=== PATIENT | female | born 1940 | race Caucasian/White ===

== ENCOUNTER 2020-01-26 08:44 | Outpatient (REF) | payer MEDICARE, MEDICAID, SELFPAY ==
[2020-01-26 13:00] LABS: INTERNATIONAL NORM RATIO 4.8 (0.9-1.1); Prothrombin Time 57.6 SEC (10.8-13.0)
== END 2020-01-26 08:45 | disposition home or self-care (01) ==
LOC: HO.LHD 08:44
PROVIDERS: Visit Provider Internal Medicine
DX: I48.20 Chronic atrial fibrillation, unspecified (principal); Z79.01 Long term (current) use of anticoagulants
CPT/HCPCS: 36415; 85610

== ENCOUNTER 2020-01-29 02:43 | Outpatient (REF) | payer MEDICARE, MEDICAID, SELFPAY ==
[2020-01-29 11:34] LABS: INTERNATIONAL NORM RATIO 1.3 (0.9-1.1); Prothrombin Time 15.3 SEC (10.8-13.0)
== END 2020-01-29 02:44 | disposition home or self-care (01) ==
LOC: HO.LHD 02:43
PROVIDERS: Visit Provider Internal Medicine
DX: I48.20 Chronic atrial fibrillation, unspecified (principal); Z79.01 Long term (current) use of anticoagulants
CPT/HCPCS: 36415; 85610

== ENCOUNTER 2020-02-01 06:31 | Outpatient (REF) | payer MEDICARE, MEDICAID, SELFPAY ==
[2020-02-01 11:10] LABS: INTERNATIONAL NORM RATIO 3.2 (0.9-1.1)
== END 2020-02-01 06:32 | disposition home or self-care (01) ==
LOC: HO.LHD 06:31
PROVIDERS: Visit Provider Family Medicine
DX: I48.20 Chronic atrial fibrillation, unspecified (principal); Z79.01 Long term (current) use of anticoagulants
CPT/HCPCS: 36415; 85610

== ENCOUNTER 2020-02-05 04:05 | Outpatient (REF) | payer MEDICARE, MEDICAID, SELFPAY ==
[2020-02-05 11:23] LABS: INTERNATIONAL NORM RATIO 2.1 (0.9-1.1); Prothrombin Time 24.8 SEC (10.8-13.0)
== END 2020-02-05 04:06 | disposition home or self-care (01) ==
LOC: HO.LHD 04:05
PROVIDERS: Visit Provider Internal Medicine
DX: I48.20 Chronic atrial fibrillation, unspecified (principal); Z79.01 Long term (current) use of anticoagulants
CPT/HCPCS: 36415; 85610

== ENCOUNTER 2020-02-15 06:52 | Outpatient (REF) | payer MEDICARE, MEDICAID, SELFPAY ==
[2020-02-15 10:51] LABS: INTERNATIONAL NORM RATIO 4.2 (0.9-1.1); Prothrombin Time 50.6 SEC (10.8-13.0)
== END 2020-02-15 06:53 | disposition home or self-care (01) ==
LOC: HO.LHD 06:52
PROVIDERS: Visit Provider Internal Medicine
DX: I48.91 Unspecified atrial fibrillation (principal)
CPT/HCPCS: 36415; 85610

== ENCOUNTER 2020-02-17 07:03 | Outpatient (REF) | payer MEDICARE, MEDICAID, SELFPAY ==
[2020-02-17 11:09] LABS: INTERNATIONAL NORM RATIO 1.1 (0.9-1.1); Prothrombin Time 13.4 SEC (10.8-13.0)
== END 2020-02-17 07:04 | disposition home or self-care (01) ==
LOC: HO.LHD 07:03
PROVIDERS: Visit Provider Internal Medicine
DX: I48.20 Chronic atrial fibrillation, unspecified (principal); Z79.01 Long term (current) use of anticoagulants
CPT/HCPCS: 36415; 85610

== ENCOUNTER 2020-02-22 | Outpatient (REF) | payer MEDICARE, MEDICAID, SELFPAY ==
[2020-02-22 11:01] LABS: INTERNATIONAL NORM RATIO 1.2 (0.9-1.1)
== END 2020-02-22 00:01 | disposition home or self-care (01) ==
LOC: HO.LHD
PROVIDERS: Visit Provider Internal Medicine
DX: I48.20 Chronic atrial fibrillation, unspecified (principal); Z79.01 Long term (current) use of anticoagulants
CPT/HCPCS: 36415; 85610

== ENCOUNTER 2020-02-25 05:16 | Outpatient (REF) | payer MEDICARE, MEDICAID, SELFPAY ==
[2020-02-25 10:17] LABS: INTERNATIONAL NORM RATIO 1.5 (0.9-1.1); Prothrombin Time 17.6 SEC (10.8-13.0)
== END 2020-02-25 05:17 | disposition home or self-care (01) ==
LOC: HO.LHD 05:16
PROVIDERS: Visit Provider Internal Medicine
DX: I48.20 Chronic atrial fibrillation, unspecified (principal); Z79.01 Long term (current) use of anticoagulants
CPT/HCPCS: 36415; 85610

== ENCOUNTER 2020-03-01 06:11 | Outpatient (REF) | payer MEDICARE, MEDICAID, SELFPAY ==
[2020-03-01 10:50] LABS: INTERNATIONAL NORM RATIO 1.4 (0.9-1.1); Prothrombin Time 17.2 SEC (10.8-13.0)
== END 2020-03-01 06:12 | disposition home or self-care (01) ==
LOC: HO.LHD 06:11
PROVIDERS: Visit Provider Internal Medicine
DX: I48.20 Chronic atrial fibrillation, unspecified (principal); Z79.01 Long term (current) use of anticoagulants
CPT/HCPCS: 36415; 85610

== ENCOUNTER 2020-03-04 | Outpatient (REF) | payer MEDICARE, MEDICAID, SELFPAY ==
[2020-03-04 11:15] LABS: INTERNATIONAL NORM RATIO 2.6 (0.9-1.1); Prothrombin Time 30.8 SEC (10.8-13.0)
[2020-03-04 11:44] LABS: Anion Gap 14 (12-20); Blood Urea Nitrogen 18 mg/dL (9-16); Calcium 8.9 mg/dL (8.4-10.2); Carbon Dioxide 29 mmol/L (22-29); Chloride 99 mmol/L (96-108); Estimated Glomerular Filt Rate > 60; Glucose Random 84 mg/dL (60-115); Potassium 4.3 mmol/l (3.3-5.1); Sodium 138 mmol/L (135-145)
== END 2020-03-04 00:01 | disposition home or self-care (01) ==
LOC: HO.LHD
PROVIDERS: Visit Provider Internal Medicine
DX: I48.91 Unspecified atrial fibrillation (principal); Z79.01 Long term (current) use of anticoagulants
CPT/HCPCS: 36415; 80048; 85610

== ENCOUNTER 2020-03-14 | Outpatient (REF) | payer MEDICARE, MEDICAID, SELFPAY ==
[2020-03-14 11:43] LABS: INTERNATIONAL NORM RATIO 2.8 (0.9-1.1); Prothrombin Time 33.9 SEC (10.8-13.0)
== END 2020-03-14 00:01 | disposition home or self-care (01) ==
LOC: HO.LHD
PROVIDERS: Visit Provider Internal Medicine
DX: I48.91 Unspecified atrial fibrillation (principal); Z79.01 Long term (current) use of anticoagulants
CPT/HCPCS: 36415; 85610

== ENCOUNTER 2020-04-04 | Outpatient (REF) | payer MEDICARE, MEDICAID, SELFPAY ==
[2020-04-04 11:18] LABS: INTERNATIONAL NORM RATIO 3.8 (0.9-1.1); Prothrombin Time 45.2 SEC (10.8-13.0)
== END 2020-04-04 00:01 ==
LOC: HO.LHD
PROVIDERS: Visit Provider Internal Medicine
DX: I48.20 Chronic atrial fibrillation, unspecified (principal); Z79.01 Long term (current) use of anticoagulants
CPT/HCPCS: 36415; 85610

== ENCOUNTER 2020-04-07 | Outpatient (REF) | payer MEDICARE, MEDICAID, SELFPAY ==
[2020-04-07 10:28] LABS: INTERNATIONAL NORM RATIO 1.7 (0.9-1.1); Prothrombin Time 19.7 SEC (10.8-13.0)
== END 2020-04-07 00:01 | disposition home or self-care (01) ==
LOC: HO.LHD
PROVIDERS: Visit Provider Internal Medicine
DX: I48.20 Chronic atrial fibrillation, unspecified (principal); Z79.01 Long term (current) use of anticoagulants
CPT/HCPCS: 36415; 85610

== ENCOUNTER 2020-04-12 08:29 | Outpatient (REF) | payer MEDICARE, MEDICAID, SELFPAY ==
[2020-04-12 12:11] LABS: INTERNATIONAL NORM RATIO 1.2 (0.9-1.1); Prothrombin Time 13.7 SEC (10.8-13.0)
== END 2020-04-12 08:30 | disposition home or self-care (01) ==
LOC: HO.LHD 08:29
PROVIDERS: Visit Provider Internal Medicine
DX: I48.20 Chronic atrial fibrillation, unspecified (principal); Z79.01 Long term (current) use of anticoagulants
CPT/HCPCS: 36415; 85610

== ENCOUNTER 2020-04-19 05:31 | Outpatient (REF) | payer MEDICARE, MEDICAID, SELFPAY ==
[2020-04-19 10:27] LABS: INTERNATIONAL NORM RATIO 1.3 (0.9-1.1); Prothrombin Time 15.3 SEC (10.8-13.0)
== END 2020-04-19 05:32 | disposition home or self-care (01) ==
LOC: HO.LHD 05:31
PROVIDERS: Visit Provider Internal Medicine
DX: I48.20 Chronic atrial fibrillation, unspecified (principal); Z79.01 Long term (current) use of anticoagulants
CPT/HCPCS: 36415; 85610

== ENCOUNTER 2020-04-25 | Outpatient (REF) | payer MEDICARE, MEDICAID, SELFPAY ==
[2020-04-25 11:22] LABS: INTERNATIONAL NORM RATIO 2.2 (0.9-1.1); Prothrombin Time 26.4 SEC (10.8-13.0)
== END 2020-04-25 00:01 ==
LOC: HO.LHD
PROVIDERS: Visit Provider Internal Medicine
DX: I48.20 Chronic atrial fibrillation, unspecified (principal); Z79.01 Long term (current) use of anticoagulants
CPT/HCPCS: 36415; 85610

== ENCOUNTER → 2020-04-26 13:13 | Outpatient (BNVA) | payer MEDICARE, MEDICAID, SELFPAY | PROVIDERS: Visit Provider Student in an Organized Health Care Education/Training Program | DX: Z13.89 Encounter for screening for other disorder (principal) | CPT/HCPCS: Q3014 ==

== ENCOUNTER 2020-05-03 06:35 | Outpatient (REF) | payer MEDICARE, MEDICAID, SELFPAY ==
[2020-05-03 10:31] LABS: INTERNATIONAL NORM RATIO 3.5 (0.9-1.1); Prothrombin Time 42.5 SEC (10.8-13.0)
== END 2020-05-03 06:36 | disposition home or self-care (01) ==
LOC: HO.LHD 06:35
PROVIDERS: Visit Provider Internal Medicine
DX: I48.91 Unspecified atrial fibrillation (principal); Z79.01 Long term (current) use of anticoagulants
CPT/HCPCS: 36415; 85610

== ENCOUNTER 2020-05-05 05:17 | Outpatient (REF) | payer MEDICARE, MEDICAID, SELFPAY ==
[2020-05-05 11:18] LABS: MANUAL DIFF FLAG NO
[2020-05-05 11:22] LABS: Basophils Absolute Auto 0.1 X10*3/uL (0.0-0.2); Basophils Percent Auto 0.6 % (0-2); Eosinophils Absolute Auto 0.7 X10*3/uL (0.0-0.4); Eosinophils Percent Auto 6.5 % (0-4); Hematocrit 41.8 % (37-47); Hemoglobin 13.7 g/dl (12.0-16.0); Imm Gran Abs Auto 0.03 X10*3/uL (0.00-0.03); Imm Gran Pct Auto 0.3 % (0.0-0.4); Lymphocytes Absolute Auto 0.9 X10*3/uL (1.2-4.9); Lymphocytes Percent Auto 8.2 % (20-40); Mean Corpuscular HGB Conc 32.8 g/dl (31.0-35.0); Mean Corpuscular Hemoglobin 34.5 pg (27.0-33.0); Mean Corpuscular Volume 105.3 fL (80-98); Mean Platelet Volume 10.7 fL (9.4-12.3); Monocytes Absolute Auto 1.1 X10*3/uL (0.1-1.2); Monocytes Percent Auto 10.2 % (2-11); Neutrophils Percent Auto 74.2 % (45-73); Platelet Count 238 X10*3/uL (160-400); Red Blood Count 3.97 X10*6/uL (4.20-5.50); Red Cell Distribution Width 13.1 % (11.0-16.0); White Blood Count 10.8 X10*3/uL (4.8-10.8)
[2020-05-05 11:27] LABS: INTERNATIONAL NORM RATIO 1.3 (0.9-1.1)
[2020-05-05 11:47] LABS: Alanine Aminotransferase 33 U/L (0-31); Albumin Level 4.6 g/dL (3.5-5.0); Alkaline Phosphatase 95 U/L (39-117); Anion Gap 14 (12-20); Aspartate Amino Transferase 37 U/L (5-31); Bilirubin Total 0.5 mg/dL (0.0-1.0); Blood Urea Nitrogen 17 mg/dL (9-16); C Reactive Protein 0.13 mg/dL (< or = 0.50); Calcium 9.8 mg/dL (8.4-10.2); Carbon Dioxide 31 mmol/L (22-29); Chloride 97 mmol/L (96-108); Estimated Glomerular Filt Rate > 60; Glucose Random 83 mg/dL (60-115); Sodium 138 mmol/L (135-145); Total Protein 7.6 g/dL (6.5-8.0)
[2020-05-05 13:24] LABS: Erythrocyte Sedimentation Rate 56 MM/HR (0-20)
[2020-05-09 17:58] LABS: Vitamin D 25-OH, D2 <4 ng/mL; Vitamin D 25-OH, D3 62 ng/mL; Vitamin D 25-OH, Total 62 ng/mL (30-100)
== END 2020-05-05 05:18 | disposition home or self-care (01) ==
LOC: HO.LHD 05:17
PROVIDERS: Student in an Organized Health Care Education/Training Program; Visit Provider Internal Medicine
DX: M05.9 Rheumatoid arthritis with rheumatoid factor, unspecified (principal); I48.20 Chronic atrial fibrillation, unspecified; Z79.01 Long term (current) use of anticoagulants
CPT/HCPCS: 36415; 80053; 82306; 85025; 85610; 85652; 86140

== ENCOUNTER 2020-05-09 | Outpatient (REF) | payer MEDICARE, MEDICAID, SELFPAY ==
[2020-05-09 11:21] LABS: INTERNATIONAL NORM RATIO 1.2 (0.9-1.1); Prothrombin Time 14.2 SEC (10.8-13.0)
== END 2020-05-09 00:01 | disposition home or self-care (01) ==
LOC: HO.LHD
PROVIDERS: Visit Provider Internal Medicine
DX: I48.20 Chronic atrial fibrillation, unspecified (principal); Z79.01 Long term (current) use of anticoagulants
CPT/HCPCS: 36415; 85610

== ENCOUNTER 2020-05-16 13:25 | Outpatient (REF) | payer MEDICARE, MEDICAID, SELFPAY ==
[2020-05-16 10:52] LABS: MANUAL DIFF FLAG NO
[2020-05-16 10:57] LABS: Basophils Absolute Auto 0.1 X10*3/uL (0.0-0.2); Basophils Percent Auto 0.9 % (0-2); Eosinophils Absolute Auto 0.6 X10*3/uL (0.0-0.4); Hematocrit 39.3 % (37-47); Imm Gran Abs Auto 0.02 X10*3/uL (0.00-0.03); Imm Gran Pct Auto 0.4 % (0.0-0.4); Lymphocytes Absolute Auto 0.9 X10*3/uL (1.2-4.9); Lymphocytes Percent Auto 15.5 % (20-40); Mean Corpuscular HGB Conc 33.1 g/dl (31.0-35.0); Mean Corpuscular Hemoglobin 34.9 pg (27.0-33.0); Mean Corpuscular Volume 105.4 fL (80-98); Mean Platelet Volume 10.5 fL (9.4-12.3); Monocytes Absolute Auto 0.6 X10*3/uL (0.1-1.2); Neutrophils Absolute Auto 3.6 X10*3/uL (2.0-8.3); Neutrophils Percent Auto 63.2 % (45-73); Platelet Count 208 X10*3/uL (160-400); Red Blood Count 3.73 X10*6/uL (4.20-5.50); Red Cell Distribution Width 13.3 % (11.0-16.0); White Blood Count 5.6 X10*3/uL (4.8-10.8)
[2020-05-16 11:02] LABS: INTERNATIONAL NORM RATIO 4.4 (0.9-1.1); Prothrombin Time 53.5 SEC (10.8-13.0)
[2020-05-16 11:24] LABS: Alanine Aminotransferase 46 U/L (0-31); Albumin Level 4.3 g/dL (3.5-5.0); Alkaline Phosphatase 77 U/L (39-117); Anion Gap 12 (12-20); Aspartate Amino Transferase 48 U/L (5-31); Bilirubin Total 0.8 mg/dL (0.0-1.0); Blood Urea Nitrogen 21 mg/dL (9-16); Calcium 9.5 mg/dL (8.4-10.2); Carbon Dioxide 34 mmol/L (22-29); Chloride 98 mmol/L (96-108); Estimated Glomerular Filt Rate 54; Glucose Random 142 mg/dL (60-115); Potassium 4.7 mmol/L (3.3-5.1); Sodium 139 mmol/L (135-145)
== END 2020-05-16 13:26 | disposition home or self-care (01) ==
LOC: HO.LHD 13:25
PROVIDERS: Student in an Organized Health Care Education/Training Program; Visit Provider Internal Medicine
DX: I48.20 Chronic atrial fibrillation, unspecified (principal); Z79.01 Long term (current) use of anticoagulants
CPT/HCPCS: 36415; 80053; 85025; 85610

== ENCOUNTER → 2020-05-17 10:49 | Outpatient (BNVA) | payer MEDICARE, MEDICAID, SELFPAY | PROVIDERS: PCP Internal Medicine; Visit Provider Student in an Organized Health Care Education/Training Program | DX: M05.9 Rheumatoid arthritis with rheumatoid factor, unspecified (principal); M81.8 Other osteoporosis without current pathological fracture | CPT/HCPCS: Q3014 ==

== ENCOUNTER 2020-05-20 13:55 | Outpatient (REF) | payer MEDICARE, MEDICAID, SELFPAY ==
[2020-05-20 10:58] LABS: INTERNATIONAL NORM RATIO 2.4 (0.9-1.1); Prothrombin Time 28.8 SEC (10.8-13.0)
== END 2020-05-20 13:56 | disposition home or self-care (01) ==
LOC: HO.LHD 13:55
PROVIDERS: Visit Provider Internal Medicine
DX: I48.20 Chronic atrial fibrillation, unspecified (principal); Z79.01 Long term (current) use of anticoagulants
CPT/HCPCS: 36415; 85610

== ENCOUNTER 2020-05-30 07:14 | Outpatient (REF) | payer MEDICARE, MEDICAID, SELFPAY ==
[2020-05-30 10:52] LABS: Prothrombin Time 131.3 SEC (10.8-13.0)
[2020-05-30 11:06] LABS: INTERNATIONAL NORM RATIO 10.8 (0.9-1.1)
== END 2020-05-30 07:15 | disposition home or self-care (01) ==
LOC: HO.LHD 07:14
PROVIDERS: Visit Provider Internal Medicine
DX: I48.20 Chronic atrial fibrillation, unspecified (principal); Z79.01 Long term (current) use of anticoagulants
CPT/HCPCS: 36415; 85610

== ENCOUNTER 2020-06-01 05:23 | Outpatient (REF) | payer MEDICARE, MEDICAID, SELFPAY ==
[2020-06-01 11:28] LABS: INTERNATIONAL NORM RATIO 3.5 (0.9-1.1); Prothrombin Time 42.7 SEC (10.8-13.0)
== END 2020-06-01 05:24 | disposition home or self-care (01) ==
LOC: HO.LHD 05:23
PROVIDERS: Visit Provider Internal Medicine
DX: I48.20 Chronic atrial fibrillation, unspecified (principal); Z79.01 Long term (current) use of anticoagulants
CPT/HCPCS: 36415; 85610

== ENCOUNTER 2020-06-07 03:35 | Outpatient (REF) | payer MEDICARE, MEDICAID, SELFPAY ==
[2020-06-07 10:15] LABS: INTERNATIONAL NORM RATIO 2.4 (0.9-1.1); Prothrombin Time 29.3 SEC (10.8-13.0)
== END 2020-06-07 03:36 | disposition home or self-care (01) ==
LOC: HO.LHD 03:35
PROVIDERS: Visit Provider Internal Medicine
DX: I48.20 Chronic atrial fibrillation, unspecified (principal); Z79.01 Long term (current) use of anticoagulants
CPT/HCPCS: 36415; 85610

== ENCOUNTER 2020-06-14 05:47 | Outpatient (REF) | payer MEDICARE, MEDICAID, SELFPAY | END 2020-06-14 05:48 | disposition home or self-care (01) | LOC: HO.LHD 05:47 | PROVIDERS: Visit Provider Internal Medicine | DX: I48.91 Unspecified atrial fibrillation (principal) | CPT/HCPCS: 36415; 85610 ==

== ENCOUNTER 2020-06-20 06:34 | Outpatient (REF) | payer MEDICARE, MEDICAID, SELFPAY ==
[2020-06-20 10:27] LABS: MANUAL DIFF FLAG NO
[2020-06-20 10:30] LABS: Basophils Absolute Auto 0.1 X10*3/uL (0.0-0.2); Basophils Percent Auto 0.9 % (0-2); Eosinophils Absolute Auto 0.6 X10*3/uL (0.0-0.4); Eosinophils Percent Auto 6.4 % (0-4); Hemoglobin 14.7 g/dl (12.0-16.0); Imm Gran Abs Auto 0.04 X10*3/uL (0.00-0.03); Imm Gran Pct Auto 0.4 % (0.0-0.4); Lymphocytes Absolute Auto 1.9 X10*3/uL (1.2-4.9); Lymphocytes Percent Auto 21.1 % (20-40); Mean Corpuscular HGB Conc 32.7 g/dl (31.0-35.0); Mean Corpuscular Hemoglobin 34.9 pg (27.0-33.0); Mean Corpuscular Volume 106.9 fL (80-98); Mean Platelet Volume 10.8 fL (9.4-12.3); Monocytes Absolute Auto 1.2 X10*3/uL (0.1-1.2); Monocytes Percent Auto 13.8 % (2-11); Neutrophils Absolute Auto 5.1 X10*3/uL (2.0-8.3); Neutrophils Percent Auto 57.4 % (45-73); Platelet Count 185 X10*3/uL (160-400); Red Blood Count 4.21 X10*6/uL (4.20-5.50); Red Cell Distribution Width 14.6 % (11.0-16.0); White Blood Count 8.9 X10*3/uL (4.8-10.8)
[2020-06-20 10:40] LABS: INTERNATIONAL NORM RATIO 4.6 (0.9-1.1); Prothrombin Time 55.9 SEC (10.8-13.0)
[2020-06-20 11:17] LABS: Alanine Aminotransferase 45 U/L (0-31); Alkaline Phosphatase 71 U/L (39-117); Anion Gap 20 (12-20); Aspartate Amino Transferase 61 U/L (5-31); Bilirubin Total 0.7 mg/dL (0.0-1.0); Blood Urea Nitrogen 23 mg/dL (9-16); C Reactive Protein 0.02 mg/dL (< or = 0.50); Calcium 9.5 mg/dL (8.4-10.2); Carbon Dioxide 22 mmol/L (22-29); Chloride 99 mmol/L (96-108); Cholesterol 181 mg/dL; Estimated Glomerular Filt Rate 57; Glucose Random 95 mg/dL (60-115); HDL Cholesterol 90 mg/dL; LDL Cholesterol Calculated 69 mg/dl; Sodium 136 mmol/L (135-145); Total Protein 7.9 g/dL (6.5-8.0); Triglycerides 113 mg/dL
[2020-06-20 11:34] LABS: Vitamin D 25-OH Total 53.4 ng/mL (>30)
[2020-06-20 11:58] LABS: Erythrocyte Sedimentation Rate 6 MM/HR (0-20)
[2020-06-20 13:35] LABS: Reflex LDLD? No
== END 2020-06-20 06:35 | disposition home or self-care (01) ==
LOC: HO.LHD 06:34
PROVIDERS: Student in an Organized Health Care Education/Training Program; Visit Provider Internal Medicine
DX: M05.9 Rheumatoid arthritis with rheumatoid factor, unspecified (principal)
CPT/HCPCS: 36415; 80053; 80061; 82306; 85025; 85610; 85652; 86140

== ENCOUNTER 2020-06-23 08:30 | Outpatient (REF) | payer MEDICARE, MEDICAID, SELFPAY ==
[2020-06-23 11:01] LABS: INTERNATIONAL NORM RATIO 1.9 (0.9-1.1); Prothrombin Time 22.8 SEC (10.8-13.0)
== END 2020-06-23 08:31 | disposition home or self-care (01) ==
LOC: HO.LHD 08:30
PROVIDERS: Visit Provider Internal Medicine
DX: I48.19 Other persistent atrial fibrillation (principal); Z79.01 Long term (current) use of anticoagulants
CPT/HCPCS: 36415; 85610

== ENCOUNTER 2020-06-28 06:48 | Outpatient (REF) | payer MEDICARE, MEDICAID, SELFPAY | END 2020-06-28 06:49 | disposition home or self-care (01) | LOC: HO.LHD 06:48 | PROVIDERS: Visit Provider Family Medicine | DX: I48.19 Other persistent atrial fibrillation (principal); Z79.01 Long term (current) use of anticoagulants | CPT/HCPCS: 36415; 85610 ==

== ENCOUNTER 2020-07-06 07:12 | Outpatient (REF) | payer MEDICARE, MEDICAID, SELFPAY ==
[2020-07-06 12:30] LABS: INTERNATIONAL NORM RATIO 3.4 (0.9-1.1); Prothrombin Time 41.4 SEC (10.8-13.0)
== END 2020-07-06 07:13 | disposition home or self-care (01) ==
LOC: HO.LHD 07:12
PROVIDERS: Visit Provider Internal Medicine
DX: I48.19 Other persistent atrial fibrillation (principal); Z79.01 Long term (current) use of anticoagulants
CPT/HCPCS: 36415; 85610

== ENCOUNTER 2020-07-07 08:08 | Outpatient (REF) | payer MEDICARE, MEDICAID, SELFPAY ==
[2020-07-07 11:59] LABS: INTERNATIONAL NORM RATIO 2.4 (0.9-1.1); Prothrombin Time 28.3 SEC (10.8-13.0)
== END 2020-07-07 08:09 | disposition home or self-care (01) ==
LOC: HO.LHD 08:08
PROVIDERS: Visit Provider Internal Medicine
DX: I48.19 Other persistent atrial fibrillation (principal); Z79.01 Long term (current) use of anticoagulants
CPT/HCPCS: 36415; 85610

== ENCOUNTER 2020-07-14 07:09 | Outpatient (REF) | payer MEDICARE, MEDICAID, SELFPAY ==
[2020-07-14 11:44] LABS: INTERNATIONAL NORM RATIO 3.9 (0.9-1.1); Prothrombin Time 47.3 SEC (10.8-13.0)
== END 2020-07-14 07:10 | disposition home or self-care (01) ==
LOC: HO.LHD 07:09
PROVIDERS: Visit Provider Internal Medicine
DX: I48.19 Other persistent atrial fibrillation (principal); Z79.01 Long term (current) use of anticoagulants
CPT/HCPCS: 36415; 85610

== ENCOUNTER 2020-07-19 04:26 | Outpatient (REF) | payer MEDICARE, MEDICAID, SELFPAY ==
[2020-07-19 10:20] LABS: INTERNATIONAL NORM RATIO 1.5 (0.9-1.1); Prothrombin Time 17.8 SEC (10.8-13.0)
== END 2020-07-19 04:27 | disposition home or self-care (01) ==
LOC: HO.LHD 04:26
PROVIDERS: Visit Provider Family Medicine
DX: I48.19 Other persistent atrial fibrillation (principal); Z79.01 Long term (current) use of anticoagulants
CPT/HCPCS: 36415; 85610

== ENCOUNTER 2020-07-25 00:43 | Outpatient (REF) | payer MEDICARE, MEDICAID, SELFPAY ==
[2020-07-25 10:26] LABS: INTERNATIONAL NORM RATIO 2.3 (0.9-1.1); Prothrombin Time 27.3 SEC (10.8-13.0)
== END 2020-07-25 00:44 | disposition home or self-care (01) ==
LOC: HO.LHD 00:43
PROVIDERS: Visit Provider Internal Medicine
DX: I48.19 Other persistent atrial fibrillation (principal); Z79.01 Long term (current) use of anticoagulants
CPT/HCPCS: 36415; 85610

== ENCOUNTER 2020-08-01 08:24 | Outpatient (REF) | payer MEDICARE, MEDICAID, SELFPAY ==
[2020-08-01 11:23] LABS: Prothrombin Time 61.6 SEC (10.8-13.0)
[2020-08-01 11:32] LABS: INTERNATIONAL NORM RATIO 5.1 (0.9-1.1)
== END 2020-08-01 08:25 | disposition home or self-care (01) ==
LOC: HO.LHD 08:24
PROVIDERS: Visit Provider Internal Medicine
DX: I48.19 Other persistent atrial fibrillation (principal); Z79.01 Long term (current) use of anticoagulants
CPT/HCPCS: 36415; 85610

== ENCOUNTER 2020-08-03 01:25 | Outpatient (REF) | payer MEDICARE, MEDICAID, SELFPAY ==
[2020-08-03 10:46] LABS: INTERNATIONAL NORM RATIO 2.5 (0.9-1.1); Prothrombin Time 29.5 SEC (10.8-13.0)
== END 2020-08-03 01:26 | disposition home or self-care (01) ==
LOC: HO.LHD 01:25
PROVIDERS: Visit Provider Internal Medicine
DX: I48.19 Other persistent atrial fibrillation (principal); Z79.01 Long term (current) use of anticoagulants
CPT/HCPCS: 36415; 85610

== ENCOUNTER 2020-08-10 00:19 | Outpatient (REF) | payer MEDICARE, MEDICAID, SELFPAY ==
[2020-08-10 10:59] LABS: INTERNATIONAL NORM RATIO 3.2 (0.9-1.1); Prothrombin Time 38.1 SEC (10.8-13.0)
== END 2020-08-10 00:20 | disposition home or self-care (01) ==
LOC: HO.LHD 00:19
PROVIDERS: Visit Provider Internal Medicine
DX: I48.19 Other persistent atrial fibrillation (principal); Z79.01 Long term (current) use of anticoagulants
CPT/HCPCS: 36415; 85610

== ENCOUNTER 2020-08-18 00:55 | Outpatient (REF) | payer MEDICARE, MEDICAID, SELFPAY ==
[2020-08-18 11:22] LABS: INTERNATIONAL NORM RATIO 2.9 (0.9-1.1); Prothrombin Time 34.6 SEC (10.8-13.0)
== END 2020-08-18 00:56 | disposition home or self-care (01) ==
LOC: HO.LHD 00:55
PROVIDERS: Visit Provider Internal Medicine
DX: I48.19 Other persistent atrial fibrillation (principal); Z79.01 Long term (current) use of anticoagulants
CPT/HCPCS: 36415; 85610

== ENCOUNTER 2020-08-25 00:24 | Outpatient (REF) | payer MEDICARE, MEDICAID, SELFPAY ==
[2020-08-25 11:44] LABS: INTERNATIONAL NORM RATIO 3.1 (0.9-1.1); Prothrombin Time 37.6 SEC (10.8-13.0)
[2020-08-25 12:20] LABS: Free T4 (Free Thyroxine) 1.26 ng/dL (0.71-1.85); Thyroid Stimulating Hormone 1.35 uIU/mL (0.32-4.0)
[2020-08-26 11:32] LABS: Thyroid Peroxidase Antibodies <1 IU/mL (<9)
== END 2020-08-25 00:25 | disposition home or self-care (01) ==
LOC: HO.LHD 00:24
PROVIDERS: Visit Provider Internal Medicine
DX: E03.9 Hypothyroidism, unspecified (principal); I48.19 Other persistent atrial fibrillation; Z79.01 Long term (current) use of anticoagulants
CPT/HCPCS: 36415; 84439; 84443; 85610; 86376

== ENCOUNTER 2020-09-01 00:21 | Outpatient (REF) | payer MEDICARE, MEDICAID, SELFPAY ==
[2020-09-01 12:32] LABS: INTERNATIONAL NORM RATIO 3.7 (0.9-1.1); Prothrombin Time 44.1 SEC (10.8-13.0)
== END 2020-09-01 00:22 | disposition home or self-care (01) ==
LOC: HO.LHD 00:21
PROVIDERS: Visit Provider Internal Medicine
DX: I48.19 Other persistent atrial fibrillation (principal); Z79.01 Long term (current) use of anticoagulants
CPT/HCPCS: 36415; 85610

== ENCOUNTER 2020-09-08 01:20 | Outpatient (REF) | payer MEDICARE, MEDICAID, SELFPAY ==
[2020-09-08 11:36] LABS: INTERNATIONAL NORM RATIO 2.8 (0.9-1.1); Prothrombin Time 34.2 SEC (10.8-13.0)
== END 2020-09-08 01:21 | disposition home or self-care (01) ==
LOC: HO.LHD 01:20
PROVIDERS: Visit Provider Internal Medicine
DX: I48.19 Other persistent atrial fibrillation (principal); Z79.01 Long term (current) use of anticoagulants
CPT/HCPCS: 36415; 85610

== ENCOUNTER 2020-09-21 07:44 | Outpatient (REF) | payer MEDICARE, MEDICAID, SELFPAY ==
[2020-09-21 10:39] LABS: INTERNATIONAL NORM RATIO 2.8 (0.9-1.1); Prothrombin Time 33.6 SEC (10.8-13.0)
== END 2020-09-21 07:45 | disposition home or self-care (01) ==
LOC: HO.LHD 07:44
PROVIDERS: Visit Provider Internal Medicine
DX: I48.19 Other persistent atrial fibrillation (principal); Z79.01 Long term (current) use of anticoagulants
CPT/HCPCS: 36415; 85610

== ENCOUNTER → 2020-10-06 15:14 | Outpatient (BNVA) | payer MEDICARE, MEDICAID, SELFPAY | PROVIDERS: Visit Provider Student in an Organized Health Care Education/Training Program | DX: M05.9 Rheumatoid arthritis with rheumatoid factor, unspecified (principal); M81.0 Age-related osteoporosis without current pathological fracture; I48.19 Other persistent atrial fibrillation; E03.9 Hypothyroidism, unspecified; Z90.722 Acquired absence of ovaries, bilateral; Z88.6 Allergy status to analgesic agent; Z79.52 Long term (current) use of systemic steroids; Z79.01 Long term (current) use of anticoagulants; Z79.899 Other long term (current) drug therapy | CPT/HCPCS: 99212 ==

== ENCOUNTER 2020-10-12 01:10 | Outpatient (REF) | payer MEDICARE, MEDICAID, SELFPAY ==
[2020-10-12 10:42] LABS: INTERNATIONAL NORM RATIO 3.1 (0.9-1.1); Prothrombin Time 37.8 SEC (10.8-13.0)
== END 2020-10-12 01:11 | disposition home or self-care (01) ==
LOC: HO.LHD 01:10
PROVIDERS: Visit Provider Internal Medicine
DX: I48.19 Other persistent atrial fibrillation (principal); Z79.01 Long term (current) use of anticoagulants
CPT/HCPCS: 36415; 85610

== ENCOUNTER 2020-10-21 | Outpatient (REF) | payer MEDICARE, MEDICAID, SELFPAY ==
[2020-10-21 10:28] LABS: MANUAL DIFF FLAG NO
[2020-10-21 10:38] LABS: Basophils Absolute Auto 0.1 X10*3/uL (0.0-0.2); Eosinophils Absolute Auto 0.7 X10*3/uL (0.0-0.4); Eosinophils Percent Auto 11.2 % (0-4); Hematocrit 40.3 % (37-47); Hemoglobin 13.4 g/dl (12.0-16.0); Imm Gran Abs Auto 0.01 X10*3/uL (0.00-0.03); Imm Gran Pct Auto 0.2 % (0.0-0.4); Lymphocytes Absolute Auto 1.5 X10*3/uL (1.2-4.9); Lymphocytes Percent Auto 24.5 % (20-40); Mean Corpuscular HGB Conc 33.3 g/dl (31.0-35.0); Mean Corpuscular Hemoglobin 35.4 pg (27.0-33.0); Mean Corpuscular Volume 106.3 fL (80-98); Mean Platelet Volume 10.8 fL (9.4-12.3); Monocytes Absolute Auto 0.9 X10*3/uL (0.1-1.2); Monocytes Percent Auto 15.9 % (2-11); Neutrophils Absolute Auto 2.8 X10*3/uL (2.0-8.3); Neutrophils Percent Auto 47.2 % (45-73); Platelet Count 177 X10*3/uL (160-400); Red Blood Count 3.79 X10*6/uL (4.20-5.50); Red Cell Distribution Width 13.7 % (11.0-16.0); White Blood Count 5.9 X10*3/uL (4.8-10.8)
[2020-10-21 10:49] LABS: INTERNATIONAL NORM RATIO 2.4 (0.9-1.1)
[2020-10-21 11:21] LABS: Alanine Aminotransferase 26 U/L (0-31); Albumin Level 4.6 g/dL (3.5-5.0); Alkaline Phosphatase 43 U/L (39-117); Anion Gap 16 (12-20); Aspartate Amino Transferase 34 U/L (5-31); Bilirubin Total 0.7 mg/dL (0.0-1.0); Blood Urea Nitrogen 21 mg/dL (9-16); C Reactive Protein 0.02 mg/dL (< or = 0.50); Calcium 9.5 mg/dL (8.4-10.2); Carbon Dioxide 25 mmol/L (22-29); Chloride 101 mmol/L (96-108); Estimated Glomerular Filt Rate 54; Glucose Random 111 mg/dL (60-115); Sodium 138 mmol/L (135-145)
[2020-10-21 11:25] LABS: Cholesterol 146 mg/dL; HDL Cholesterol 71 mg/dL; LDL Cholesterol Calculated 51 mg/dl; Triglycerides 124 mg/dL
[2020-10-21 11:29] LABS: Erythrocyte Sedimentation Rate 5 MM/HR (0-20)
[2020-10-21 11:38] LABS: Vitamin D 25-OH Total 50.4 ng/mL (>30)
== END 2020-10-21 00:01 | disposition home or self-care (01) ==
LOC: HO.10HDLNP
PROVIDERS: Student in an Organized Health Care Education/Training Program; Visit Provider Internal Medicine
DX: M05.9 Rheumatoid arthritis with rheumatoid factor, unspecified (principal); M81.8 Other osteoporosis without current pathological fracture
CPT/HCPCS: 80053; 80061; 82306; 85025; 85610; 85652; 86140

== ENCOUNTER 2020-10-27 | Outpatient (REF) | payer MEDICARE, MEDICAID, SELFPAY ==
[2020-10-27 11:06] LABS: INTERNATIONAL NORM RATIO 3.3 (0.9-1.1); Prothrombin Time 38.9 SEC (9.9-13.0)
== END 2020-10-27 00:01 | disposition home or self-care (01) ==
LOC: HO.LHD
PROVIDERS: Visit Provider Internal Medicine
DX: I48.19 Other persistent atrial fibrillation (principal); Z79.01 Long term (current) use of anticoagulants
CPT/HCPCS: 36415; 85610

== ENCOUNTER 2020-11-01 | Outpatient (REF) | payer MEDICARE, MEDICAID, SELFPAY ==
[2020-11-01 10:24] LABS: INTERNATIONAL NORM RATIO 2.2 (0.9-1.1); Prothrombin Time 25.9 SEC (9.9-13.0)
== END 2020-11-01 00:01 | disposition home or self-care (01) ==
LOC: HO.LHD
PROVIDERS: Visit Provider Internal Medicine
DX: I48.19 Other persistent atrial fibrillation (principal); Z79.01 Long term (current) use of anticoagulants
CPT/HCPCS: 36415; 85610

== ENCOUNTER 2020-11-01 08:19 | Outpatient (REF) | payer MEDICARE, MEDICAID, SELFPAY ==
--- NOTE | ~2020-11-01 | XR_ITS ---
EXAMINATION: XR HIP, RIGHT CLINICAL INFORMATION: Pain COMPARISON: Previous right hip x-ray most recent March 2019 TECHNIQUE: Two views of the right hip and one view of the pelvis. FINDINGS: There is an intramedullary lance and compression/lag screw and single cortical screw in the right proximal femur. There is an old healed right femoral neck fracture that appears unchanged. No acute fracture or dislocation is seen. There is mild arthritis at both hip joints. There are degenerative changes visualized lower lumbar spine and scoliosis. There is evidence of atherosclerotic disease. XR/XR hip RT w PEL1V IMPRESSION: ORIF of right femoral neck fracture similar appearing to previous exams. Mild bilateral arthritis.
== END 2020-11-01 08:20 | disposition home or self-care (01) ==
LOC: HO.HOSX 08:19
PROVIDERS: Visit Provider Orthopaedic Surgery
DX: M25.551 Pain in right hip (principal); M54.16 Radiculopathy, lumbar region; M81.8 Other osteoporosis without current pathological fracture
CPT/HCPCS: 73502; 96372; 99202

== ENCOUNTER 2020-11-09 06:32 | Outpatient (REF) | payer MEDICARE, MEDICAID, SELFPAY ==
[2020-11-09 10:44] LABS: INTERNATIONAL NORM RATIO 2.6 (0.9-1.1); Prothrombin Time 30.7 SEC (9.9-13.0)
== END 2020-11-09 06:33 | disposition home or self-care (01) ==
LOC: HO.LHD 06:32
PROVIDERS: Visit Provider Internal Medicine
DX: I48.19 Other persistent atrial fibrillation (principal); Z79.01 Long term (current) use of anticoagulants
CPT/HCPCS: 36415; 85610

== ENCOUNTER 2020-11-30 07:07 | Outpatient (REF) | payer MEDICARE, MEDICAID, SELFPAY ==
[2020-11-30 11:26] LABS: INTERNATIONAL NORM RATIO 2.4 (0.9-1.1); Prothrombin Time 28.3 SEC (9.9-13.0)
== END 2020-11-30 07:08 | disposition home or self-care (01) ==
LOC: HO.LHD 07:07
PROVIDERS: Visit Provider Internal Medicine
DX: I48.19 Other persistent atrial fibrillation (principal); Z79.01 Long term (current) use of anticoagulants
CPT/HCPCS: 36415; 85610

== ENCOUNTER 2020-12-21 07:01 | Outpatient (REF) | payer MEDICARE, MEDICAID, SELFPAY ==
[2020-12-21 10:40] LABS: INTERNATIONAL NORM RATIO 3.2 (0.9-1.1); Prothrombin Time 37.7 SEC (9.9-13.0)
== END 2020-12-21 07:02 | disposition home or self-care (01) ==
LOC: HO.LHD 07:01
PROVIDERS: Visit Provider Internal Medicine
DX: I48.19 Other persistent atrial fibrillation (principal); Z79.01 Long term (current) use of anticoagulants; M19.90 Unspecified osteoarthritis, unspecified site; M46.1 Sacroiliitis, not elsewhere classified; M81.0 Age-related osteoporosis without current pathological fracture
CPT/HCPCS: 36415; 85610; 99212

== ENCOUNTER 2020-12-28 07:15 | Outpatient (REF) | payer MEDICARE, MEDICAID, SELFPAY ==
[2020-12-28 11:05] LABS: INTERNATIONAL NORM RATIO 1.2 (0.9-1.1); Prothrombin Time 13.9 SEC (9.9-13.0)
== END 2020-12-28 07:16 | disposition home or self-care (01) ==
LOC: HO.LHD 07:15
PROVIDERS: Visit Provider Internal Medicine
DX: I48.19 Other persistent atrial fibrillation (principal); Z79.01 Long term (current) use of anticoagulants
CPT/HCPCS: 36415; 85610

== ENCOUNTER → 2021-01-02 11:05 | Outpatient (BNVA) | payer MEDICARE, MEDICAID, SELFPAY | PROVIDERS: PCP Internal Medicine; Visit Provider Anesthesiology ==

== ENCOUNTER 2021-01-04 14:11 | Outpatient (REF) | payer MEDICARE, MEDICAID, SELFPAY ==
[2021-01-04 11:40] LABS: INTERNATIONAL NORM RATIO 4.2 (0.9-1.1)
== END 2021-01-04 14:12 | disposition home or self-care (01) ==
LOC: HO.LDS 14:11
PROVIDERS: Visit Provider Internal Medicine
DX: I48.19 Other persistent atrial fibrillation (principal); Z79.01 Long term (current) use of anticoagulants
CPT/HCPCS: 36415; 85610

== ENCOUNTER 2021-01-05 07:20 | Outpatient (REF) | payer MEDICARE, MEDICAID, SELFPAY ==
[2021-01-05 10:10] LABS: INTERNATIONAL NORM RATIO 3.1 (0.9-1.1); Prothrombin Time 36.7 SEC (9.9-13.0)
== END 2021-01-05 07:21 | disposition home or self-care (01) ==
LOC: HO.LHD 07:20
PROVIDERS: Visit Provider Internal Medicine
DX: I48.19 Other persistent atrial fibrillation (principal); Z79.01 Long term (current) use of anticoagulants
CPT/HCPCS: 36415; 85610

== ENCOUNTER 2021-01-09 06:51 | Outpatient (REF) | payer MEDICARE, MEDICAID, SELFPAY ==
[2021-01-09 09:30] LABS: INTERNATIONAL NORM RATIO 4.3 (0.9-1.1); Prothrombin Time 49.9 SEC (9.9-13.0)
== END 2021-01-09 06:52 | disposition home or self-care (01) ==
LOC: HO.LHD 06:51
PROVIDERS: Visit Provider Internal Medicine
DX: I48.19 Other persistent atrial fibrillation (principal); Z79.01 Long term (current) use of anticoagulants
CPT/HCPCS: 36415; 85610

== ENCOUNTER 2021-01-12 08:03 | Outpatient (REF) | payer MEDICARE, MEDICAID, SELFPAY ==
[2021-01-12 11:25] LABS: INTERNATIONAL NORM RATIO 2.5 (0.9-1.1); Prothrombin Time 28.6 SEC (9.9-13.0)
== END 2021-01-12 08:04 | disposition home or self-care (01) ==
LOC: HO.LHD 08:03
PROVIDERS: Visit Provider Internal Medicine
DX: M46.1 Sacroiliitis, not elsewhere classified (principal); M81.0 Age-related osteoporosis without current pathological fracture; M19.90 Unspecified osteoarthritis, unspecified site; M25.551 Pain in right hip
CPT/HCPCS: 36415; 85610; 99212

== ENCOUNTER 2021-01-18 13:59 | Outpatient (REF) | payer MEDICARE, MEDICAID, SELFPAY ==
--- NOTE | ~2021-01-18 | MM_ITS ---
EXAMINATION: MM SCREENING DIGITAL BREAST TOMOSYNTHESIS, BILATERAL CLINICAL INFORMATION: Screening. Asymptomatic. The lifetime risk of breast cancer based on the Tyrer-Cuzick Model is 1%. COMPARISON: Mammography: 04/06/2015, 02/05/2014, 10/07/2012 TECHNIQUE: Digital breast tomosynthesis is performed in both the craniocaudal and mediolateral oblique views along with computer-aided detection (CAD). Synthesized 2D images are generated from the tomosynthesis. FINDINGS: There are scattered areas of fibroglandular density (ACR BI-RADS breast composition Category b). There are no significant masses, abnormal calcifications, or other abnormalities. Parenchymal pattern is similar to prior exams. The axilla and skin contours are unremarkable. MM/MM tomosynthesis screening BI IMPRESSION: No mammographic evidence of malignancy. ASSESSMENT: BI-RADS 1: Negative RECOMMENDATION: Routine annual mammography screening. This patient's information was entered into a reminder system with a target due date for their next mammogram.
== END 2021-01-18 14:00 | disposition home or self-care (01) ==
LOC: HO.MAMMO 13:59
PROVIDERS: Visit Provider Internal Medicine
DX: Z12.31 Encounter for screening mammogram for malignant neoplasm of breast (principal)
CPT/HCPCS: 77063; 77067

== ENCOUNTER → 2021-01-19 08:02 | Outpatient (BNVA) | payer MEDICARE, MEDICAID, SELFPAY | PROVIDERS: PCP Internal Medicine; Visit Provider Anesthesiology | DX: Z13.89 Encounter for screening for other disorder (principal) | CPT/HCPCS: 99212 ==

== ENCOUNTER 2021-01-19 13:34 | Outpatient (REF) | payer MEDICARE, MEDICAID, SELFPAY ==
[2021-01-18 10:43] LABS: Prothrombin Time 64.5 SEC (9.9-13.0)
[2021-01-18 10:46] LABS: INTERNATIONAL NORM RATIO 5.5 (0.9-1.1)
== END 2021-01-19 13:35 | disposition home or self-care (01) ==
LOC: HO.LHD 13:34
PROVIDERS: Visit Provider Internal Medicine
DX: I48.19 Other persistent atrial fibrillation (principal); Z79.01 Long term (current) use of anticoagulants
CPT/HCPCS: 36415; 85610; 99212

== ENCOUNTER 2021-01-25 12:35 | Outpatient (REF) | payer MEDICARE, MEDICAID, SELFPAY ==
[2021-01-25 11:19] LABS: INTERNATIONAL NORM RATIO 2.7 (0.9-1.1); Prothrombin Time 31.1 SEC (9.9-13.0)
== END 2021-01-25 12:36 | disposition home or self-care (01) ==
LOC: HO.LHD 12:35
PROVIDERS: Visit Provider Internal Medicine
DX: I48.19 Other persistent atrial fibrillation (principal); Z79.01 Long term (current) use of anticoagulants; Z51.81 Encounter for therapeutic drug level monitoring
CPT/HCPCS: 36415; 85610

== ENCOUNTER 2021-02-02 06:32 | Outpatient (REF) | payer MEDICARE, MEDICAID, SELFPAY ==
[2021-02-02 10:24] LABS: INTERNATIONAL NORM RATIO 3.5 (0.9-1.1)
== END 2021-02-02 06:33 | disposition home or self-care (01) ==
LOC: HO.LHD 06:32
PROVIDERS: Visit Provider Internal Medicine
DX: I48.19 Other persistent atrial fibrillation (principal); Z79.01 Long term (current) use of anticoagulants
CPT/HCPCS: 36415; 85610

== ENCOUNTER → 2021-02-06 09:11 | Outpatient (BNVA) | payer MEDICARE, MEDICAID, SELFPAY | PROVIDERS: PCP Internal Medicine; Visit Provider Anesthesiology | DX: Z13.89 Encounter for screening for other disorder (principal) | CPT/HCPCS: Q3014 ==

== ENCOUNTER 2021-02-08 11:19 | Outpatient (REF) | payer MEDICARE, MEDICAID, SELFPAY ==
[2021-02-08 11:06] LABS: Prothrombin Time 23.5 SEC (9.9-13.0)
== END 2021-02-08 11:20 | disposition home or self-care (01) ==
LOC: HO.LHD 11:19
PROVIDERS: Visit Provider Internal Medicine
DX: I48.19 Other persistent atrial fibrillation (principal); Z79.01 Long term (current) use of anticoagulants
CPT/HCPCS: 36415; 85610

== ENCOUNTER 2021-02-14 05:51 | Outpatient (REF) | payer MEDICARE, MEDICAID, SELFPAY ==
--- NOTE | ~2021-02-14 | FL_ITS ---
EXAMINATION: XR FLUOROSCOPY WITH IMAGES CLINICAL INFORMATION: M46.1 - Sacroiliitis, not elsewhere classified COMPARISON: Radiograph pelvis and right hip 11/01/2020 TECHNIQUE: Fluoroscopy performed by Dr. Darrell Mcdowell. Fluoroscopy time: 0.1 minutes DAP: 0.874 Gycm2 Images: 1 FINDINGS: Spinal needle overlies lower right sacroiliac joint. There is contrast in the periarticular soft tissues and likely early intra-articular contrast. No visible vascular communication. Again, there are degenerative changes lower lumbar spine with disc narrowing and vertebral spurring. FL/FL guidance in treatment room IMPRESSION: Fluoroscopy for pain management procedure.
== END 2021-02-14 05:52 | disposition home or self-care (01) ==
LOC: HO.RADIR 05:51
PROVIDERS: Visit Provider Anesthesiology
DX: M19.90 Unspecified osteoarthritis, unspecified site (principal); M46.1 Sacroiliitis, not elsewhere classified; M81.0 Age-related osteoporosis without current pathological fracture
CPT/HCPCS: 99212; J3300; Q9967

== ENCOUNTER 2021-02-15 13:38 | Outpatient (REF) | payer MEDICARE, MEDICAID, SELFPAY ==
[2021-02-15 11:03] LABS: INTERNATIONAL NORM RATIO 1.3 (0.9-1.1); Prothrombin Time 14.5 SEC (9.9-13.0)
== END 2021-02-15 13:39 | disposition home or self-care (01) ==
LOC: HO.LHD 13:38
PROVIDERS: Visit Provider Internal Medicine
DX: I48.19 Other persistent atrial fibrillation (principal); Z79.01 Long term (current) use of anticoagulants
CPT/HCPCS: 36415; 85610

== ENCOUNTER → 2021-02-17 13:21 | Outpatient (BNVA) | payer MEDICARE, MEDICAID, SELFPAY | PROVIDERS: PCP Internal Medicine; Visit Provider Nurse Practitioner Family | DX: M81.8 Other osteoporosis without current pathological fracture (principal); M05.9 Rheumatoid arthritis with rheumatoid factor, unspecified | CPT/HCPCS: 99212 ==

== ENCOUNTER 2021-02-22 13:14 | Outpatient (REF) | payer MEDICARE, MEDICAID, SELFPAY ==
[2021-02-22 10:58] LABS: MANUAL DIFF FLAG NO
[2021-02-22 11:03] LABS: Basophils Absolute Auto 0.1 X10*3/uL (0.0-0.2); Basophils Percent Auto 1.1 % (0-2); Eosinophils Absolute Auto 0.5 X10*3/uL (0.0-0.4); Eosinophils Percent Auto 7.4 % (0-4); Hematocrit 36.5 % (37.0-47.0); Hemoglobin 11.7 g/dl (12.0-16.0); Imm Gran Abs Auto 0.02 X10*3/uL (0.00-0.03); Imm Gran Pct Auto 0.3 % (0.0-0.4); Lymphocytes Absolute Auto 0.9 X10*3/uL (1.2-4.9); Lymphocytes Percent Auto 14.8 % (20-40); Mean Corpuscular HGB Conc 32.1 g/dl (31.0-35.0); Mean Corpuscular Volume 109.3 fL (80.0-98.0); Mean Platelet Volume 10.5 fL (9.4-12.3); Monocytes Absolute Auto 0.9 X10*3/uL (0.1-1.2); Monocytes Percent Auto 13.9 % (2-11); Neutrophils Percent Auto 62.5 % (45-73); Platelet Count 190 X10*3/uL (160-400); Red Blood Count 3.34 X10*6/uL (4.20-5.50); Red Cell Distribution Width 14.5 % (11.0-16.0); White Blood Count 6.4 X10*3/uL (4.8-10.8)
[2021-02-22 11:11] LABS: INTERNATIONAL NORM RATIO 2.2 (0.9-1.1); Prothrombin Time 25.1 SEC (9.9-13.0)
[2021-02-22 11:35] LABS: Alanine Aminotransferase 33 U/L (0-31); Albumin Level 4.6 g/dL (3.5-5.0); Alkaline Phosphatase 44 U/L (39-117); Anion Gap 15 (12-20); Aspartate Amino Transferase 39 U/L (5-31); Bilirubin Total 0.9 mg/dL (0.0-1.0); Blood Urea Nitrogen 24 mg/dL (9-16); C Reactive Protein 0.03 mg/dL (< or = 0.50); Calcium 9.6 mg/dL (8.4-10.2); Carbon Dioxide 26 mmol/L (22-29); Chloride 101 mmol/L (96-108); Estimated Glomerular Filt Rate 43; Glucose Random 117 mg/dL (60-115); Potassium 4.6 mmol/L (3.3-5.1); Sodium 137 mmol/L (135-145); Total Protein 6.8 g/dL (6.5-8.0)
[2021-02-22 12:25] LABS: Erythrocyte Sedimentation Rate 6 MM/HR (0-20)
== END 2021-02-22 13:15 | disposition home or self-care (01) ==
LOC: HO.LHD 13:14
PROVIDERS: Nurse Practitioner Family; Visit Provider Internal Medicine
DX: I48.19 Other persistent atrial fibrillation (principal); M05.9 Rheumatoid arthritis with rheumatoid factor, unspecified; M81.8 Other osteoporosis without current pathological fracture; M19.90 Unspecified osteoarthritis, unspecified site; M46.1 Sacroiliitis, not elsewhere classified; M81.0 Age-related osteoporosis without current pathological fracture; Z79.01 Long term (current) use of anticoagulants
CPT/HCPCS: 36415; 80053; 85025; 85610; 85652; 86140; 99212

== ENCOUNTER 2021-03-02 13:20 | Outpatient (REF) | payer MEDICARE, MEDICAID, SELFPAY ==
[2021-03-02 10:50] LABS: Basophils Absolute Auto 0.1 X10*3/uL (0.0-0.2); Eosinophils Absolute Auto 0.6 X10*3/uL (0.0-0.4); Eosinophils Percent Auto 9.1 % (0-4); Hematocrit 36.2 % (37.0-47.0); Hemoglobin 11.7 g/dl (12.0-16.0); Imm Gran Abs Auto 0.02 X10*3/uL (0.00-0.03); Imm Gran Pct Auto 0.3 % (0.0-0.4); Lymphocytes Absolute Auto 1.8 X10*3/uL (1.2-4.9); Lymphocytes Percent Auto 27.8 % (20-40); MANUAL DIFF FLAG NO; Mean Corpuscular HGB Conc 32.3 g/dl (31.0-35.0); Mean Corpuscular Hemoglobin 35.5 pg (27.0-33.0); Mean Corpuscular Volume 109.7 fL (80.0-98.0); Mean Platelet Volume 11.1 fL (9.4-12.3); Monocytes Percent Auto 15.9 % (2-11); Neutrophils Absolute Auto 2.9 x10*3/uL (2.0-8.3); Neutrophils Percent Auto 45.9 % (45-73); Platelet Count 175 X10*3/uL (160-400); Red Cell Distribution Width 14.1 % (11.0-16.0); White Blood Count 6.3 X10*3/uL (4.8-10.8)
[2021-03-02 11:04] LABS: Prothrombin Time 35.4 SEC (9.9-13.0)
[2021-03-02 11:47] LABS: Folate > 20.0 ng/mL (> or = 4.0); Vitamin B12 790 pg/mL (200-900)
== END 2021-03-02 13:21 | disposition home or self-care (01) ==
LOC: HO.LHD 13:20
PROVIDERS: Nurse Practitioner Family; Visit Provider Internal Medicine
DX: D53.9 Nutritional anemia, unspecified (principal); I48.19 Other persistent atrial fibrillation; Z79.01 Long term (current) use of anticoagulants
CPT/HCPCS: 36415; 82607; 82746; 85025; 85610

== ENCOUNTER 2021-03-06 06:15 | Outpatient (REF) | payer MEDICARE, MEDICAID, SELFPAY ==
[2021-03-06 11:18] LABS: INTERNATIONAL NORM RATIO 2.6 (0.9-1.1); Prothrombin Time 30.7 SEC (9.9-13.0)
== END 2021-03-06 06:16 | disposition home or self-care (01) ==
LOC: HO.LHD 06:15
PROVIDERS: Visit Provider Internal Medicine
DX: I48.19 Other persistent atrial fibrillation (principal); Z79.01 Long term (current) use of anticoagulants
CPT/HCPCS: 36415; 85610

== ENCOUNTER → 2021-03-16 08:34 | Outpatient (BNVA) | payer MEDICARE, MEDICAID, SELFPAY | PROVIDERS: PCP Internal Medicine; Visit Provider Anesthesiology | DX: Z51.81 Encounter for therapeutic drug level monitoring (principal); F11.20 Opioid dependence, uncomplicated; M19.90 Unspecified osteoarthritis, unspecified site; M46.1 Sacroiliitis, not elsewhere classified; M81.0 Age-related osteoporosis without current pathological fracture | CPT/HCPCS: 99212 ==

== ENCOUNTER 2021-03-21 10:48 | Outpatient (REF) | payer MEDICARE, MEDICAID, SELFPAY ==
[2021-03-21 09:38] LABS: INTERNATIONAL NORM RATIO 3.1 (0.9-1.1); Prothrombin Time 36.1 SEC (9.9-13.0)
== END 2021-03-21 10:49 | disposition home or self-care (01) ==
LOC: HO.LHD 10:48
PROVIDERS: Visit Provider Internal Medicine
DX: I48.19 Other persistent atrial fibrillation (principal); Z79.01 Long term (current) use of anticoagulants
CPT/HCPCS: 36415; 85610

== ENCOUNTER 2021-03-30 07:03 | Outpatient (REF) | payer MEDICARE, MEDICAID, SELFPAY ==
[2021-03-30 11:37] LABS: INTERNATIONAL NORM RATIO 2.2 (0.9-1.1); Prothrombin Time 25.1 SEC (9.9-13.0)
== END 2021-03-30 07:04 | disposition home or self-care (01) ==
LOC: HO.LHD 07:03
PROVIDERS: Visit Provider Internal Medicine
DX: I48.19 Other persistent atrial fibrillation (principal); Z79.01 Long term (current) use of anticoagulants
CPT/HCPCS: 36415; 85610

== ENCOUNTER → 2021-04-12 13:38 | Outpatient (BNVA) | payer MEDICARE, MEDICAID, SELFPAY | PROVIDERS: PCP Internal Medicine; Visit Provider Anesthesiology | DX: Z51.81 Encounter for therapeutic drug level monitoring (principal); F11.20 Opioid dependence, uncomplicated; M19.90 Unspecified osteoarthritis, unspecified site; M46.1 Sacroiliitis, not elsewhere classified; M81.0 Age-related osteoporosis without current pathological fracture | CPT/HCPCS: 99212 ==

== ENCOUNTER 2021-04-19 10:50 | Outpatient (REF) | payer MEDICARE, MEDICAID, SELFPAY ==
[2021-04-19 11:25] LABS: INTERNATIONAL NORM RATIO 3.8 (0.9-1.1); Prothrombin Time 44.7 SEC (9.9-13.0)
== END 2021-04-19 10:51 | disposition home or self-care (01) ==
LOC: HO.LHD 10:50
PROVIDERS: Visit Provider Internal Medicine
DX: I48.19 Other persistent atrial fibrillation (principal); Z79.01 Long term (current) use of anticoagulants
CPT/HCPCS: 36415; 85610

== ENCOUNTER 2021-04-25 14:28 | Outpatient (RCR) | payer MEDICARE, MEDICAID, SELFPAY ==
--- NOTE | ~2021-04-25 | XR_ITS ---
EXAMINATION: XR ANKLE, LEFT CLINICAL INFORMATION: Left foot and ankle wound COMPARISON: Left foot radiographs from today. TECHNIQUE: Two views of the left ankle. FINDINGS: Soft tissue irregularity overlies the lateral aspect of the ankle at the lateral malleolus. No osseous erosion. The ankle mortise is congruent. No fracture or malalignment. XR/XR ankle LT 2V IMPRESSION: Soft tissue irregularity overlies the lateral malleolus. No osseous abnormality.
--- NOTE | ~2021-04-25 | XR_ITS ---
EXAMINATION: XR FOOT, LEFT CLINICAL INFORMATION: Cutaneous abscess COMPARISON: October 12, 2013 TECHNIQUE: AP, lateral, and oblique views of the left foot. FINDINGS: There is diffuse osteopenia visualized bones. There is a similar appearance compared to study of October 12, 2013. Overlying bandage obscures fine bony detail about the first metatarsophalangeal joint. There is again noted to be significant hallux valgus deformity. There appears to be erosion about the lateral aspect of the first metatarsal head. There is narrowing of the joint space. There is a stable erosion involving the head of the fifth metatarsal. There is appearance of a tailor's bunion involving the fifth metatarsophalangeal joint. Vascular calcification is present. XR/XR foot LT min 3V IMPRESSION: No significant change in appearance from study of October 12, 2013. Diffuse osteopenia with erosions heads of the first and fifth metatarsals as well as help health valgus deformity first metatarsophalangeal joint and bunion formation fifth metatarsophalangeal joint.
== END 2021-09-21 16:00 | disposition home or self-care (01) ==
LOC: HO.WCC 14:28
PROVIDERS: PCP Internal Medicine; Visit Provider Physician Assistant
DX: L97.526 Non-pressure chronic ulcer of other part of left foot with bone involvement without evidence of necrosis (principal); S91.002D Unspecified open wound, left ankle, subsequent encounter; S91.001D Unspecified open wound, right ankle, subsequent encounter; I73.9 Peripheral vascular disease, unspecified; I48.91 Unspecified atrial fibrillation; M05.272 Rheumatoid vasculitis with rheumatoid arthritis of left ankle and foot; I25.10 Atherosclerotic heart disease of native coronary artery without angina pectoris; Z79.899 Other long term (current) drug therapy; Z79.01 Long term (current) use of anticoagulants; Z79.2 Long term (current) use of antibiotics; Z79.52 Long term (current) use of systemic steroids; Z87.891 Personal history of nicotine dependence; Z86.711 Personal history of pulmonary embolism; Z79.891 Long term (current) use of opiate analgesic
CPT/HCPCS: 10060; 11042; 11044; 15271; 15275; 73600; 73630; 87071; 87073; 87077; 87186; 87205; 99214; 99215; Q4160

== ENCOUNTER 2021-04-27 11:14 | Outpatient (REF) | payer MEDICARE, MEDICAID, SELFPAY ==
[2021-04-26 11:52] LABS: INTERNATIONAL NORM RATIO 2.7 (0.9-1.1); Prothrombin Time 31.8 SEC (9.9-13.0)
== END 2021-04-27 11:15 | disposition home or self-care (01) ==
LOC: HO.LHD 11:14
PROVIDERS: Visit Provider Internal Medicine
DX: I48.19 Other persistent atrial fibrillation (principal); Z79.01 Long term (current) use of anticoagulants
CPT/HCPCS: 36415; 85610

== ENCOUNTER 2021-05-03 08:00 | Outpatient (REF) | payer MEDICARE, MEDICAID, SELFPAY ==
[2021-05-03 12:40] LABS: INTERNATIONAL NORM RATIO 2.7 (0.9-1.1); Prothrombin Time 31.3 SEC (9.9-13.0)
== END 2021-05-03 08:01 | disposition home or self-care (01) ==
LOC: HO.LHD 08:00
PROVIDERS: Visit Provider Internal Medicine
DX: I48.19 Other persistent atrial fibrillation (principal); Z79.01 Long term (current) use of anticoagulants
CPT/HCPCS: 36415; 85610

== ENCOUNTER → 2021-05-05 12:58 | Outpatient (BNVA) | payer MEDICARE, MEDICAID, SELFPAY | PROVIDERS: PCP Internal Medicine; Visit Provider Nurse Practitioner Family | DX: M81.0 Age-related osteoporosis without current pathological fracture (principal) | CPT/HCPCS: 96372 ==

== ENCOUNTER 2021-05-10 11:56 | Outpatient (REF) | payer MEDICARE, MEDICAID, SELFPAY ==
[2021-05-10 12:28] LABS: MANUAL DIFF FLAG NO
[2021-05-10 12:33] LABS: Basophils Absolute Auto 0.1 X10*3/uL (0.0-0.2); Basophils Percent Auto 0.8 % (0-2); Eosinophils Absolute Auto 0.4 X10*3/uL (0.0-0.4); Eosinophils Percent Auto 5.6 % (0-4); Hematocrit 37.8 % (37.0-47.0); Hemoglobin 12.5 g/dl (12.0-16.0); Imm Gran Abs Auto 0.03 X10*3/uL (0.00-0.03); Imm Gran Pct Auto 0.5 % (0.0-0.4); Mean Corpuscular HGB Conc 33.1 g/dl (31.0-35.0); Mean Corpuscular Hemoglobin 35.1 pg (27.0-33.0); Mean Corpuscular Volume 106.2 fL (80.0-98.0); Mean Platelet Volume 10.9 fL (9.4-12.3); Monocytes Absolute Auto 0.7 X10*3/uL (0.1-1.2); Monocytes Percent Auto 11.3 % (2-11); Neutrophils Absolute Auto 4.3 x10*3/uL (2.0-8.3); Neutrophils Percent Auto 66.8 % (45-73); Platelet Count 155 X10*3/uL (160-400); Red Blood Count 3.56 X10*6/uL (4.20-5.50); Red Cell Distribution Width 13.3 % (11.0-16.0); White Blood Count 6.4 X10*3/uL (4.8-10.8)
[2021-05-10 12:36] LABS: INTERNATIONAL NORM RATIO 2.5 (0.9-1.1); Prothrombin Time 28.5 SEC (9.9-13.0)
[2021-05-10 12:45] LABS: Anion Gap 14 (12-20); Blood Urea Nitrogen 19 mg/dL (9-16); C Reactive Protein 0.02 mg/dL (< or = 0.50); Carbon Dioxide 28 mmol/L (22-29); Chloride 100 mmol/L (96-108); Estimated Glomerular Filt Rate 45; Glucose Random 166 mg/dL (60-115); Potassium 4.1 mmol/L (3.3-5.1); Sodium 138 mmol/L (135-145)
[2021-05-10 12:53] LABS: Estimated Average Glucose 111 mg/dL; Hemoglobin A1c % 5.5 %
[2021-05-10 13:15] LABS: Erythrocyte Sedimentation Rate 2 MM/HR (0-20)
== END 2021-05-10 11:57 | disposition home or self-care (01) ==
LOC: HO.LHD 11:56
PROVIDERS: Absent Provider Physician Assistant; Visit Provider Internal Medicine
DX: S91.302D Unspecified open wound, left foot, subsequent encounter (principal); I48.19 Other persistent atrial fibrillation; Z79.01 Long term (current) use of anticoagulants
CPT/HCPCS: 36415; 80048; 83036; 84134; 85025; 85610; 85652; 86140

== ENCOUNTER → 2021-05-15 13:17 | Outpatient (BNVA) | payer MEDICARE, MEDICAID, SELFPAY | PROVIDERS: PCP Internal Medicine; Visit Provider Anesthesiology | DX: Z51.81 Encounter for therapeutic drug level monitoring (principal); F11.20 Opioid dependence, uncomplicated | CPT/HCPCS: 99211 ==

== ENCOUNTER 2021-05-18 15:53 | Outpatient (REF) | payer MEDICARE, MEDICAID, SELFPAY ==
[2021-05-18 15:58] LABS: Appearance Urine CLEAR; Color Urine YELLOW; Glucose Urine UA NEG (NEG); Leukocyte Esterase Urine 1+ (NEG); Nitrite Urine NEG (NEG); PH 6.5 (5.0-8.0); Urine Blood NEG (NEG); Urine Ketones NEG (NEG); Urine Protein NEG (NEG-TRACE)
[2021-05-18 16:13] LABS: Bacteria Urine 2+ /LPF; RBC Urine 0 /HPF (0); WBC Urine 0-2 /HPF (0-4)
== END 2021-05-18 15:54 | disposition home or self-care (01) ==
LOC: HO.HVNA 15:53
PROVIDERS: Visit Provider Internal Medicine
DX: N39.0 Urinary tract infection, site not specified (principal); R30.9 Painful micturition, unspecified
CPT/HCPCS: 81001; 87086; 87088; 87186

== ENCOUNTER 2021-05-24 06:45 | Outpatient (REF) | payer MEDICARE, MEDICAID, SELFPAY ==
[2021-05-24 13:25] LABS: INTERNATIONAL NORM RATIO 3.4 (0.9-1.1); Prothrombin Time 39.4 SEC (9.9-13.0)
== END 2021-05-24 06:46 | disposition home or self-care (01) ==
LOC: HO.LHD 06:45
PROVIDERS: Visit Provider Internal Medicine
DX: I48.19 Other persistent atrial fibrillation (principal); Z79.01 Long term (current) use of anticoagulants
CPT/HCPCS: 36415; 85610

== ENCOUNTER 2021-05-25 13:17 | Outpatient (REF) | payer MEDICARE, MEDICAID, SELFPAY ==
--- NOTE | ~2021-05-25 | US_ITS ---
EXAMINATION: COLOR-FLOW DUPLEX IMAGING OF THE UNILATERAL LOWER EXTREMITY ARTERIAL SYSTEM. VELOCITY MEASUREMENTS THROUGHOUT THE FEMORAL ARTERIES WITH ANKLE-BRACHIAL PERIPHERAL ARTERIAL TESTING. Interventional Radiologist: Aime Del Cid M.D., F.S.I.R., F.A.C.R. CLINICAL INFORMATION: This is a 81-year-old female with left leg wound. Peripheral arterial disease. Color-flow duplex imaging with spectral waveform analysis was performed. Velocity measurements was obtained. There are likely calcified vessels causing the elevated ankle-brachial indices bilaterally. The right ankle brachial indexes 2.04. LEFT FEMORAL RUNOFF VELOCITIES: The left common femoral artery measures 97 cm/s and monophasic. The left profunda femoral artery is 106 cm/s and is monophasic. Left proximal superficial femoral artery measures 82 cm/s and monophasic. Mid superficial femoral artery is 110 cm/s and monophasic. Distal left superficial femoral artery measures 120 cm/s and is monophasic. Left popliteal velocity measures 43 cm/s and is monophasic. The posterior tibial artery velocity measures 98 cm/s and was monophasic. The ankle-brachial index is 2.03. US/US JAROD complete IMPRESSION: 1. There are elevated ankle brachial indices which are likely secondary to calcified plaque throughout. 2. There is a 2 to 1 shift with decreased velocity in the popliteal artery. Furthermore, the waveforms are monophasic throughout. The waveforms appear flattened at the ankles bilaterally. There may be inflow disease causing monophasic flow throughout. However, the decreased velocity in the popliteal artery suggests hemodynamically significant disease may be present in the left popliteal artery.
--- NOTE | ~2021-05-25 | US_ITS ---
EXAMINATION: COLOR-FLOW DUPLEX IMAGING OF THE UNILATERAL LOWER EXTREMITY ARTERIAL SYSTEM. VELOCITY MEASUREMENTS THROUGHOUT THE FEMORAL ARTERIES WITH ANKLE-BRACHIAL PERIPHERAL ARTERIAL TESTING. Interventional Radiologist: Aime Del Cid M.D., F.S.I.R., F.A.C.R. CLINICAL INFORMATION: This is a 81-year-old female with left leg wound. Peripheral arterial disease. Color-flow duplex imaging with spectral waveform analysis was performed. Velocity measurements was obtained. There are likely calcified vessels causing the elevated ankle-brachial indices bilaterally. The right ankle brachial indexes 2.04. LEFT FEMORAL RUNOFF VELOCITIES: The left common femoral artery measures 97 cm/s and monophasic. The left profunda femoral artery is 106 cm/s and is monophasic. Left proximal superficial femoral artery measures 82 cm/s and monophasic. Mid superficial femoral artery is 110 cm/s and monophasic. Distal left superficial femoral artery measures 120 cm/s and is monophasic. Left popliteal velocity measures 43 cm/s and is monophasic. The posterior tibial artery velocity measures 98 cm/s and was monophasic. The ankle-brachial index is 2.03. US/US arterial duplex LE LT IMPRESSION: 1. There are elevated ankle brachial indices which are likely secondary to calcified plaque throughout. 2. There is a 2 to 1 shift with decreased velocity in the popliteal artery. Furthermore, the waveforms are monophasic throughout. The waveforms appear flattened at the ankles bilaterally. There may be inflow disease causing monophasic flow throughout. However, the decreased velocity in the popliteal artery suggests hemodynamically significant disease may be present in the left popliteal artery.
== END 2021-05-25 13:18 | disposition home or self-care (01) ==
LOC: HO.US 13:17
PROVIDERS: Visit Provider Physician Assistant
DX: I73.9 Peripheral vascular disease, unspecified (principal); L97.522 Non-pressure chronic ulcer of other part of left foot with fat layer exposed
CPT/HCPCS: 93923; 93926

== ENCOUNTER → 2021-05-26 12:51 | Outpatient (BNVA) | payer MEDICARE, MEDICAID, SELFPAY | PROVIDERS: PCP Internal Medicine; Visit Provider Nurse Practitioner Family | DX: M05.9 Rheumatoid arthritis with rheumatoid factor, unspecified (principal); M81.8 Other osteoporosis without current pathological fracture | CPT/HCPCS: 99212 ==

== ENCOUNTER 2021-05-31 12:57 | Outpatient (REF) | payer MEDICARE, MEDICAID, SELFPAY ==
[2021-05-31 11:00] LABS: INTERNATIONAL NORM RATIO 2.4 (0.9-1.1); Prothrombin Time 27.7 SEC (9.9-13.0)
== END 2021-05-31 12:58 | disposition home or self-care (01) ==
LOC: HO.LHD 12:57
PROVIDERS: Visit Provider Internal Medicine
DX: I48.19 Other persistent atrial fibrillation (principal); Z79.01 Long term (current) use of anticoagulants
CPT/HCPCS: 36415; 85610

== ENCOUNTER 2021-06-01 11:27 | Outpatient (REF) | payer MEDICARE, MEDICAID, SELFPAY ==
--- NOTE | ~2021-06-01 | XR_ITS ---
EXAMINATION: XR HIP, RIGHT CLINICAL INFORMATION: Pain COMPARISON: Right hip 11/01/2020 TECHNIQUE: Two views of the right hip. FINDINGS: There is a right hip nail and a solitary screw stabilizing old healed fracture. In the interval there is complete obstruction of superior and lateral femoral and right leg secondary to avascular necrosis. There is loss of right hip joint space. The soft tissues are normal. 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 There is stabilization of old right femoral neck fracture with a hip screw and nail which are unchanged to previous study 11/01/2020
== END 2021-06-01 11:28 | disposition home or self-care (01) ==
LOC: HO.HMGCX 11:27
PROVIDERS: PCP Internal Medicine; Visit Provider Internal Medicine
DX: R10.31 Right lower quadrant pain (principal)
CPT/HCPCS: 73502

== ENCOUNTER 2021-06-02 10:18 | Outpatient (REF) | payer MEDICARE, MEDICAID, SELFPAY ==
--- NOTE | ~2021-06-02 | XR_ITS ---
EXAMINATION: XR CHEST CLINICAL INFORMATION: Cough. COMPARISON: None TECHNIQUE: 2 views of the chest were obtained. FINDINGS: The lungs are hyperinflated with patchy bilateral apical pleural thickening and left apical parenchymal scarring. No acute pneumonic consolidation seen. There is cystic bronchiectasis in both upper lobes and lower lobes. There is no pleural effusion. The heart size is borderline enlarged. Pulmonary vascularity is normal. There is mild levoscoliosis mid dorsal spine. XR/XR chest 2V IMPRESSION: Hyperinflated lungs with bilateral cystic bronchiectasis. Bilateral apical pleural thickening and left apical scarring. There is no acute pneumonic consolidation.
[2021-06-02 11:36] LABS: MANUAL DIFF FLAG NO
[2021-06-02 11:49] LABS: Basophils Absolute Auto 0.1 X10*3/uL (0.0-0.2); Basophils Percent Auto 1.1 % (0-2); Eosinophils Absolute Auto 0.6 X10*3/uL (0.0-0.4); Eosinophils Percent Auto 6.7 % (0-4); Hematocrit 35.6 % (37.0-47.0); Hemoglobin 11.6 g/dl (12.0-16.0); Imm Gran Abs Auto 0.03 X10*3/uL (0.00-0.03); Imm Gran Pct Auto 0.4 % (0.0-0.4); Lymphocytes Absolute Auto 1.2 X10*3/uL (1.2-4.9); Lymphocytes Percent Auto 14.1 % (20-40); Mean Corpuscular HGB Conc 32.6 g/dl (31.0-35.0); Mean Corpuscular Hemoglobin 35.2 pg (27.0-33.0); Mean Corpuscular Volume 107.9 fL (80.0-98.0); Mean Platelet Volume 10.8 fL (9.4-12.3); Monocytes Absolute Auto 1.1 X10*3/uL (0.1-1.2); Monocytes Percent Auto 13.3 % (2-11); Neutrophils Absolute Auto 5.3 x10*3/uL (2.0-8.3); Neutrophils Percent Auto 64.4 % (45-73); Platelet Count 165 X10*3/uL (160-400); Red Cell Distribution Width 14.6 % (11.0-16.0); White Blood Count 8.2 X10*3/uL (4.8-10.8)
== END 2021-06-02 10:19 | disposition home or self-care (01) ==
LOC: HO.HMGCLDS 10:18
PROVIDERS: PCP Internal Medicine; Visit Provider Internal Medicine
DX: R05.8 Other specified cough (principal)
CPT/HCPCS: 36415; 71046; 85025

== ENCOUNTER → 2021-06-12 13:01 | Outpatient (BNVA) | payer MEDICARE, MEDICAID, SELFPAY | PROVIDERS: PCP Internal Medicine; Visit Provider Anesthesiology | DX: M19.90 Unspecified osteoarthritis, unspecified site (principal); M46.1 Sacroiliitis, not elsewhere classified; M81.0 Age-related osteoporosis without current pathological fracture; Z79.891 Long term (current) use of opiate analgesic | CPT/HCPCS: 99212 ==

== ENCOUNTER 2021-06-15 11:21 | Outpatient (REF) | payer MEDICARE, MEDICAID, SELFPAY ==
[2021-06-15 12:02] LABS: INTERNATIONAL NORM RATIO 1.3 (0.9-1.1)
== END 2021-06-15 11:22 | disposition home or self-care (01) ==
LOC: HO.LHD 11:21
PROVIDERS: Visit Provider Internal Medicine
DX: I48.19 Other persistent atrial fibrillation (principal); Z79.01 Long term (current) use of anticoagulants
CPT/HCPCS: 36415; 85610

== ENCOUNTER → 2021-06-19 13:01 | Outpatient (BNVA) | payer BC, MEDICAID, SELFPAY | PROVIDERS: PCP Internal Medicine; Visit Provider Orthopaedic Surgery | DX: M87.051 Idiopathic aseptic necrosis of right femur (principal); M05.9 Rheumatoid arthritis with rheumatoid factor, unspecified; Z79.01 Long term (current) use of anticoagulants | CPT/HCPCS: 99202 ==

== ENCOUNTER → 2021-06-20 11:08 | Outpatient (BNVA) | payer BC, MEDICAID, SELFPAY | PROVIDERS: PCP Internal Medicine; Referring Provider Internal Medicine; Visit Provider Psychiatry & Neurology Neurology | DX: G25.0 Essential tremor (principal); M87.851 Other osteonecrosis, right femur; M46.1 Sacroiliitis, not elsewhere classified; M81.0 Age-related osteoporosis without current pathological fracture; E03.9 Hypothyroidism, unspecified; I48.19 Other persistent atrial fibrillation; Z87.891 Personal history of nicotine dependence; Z88.6 Allergy status to analgesic agent; Z88.1 Allergy status to other antibiotic agents; Z88.8 Allergy status to other drugs, medicaments and biological substances; Z79.52 Long term (current) use of systemic steroids; Z79.01 Long term (current) use of anticoagulants; Z79.891 Long term (current) use of opiate analgesic; Z79.899 Other long term (current) drug therapy | CPT/HCPCS: 99212 ==

== ENCOUNTER 2021-06-22 07:06 | Outpatient (REF) | payer MEDICARE, MEDICAID, SELFPAY ==
[2021-06-22 12:37] LABS: INTERNATIONAL NORM RATIO 2.4 (0.9-1.1); Prothrombin Time 27.7 SEC (9.9-13.0)
== END 2021-06-22 07:07 | disposition home or self-care (01) ==
LOC: HO.LHD 07:06
PROVIDERS: Visit Provider Internal Medicine
DX: I48.19 Other persistent atrial fibrillation (principal); Z79.01 Long term (current) use of anticoagulants
CPT/HCPCS: 36415; 85610

== ENCOUNTER 2021-06-29 11:56 | Outpatient (REF) | payer MEDICARE, MEDICAID, SELFPAY ==
[2021-06-29 11:35] LABS: INTERNATIONAL NORM RATIO 2.3 (0.9-1.1); Prothrombin Time 27.2 SEC (9.9-13.0)
== END 2021-06-29 11:57 | disposition home or self-care (01) ==
LOC: HO.LHD 11:56
PROVIDERS: Visit Provider Internal Medicine
DX: I48.19 Other persistent atrial fibrillation (principal); M81.0 Age-related osteoporosis without current pathological fracture; Z79.01 Long term (current) use of anticoagulants
CPT/HCPCS: 36415; 85610

== ENCOUNTER 2021-06-29 14:14 | Outpatient (REF) | payer MEDICARE, MEDICAID, SELFPAY ==
--- NOTE | ~2021-06-29 | MM_ITS ---
EXAMINATION: BONE DENSITOMETRY CLINICAL INDICATION: Postmenopausal. Encounter for imaging to assess osteoporosis change. COMPARISON: Previous BD dated 06/24/2019 and baseline BD dated 04/14/2009. TECHNIQUE: Using a [employer] DXA System (software version: 13.1) manufactured by [employer], dual-energy x-ray absorptiometry was performed of the lumbar spine and left hip. The images are of good technical quality. Summary results are attached. FINDINGS: AP SPINE L1-L4 (excluding L3): The data of L1-L4 has been changed to exclude the L3 vertebral body, because degenerative changes and dextrocurvature at this level may cause overestimation of lumbar spine density. Current: BMD 0.939 g/cm2, Z-score 0.6, T-score -1.9, osteopenia, 1.4% increase from previous, 9.3% increase from baseline (<5% change is not significant). Prior: BMD 0.926 g/cm2. Baseline: BMD 0.859 g/cm2. LEFT FEMUR, NECK: Current: BMD 0.471 g/cm2, Z-score -1.5, T-score -4.1, osteoporosis. Prior: BMD 0.535 g/cm2. Baseline: BMD 0.646 g/cm2. LEFT FEMUR, TOTAL: Current: BMD 0.445 g/cm2, Z-score -2.0, T-score -4.5, osteoporosis, 17.9% decrease from previous, 24.3% decrease from baseline (<5% change is not significant). Prior: BMD 0.542 g/cm2. Baseline: BMD 0.588 g/cm2. IDENTIFIED RISK FACTORS: History of fracture, (adult). Glucocorticoids, (chronic). Left oophorectomy. Anticonvulsant. Height loss. Low calcium intake. Secondary osteoporosis, (early menopause). Low body weight. Rheumatoid arthritis. HISTORY OF FRACTURE: Femur/hip. Coccyx, Wrist. MEDICATIONS: Prolia. Vitamin D. MM/XR DEXA axial skeleton IMPRESSION: 1. DIAGNOSIS: Osteoporosis based on the lowest T-score value of -4.5 in the total femur applying World Health Organization criteria. 2. 10-YEAR FRACTURE RISK PREDICTION, FRAX: According to the guidelines, FRAX calculation should only be performed on patients in the osteopenia bone density category. Therefore, FRAX was not performed on this patient. 3. Treatment Recommendations: NOF guidelines recommend consideration for treatment in postmenopausal women and men age 50 and older presenting with the following: -A hip or vertebral (clinical or morphometric) fracture. -T-score less than or equal to -2.5 at the femoral neck or spine after appropriate evaluation to exclude secondary causes. -Low bone mass at the hip or spine and a 10-year fracture probability by FRAX of greater than or equal to 3% for hip fracture or greater than or equal to 20% for major osteoporotic fracture based on the [place] adapted WHO algorithm. 4. Other Recommendations: All treatment decisions require clinical judgment and consideration of individual patient factors, including patient preferences, comorbidities, previous drug use, risk factors not captured in the FRAX model (e.g. frailty, falls, vitamin D deficiency, increased bone turnover, interval significant decline in bone density) and possible under or overestimation of fracture risk by FRAX. Additional medical evaluation for secondary cause of low bone mineral density may be appropriate. FUTURE SCAN RECOMMENDATION: People with diagnosed cases of osteoporosis or at high risk for fracture should have regular bone mineral density tests. For patients eligible for Medicare, routine testing is allowed once every 2 years. The testing frequency can be increased to one year for patients who have rapidly progressing disease, those who are receiving or discontinuing medical therapy to restore bone mass, or have additional risk factors.
== END 2021-06-29 14:15 | disposition home or self-care (01) ==
LOC: HO.MAMMO 14:14
PROVIDERS: Visit Provider Nurse Practitioner Family
DX: M81.0 Age-related osteoporosis without current pathological fracture (principal)
CPT/HCPCS: 77080

== ENCOUNTER 2021-07-07 15:13 | Outpatient (RCR) | payer MEDICARE, MEDICAID, SELFPAY ==
[2021-07-07 15:23] VITALS: BP 94/52; PULSE 57; TEMP 36.9; O2SAT 94
--- NOTE | 2021-07-07 15:42 | PM.HEMONCCN ---
Subjective - Subjective Chief complaint: None reported Patient: new to practice Consult date: 07/07/21 Primary Care Provider: Leonor Fitzpatrick MD HPI - Consult Narrative Reason for consult: abnormal CBC Narrative: Corinna Olivas is a 81 year old female referred by Rheumatology because of abnormal CBC. She has a longstanding history of rheumatoid arthritis and is on several immuno modulatory agents including methotrexate. She also has mild eosinophilia. She was seen many years ago by Dr. Diez and hematological workup was negative. Her appetite and weight are stable at this time. She has chronic pains all over her body. This limits her ability to move. She denies any recent changes to her medications. Review of Systems - Constitutional Denies night sweats, Denies poor appetite, Denies weight loss - Cardiovascular Reports no additional cardiovascular complaints - Respiratory Reports no additional respiratory complaints - Gastrointestinal Reports no additional gastrointestinal complaints Oncology Screenings - ECOG Performance Status ECOG Performance Status: 3 [facility] Medical History: Medical History (Last Updated 06/21/21 @ 13:54 by Leonor Fitzpatrick MD) Acquired hypothyroidism Avascular necrosis of right femoral head Bronchiectasis Bunion of great toe of left foot Current use of anticoagulant therapy Essential tremor Osteoarthritis Osteoporosis Osteoporosis Persistent atrial fibrillation Sacroiliitis Seropositive rheumatoid arthritis Family History: Family History (Last Reviewed 06/20/21 @ 11:20 by Rosas Valadez) Father No problems noted. Mother Heart disease Surgical History: Surgical History (Last Reviewed 06/20/21 @ 11:17 by Alanis Caban MD) H/O skin graft History of angioplasty History of appendectomy History of removal of both ovaries Social History: Social History (Last Updated 06/20/21 @ 11:30 by Alanis Caban MD) Living Situation History: Housing: Apartment Are you a primary family member caretaker to a significant other at home: No Tobacco History: Patient Tobacco Use Status: Former Tobacco user Tobacco use type: Cigarette Cigarette Packs Per Day: 3 Years Smoked: 23 e-Cigarette/Vaping Use: Never Used Substance Use History: Use of substances other than those prescribed or required for medical reasons: No Domestic Abuse History: Have you been hit, kicked, punched, or otherwise hurt by someone within the past year? If so, by whom?: No Do you feel safe in your current relationship?: Yes Advance Directives: Advance Directives Date on File: 01/29/20 Nutrition Assessment: Recently lost weight without trying: No Eating poorly because of decreased appetite: No Patient : No : No Poor oral hygiene: No Occupation Assessmet: Current occupational status: retired Home Medications and Allergies Home Medications Medication Instructions Recorded Confirmed Type cholecalciferol (vitamin D3) 50 50 mcg PO DAILY 04/26/20 07/07/21 History mcg (2,000 unit) capsule digoxin 125 mcg (0.125 mg) tablet 125 mcg PO DAILY 04/26/20 07/07/21 History (Digox) furosemide 40 mg tablet 40 mg PO DAILY 04/26/20 07/07/21 History lisinopril 5 mg tablet 5 mg PO DAILY 04/26/20 07/07/21 History ascorbate calcium (vitamin C) 500 500 mg PO DAILY 12/05/20 07/07/21 History mg tablet coenzyme Q10 100 mg capsule (Co 120 mg PO DAILY cap 12/05/20 07/07/21 History Q-10) docosahexaenoic acid 200 mg 200 mg PO DAILY 12/05/20 07/07/21 History capsule (Algal [place]-3 DHA) vitamin B complex 1 tab PO DAILY 12/05/20 07/07/21 History tocilizumab 162 mg/0.9 mL 162 mg SUBCUT Q2W 07/07/21 07/07/21 History subcutaneous syringe (Actemra) Allergies Allergy/AdvReac Type Severity Reaction Status Date / Time ibuprofen Allergy hives Verified 06/21/21 13:30 erythromycin base AdvReac upset Verified 06/21/21 13:30 stomach diarrhea Aspirin Allergy Intermediate Diff Uncoded 06/21/21 13:30 breathing Physical Exam Vital signs: Vital Signs Temp 98.5 F 07/07/21 15:23 Pulse 57 07/07/21 15:23 BP 94/52 L 07/07/21 15:23 Pulse Ox 94 07/07/21 15:23 - Constitutional Present: no acute distress, thin - Routine HEENT Exam Head: Present: normal inspection Eye: Present: EOMI - Routine Neck Exam Present: supple. Absent: lymphadenopathy - Routine Respiratory Exam Present: CTAB. Absent: accessory muscle use - Routine Cardiovascular Exam Cardiovascular: Present: RRR, S1, S2 - Routine Abdominal Exam Present: soft - Routine Extremities Exam Present: pulses intact - Routine Neurological Exam Present: alert, oriented X3 Hem/Onc Consult Result - Labs Labs: Laboratory Tests 10/05/19 11/11/19 08/25/20 09:15 09:26 08:57 WBC RBC Hgb Hct MCV MCH Plt Count Eos # (Auto) Absolute Lymphs (auto) 0.9 L Absolute Eos (auto) 0.7 H BUN Creatinine Vitamin B12 Folate TSH 1.35 TSH 3rd Generation 2.96 03/02/21 05/10/21 06/02/21 09:12 11:08 10:26 WBC 8.2 RBC 3.30 L Hgb 11.6 L Hct 35.6 L MCV 107.9 H MCH 35.2 H Plt Count 165 Eos # (Auto) 0.6 H Absolute Lymphs (auto) Absolute Eos (auto) BUN 19 H Creatinine 1.17 Vitamin B12 790 Folate > 20.0 TSH TSH 3rd Generation Assessment and Plan Patient Active problem list reviewed?: Yes (1) Macrocytosis Status: Chronic Assessment and plan: 1. This is a 81-year-old woman with severe rheumatoid arthritis who is on methotrexate and other immuno modulatory agents referred for evaluation of macrocytosis and mild cytopenias. She is on several medications that can cause leukopenia, thrombocytopenia as well as aplastic anemia. Fortunately she does not have significant cytopenias. She has megaloblastic changes without deficiencies of vitamin B12 or folic acid. 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 She does not consume alcohol and she does not have chronic liver disease. No further hematological workup is necessary at this time. I will be happy to see her in the future if any further hematological issues arise. This was explained to patient and her friend Adelaida. - Time Spent With Patient Time Spent with Patient (in minutes): 20
== END 2022-01-22 | disposition home or self-care (01) ==
LOC: HO.ONC 15:13
PROVIDERS: PCP Internal Medicine; Referring Provider Nurse Practitioner Family; Visit Provider Internal Medicine
DX: D75.89 Other specified diseases of blood and blood-forming organs (principal); M06.9 Rheumatoid arthritis, unspecified; Z79.899 Other long term (current) drug therapy
CPT/HCPCS: 99202

== ENCOUNTER → 2021-07-10 13:07 | Outpatient (BNVA) | payer MEDICARE, MEDICAID, SELFPAY | PROVIDERS: PCP Internal Medicine; Visit Provider Anesthesiology | DX: Z51.81 Encounter for therapeutic drug level monitoring (principal); F11.20 Opioid dependence, uncomplicated | CPT/HCPCS: 99211 ==

== ENCOUNTER 2021-07-13 11:43 | Outpatient (REF) | payer MEDICARE, MEDICAID, SELFPAY ==
[2021-07-13 11:48] LABS: INTERNATIONAL NORM RATIO 2.3 (0.9-1.1); Prothrombin Time 26.1 SEC (9.9-13.0)
== END 2021-07-13 11:44 | disposition home or self-care (01) ==
LOC: HO.LHD 11:43
PROVIDERS: Visit Provider Internal Medicine
DX: I48.91 Unspecified atrial fibrillation (principal); Z79.01 Long term (current) use of anticoagulants
CPT/HCPCS: 36415; 85610

== ENCOUNTER 2021-07-27 07:11 | Outpatient (REF) | payer MEDICARE, MEDICAID, SELFPAY ==
[2021-07-27 10:52] LABS: MANUAL DIFF FLAG NO
[2021-07-27 10:59] LABS: Basophils Absolute Auto 0.1 X10*3/uL (0.0-0.2); Eosinophils Absolute Auto 0.5 X10*3/uL (0.0-0.4); Eosinophils Percent Auto 7.6 % (0-4); Hematocrit 39.3 % (37.0-47.0); Imm Gran Abs Auto 0.03 X10*3/uL (0.00-0.03); Imm Gran Pct Auto 0.4 % (0.0-0.4); Lymphocytes Absolute Auto 1.6 X10*3/uL (1.2-4.9); Lymphocytes Percent Auto 22.5 % (20-40); Mean Corpuscular HGB Conc 33.1 g/dl (31.0-35.0); Mean Corpuscular Hemoglobin 35.9 pg (27.0-33.0); Mean Corpuscular Volume 108.6 fL (80.0-98.0); Mean Platelet Volume 10.9 fL (9.4-12.3); Monocytes Percent Auto 14.9 % (2-11); Neutrophils Absolute Auto 3.7 x10*3/uL (2.0-8.3); Neutrophils Percent Auto 53.6 % (45-73); Platelet Count 151 X10*3/uL (160-400); Red Blood Count 3.62 X10*6/uL (4.20-5.50); Red Cell Distribution Width 13.4 % (11.0-16.0)
[2021-07-27 11:06] LABS: Prothrombin Time 22.6 SEC (9.9-13.0)
[2021-07-27 11:20] LABS: Alanine Aminotransferase 19 U/L (0-31); Albumin Level 4.1 g/dL (3.5-5.0); Alkaline Phosphatase 55 U/L (39-117); Anion Gap 15 (12-20); Aspartate Amino Transferase 32 U/L (5-31); Bilirubin Total 0.8 mg/dL (0.0-1.0); Blood Urea Nitrogen 29 mg/dL (9-16); C Reactive Protein < 0.02 mg/dL (< or = 0.50); Calcium 9.3 mg/dL (8.4-10.2); Carbon Dioxide 28 mmol/L (22-29); Chloride 100 mmol/L (96-108); Estimated Glomerular Filt Rate 49; Glucose Random 80 mg/dL (60-115); Potassium 4.5 mmol/L (3.3-5.1); Sodium 138 mmol/L (135-145); Total Protein 6.4 g/dL (6.5-8.0)
[2021-07-27 11:32] LABS: Vitamin D 25-OH Total 57.7 ng/mL (>30)
[2021-07-27 11:44] LABS: Erythrocyte Sedimentation Rate 3 MM/HR (0-20)
== END 2021-07-27 07:12 | disposition home or self-care (01) ==
LOC: HO.LHD 07:11
PROVIDERS: Nurse Practitioner Family; Visit Provider Internal Medicine
DX: M05.9 Rheumatoid arthritis with rheumatoid factor, unspecified (principal); M81.0 Age-related osteoporosis without current pathological fracture; I48.19 Other persistent atrial fibrillation; Z79.01 Long term (current) use of anticoagulants
CPT/HCPCS: 36415; 80053; 82306; 85025; 85610; 85652; 86140

== ENCOUNTER 2021-08-03 10:35 | Outpatient (REF) | payer MEDICARE, MEDICAID, SELFPAY ==
[2021-08-03 10:24] LABS: INTERNATIONAL NORM RATIO 2.1 (0.9-1.1); Prothrombin Time 24.4 SEC (9.9-13.0)
== END 2021-08-03 10:36 | disposition home or self-care (01) ==
LOC: HO.LHD 10:35
PROVIDERS: Visit Provider Internal Medicine
DX: I48.19 Other persistent atrial fibrillation (principal); Z79.01 Long term (current) use of anticoagulants
CPT/HCPCS: 36415; 85610

== ENCOUNTER → 2021-08-07 13:31 | Outpatient (BNVA) | payer MEDICARE, MEDICAID, SELFPAY | PROVIDERS: PCP Internal Medicine; Visit Provider Anesthesiology | DX: Z51.81 Encounter for therapeutic drug level monitoring (principal); F11.20 Opioid dependence, uncomplicated | CPT/HCPCS: 99211 ==

== ENCOUNTER 2021-08-10 | Outpatient (REF) | payer MEDICARE, MEDICAID, SELFPAY ==
[2021-08-10 10:52] LABS: INTERNATIONAL NORM RATIO 1.7 (0.9-1.1); Prothrombin Time 19.7 SEC (9.9-13.0)
== END 2021-08-10 00:01 | disposition home or self-care (01) ==
LOC: HO.LHD
PROVIDERS: Visit Provider Internal Medicine
DX: I48.19 Other persistent atrial fibrillation (principal); Z79.01 Long term (current) use of anticoagulants
CPT/HCPCS: 36415; 85610

== ENCOUNTER 2021-08-16 08:12 | Outpatient (REF) | payer MEDICARE, MEDICAID, SELFPAY ==
[2021-08-16 10:58] LABS: INTERNATIONAL NORM RATIO 2.5 (0.9-1.1); Prothrombin Time 28.5 SEC (9.9-13.0)
== END 2021-08-16 08:13 | disposition home or self-care (01) ==
LOC: HO.LHD 08:12
PROVIDERS: Visit Provider Internal Medicine
DX: I48.19 Other persistent atrial fibrillation (principal); Z79.01 Long term (current) use of anticoagulants
CPT/HCPCS: 36415; 85610

== ENCOUNTER → 2021-08-22 13:12 | Outpatient (BNVA) | payer MEDICARE, MEDICAID, SELFPAY | PROVIDERS: PCP Internal Medicine; Visit Provider Orthopaedic Surgery | DX: Z13.89 Encounter for screening for other disorder (principal) ==

== ENCOUNTER 2021-08-31 07:10 | Outpatient (REF) | payer MEDICARE, MEDICAID, SELFPAY ==
[2021-08-31 11:28] LABS: MANUAL DIFF FLAG NO
[2021-08-31 11:37] LABS: Basophils Percent Auto 0.8 % (0-2); Eosinophils Absolute Auto 0.3 X10*3/uL (0.0-0.4); Eosinophils Percent Auto 4.8 % (0-4); Hematocrit 39.4 % (37.0-47.0); Hemoglobin 12.9 g/dl (12.0-16.0); Imm Gran Abs Auto 0.02 X10*3/uL (0.00-0.03); Imm Gran Pct Auto 0.4 % (0.0-0.4); Lymphocytes Absolute Auto 1.1 X10*3/uL (1.2-4.9); Mean Corpuscular HGB Conc 32.7 g/dl (31.0-35.0); Mean Corpuscular Hemoglobin 35.1 pg (27.0-33.0); Mean Corpuscular Volume 107.1 fL (80.0-98.0); Mean Platelet Volume 11.7 fL (9.4-12.3); Monocytes Absolute Auto 0.5 X10*3/uL (0.1-1.2); Monocytes Percent Auto 10.2 % (2-11); Neutrophils Absolute Auto 3.2 x10*3/uL (2.0-8.3); Neutrophils Percent Auto 61.8 % (45-73); Platelet Count 127 X10*3/uL (160-400); Red Blood Count 3.68 X10*6/uL (4.20-5.50); Red Cell Distribution Width 13.7 % (11.0-16.0); White Blood Count 5.2 X10*3/uL (4.8-10.8)
[2021-08-31 11:52] LABS: Prothrombin Time 60.5 SEC (9.9-13.0)
[2021-08-31 12:16] LABS: Anion Gap 15 (12-20); Blood Urea Nitrogen 22 mg/dL (9-16); Calcium 10.1 mg/dL (8.4-10.2); Carbon Dioxide 23 mmol/L (22-29); Chloride 108 mmol/L (96-108); Estimated Glomerular Filt Rate 53; Glucose Fasting 152 mg/dL (60-99); Potassium 4.2 mmol/L (3.3-5.1); Sodium 142 mmol/L (135-145)
[2021-08-31 13:18] LABS: INTERNATIONAL NORM RATIO 5.1 (0.9-1.1)
[2021-08-31 15:36] LABS: Estimated Average Glucose 108 mg/dL; Hemoglobin A1c % 5.4 %
== END 2021-08-31 07:11 | disposition home or self-care (01) ==
LOC: HO.LHD 07:10
PROVIDERS: Visit Provider Internal Medicine
DX: Z01.818 Encounter for other preprocedural examination (principal); I48.19 Other persistent atrial fibrillation; I73.9 Peripheral vascular disease, unspecified; M05.9 Rheumatoid arthritis with rheumatoid factor, unspecified; E03.9 Hypothyroidism, unspecified; R73.01 Impaired fasting glucose; Z79.01 Long term (current) use of anticoagulants
CPT/HCPCS: 36415; 80048; 83036; 85025; 85610; 93005; 99212

== ENCOUNTER 2021-09-01 06:08 | Outpatient (REF) | payer MEDICARE, MEDICAID, SELFPAY ==
[2021-09-01 10:30] LABS: INTERNATIONAL NORM RATIO 3.3 (0.9-1.1)
== END 2021-09-01 06:09 | disposition home or self-care (01) ==
LOC: HO.LHD 06:08
PROVIDERS: Visit Provider Internal Medicine
DX: I48.19 Other persistent atrial fibrillation (principal); Z79.01 Long term (current) use of anticoagulants
CPT/HCPCS: 36415; 85610

== ENCOUNTER 2021-09-05 14:09 | Outpatient (REF) | payer MEDICARE, MEDICAID, SELFPAY ==
[2021-09-05 11:57] LABS: INTERNATIONAL NORM RATIO 1.3 (0.9-1.1); Prothrombin Time 14.8 SEC (9.9-13.0)
== END 2021-09-05 14:10 | disposition home or self-care (01) ==
LOC: HO.LHD 14:09
PROVIDERS: Visit Provider Internal Medicine
DX: I48.19 Other persistent atrial fibrillation (principal); Z79.01 Long term (current) use of anticoagulants
CPT/HCPCS: 36415; 85610

== ENCOUNTER → 2021-09-08 10:52 | Outpatient (REF) | payer MEDICARE, MEDICAID, SELFPAY ==
--- NOTE | 2021-09-08 10:58 | CA_ITS ---
Transthoracic Echocardiogram Patient (Last, First, Middle): Corinna Olivas D Gender: Female Date of : 1940 Age: 81 Procedure Date: 09/08/2021 Procedure Type: Transthoracic Echocardiogram Location: OP Height: 165.1 cm Weight: 43.09 kg BSA: 1.44 m2 Heart Rate: bpm BP: 100 / 52 mmHg Supervisor [employer]: JERRY Summers MD: Kenny Martin MD Symptoms: I34.0 - Nonrheumatic mitral (valve) insufficiency Study Quality: Fair Conclusions: - Normal left ventricular cavity size. There is mildly increased left ventricular wall thickness. The left ventricular systolic function is low normal. The visually estimated ejection fraction is between 50-55%. - Elevated filling pressures. - The basal inferior segment is hypokinetic. - Normal right ventricular cavity size and systolic function. - Severe biatrial enlargement. - There is moderate to severe mitral valve regurgitation. Findings Left Ventricle Normal left ventricular cavity size. There is mildly increased left ventricular wall thickness. The left ventricular systolic function is low normal. The visually estimated ejection fraction is between 50-55%. There is evidence of regional wall motion abnormalities. Abnormal diastolic function is noted. Spectral Doppler is indicative of a restrictive filling pattern. Elevated filling pressures. Wall Motion Rest Echo Findings The basal inferior segment is hypokinetic. Right Ventricle Normal right ventricular cavity size and systolic function. Atria Severe biatrial enlargement. Aortic Valve There is a normal trileaflet aortic valve. There is no aortic valve stenosis. There is trace (trivial) aortic valve regurgitation. 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 There is moderate to severe mitral valve regurgitation. The mitral regurgitation jet is directed posteriorly. There is no mitral valve stenosis. Pulmonic Valve The pulmonic valve is likely normal. Tricuspid Valve Normal tricuspid valve structure. There is moderate tricuspid valve regurgitation. Normal right atrial pressure. Mild pulmonary hypertension is present. Great Vessels All visible segments of the aorta are normal in size. The visualized portions of the pulmonary artery and branches are normal. Venous The inferior vena cava is normal in size and collapses greater than 50% with inspiration. Pericardium/Pleural There is no evidence of pericardial effusion. Prior Study Comparison Changes noted compared to prior study dated: 05/16/2015. Severe biatrial enlargement, moderate tricuspid valve regurgitation, mild pulmonary hypertension. Measurements 2D Linear Measurements IVSd: 1.03 0.6-0.9/0.6-1.0 cm LVIDd: 5.22 3.9-5.3/4.2-5.9 cm LVIDd Index: 3.63 2.4-3.2/2.2-3.1 cm/m2 LVIDs: 3.73 2.0-3.6 cm LVPWd: 0.96 0.7-1.1 cm LA Diam: 4.90 2.7-3.8/3.0-4.0 cm LAIDs Index: 3.40 1.5-2.3 cm/m2 LV Mass: 241.87 67-162/88-224 g LV Mass Index: 167.97 43-95/49-115 g/m2 LVOT Diam: 2.00 3.0+(-)1.3 cm 2D Systolic Function EF 4C: 44.40 >55% EF 2C: 46.40 >55% EF BiP: 46.10 >55% Aortic Valve AoV Pk Mark: 0.84 AoV Mn Mark: 0.60 AoV VTI: 0.16 AoV Pk Grad: 3.00 Aov Mn Grad: 2.00 ALYSE Cont.VTI: 2.11 AI Pk Mark: 4.90 AI Wells: 1.74 LVOT LVOT Pk Mark: 0.50 LVOT Mn Mark: 0.29 LVOT VTI: 0.11 LVOT Pk Grad: 1.00 LVOT Mn Grad: 0.00 LVOT Diam: 2.00 LVOT Area: 3.14 Right Ventricle TAPSE (mm): 10.20 Tricuspid Valve TR Pk Mark: 3.11 TR Pk Grad: 39.00 RA Press: 3.00 RVSP: 42.00 Great Vessels Aorta Sinus of Valsalva: 3.26 2.0-3.[address] [place]: 3.08 1.7-3.4 cm Ao Asc: 3.20 2.1-3.4 cm Updated in Other Vendor System with Status of Final Kenny Martin MD electronically signed on 09/11/2021 2:42:20 PM with status of Final
== END ==
LOC: HO.CARD 10:52
PROVIDERS: PCP Internal Medicine; Visit Provider Internal Medicine Cardiovascular Disease
DX: I34.0 Nonrheumatic mitral (valve) insufficiency (principal)
CPT/HCPCS: 93306

== ENCOUNTER 2021-09-12 | Outpatient (REF) | payer MEDICARE, MEDICAID, SELFPAY ==
[2021-09-12 09:36] LABS: INTERNATIONAL NORM RATIO 3.1 (0.9-1.1); Prothrombin Time 35.6 SEC (9.9-13.0)
== END 2021-09-12 00:01 ==
LOC: HO.LAB
PROVIDERS: Visit Provider Internal Medicine
DX: Z01.810 Encounter for preprocedural cardiovascular examination (principal); I48.19 Other persistent atrial fibrillation; Z79.01 Long term (current) use of anticoagulants
CPT/HCPCS: 36415; 85610

== ENCOUNTER → 2021-09-12 09:06 | Outpatient (REF) | payer MEDICARE, MEDICAID, SELFPAY ==
--- NOTE | ~2021-09-12 | NM_ITS ---
Lexiscan Myocardial perfusion study Indication: Preoperative cardiovascular evaluation Technique: The patient was brought in for a Lexiscan perfusion study on 09/12/2021 and was injected 0.4 mg of Lexiscan intravenously. Within a minute of this injection 25 mCi of sestamibi was given intravenously. Images were obtained using the SPECT gamma camera interlaced with the gating device. Images were obtained in supine position. Resting perfusion study was performed on 09/13/2021. Patient was administered 25 mCi of sestamibi intravenously at rest. Images were then obtained in supine position. Total DLP 74mGy-cm. Images were processed with the software and compared side to side in short axis, horizontal long axis and vertical long axis views. Findings: Raw acquisition reviewed. The stress perfusion study showed no significant perfusion abnormality. Both uncorrected as well as CT attenuation corrected images were reviewed. The gated study shows normal LV systolic function with calculated LVEF of 64%. LV cavity is normal in size. The gated study shows normal wall thickening and contraction of segments. Resting study shows no significant perfusion abnormality. Gating at rest reveals normal wall motion with ejection fraction at >70%. The findings are consistent with no definite reversible or fixed perfusion defects. NM/NM leoncio perf SPECT rest & str Impression: 1. Myocardial perfusion imaging study shows likely normal myocardial perfusion. No definitive evidence of any ischemia or infarction. 2. Gated LVEF is 64% during stress; > 70% during rest. 3. Transient ischemic dilatation not present. EKG component of the test reported separately.
--- NOTE | 2021-09-12 09:10 | CA_ITS ---
Acquisition Time: 2021-09-12 09:34:24 Total Exercise Time: 00:02:00 Test Indications: Pre op Medications: see med notes Protocol: LEXISCAN Max HR: 098 BPM 69% of Pred: 141 BPM Max BP: 120/072 mmHG Max Work Load: 1.0 METS Pharmacological stress test with Lexiscan injection, while sitting and slowly kicking her legs, without anginal symptoms, with frequent isolated PVCs and multifocal ventricular cuplets, with normotensive response to injection, with nondiagnostic EKG for ischemia. In recovery she was given Aminophylline 75mg IVP to reverse Lexiscan. Nuclear images pending. Test reviewed with Dr Carrillo. Referred By: Kenny Martin Overread By: JERMAINE GOODE
== END ==
LOC: HO.CARD 09:06
PROVIDERS: PCP Internal Medicine; Visit Provider Internal Medicine Cardiovascular Disease
DX: Z01.810 Encounter for preprocedural cardiovascular examination (principal)
CPT/HCPCS: 78452; 93017; A9500; J0280; J2785

== ENCOUNTER 2021-09-15 14:16 | Outpatient (REF) | payer MEDICARE, MEDICAID, SELFPAY ==
[2021-09-15 10:06] LABS: INTERNATIONAL NORM RATIO 1.9 (0.9-1.1); Prothrombin Time 21.7 SEC (9.9-13.0)
== END 2021-09-15 14:17 | disposition home or self-care (01) ==
LOC: HO.LHD 14:16
PROVIDERS: Visit Provider Internal Medicine
DX: I48.19 Other persistent atrial fibrillation (principal); Z79.01 Long term (current) use of anticoagulants
CPT/HCPCS: 36415; 85610

== ENCOUNTER 2021-09-18 07:25 | Outpatient (REF) | payer MEDICARE, MEDICAID, SELFPAY ==
[2021-09-18 12:09] LABS: INTERNATIONAL NORM RATIO 1.9 (0.9-1.1); Prothrombin Time 21.9 SEC (9.9-13.0)
== END 2021-09-18 07:26 | disposition home or self-care (01) ==
LOC: HO.LHD 07:25
PROVIDERS: Visit Provider Internal Medicine
DX: I48.19 Other persistent atrial fibrillation (principal); Z79.01 Long term (current) use of anticoagulants
CPT/HCPCS: 36415; 85610

== ENCOUNTER 2021-09-21 06:04 | Outpatient (REF) | payer MEDICARE, MEDICAID, SELFPAY ==
[2021-09-21 13:38] LABS: INTERNATIONAL NORM RATIO 3.5 (0.9-1.1); Prothrombin Time 41.4 SEC (9.9-13.0)
== END 2021-09-21 06:05 | disposition home or self-care (01) ==
LOC: HO.LHD 06:04
PROVIDERS: Visit Provider Internal Medicine
DX: I48.91 Unspecified atrial fibrillation (principal); Z79.01 Long term (current) use of anticoagulants
CPT/HCPCS: 36415; 85610

== ENCOUNTER 2021-09-25 07:07 | Outpatient (REF) | payer MEDICARE, MEDICAID, SELFPAY ==
[2021-09-25 11:36] LABS: INTERNATIONAL NORM RATIO 2.2 (0.9-1.1); Prothrombin Time 24.9 SEC (9.9-13.0)
== END 2021-09-25 07:08 | disposition home or self-care (01) ==
LOC: HO.LHD 07:07
PROVIDERS: Visit Provider Internal Medicine
DX: I48.19 Other persistent atrial fibrillation (principal); Z79.01 Long term (current) use of anticoagulants
CPT/HCPCS: 36415; 85610

== ENCOUNTER 2021-10-05 07:21 | Outpatient (REF) | payer MEDICARE, MEDICAID, SELFPAY ==
[2021-10-04 11:05] LABS: INTERNATIONAL NORM RATIO 2.3 (0.9-1.1); Prothrombin Time 26.1 SEC (9.9-13.0)
[2021-10-04 11:26] LABS: Alanine Aminotransferase 29 U/L (0-31); Albumin Level 4.2 g/dL (3.5-5.0); Alkaline Phosphatase 46 U/L (39-117); Anion Gap 11 (12-20); Aspartate Amino Transferase 31 U/L (5-31); Bilirubin Total 0.8 mg/dL (0.0-1.0); Blood Urea Nitrogen 16 mg/dL (9-16); Calcium 9.4 mg/dL (8.4-10.2); Carbon Dioxide 24 mmol/L (22-29); Chloride 109 mmol/L (96-108); Estimated Glomerular Filt Rate > 60; Glucose Random 95 mg/dL (60-115); Potassium 4.3 mmol/L (3.3-5.1); Sodium 140 mmol/L (135-145); Total Protein 6.2 g/dL (6.5-8.0)
[2021-10-04 11:43] LABS: Vitamin D 25-OH Total 51.1 ng/mL (>30)
== END 2021-10-05 07:22 | disposition home or self-care (01) ==
LOC: HO.LHD 07:21
PROVIDERS: Absent Provider Nurse Practitioner Family; Visit Provider Internal Medicine
DX: I48.19 Other persistent atrial fibrillation (principal); Z79.01 Long term (current) use of anticoagulants; M81.8 Other osteoporosis without current pathological fracture
CPT/HCPCS: 36415; 80053; 82306; 85610

== ENCOUNTER 2021-10-11 12:48 | Outpatient (REF) | payer MEDICARE, MEDICAID, SELFPAY ==
[2021-10-11 10:47] LABS: INTERNATIONAL NORM RATIO 3.3 (0.9-1.1)
== END 2021-10-11 12:49 | disposition home or self-care (01) ==
LOC: HO.LHD 12:48
PROVIDERS: Visit Provider Internal Medicine
DX: Z13.89 Encounter for screening for other disorder (principal)
CPT/HCPCS: 36415; 85610

== ENCOUNTER 2021-10-11 14:53 | Inpatient (IN) | payer MEDICARE, MEDICAID, SELFPAY ==
--- NOTE | ~2021-10-11 | IR_ITS ---
PROCEDURE: IR INSERTION OF PICC CLINICAL INFORMATION: Foot infection for long-term IV antibiotics. COMPARISON: None TECHNIQUE: Procedure and risks and benefits including bleeding, infection and blood clot were discussed with the patient and informed consent was obtained. All elements of maximal sterile barrier technique followed including use of cap, mask, sterile gown, sterile gloves, a sterile full body drape and hand hygiene. Also followed skin preparation with 2% chlorhexidine for cutaneous antisepsis, and sterile ultrasound preparation with sterile gel and probe cover when applicable. The right arm was prepped and draped in the usual sterile fashion. The skin and soft tissues were anesthetized with 1% lidocaine plain. Using ultrasound guidance, right brachial vein access was obtained. Over an 0.018 wire and through a peel-away sheath, a 5 [place] PICC line was positioned. Catheter tip is in the SVC. Catheter length is 31 cm. Real-time ultrasound guidance was used to document vein patency and for needle entry. A formal ultrasound picture was recorded. FLUOROSCOPY TIME: 0 minutes. DAP: 0 uGy-cm2 FINDINGS: There is a right upper extremity PICC line with tip projecting over the SVC. IR/IR cvc insert peripheral IMPRESSION: Right upper extremity PICC line placement.
--- NOTE | ~2021-10-11 | CT_ITS ---
EXAMINATION: CT CHEST WITHOUT CONTRAST CLINICAL INFORMATION: Hypoxia and cough COMPARISON: Chest radiograph earlier today and CT chest 12/09/2014 TECHNIQUE: Multidetector volumetric CT imaging of the chest was done. Axial MIP volume rendering provided. Sagittal and coronal reformatted images were obtained. This CT examination was performed using dose optimization techniques as appropriate, variously including the following: *Automated exposure control *Adjustment of mA and/or kV according to patient size (this includes techniques or standardized protocols for targeted exams where dose is matched to indication/reason for exam; i.e. extremities or head) *Use of iterative reconstruction technique DLP: 139 mGy-cm FINDINGS: LUNGS AND PLEURA: Biapical scarring is present along with multiple pulmonary nodular densities (see barraza images), many of which are new. For example, there is an 8 mm nodule seen in the right upper lobe (5:211) which was not present previously. The largest nodule is in the left upper lobe and measures 9 mm that previously measured 15 mm.. This latter nodule was biopsied on 07/21/2014 with results consistent with Aspergillus infection. Barraza images of all the nodules have been saved. Lower lobe peribronchial thickening is noted. No pleural effusion. MEDIASTINUM: The heart is enlarged. Patient status post median sternotomy and probable CABG. Severe coronary disease is present. Biatrial enlargement is seen. No mediastinal or hilar lymphadenopathy. No pericardial effusion. Peribronchial thickening and biapical pleural-parenchymal scarring with multiple lung nodules the largest of which has decreased in size. AXILLA: No lymphadenopathy. UPPER ABDOMEN: Unremarkable. OSSEOUS STRUCTURES: Unremarkable. CT/CT chest wo con IMPRESSION: Peribronchial thickening and biapical pleural-parenchymal scarring with multiple lung nodules the largest of which has decreased in size. The largest lung mass which had measured 1.5 cm has significantly decreased in size. There are new small pulmonary nodules seen, the largest 8 mm. 2017 Fleischner Society Recommendations for Lung Nodule(s): Follow-Up based on size (average of long- and short-axis diameters). Use most suspicious nodule for followup. Multiple Solid lung nodules 6-8 mm: Follow up management based on most suspicious nodule. In a low-risk patient, recommend a non-contrast Chest CT at 3-6 months, then consider another non-contrast Chest CT at 18-24 months. In a high-risk patient, recommend a non-contrast Chest CT at 3-6 months, then another non-contrast Chest CT at 18-24 months. These guidelines do not apply to patients younger than 35 years, immunocompromised patients, and patients with cancer. F/u in patients with significant comorbidities as clinically warranted. For lung cancer screening, adhere to Lung-RADS guidelines. Reference: Radiology. 2017 Oct; 284(1):228-243 . Fleischner guidelines were followed.
--- NOTE | ~2021-10-11 | XR_ITS ---
EXAMINATION: XR CHEST CLINICAL INFORMATION: Cough COMPARISON: Chest x-ray 06/02/2021 TECHNIQUE: Frontal view of the chest was obtained. FINDINGS: Hypoinflated lungs. Mild hazy opacity in the left lower lung likely mild atelectasis. No appreciable airspace consolidation. No pleural effusion or pneumothorax. Cardiomediastinal silhouette is unchanged. No evidence of pulmonary edema. Suspected bilateral perihilar bronchiectasis and bronchial wall thickening as on prior. No acute osseous injury. Small metallic densities project over the right shoulder and supraclavicular region, presumably overlying the patient. XR/XR chest 1V IMPRESSION: 1. Mild hypoinflation with left basilar atelectasis. No appreciable airspace consolidation or pleural effusions. 2. Bronchial wall thickening and suspected bronchiectasis.
--- NOTE | ~2021-10-11 | MR_ITS ---
EXAMINATION: MR ANKLE WITHOUT AND WITH CONTRAST, LEFT CLINICAL INFORMATION: Osteomyelitis COMPARISON: Radiographs 10/11/2021 TECHNIQUE: MRI of the ankle was performed before and after the intravenous administration of 4.5 mL gadolinium on a high-field scanner. FINDINGS: There is a skin ulceration superficial to the lateral malleolus with underlying marrow edema, enhancement, and loss of T1 fatty marrow signal compatible with osteomyelitis. Marrow changes extend from the tip of the distal fibula approximately approximately 5 cm. There is prominent fluid in the peroneal tendon sheath with synovial enhancement which likely represents a septic tenosynovitis. The tendons appear intact. There is also prominent fluid in the posterolateral tibiotalar joint recess along with an effusion of the posterior subtalar facet joint with synovial enhancement, concerning for a septic joint. Mild chronic Achilles tendinopathy. Anterior tibialis tenosynovitis. MR/MR ankle LT wo/w con IMPRESSION: Lateral soft tissue ulceration with underlying osteomyelitis of the distal fibula. Septic peroneal tenosynovitis and a septic posterior subtalar facet joint are also suspected.
--- NOTE | ~2021-10-11 | XR_ITS ---
EXAMINATION: XR FOOT, LEFT CLINICAL INFORMATION: Ulcers, rule out osteomyelitis COMPARISON: Left foot radiographs 05/25/2021 TECHNIQUE: 3 views left foot of the left foot. FINDINGS: Small suspected soft tissue ulcer overlying the median eminence of the first metatarsal head. There is mild subcortical cystic or erosive change at the at the median eminence of the first metatarsal head. No other osseous destructive change or periostitis. No tracking soft tissue gas. Hallux valgus deformity and advanced first MTP joint osteoarthritis noted. Question of an additional soft tissue wound along the dorsal lateral aspect of the forefoot. Correlate with exam. Severe varus angular deformity and medial subluxation of the small toe which crosses over the fourth toe noted. Atherosclerotic vascular calcifications are seen. XR/XR foot LT min 3V IMPRESSION: No acute osseous injury or definite radiographic evidence of advanced osteomyelitis. If there is continued high clinical concern, suggest either radiographic follow-up or alternatively MRI.
[2021-10-11 15:19] VITALS: BP 108/64; BP 111/60; PULSE 80; PULSE 95; RESP 16; TEMP 36.4; O2SAT 90; O2SAT 91; BMI 15.7
--- NOTE | 2021-10-11 15:37 | ECG_ITS ---
Test Reason : DYSPNEA Blood Pressure : / mmHG Vent. Rate : 101 BPM Atrial Rate : 000 BPM P-R Int : 000 ms QRS Dur : 088 ms QT Int : 322 ms P-R-T Axes : 000 054 227 degrees QTc Int : 417 ms Artifact in tracing Possible atrial fibrillation ST & T wave abnormality, consider inferolateral ischemia Abnormal ECG When compared with ECG of 17-MAR-2019 07:17, No significant change was found Referred By: Angle Espinosa Electronically Signed By:BRETT SUMMERS
[2021-10-11 16:00] VITALS: O2SAT 70
--- NOTE | 2021-10-11 16:06 | ED.GENADULT ---
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 Denies known fever, SOB, CP, abdominal pain, nausea/vomiting/diarrhea Onset (ago): day(s) Related Data Home Medications Medication Instructions Recorded Confirmed cholecalciferol (vitamin D3) 50 50 mcg PO DAILY 04/26/20 10/11/21 mcg (2,000 unit) capsule furosemide 40 mg tablet 40 mg PO DAILY 04/26/20 10/11/21 lisinopril 5 mg tablet 5 mg PO DAILY 04/26/20 10/11/21 ascorbate calcium (vitamin C) 500 500 mg PO BID 12/05/20 10/11/21 mg tablet coenzyme Q10 100 mg capsule (Co 100 mg PO DAILY 12/05/20 10/11/21 Q-10) docosahexaenoic acid 200 mg 200 mg PO DAILY 12/05/20 10/11/21 capsule (Algal [place]-3 DHA) vitamin B complex 1 tab PO DAILY 12/05/20 10/11/21 zonisamide 25 mg capsule 25 mg PO TID 08/30/21 10/11/21 digoxin 125 mcg (0.125 mg) tablet 125 mcg PO Q48H 08/31/21 10/11/21 (Digox) pravastatin 20 mg tablet 20 mg PO BEDTIME 10/11/21 10/11/21 warfarin 5 mg tablet 2.5 mg PO DAILY 10/11/21 10/11/21 Previous Rx's Medication Instructions Recorded denosumab 60 mg/mL subcutaneous 60 mg subcut [id number] #1 mL 04/24/21 syringe (Prolia) gabapentin 300 mg capsule 300 mg PO TID 30 days #90 caps 05/17/21 Transport wheelchair #1 ea 06/05/21 metoprolol tartrate 100 mg tablet 100 mg PO BID #180 tabs 06/05/21 nebulizers #1 ea 06/21/21 Synthroid 75 mcg tablet 75 mcg PO QAM #90 tabs 08/04/21 (levothyroxine) leflunomide 20 mg tablet 20 mg PO DAILY #90 tabs 08/07/21 oxycodone 5 mg tablet 5 mg PO Q8H PRN pain 14 days #42 08/08/21 tabs prednisone 1 mg tablet 2 mg PO DAILY #60 tabs 08/10/21 tocilizumab 162 mg/0.9 mL 162 mg (0.9 mL) subcut Q2W #1.8 mL 08/18/21 subcutaneous syringe (Actemra) commode (bedside commode) #1 ea 08/29/21 walker #1 ea 08/29/21 walker (Ultra-Light Rollator) #1 ea 10/02/21 Allergies Allergy/AdvReac Type Severity Reaction Status Date / Time ibuprofen Allergy hives Verified 09/27/21 02:12 [id number] Allergy injection Verified 09/27/21 02:12 [From Evenity] site reaction erythromycin base AdvReac upset Verified 09/27/21 02:12 stomach diarrhea Aspirin Allergy Intermediate Diff Uncoded 09/27/21 02:12 breathing Review of Systems Review of Systems: Constitutional: No Fever, No Chills, No Night Sweats, No Fatigue, No Malaise ENT/Mouth: No Ear Pain, No Nasal Congestion, No sore throat, No Rhinorrhea, No Swallowing Difficulty Eyes: No Eye Pain, No Swelling, No Redness Cardiovascular: No Chest Pain, No SOB, No Edema, No Palpitations Respiratory: + Cough, + Sputum, No Wheezing, No Dyspnea Gastrointestinal: No Nausea, No Vomiting, No Diarrhea, No Constipation, No Abdominal pain Genitourinary: No Dysuria, No Urinary Frequency, No Hematuria, No Urinary Incontinence/retention Musculoskeletal: No joint pain, No Myalgias, No Joint Swelling Skin: + Skin Lesions, No rash Neuro: No Weakness, No Numbness, No Paresthesias, No Loss of Consciousness, No Dizziness, No Headache Yes all other systems are reviewed and are negative [facility] Past Medical History Attestation statement: The following information was validated with the patient. Medical History (Updated 10/11/21 @ 17:41 by RADHA Kearns) Avascular necrosis of right femoral head Bronchiectasis Bunion of great toe of left foot Cellulitis Current use of anticoagulant therapy Essential tremor Osteoarthritis Osteoporosis Persistent atrial fibrillation Sacroiliitis Seropositive rheumatoid arthritis Surgical History H/O skin graft History of angioplasty History of appendectomy History of removal of both ovaries Family History Family History Father No problems noted. Mother Heart disease Social History Social History Housing: Apartment Are you a primary career services director to a significant other at home: No Alcohol intake: former Patient Tobacco Use Status: Former Tobacco user Tobacco use type: Cigarette Cigarette Packs Per Day: 3 Years Smoked: 23 e-Cigarette/Vaping Use: Never Used Advance Directives: Yes Advance Directives on File: Yes Advance Directives Date on File: 12/07/20 Current occupational status: retired Cognitive needs: No Hearing needs: No Vision needs: Yes Physical Exam ED Vital Signs: Vital Signs - 24 hr 10/11/21 15:19 10/11/21 16:28 Temperature 97.6 F Pulse Rate 95 92 Respiratory Rate 16 17 Blood Pressure 111/60 Pulse Oximetry 91 L Oxygen Delivery Method Room Air BMI result Body Mass Index 15.7 Const General: cooperative, healthy appearing, no acute distress and ill appearing chronically Orientation/consciousness: patient oriented x3 Limitations: no limitations HENMT Head: Yes normal to inspection and Yes atraumatic Ears: hearing grossly normal bilaterally General nose exam: Normal external nose present Face and sinus: Yes normal facial exam Eyes General: appearance normal, both eyes and all related structures EOM: EOMs intact bilaterally Neck Neck: Yes normal visual inspection and Yes no meningeal signs Chest Chest palpation & inspection: normal inspection of the chest Resp Other: + coarse lung sounds throughout Effort & Inspection: normal respiratory effort and no respiratory distress Auscultation: wheezes expiratory wheezes Cardio Rate: regular rate Heart sounds: S1 normal heart sound present and S2 normal heart sound present GI Inspection: Yes normal to inspection Palpation (GI): Soft to palpation, nontender, no guarding and not rigid Skin Other: Two superficial pressure wounds to coccyx Please refer to images above of left and right foot. Ulceration noted to left lateral malleolus with surrounding swelling, erythema, and tenderness extending to mid tib/fib. Warm to touch. Active drainage noted. Right foot with appropriately healing ulceration to lateral malleolus (last picture) Rashes: no rashes Neuro General: patient oriented x3, tone normal and no meningeal signs Gait exam (Neuro): Normal gait present Extrem General: Yes normal to inspection Course Course Course Narrative: -1722--leukocytosis of 13.5. BUN acute on chronically elevated to 28 > low suspicion for severe sepsis. Lactic acid 2.0 -BNP chronically elevated XR foot LT min 3V IMPRESSION: No acute osseous injury or definite radiographic evidence of advanced osteomyelitis. If there is continued high clinical concern, suggest either radiographic follow-up or alternatively MRI. XR chest 1V IMPRESSION: 1.? Mild hypoinflation with left basilar atelectasis. No appreciable airspace consolidation or pleural effusions. 2.? Bronchial wall thickening and suspected bronchiectasis. > will obtain CT chest for further evaluation. Plan to admit for further management -1899- ED care transferred to [facility] pending CT chest and admission Medical Decision Making MDM Narrative Medical decision making narrative: 81-year-old female with a past medical history of AFib on digoxin and warfarin, CAD, HLD, hypothyroid, MVP and MR, essential tremor, RA/vasculitis, followed at [facility] for chronic pressure ulcers to bilateral feet and coccyx presenting to the ED via EMS for productive cough x 5 days and left foot ulcer drainage with increased swelling and pain noted today by VNA. On exam hypoxic to 91% on RA, coarse lung sounds throughout with expiratory wheeze. Concern for viral syndrome vs pneumonia. Please refer to images above. LLE ulceration concerning for acute cellulitis vs osteomyelitis, no appreciable abscess. Symptoms atypical for ACS/PE & patient is on AC. Low suspicion for DVT Low concern for severe sepsis at this time Plan: EKG, labs, CXR, x-ray, anticipated admission Medical Records Medical records reviewed: Yes I reviewed the patient's medical records. Lab Data Lab results reviewed: Yes I reviewed the patient's lab results. Result diagrams: 10/11/21 16:15 10/11/21 16:15 Labs: Lab Results 10/11/21 10/11/21 10/11/21 Range/Units 16:15 16:15 16:15 WBC 13.5 H (4.8-10.8) X10*3/uL RBC 4.19 L (4.20-5.50) X10*6/uL Hgb 14.6 (12.0-16.0) g/dl Hct 44.0 (37.0-47.0) % MCV 105.0 H (80.0-98.0) fL MCH 34.8 H (27.0-33.0) pg MCHC 33.2 (31.0-35.0) g/dl RDW 14.4 (11.0-16.0) % Plt Count 131 L (160-400) X10*3/uL MPV 10.8 (9.4-12.3) fL Immature Gran % (Auto) 0.4 (0.0-0.4) % Neut % (Auto) 84.4 H (45-73) % Lymph % (Auto) 4.8 L (20-40) % [place] % (Auto) 9.2 (2-11) % Eos % (Auto) 1.0 (0-4) % Baso % (Auto) 0.2 (0-2) % Lymph # (Auto) 0.7 L (1.2-4.9) X10*3/uL [place] # (Auto) 1.2 (0.1-1.2) X10*3/uL Eos # (Auto) 0.1 (0.0-0.4) X10*3/uL Baso # (Auto) 0.0 (0.0-0.2) X10*3/uL Abs Immat Gran (auto) 0.05 H (0.00-0.03) X10*3/uL Absolute Neuts (auto) 11.4 H (2.0-8.3) x10*3/uL Absolute Nucleated RBC 0.000 (0.0-0.012) X10*3/uL Nucleated RBC % (auto) 0.0 (0.0-0.2) /100WBC PT 36.4 H (10.0-13.1) SEC INR 3.0 H (0.9-1.1) Sodium 141 (135-145) mmol/L Potassium 4.5 (3.3-5.1) mmol/L Chloride 102 (96-108) mmol/L Carbon Dioxide 25 (22-29) mmol/L Anion Gap 19 (12-20) BUN 28 H D (9-16) mg/dL Creatinine 1.02 (0.5-1.4) mg/dL Estim Creat Clear Calc 28.6 Estimated GFR 52 Random Glucose 120 H (60-115) mg/dL Lactic Acid (0.5-2.0) mmol/L Calcium 10.1 D (8.4-10.2) mg/dL Magnesium 2.1 (1.6-2.6) mg/dL Total Bilirubin 1.2 H (0.0-1.0) mg/dL Direct Bilirubin 0.4 (0.0-0.5) mg/dL AST 45 H D (5-31) U/L ALT 29 (0-31) U/L Alkaline Phosphatase 56 D (39-117) U/L B-Natriuretic Peptide (<100) pg/mL Total Protein 7.8 D (6.5-8.0) g/dL Albumin 4.9 (3.5-5.0) g/dL COVID-19 (TRISTIN) (Negative) COVID-19 Clin Com Influenza Type A (MAXIMILIANO) (Negative) Influenza Type B (MAXIMILIANO) (Negative) Influenza A & B Note 10/11/21 10/11/21 10/11/21 Range/Units 16:15 16:15 16:15 WBC (4.8-10.8) X10*3/uL RBC (4.20-5.50) X10*6/uL Hgb (12.0-16.0) g/dl Hct (37.0-47.0) % MCV (80.0-98.0) fL MCH (27.0-33.0) pg MCHC (31.0-35.0) g/dl RDW (11.0-16.0) % Plt Count (160-400) X10*3/uL MPV (9.4-12.3) fL Immature Gran % (Auto) (0.0-0.4) % Neut % (Auto) (45-73) % Lymph % (Auto) (20-40) % [place] % (Auto) (2-11) % Eos % (Auto) (0-4) % Baso % (Auto) (0-2) % Lymph # (Auto) (1.2-4.9) X10*3/uL [place] # (Auto) (0.1-1.2) X10*3/uL Eos # (Auto) (0.0-0.4) X10*3/uL Baso # (Auto) (0.0-0.2) X10*3/uL Abs Immat Gran (auto) (0.00-0.03) X10*3/uL Absolute Neuts (auto) (2.0-8.3) x10*3/uL Absolute Nucleated RBC (0.0-0.012) X10*3/uL Nucleated RBC % (auto) (0.0-0.2) /100WBC PT (10.0-13.1) SEC INR (0.9-1.1) Sodium (135-145) mmol/L Potassium (3.3-5.1) mmol/L Chloride (96-108) mmol/L Carbon Dioxide (22-29) mmol/L Anion Gap (12-20) BUN (9-16) mg/dL Creatinine (0.5-1.4) mg/dL Estim Creat Clear Calc Estimated GFR Random Glucose (60-115) mg/dL Lactic Acid 2.0 (0.5-2.0) mmol/L Calcium (8.4-10.2) mg/dL Magnesium (1.6-2.6) mg/dL Total Bilirubin (0.0-1.0) mg/dL Direct Bilirubin (0.0-0.5) mg/dL AST (5-31) U/L ALT (0-31) U/L Alkaline Phosphatase (39-117) U/L B-Natriuretic Peptide 287 H (<100) pg/mL Total Protein (6.5-8.0) g/dL Albumin (3.5-5.0) g/dL COVID-19 (TRISTIN) (Negative) COVID-19 Clin Com Influenza Type A (MAXIMILIANO) Negative (Negative) Influenza Type B (MAXIMILIANO) Negative (Negative) Influenza A & B Note See Note 10/11/21 Range/Units 16:15 WBC (4.8-10.8) X10*3/uL RBC (4.20-5.50) X10*6/uL Hgb (12.0-16.0) g/dl Hct (37.0-47.0) % MCV (80.0-98.0) fL MCH (27.0-33.0) pg MCHC (31.0-35.0) g/dl RDW (11.0-16.0) % Plt Count (160-400) X10*3/uL MPV (9.4-12.3) fL Immature Gran % (Auto) (0.0-0.4) % Neut % (Auto) (45-73) % Lymph % (Auto) (20-40) % [place] % (Auto) (2-11) % Eos % (Auto) (0-4) % Baso % (Auto) (0-2) % Lymph # (Auto) (1.2-4.9) X10*3/uL [place] # (Auto) (0.1-1.2) X10*3/uL Eos # (Auto) (0.0-0.4) X10*3/uL Baso # (Auto) (0.0-0.2) X10*3/uL Abs Immat Gran (auto) (0.00-0.03) X10*3/uL Absolute Neuts (auto) (2.0-8.3) x10*3/uL Absolute Nucleated RBC (0.0-0.012) X10*3/uL Nucleated RBC % (auto) (0.0-0.2) /100WBC PT (10.0-13.1) SEC INR (0.9-1.1) Sodium (135-145) mmol/L Potassium (3.3-5.1) mmol/L Chloride (96-108) mmol/L Carbon Dioxide (22-29) mmol/L Anion Gap (12-20) BUN (9-16) mg/dL Creatinine (0.5-1.4) mg/dL Estim Creat Clear Calc Estimated GFR Random Glucose (60-115) mg/dL Lactic Acid (0.5-2.0) mmol/L Calcium (8.4-10.2) mg/dL Magnesium (1.6-2.6) mg/dL Total Bilirubin (0.0-1.0) mg/dL Direct Bilirubin (0.0-0.5) mg/dL AST (5-31) U/L ALT (0-31) U/L Alkaline Phosphatase (39-117) U/L B-Natriuretic Peptide (<100) pg/mL Total Protein (6.5-8.0) g/dL Albumin (3.5-5.0) g/dL COVID-19 (TRISTIN) Negative (Negative) COVID-19 Clin Com See Note Influenza Type A (MAXIMILIANO) (Negative) Influenza Type B (MAXIMILIANO) (Negative) Influenza A & B Note Discharge Plan Discharge Clinical Impression: Infected pressure ulcer, Hypoxia Prescriptions: No Action Prolia 60 mg/mL syringe 60 mg subcut [id number] Qty: 1 1RF Rx Instructions: next dose due 11/03/21 gabapentin 300 mg capsule 300 mg PO TID 30 Days Qty: 90 8RF metoprolol tartrate 100 mg tablet 100 mg PO BID Qty: 180 3RF (DME) Transport wheelchair See Rx Instructions .Route .MEDSUPPLY Qty: 1 0RF Rx Instructions: As directed levothyroxine [Synthroid] 75 mcg tablet 75 mcg PO QAM Qty: 90 1RF leflunomide 20 mg tablet 20 mg PO DAILY Qty: 90 0RF oxycodone 5 mg tablet 5 mg PO Q8H PRN (Reason: pain) 14 Days Qty: 42 0RF Rx Instructions: Please use this prescription to taper off medication, two week compassionate prescription. prednisone 1 mg tablet 2 mg PO DAILY Qty: 60 2RF Actemra 162 mg/0.9 mL syringe 162 mg subcut Q2W Qty: 1.8 1RF Rx Instructions: next dose due 10/13/21 (DME) walker [facility] See Rx Instructions .Route Qty: 1 0RF Rx Instructions: As directed [place] bedside commode Kit See Rx Instructions .Route Qty: 1 0RF Rx Instructions: As directed zonisamide 25 mg capsule 25 mg PO TID [place] Ultra-Light Rollator [facility] See Rx Instructions .Route Qty: 1 0RF Rx Instructions: use As directed warfarin 5 mg tablet 2.5 mg PO DAILY Protocol: Dose Management Condition: Saturday Dose/Route: 2.5 mg Instruction: 0.5 x 5 mg tablets Condition: Saturday Dose/Route: 2.5 mg Instruction: 0.5 x 5 mg tablets Condition: Saturday Dose/Route: 2.5 mg Instruction: 0.5 x 5 mg tablets Condition: Saturday Dose/Route: 2.5 mg Instruction: 0.5 x 5 mg tablets Condition: Dose/Route: 2.5 mg Instruction: 0.5 x 5 mg tablets Condition: Saturday Dose/Route: 2.5 mg Instruction: 0.5 x 5 mg tablets Condition: Saturday Dose/Route: 2.5 mg Instruction: 0.5 x 5 mg tablets Protocol Text: Adjustment Start Date: Saturday09/13/20 INR Value: 2.8 INR Date: 09/08/20 Recheck Date: 09/21/20 Additional Instructions: Pt to take 2.5mg daily and have repeat draw in 2 weeks 09/21/20 pravastatin 20 mg tablet 20 mg PO BEDTIME coenzyme Q10 [Co Q-10] 100 mg capsule 100 mg PO DAILY vitamin B complex Tablet 1 tab PO DAILY Algal [place]-3 DHA 200 mg capsule 200 mg PO DAILY ascorbate calcium (vitamin C) 500 mg tablet 500 mg PO BID (DME) nebulizers Misc See Rx Instructions .Route Qty: 1 0RF Rx Instructions: As directed furosemide 40 mg tablet 40 mg PO DAILY cholecalciferol (vitamin D3) 50 mcg (2,000 unit) capsule 50 mcg PO DAILY lisinopril 5 mg tablet 5 mg PO DAILY digoxin [Digox] 125 mcg (0.125 mg) tablet 125 mcg PO Q48H
[2021-10-11 16:22] LABS: MANUAL DIFF FLAG NO
[2021-10-11] MEDS: Albuterol/Iprat 2.5/0.5MG 3 ML AMPUL.NEB INHALE (16:27)
[2021-10-11 16:28] VITALS: PULSE 92; RESP 17
[2021-10-11 16:36] LABS: Prothrombin Time 36.4 SEC (10.0-13.1)
[2021-10-11 16:39] LABS: Influenza A Negative (Negative); Influenza B2 Negative (Negative)
[2021-10-11 16:40] LABS: COVID-19 Test Negative (Negative); IDNOW Serial# 55D5AD1C
[2021-10-11 16:44] LABS: Basophils Percent Auto 0.2 % (0-2); Eosinophils Absolute Auto 0.1 X10*3/uL (0.0-0.4); Hemoglobin 14.6 g/dl (12.0-16.0); Imm Gran Abs Auto 0.05 X10*3/uL (0.00-0.03); Imm Gran Pct Auto 0.4 % (0.0-0.4); Lymphocytes Absolute Auto 0.7 X10*3/uL (1.2-4.9); Lymphocytes Percent Auto 4.8 % (20-40); Mean Corpuscular HGB Conc 33.2 g/dl (31.0-35.0); Mean Corpuscular Hemoglobin 34.8 pg (27.0-33.0); Mean Platelet Volume 10.8 fL (9.4-12.3); Monocytes Absolute Auto 1.2 X10*3/uL (0.1-1.2); Monocytes Percent Auto 9.2 % (2-11); Neutrophils Absolute Auto 11.4 x10*3/uL (2.0-8.3); Neutrophils Percent Auto 84.4 % (45-73); Platelet Count 131 X10*3/uL (160-400); Red Blood Count 4.19 X10*6/uL (4.20-5.50); Red Cell Distribution Width 14.4 % (11.0-16.0); White Blood Count 13.5 X10*3/uL (4.8-10.8)
[2021-10-11 16:51] LABS: Alanine Aminotransferase 29 U/L (0-31); Albumin Level 4.9 g/dL (3.5-5.0); Alkaline Phosphatase 56 U/L (39-117); Anion Gap 19 (12-20); Aspartate Amino Transferase 45 U/L (5-31); B Type Natriuretic Peptide 287 pg/mL (<100); Bilirubin Direct 0.4 mg/dL (0.0-0.5); Bilirubin Total 1.2 mg/dL (0.0-1.0); Blood Urea Nitrogen 28 mg/dL (9-16); Calcium 10.1 mg/dL (8.4-10.2); Carbon Dioxide 25 mmol/L (22-29); Chloride 102 mmol/L (96-108); Creatinine Clr Calc Pharmacy 28.6; Estimated Glomerular Filt Rate 52; Glucose Random 120 mg/dL (60-115); Magnesium 2.1 mg/dL (1.6-2.6); Potassium 4.5 mmol/L (3.3-5.1); Sodium 141 mmol/L (135-145); Total Protein 7.8 g/dL (6.5-8.0)
--- NOTE | 2021-10-11 16:58 | PHA.MEDREC ---
Pharmacy Consult ? Medication Reconciliation Pharmacy has completed the medication reconciliation.
[2021-10-11] MEDS: Piperacillin Sodium/Tazobactam 3.375 GM in 0.9 % Sodium Chloride 50 ML IV (17:13)
[2021-10-11] MEDS: 0.9 % Sodium Chloride 1,000 ML 999 ML IV (17:52)
[2021-10-11 18:00] VITALS: PULSE 97; RESP 18; O2SAT 92
[2021-10-11 20:00] VITALS: PULSE 98; RESP 16; O2SAT 94
--- NOTE | 2021-10-11 22:46 | P.HPHOSP_ITS ---
History of Present Illness Date of Service: 10/11/21 Chief Complaint: painful foot wound, cough 81-year-old female with past medical history of avascular necrosis of right femoral head, PVD, history of bunion of great toe, essential tremor, osteoarthritis, history proces, persistent AFib, rheumatoid arthritis, who presents to the hospital with complaints of severe pain around the ulcer on her right ankle. Patient reports that she has had multiple pressure sources given the history peripheral vascular disease, she reports that she used to follow-up with wound clinic last seen about 3 weeks ago, and did not have any trouble until about 3 days ago where she developed significant 10/10 pain as well as drainage, swelling around the right ankle wound. These wounds have been on her right foot for the past 4-5 years not healed. Patient also complaining of cough, shortness of breath, sputum production, for the past 4-5 days, denies any fever or chills, no abdominal pain nausea or vomiting, no diarrhea constipation, no urinary symptoms and no lower extremity edema except as mentioned. She has no headache or change in vision, no numbness tingling or weakness. On arrival to the ED patient hemodynamically stable but found to have hypoxia satting in the 70% on room air Labs are significant for WBC count of 13.5, hemoglobin of 14.6, PT of 36, INR 3.0, BUN of 28, creatinine of 1.02, BNP of 287, UA positive for nitrites with no evidence of leukocyte Estrace or WBC, COVID-19 infection negative CRP of 1.35, ESR of 6 CT of the chest showed peribronchial thickening and biapical pleural parenchymal scarring multiple lung nodules, the largest of which has decreased in size, she also had a decrease of 1.5 cm mass. She has new small pulmonary nodules the largest being 8 mm. 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 Mother Heart disease Surgical History H/O skin graft History of angioplasty History of appendectomy History of removal of both ovaries Social History Housing: Apartment Are you a primary career agent to a significant other at home: No Alcohol intake: never Patient Tobacco Use Status: Former Tobacco user Tobacco use type: Cigarette Cigarette Packs Per Day: 3 Years Smoked: 23 Smoked in Last 30 Days: No e-Cigarette/Vaping Use: Never Used Use of substances other than those prescribed or required for medical reasons: No Advance Directives: Yes Advance Directives on File: Yes Advance Directives Date on File: 12/07/20 Current occupational status: retired Cognitive needs: No Hearing needs: No Vision needs: Yes Meds Allergies Allergy/AdvReac Type Severity Reaction Status Date / Time ibuprofen Allergy hives Verified 09/27/21 02:12 [id number] Allergy injection Verified 09/27/21 02:12 [From Evenity] site reaction erythromycin base AdvReac upset Verified 09/27/21 02:12 stomach diarrhea Aspirin Allergy Intermediate Diff Uncoded 09/27/21 02:12 breathing Active Medications: Current Medications Acetaminophen (Acetaminophen 325 Mg Tablet) 650 mg PO Q6H PRN PRN Reason: Pain, Mild (Pain Scale 1-3) Docusate Sodium (Docusate Sodium 100 Mg Capsule) 100 mg PO DAILY PRN PRN Reason: Constipation Vancomycin HCl 1,250 mg/ (Sodium Chloride) 250 mls @ 166.667 mls/hr IV Q12H PETR Piperacillin Sod/Tazobactam (Sod 3.375 gm/ Sodium Chloride) 50 mls @ 100 mls/hr IV Q6H PETR Ondansetron HCl (Ondansetron Hcl 4 Mg/2 Ml Vial) 4 mg IVPUSH Q8H PRN PRN Reason: Nausea and Vomiting Pharmacy Consult (Consult Rx Perform Med Rec) 1 each MISCELLANE ONCE PRN PRN Reason: Consult order Pharmacy Consult (Consult Rx Vancomycin Dosing) 1 each MISCELLANE DAILY PRN PRN Reason: Consult order Sodium Chloride (0.9 % Sodium Chloride Flush 3 Ml Syringe) 3 ml IVFLUSH QSHIFT [facility] Home Medications Medication Instructions Recorded Confirmed Last Taken Type cholecalciferol (vitamin D3) 50 50 mcg PO DAILY 04/26/20 10/11/21 10/11/21 History mcg (2,000 unit) capsule furosemide 40 mg tablet 40 mg PO DAILY 04/26/20 10/11/21 10/11/21 History lisinopril 5 mg tablet 5 mg PO DAILY 04/26/20 10/11/21 10/11/21 History ascorbate calcium (vitamin C) 500 500 mg PO BID 12/05/20 10/11/21 10/11/21 History mg tablet coenzyme Q10 100 mg capsule (Co 100 mg PO DAILY 12/05/20 10/11/21 10/11/21 History Q-10) docosahexaenoic acid 200 mg 200 mg PO DAILY 12/05/20 10/11/21 10/11/21 History capsule (Algal [place]-3 DHA) vitamin B complex 1 tab PO DAILY 12/05/20 10/11/21 10/11/21 History zonisamide 25 mg capsule 25 mg PO TID 08/30/21 10/11/21 10/11/21 History digoxin 125 mcg (0.125 mg) tablet 125 mcg PO Q48H 08/31/21 10/11/21 10/10/21 History (Digox) pravastatin 20 mg tablet 20 mg PO BEDTIME 10/11/21 10/11/21 10/10/21 History warfarin 5 mg tablet 2.5 mg PO DAILY 10/11/21 10/11/21 10/10/21 History Physical Exam Vital Signs and Narrative: Vital Signs: Last Vital Signs Temp 97.6 F 10/11/21 15:19 Pulse 97 10/11/21 18:00 Resp 16 10/11/21 20:00 BP 111/60 10/11/21 15:19 Pulse Ox 94 10/11/21 20:00 O2 Del Method 10/11/21 20:00 O2 Flow Rate 4 10/11/21 20:00 BMI result Body Mass Index 15.7 Const: General: cooperative and no acute distress Orientation/consciousness: patient oriented x3 Eyes: General: appearance normal, both eyes and all related structures Pupils: Equal, round and reactive pupils present Resp: Effort & Inspection: normal respiratory effort Cardio: Rate: regular rate Rhythm: regular rhythm GI: Palpation (GI): Soft to palpation Auscultation: normal bowel sounds Skin: Other: has 3 ulcers in left foot There is edema, warmth, slight erythema, left lateral ankle wound shows sirs inguinal assist fluid Neuro: General: patient oriented x3 Cranial nerves: Yes Equal, round and reactive pupils present Cognition (Neuro): normal cognition Extrem: General: Yes normal to inspection and Yes no pedal edema Results Labs CBC and Chem 7: 10/12/21 06:11 10/12/21 06:11 Labs: Laboratory Results - last 24 hr 10/11/21 10/11/21 10/11/21 16:15 16:15 16:15 MCV 105.0 H MCH 34.8 H MCHC 33.2 RDW 14.4 Plt Count 131 L MPV 10.8 Immature Gran % (Auto) 0.4 Neut % (Auto) 84.4 H Lymph % (Auto) 4.8 L [place] % (Auto) 9.2 Eos % (Auto) 1.0 Baso % (Auto) 0.2 Lymph # (Auto) 0.7 L [place] # (Auto) 1.2 Eos # (Auto) 0.1 Baso # (Auto) 0.0 Abs Immat Gran (auto) 0.05 H Absolute Neuts (auto) 11.4 H Absolute Nucleated RBC 0.000 Nucleated RBC % (auto) 0.0 PT 36.4 H INR 3.0 H Anion Gap 19 Estim Creat Clear Calc 28.6 Estimated GFR 52 Random Glucose 120 H Lactic Acid Calcium 10.1 D Magnesium 2.1 Total Bilirubin 1.2 H Direct Bilirubin 0.4 AST 45 H D ALT 29 Alkaline Phosphatase 56 D B-Natriuretic Peptide Total Protein 7.8 D Albumin 4.9 COVID-19 (TRISTIN) COVID-19 Clin Com Influenza Type A (MAXIMILIANO) Influenza Type B (MAXIMILIANO) Influenza A & B Note 10/11/21 10/11/21 10/11/21 16:15 16:15 16:15 MCV MCH MCHC RDW Plt Count MPV Immature Gran % (Auto) Neut % (Auto) Lymph % (Auto) [place] % (Auto) Eos % (Auto) Baso % (Auto) Lymph # (Auto) [place] # (Auto) Eos # (Auto) Baso # (Auto) Abs Immat Gran (auto) Absolute Neuts (auto) Absolute Nucleated RBC Nucleated RBC % (auto) PT INR Anion Gap Estim Creat Clear Calc Estimated GFR Random Glucose Lactic Acid 2.0 Calcium Magnesium Total Bilirubin Direct Bilirubin AST ALT Alkaline Phosphatase B-Natriuretic Peptide 287 H Total Protein Albumin COVID-19 (TRISTIN) COVID-19 Clin Com Influenza Type A (MAXIMILIANO) Negative Influenza Type B (MAXIMILIANO) Negative Influenza A & B Note See Note 10/11/21 16:15 MCV MCH MCHC RDW Plt Count MPV Immature Gran % (Auto) Neut % (Auto) Lymph % (Auto) [place] % (Auto) Eos % (Auto) Baso % (Auto) Lymph # (Auto) [place] # (Auto) Eos # (Auto) Baso # (Auto) Abs Immat Gran (auto) Absolute Neuts (auto) Absolute Nucleated RBC Nucleated RBC % (auto) PT INR Anion Gap Estim Creat Clear Calc Estimated GFR Random Glucose Lactic Acid Calcium Magnesium Total Bilirubin Direct Bilirubin AST ALT Alkaline Phosphatase B-Natriuretic Peptide Total Protein Albumin COVID-19 (TRISTIN) Negative COVID-19 Clin Com See Note Influenza Type A (MAXIMILIANO) Influenza Type B (MAXIMILIANO) Influenza A & B Note Imaging Radiologist's Impressions: Impressions Chest X-Ray 10/11/21 16:57 IMPRESSION: 1. Mild hypoinflation with left basilar atelectasis. No appreciable airspace consolidation or pleural effusions. 2. Bronchial wall thickening and suspected bronchiectasis. Foot X-Ray 10/11/21 16:57 IMPRESSION: No acute osseous injury or definite radiographic evidence of advanced osteomyelitis. If there is continued high clinical concern, suggest either radiographic follow-up or alternatively MRI. Chest CT 10/11/21 18:43 IMPRESSION: Peribronchial thickening and biapical pleural-parenchymal scarring with multiple lung nodules the largest of which has decreased in size. The largest lung mass which had measured 1.5 cm has significantly decreased in size. There are new small pulmonary nodules seen, the largest 8 mm. 2017 Fleischner Society Recommendations for Lung Nodule(s): Follow-Up based on size (average of long- and short-axis diameters). Use most suspicious nodule for followup. Multiple Solid lung nodules 6-8 mm: Follow up management based on most suspicious nodule. In a low-risk patient, recommend a non-contrast Chest CT at 3-6 months, then consider another non-contrast Chest CT at 18-24 months. In a high-risk patient, recommend a non-contrast Chest CT at 3-6 months, then another non-contrast Chest CT at 18-24 months. These guidelines do not apply to patients younger than 35 years, immunocompromised patients, and patients with cancer. F/u in patients with significant comorbidities as clinically warranted. For lung cancer screening, adhere to Lung-RADS guidelines. Reference: Radiology. 2017 Oct; 284(1):228-243 . Fleischner guidelines were followed. Assessment and Plan (1) Infected pressure ulcer: Status: Acute (2) Hypoxia: Status: Acute Plan This is a 81-year-old female with past medical history of peripheral vascular disease, chronic wounds in the left lower extremity, history of AFib on Coumadin, essential tremors, who presents to the hospital with complaints of lower extremity wound, as well as found to be hypoxic. # Infected pressure ulcer - Pt with multiple ulcer, with one on lateral left wound worst - No evidence of osteo, ESR and CRP not elevated - treat with IV antibiotics - follow cultures - infection disease consult # Hypoxic resp failure - Unclear etiology at this time - has double abnormalities on CT chest including nodules - no evidence of fluid overload, no evidence of pneumonia - will consult pulmonology for further evaluation # AFib - continue digoxin, warfarin, metoprolol - therapeutic INR - PT INR daily # hypothyroidism - continue levothyroxine # rheumatoid arthritis - continue home medications DVT prophylaxis: Warfarin Given the significant acute hypoxic respiratory failure as well as IV antibiotics for the infected pressure ulcer will admit patient for further management and patient will require a minimum 2 night hospital stay for further monitoring Quality Stroke Does the patient have a stroke diagnosis?: No VTE Prior VTE?: No VTE Risk Level:: Medical - moderate - high VTE Device Contraindication: Treatment Not Indicated VTE Drug Contraindication: N/A - Med Ordered
--- NOTE | 2021-10-11 22:52 | PHA.PROG ---
Admission Date/Time: Indication: BONE/JOINT Weight in k.506 kg Adjusted body weight in Kg: [place] body weight in Kg: Obesity Dosing Indication % IBW: Serum Creatinine - Last 168 Hours 10/11/21 16:15 Creatinine 1.02 Estimated CrCl and GFR - Last 168 Hours 10/11/21 16:15 Estim Creat Clear Calc 28.6 Estimated GFR 52 Vancomycin Loading Dose: 750MG Current Vancomycin Dosing Regimen: 750MG Q24H Vancomycin Monitoring using AUC goal of 400 - 600 range with trough as surrogate marker: AUC 406 TROUGH 14.1 Date and Time for next Vancomycin Level to be drawn: RANDOM 10/13 @2100 Pharmacist Comments on Vancomycin Plan:PATIENT IS SMALL, DID NOT FEEL COMFORTABLE GIVING 25MG/KG LOAD Vancomycin dosing will take advantage of [employer] as a clinical decision support tool that uses Bayesian modeling to calculate individual patient's pharmacokinetic parameters and forecast the patient's drug concentration time course with the target goal AUC 24 range of 400 - 600 mg/L/hr.
[2021-10-11] MEDS: vancomycin HCL 750 MG in 0.9 % Sodium Chloride 250 ML 265 MG IV (23:00)
[2021-10-11 23:25] LABS: C Reactive Protein 1.35 mg/dL (< or = 0.50)
[2021-10-12] VITALS (10 sets, daily range): BP systolic 95–111; BP diastolic 37–57; PULSE 59–107; RESP 13–23; TEMP 36.4–37.5; O2SAT 92–100; BMI 15.0
[2021-10-12 00:18] LABS: Erythrocyte Sedimentation Rate 6 MM/HR (0-20)
[2021-10-12] MEDS: Piperacillin Sodium/Tazobactam 2.25 GM in 0.9 % Sodium Chloride 50 ML IV ×5 (00:23→23:08)
[2021-10-12] MEDS: oxyCODONE HCl Immed Release 5 MG TABLET PO ×2 (01:09→23:10)
[2021-10-12 02:41] LABS: Appearance Urine CLEAR; Color Urine YELLOW; Glucose Urine UA NEG (NEG); Leukocyte Esterase Urine NEG (NEG); Nitrite Urine POS (NEG); PH 5.5 (5.0-8.0); UACC Culture Trigger YES; Urine Blood NEG (NEG); Urine Ketones NEG (NEG); Urine Protein NEG (NEG-TRACE)
[2021-10-12 02:47] LABS: Bacteria Urine TRACE /LPF; RBC Urine 0-2 /HPF (0); Squamous Epithelial Cell Urine TRACE /LPF
[2021-10-12 06:30] LABS: MANUAL DIFF FLAG NO
[2021-10-12 06:51] LABS: Basophils Percent Auto 0.3 % (0-2); Eosinophils Absolute Auto 0.4 X10*3/uL (0.0-0.4); Eosinophils Percent Auto 2.8 % (0-4); Hematocrit 39.5 % (37.0-47.0); Hemoglobin 13.1 g/dl (12.0-16.0); INTERNATIONAL NORM RATIO 3.4 (0.9-1.1); Imm Gran Abs Auto 0.08 X10*3/uL (0.00-0.03); Imm Gran Pct Auto 0.6 % (0.0-0.4); Lymphocytes Absolute Auto 0.7 X10*3/uL (1.2-4.9); Mean Corpuscular HGB Conc 33.2 g/dl (31.0-35.0); Mean Corpuscular Hemoglobin 35.1 pg (27.0-33.0); Mean Corpuscular Volume 105.9 fL (80.0-98.0); Mean Platelet Volume 11.3 fL (9.4-12.3); Monocytes Absolute Auto 1.2 X10*3/uL (0.1-1.2); Monocytes Percent Auto 8.4 % (2-11); Neutrophils Absolute Auto 11.6 x10*3/uL (2.0-8.3); Neutrophils Percent Auto 82.9 % (45-73); Platelet Count 114 X10*3/uL (160-400); Prothrombin Time 41.3 SEC (10.0-13.1); Red Blood Count 3.73 X10*6/uL (4.20-5.50); Red Cell Distribution Width 14.5 % (11.0-16.0)
[2021-10-12 07:07] LABS: Blood Urea Nitrogen 23 mg/dL (9-16); Creatinine Clr Calc Pharmacy 33.1; Estimated Glomerular Filt Rate > 60; Glucose Random 89 mg/dL (60-115)
[2021-10-12] MEDS: Levothyroxine Sodium 75 MCG TABLET PO (07:17)
[2021-10-12] MEDS: 0.9 % Sodium Chloride Flush 3 ML SYRINGE IVFLUSH ×3 (07:22→23:08)
[2021-10-12 07:35] LABS: Anion Gap 15 (12-20); Calcium 8.9 mg/dL (8.4-10.2); Carbon Dioxide 25 mmol/L (22-29); Chloride 102 mmol/L (96-108); Potassium 3.2 mmol/L (3.3-5.1); Sodium 139 mmol/L (135-145)
--- NOTE | 2021-10-12 08:44 | P.PNIM_ITS ---
Subjective Subjective Date of Service: 10/12/21 Interval History: f/u on acute hypoxia, history of aspergiloma, infected wound inteval history: HR high this in 130s, afib with RVR, hypoxia improved with O2 Review of Systems Gen: no fever Resp: no sob, no cough CV: no chest, no ZAVALETA, no leg edema GI: No n/v, no abd pain Neuro: No confusion Physical Exam Vital Signs: Vital Signs: Last Vital Signs Temp 97.6 F 10/12/21 00:00 Pulse 63 10/12/21 04:03 Resp 20 10/12/21 04:03 BP 105/57 L 10/12/21 04:03 Pulse Ox 99 10/12/21 04:03 O2 Del Method 10/12/21 04:03 O2 Flow Rate 3 10/12/21 00:48 BMI result Body Mass Index 15.7 Const: Other: General: AO X 3, no acute distress Resp: CTA bilateral CVS: S1,S2, iregular GI: +BS, NT, no distention Skin: No rash, see pictures elsewhere Neuro: motor grossly intact Psych: appropriate affect Objective Data Active Medications Acetaminophen (Acetaminophen 325 Mg Tablet) 650 mg PO Q6H PRN PRN Reason: Pain, Mild (Pain Scale 1-3) Ascorbic Acid (Ascorbic Acid 500 Mg Tablet) 500 mg PO BID [facility] Digoxin (Digoxin 0.125 Mg Tablet) 0.125 mg PO Q48H [facility] Docusate Sodium (Docusate Sodium 100 Mg Capsule) 100 mg PO DAILY PRN PRN Reason: Constipation Furosemide (Furosemide 40 Mg Tablet) 40 mg PO DAILY [facility]; Protocol Gabapentin (Gabapentin 300 Mg Capsule) 300 mg PO TID [facility] Piperacillin Sod/Tazobactam (Sod 2.25 gm/ Sodium Chloride) 50 mls @ 100 mls/hr IV Q6H [facility] Last Admin: 10/12/21 07:22 Dose: 100 mls/hr Documented By: SAFIA Levothyroxine Sodium (Levothyroxine Sodium 75 Mcg Tablet) 75 mcg PO DAILY@0600 [facility] Last Admin: 10/12/21 07:17 Dose: 75 mcg Documented By: MANA Lisinopril (Lisinopril 5 Mg Tablet) 5 mg PO DAILY [facility]; Protocol Metoprolol Tartrate (Metoprolol Tartrate 100 Mg Tablet) 100 mg PO BID [facility]; Protocol Multivitamins/Vitamin C (Multivitamin Tablet) 1 tab PO DAILY [facility] Non-Formulary Medication (Leflunomide) 20 mg PO DAILY [facility] Non-Formulary Medication (Zonisamide) 25 mg PO TID [facility] Ondansetron HCl (Ondansetron Hcl 4 Mg/2 Ml Vial) 4 mg IVPUSH Q8H PRN PRN Reason: Nausea and Vomiting Oxycodone HCl (Oxycodone Hcl Immed Release 5 Mg Tablet) 5 mg PO Q8H PRN PRN Reason: Pain, Severe (Pain Scale 7-10) Last Admin: 10/12/21 01:09 Dose: 5 mg Documented By: RISHABH Pharmacy Consult (Consult Rx Perform Med Rec) 1 each MISCELLANE ONCE PRN PRN Reason: Consult order Pharmacy Consult (Consult Rx Vancomycin Dosing) 1 each MISCELLANE DAILY PRN PRN Reason: Consult order Pravastatin Sodium (Pravastatin Sodium 20 Mg Tablet) 20 mg PO BEDTIME [facility] Prednisone (Prednisone 1 Mg Tablet) 2 mg PO DAILY [facility] Sodium Chloride (0.9 % Sodium Chloride Flush 3 Ml Syringe) 3 ml IVFLUSH QSHIFT [facility] Last Admin: 10/12/21 07:22 Dose: 3 ml Documented By: JOSEOPEPierce Vitamin D (Cholecalciferol (Vitamin D3) 25 Mcg Tablet) 50 mcg PO DAILY [facility] Warfarin Sodium (Warfarin Sodium 2.5 Mg Tablet) 2.5 mg PO DAILY@1800 [facility] Labs CBC & Chem 7: 10/12/21 06:11 10/12/21 06:11 Labs: Laboratory Results - last 24 hr 10/11/21 10/11/21 10/11/21 16:15 16:15 16:15 MCV 105.0 H MCH 34.8 H MCHC 33.2 RDW 14.4 Plt Count 131 L MPV 10.8 Immature Gran % (Auto) 0.4 Neut % (Auto) 84.4 H Lymph % (Auto) 4.8 L [place] % (Auto) 9.2 Eos % (Auto) 1.0 Baso % (Auto) 0.2 Lymph # (Auto) 0.7 L [place] # (Auto) 1.2 Eos # (Auto) 0.1 Baso # (Auto) 0.0 Abs Immat Gran (auto) 0.05 H Absolute Neuts (auto) 11.4 H Absolute Nucleated RBC 0.000 Nucleated RBC % (auto) 0.0 ESR PT 36.4 H INR 3.0 H Anion Gap 19 Estim Creat Clear Calc 28.6 Estimated GFR 52 Random Glucose 120 H Lactic Acid Calcium 10.1 D Magnesium 2.1 Total Bilirubin 1.2 H Direct Bilirubin 0.4 AST 45 H D ALT 29 Alkaline Phosphatase 56 D C-Reactive Protein 1.35 H B-Natriuretic Peptide Total Protein 7.8 D Albumin 4.9 Urine Color Urine Appearance Urine pH Ur Specific [place] Urine Protein Urine Glucose (UA) Urine Ketones Urine Blood Urine Nitrite Ur Leukocyte Esterase Urine RBC Urine WBC Ur Squamous Epith Cells Urine Bacteria Respiratory Panel [place] Adenovirus (Rapid PCR) B.pert (TEM-PCR) B.parapertussis DNA PCR C. pneumoniae DNA (PCR) Coronavirus OC43 (PCR) Coronavirus HKU1 (PCR) Coronavirus 229E (PCR) COVID-19 (TRISTIN) COVID-19 Clin Com Coronavirus NL63 (PCR) Human Metapneumovir PCR Influenza Type A (MAXIMILIANO) Influenza A (RT-PCR) Influenza Type B (MAXIMILIANO) Influenza B (RT-PCR) Influenza A & B Note M. pneumoniae (PCR) Parainfluenza 1 (PCR) Parainfluenza 2 (PCR) Parainfluenza 3 (PCR) Parainfluenza 4 (PCR) RSV (PCR) Entero/Rhino (PCR) SARS-CoV-2 RNA (RT-PCR) 10/11/21 10/11/21 10/11/21 16:15 16:15 16:15 MCV MCH MCHC RDW Plt Count MPV Immature Gran % (Auto) Neut % (Auto) Lymph % (Auto) [place] % (Auto) Eos % (Auto) Baso % (Auto) Lymph # (Auto) [place] # (Auto) Eos # (Auto) Baso # (Auto) Abs Immat Gran (auto) Absolute Neuts (auto) Absolute Nucleated RBC Nucleated RBC % (auto) ESR PT INR Anion Gap Estim Creat Clear Calc Estimated GFR Random Glucose Lactic Acid 2.0 Calcium Magnesium Total Bilirubin Direct Bilirubin AST ALT Alkaline Phosphatase C-Reactive Protein B-Natriuretic Peptide 287 H Total Protein Albumin Urine Color Urine Appearance Urine pH Ur Specific [place] Urine Protein Urine Glucose (UA) Urine Ketones Urine Blood Urine Nitrite Ur Leukocyte Esterase Urine RBC Urine WBC Ur Squamous Epith Cells Urine Bacteria Respiratory Panel [place] Adenovirus (Rapid PCR) B.pert (TEM-PCR) B.parapertussis DNA PCR C. pneumoniae DNA (PCR) Coronavirus OC43 (PCR) Coronavirus HKU1 (PCR) Coronavirus 229E (PCR) COVID-19 (TRISTIN) COVID-19 Clin Com Coronavirus NL63 (PCR) Human Metapneumovir PCR Influenza Type A (MAXIMILIANO) Negative Influenza A (RT-PCR) Influenza Type B (MAXIMILIANO) Negative Influenza B (RT-PCR) Influenza A & B Note See Note M. pneumoniae (PCR) Parainfluenza 1 (PCR) Parainfluenza 2 (PCR) Parainfluenza 3 (PCR) Parainfluenza 4 (PCR) RSV (PCR) Entero/Rhino (PCR) SARS-CoV-2 RNA (RT-PCR) 10/11/21 10/11/21 10/12/21 16:15 16:15 02:22 MCV MCH MCHC RDW Plt Count MPV Immature Gran % (Auto) Neut % (Auto) Lymph % (Auto) [place] % (Auto) Eos % (Auto) Baso % (Auto) Lymph # (Auto) [place] # (Auto) Eos # (Auto) Baso # (Auto) Abs Immat Gran (auto) Absolute Neuts (auto) Absolute Nucleated RBC Nucleated RBC % (auto) ESR 6 PT INR Anion Gap Estim Creat Clear Calc Estimated GFR Random Glucose Lactic Acid Calcium Magnesium Total Bilirubin Direct Bilirubin AST ALT Alkaline Phosphatase C-Reactive Protein B-Natriuretic Peptide Total Protein Albumin Urine Color YELLOW Urine Appearance CLEAR Urine pH 5.5 Ur Specific [place] 1.010 Urine Protein NEG Urine Glucose (UA) NEG Urine Ketones NEG Urine Blood NEG Urine Nitrite POS H Ur Leukocyte Esterase NEG Urine RBC 0-2 Urine WBC 1-4 Ur Squamous Epith Cells TRACE Urine Bacteria TRACE Respiratory Panel [place] Adenovirus (Rapid PCR) B.pert (TEM-PCR) B.parapertussis DNA PCR C. pneumoniae DNA (PCR) Coronavirus OC43 (PCR) Coronavirus HKU1 (PCR) Coronavirus 229E (PCR) COVID-19 (TRISTIN) Negative COVID-19 Clin Com See Note Coronavirus NL63 (PCR) Human Metapneumovir PCR Influenza Type A (MAXIMILIANO) Influenza A (RT-PCR) Influenza Type B (MAXIMILIANO) Influenza B (RT-PCR) Influenza A & B Note M. pneumoniae (PCR) Parainfluenza 1 (PCR) Parainfluenza 2 (PCR) Parainfluenza 3 (PCR) Parainfluenza 4 (PCR) RSV (PCR) Entero/Rhino (PCR) SARS-CoV-2 RNA (RT-PCR) 10/12/21 10/12/21 10/12/21 02:27 06:11 06:11 MCV 105.9 H MCH 35.1 H MCHC 33.2 RDW 14.5 Plt Count 114 L MPV 11.3 Immature Gran % (Auto) 0.6 H Neut % (Auto) 82.9 H Lymph % (Auto) 5.0 L [place] % (Auto) 8.4 Eos % (Auto) 2.8 Baso % (Auto) 0.3 Lymph # (Auto) 0.7 L [place] # (Auto) 1.2 Eos # (Auto) 0.4 Baso # (Auto) 0.0 Abs Immat Gran (auto) 0.08 H Absolute Neuts (auto) 11.6 H Absolute Nucleated RBC 0.000 Nucleated RBC % (auto) 0.0 ESR PT INR Anion Gap 15 Estim Creat Clear Calc 33.1 Estimated GFR > 60 Random Glucose 89 Lactic Acid Calcium 8.9 D Magnesium Total Bilirubin Direct Bilirubin AST ALT Alkaline Phosphatase C-Reactive Protein B-Natriuretic Peptide Total Protein Albumin Urine Color Urine Appearance Urine pH Ur Specific [place] Urine Protein Urine Glucose (UA) Urine Ketones Urine Blood Urine Nitrite Ur Leukocyte Esterase Urine RBC Urine WBC Ur Squamous Epith Cells Urine Bacteria Respiratory Panel [place] Cancelled Adenovirus (Rapid PCR) Cancelled B.pert (TEM-PCR) Cancelled B.parapertussis DNA PCR Cancelled C. pneumoniae DNA (PCR) Cancelled Coronavirus OC43 (PCR) Cancelled Coronavirus HKU1 (PCR) Cancelled Coronavirus 229E (PCR) Cancelled COVID-19 (TRISTIN) COVID-19 Clin Com Coronavirus NL63 (PCR) Cancelled Human Metapneumovir PCR Cancelled Influenza Type A (MAXIMILIANO) Influenza A (RT-PCR) Cancelled Influenza Type B (MAXIMILIANO) Influenza B (RT-PCR) Cancelled Influenza A & B Note M. pneumoniae (PCR) Cancelled Parainfluenza 1 (PCR) Cancelled Parainfluenza 2 (PCR) Cancelled Parainfluenza 3 (PCR) Cancelled Parainfluenza 4 (PCR) Cancelled RSV (PCR) Cancelled Entero/Rhino (PCR) Cancelled SARS-CoV-2 RNA (RT-PCR) Cancelled 10/12/21 06:11 MCV MCH MCHC RDW Plt Count MPV Immature Gran % (Auto) Neut % (Auto) Lymph % (Auto) [place] % (Auto) Eos % (Auto) Baso % (Auto) Lymph # (Auto) [place] # (Auto) Eos # (Auto) Baso # (Auto) Abs Immat Gran (auto) Absolute Neuts (auto) Absolute Nucleated RBC Nucleated RBC % (auto) ESR PT 41.3 H INR 3.4 H Anion Gap Estim Creat Clear Calc Estimated GFR Random Glucose Lactic Acid Calcium Magnesium Total Bilirubin Direct Bilirubin AST ALT Alkaline Phosphatase C-Reactive Protein B-Natriuretic Peptide Total Protein Albumin Urine Color Urine Appearance Urine pH Ur Specific [place] Urine Protein Urine Glucose (UA) Urine Ketones Urine Blood Urine Nitrite Ur Leukocyte Esterase Urine RBC Urine WBC Ur Squamous Epith Cells Urine Bacteria Respiratory Panel [place] Adenovirus (Rapid PCR) B.pert (TEM-PCR) B.parapertussis DNA PCR C. pneumoniae DNA (PCR) Coronavirus OC43 (PCR) Coronavirus HKU1 (PCR) Coronavirus 229E (PCR) COVID-19 (TRISTIN) COVID-19 Clin Com Coronavirus NL63 (PCR) Human Metapneumovir PCR Influenza Type A (MAXIMILIANO) Influenza A (RT-PCR) Influenza Type B (MAXIMILIANO) Influenza B (RT-PCR) Influenza A & B Note M. pneumoniae (PCR) Parainfluenza 1 (PCR) Parainfluenza 2 (PCR) Parainfluenza 3 (PCR) Parainfluenza 4 (PCR) RSV (PCR) Entero/Rhino (PCR) SARS-CoV-2 RNA (RT-PCR) Assessment and Plan (1) Infected pressure ulcer: Status: Acute (2) Hypoxia: Status: Acute (3) Leg ulcer, left: Status: Acute Plan 81-year-old female with past medical history of peripheral vascular disease, chronic wounds in the left lower extremity, history of AFib on Coumadin, essential tremors, who presents to the hospital with complaints of lower extremity wound, as well as found to be hypoxic. # Infected pressure ulcer - Pt with multiple ulcer, with one on lateral left wound worst - No evidence of osteo, ESR and CRP not elevated - treat with IV antibiotics - follow cultures - infection disease consult # Hypoxic resp failure - Unclear etiology at this time - has multiple abnormalities on CT chest including nodules - no evidence of fluid overload, no evidence of pneumonia - will consult pulmonology for further evaluation # AFib--RVR this morning, HR in 130s - resume home meds of digoxin, metoprolol - hold warfarin today in light of high INR, monitor levels #Moderate proteint calory malnutrition--supplement # hypothyroidism - continue levothyroxine # rheumatoid arthritis - continue home medications DVT prophylaxis: Warfarin Need for inaptient: Acute hypoxic respiratory failure as well as IV antibiotics for the infected pressure Quality Stroke Does the patient have a stroke diagnosis?: No VTE Prior VTE?: No VTE Risk Level:: Medical - moderate - high VTE Device Contraindication: Treatment Not Indicated VTE Drug Contraindication: N/A - Med Ordered
[2021-10-12] MEDS: Metoprolol Tartrate 100 MG TABLET PO (09:45)
[2021-10-12] MEDS: predniSONE 1 MG TABLET 2 MG PO (09:45)
[2021-10-12] MEDS: lisinopriL 5 MG TABLET PO (09:45)
[2021-10-12] MEDS: Gabapentin 300 MG CAPSULE PO ×3 (09:46→20:53)
[2021-10-12] MEDS: Multivitamin TABLET 1 TAB PO (09:46)
[2021-10-12] MEDS: Cholecalciferol (Vitamin D3) 25 MCG TABLET 50 MCG PO (09:46)
[2021-10-12] MEDS: Ascorbic Acid 500 MG TABLET PO ×2 (09:46→20:53)
[2021-10-12] MEDS: Digoxin 0.125 MG TABLET PO (09:46)
[2021-10-12] MEDS: Furosemide 40 MG TABLET PO (09:46)
--- NOTE | 2021-10-12 10:47 | PC.NURSE ---
Addendum entered by Elizabeth Lang 10/12/21 11:47: spoke with patient friend Indy, she will bring in meds for patient after 4 pm today, pharmacy aware. Original Note: attempted to call patient contact on chart to see if they could bring her meds in that are not carried here in pharmacy, no answer, will attempt to call back again later.
--- NOTE | 2021-10-12 11:19 | PM.CNPUL ---
History of Present Illness History of Present Illness Consult date: 10/12/21 Chief complaint: Wound infection, hypoxic resp failure Narrative: This is an inpatient pulmonary consultation. The patient is a 81-year-old female with past medical history of avascular necrosis of right femoral head, PVD, history of bunion of great toe, essential tremor, osteoarthritis, history proces, persistent AFib, rheumatoid arthritis, who presents to the hospital with complaints of severe pain around the ulcer on her right ankle.? Patient reports that she has had multiple pressure sources given the history peripheral vascular disease, she reports that she used to follow-up with wound clinic last seen about 3 weeks ago, and did not have any trouble until about 3 days ago where she developed significant 10/10 pain as well as drainage, swelling around the right ankle wound.? These wounds have been on her right foot for the past 4-5 years not healed. Patient also complaining of cough, shortness of breath, sputum production, for the past 4-5 days, denies any fever or chills. On arrival to the ED patient hemodynamically stable but found to have hypoxia satting in the 70% on room air Labs are significant for WBC count of 13.5, hemoglobin of 14.6, PT of 36, INR 3.0, BUN of 28, creatinine of 1.02, BNP of 287, UA positive for nitrites with no evidence of leukocyte Estrace or WBC, COVID-19 infection negative. The patient had a CT scan of the chest which was personally by me. CT of the chest showed peribronchial thickening and biapical pleural parenchymal scarring multiple lung nodules, the largest of which has decreased in size.? She has new small pulmonary nodules the largest being 8 mm.? The patient has had a history of Aspergillus infection the lungs. However, looking at her CT scan does not appear to be consistent with chronic aspergilloma or even aspergillosis. The patient did have a bout of hypoxia while in the hospital. She does have significant mucus and likely has some mucus plugging. Review of Systems Review of Systems: Constitutional: No Fever, No Chills, No Night Sweats, No Fatigue, No Malaise ENT/Mouth: No Ear Pain, No Nasal Congestion, No sore throat, No Rhinorrhea, No Swallowing Difficulty Eyes: No Eye Pain, No Swelling, No Redness Cardiovascular: No Chest Pain, No SOB, No Edema, No Palpitations Respiratory: + Cough, + Sputum, No Wheezing, No Dyspnea Gastrointestinal: No Nausea, No Vomiting, No Diarrhea, No Constipation, No Abdominal pain Genitourinary: No Dysuria, No Urinary Frequency, No Hematuria, No Urinary Incontinence/retention Musculoskeletal: No joint pain, No Myalgias, No Joint Swelling Skin: + Skin Lesions, No rash Neuro: No Weakness, No Numbness, No Paresthesias, No Loss of Consciousness, No Dizziness, No Headache Yes all other systems are reviewed and are negative [facility] Past Medical History Medical History Avascular necrosis of right femoral head Bronchiectasis Bunion of great toe of left foot Cellulitis Current use of anticoagulant therapy Essential tremor Osteoarthritis Osteoporosis Persistent atrial fibrillation Sacroiliitis Seropositive rheumatoid arthritis Family History Family History Father No problems noted. Mother Heart disease Surgical History Surgical History H/O skin graft History of angioplasty History of appendectomy History of removal of both ovaries Social History Social History Housing: Apartment Are you a primary patient care technician instructor to a significant other at home: No Alcohol intake: never Patient Tobacco Use Status: Former Tobacco user Tobacco use type: Cigarette Cigarette Packs Per Day: 3 Years Smoked: 23 Smoked in Last 30 Days: No e-Cigarette/Vaping Use: Never Used Use of substances other than those prescribed or required for medical reasons: No Advance Directives: Yes Advance Directives on File: Yes Advance Directives Date on File: 12/07/20 Current occupational status: retired Cognitive needs: No Hearing needs: No Vision needs: Yes Meds Allergies Allergy/AdvReac Type Severity Reaction Status Date / Time ibuprofen Allergy hives Verified 09/27/21 02:12 [id number] Allergy injection Verified 09/27/21 02:12 [From Evenity] site reaction erythromycin base AdvReac upset Verified 09/27/21 02:12 stomach diarrhea Aspirin Allergy Intermediate Diff Uncoded 09/27/21 02:12 breathing Active Medications: Current Medications Acetaminophen (Acetaminophen 325 Mg Tablet) 650 mg PO Q6H PRN PRN Reason: Pain, Mild (Pain Scale 1-3) Ascorbic Acid (Ascorbic Acid 500 Mg Tablet) 500 mg PO BID [facility] Last Admin: 10/12/21 09:46 Dose: 500 mg Digoxin (Digoxin 0.125 Mg Tablet) 0.125 mg PO Q48H [facility] Last Admin: 10/12/21 09:46 Dose: 0.125 mg Docusate Sodium (Docusate Sodium 100 Mg Capsule) 100 mg PO DAILY PRN PRN Reason: Constipation Furosemide (Furosemide 40 Mg Tablet) 40 mg PO DAILY [facility]; Protocol Last Admin: 10/12/21 09:46 Dose: 40 mg Gabapentin (Gabapentin 300 Mg Capsule) 300 mg PO TID [facility] Last Admin: 10/12/21 09:46 Dose: 300 mg Piperacillin Sod/Tazobactam (Sod 2.25 gm/ Sodium Chloride) 50 mls @ 100 mls/hr IV Q6H [facility] Last Infusion: 10/12/21 07:52 Dose: Infused Azithromycin 500 mg/ Sodium (Chloride) 250 mls @ 125 mls/hr IV Q24H [facility] Levothyroxine Sodium (Levothyroxine Sodium 75 Mcg Tablet) 75 mcg PO DAILY@0600 [facility] Last Admin: 10/12/21 07:17 Dose: 75 mcg Lisinopril (Lisinopril 5 Mg Tablet) 5 mg PO DAILY [facility]; Protocol Last Admin: 10/12/21 09:45 Dose: 5 mg Metoprolol Tartrate (Metoprolol Tartrate 100 Mg Tablet) 100 mg PO BID [facility]; Protocol Last Admin: 10/12/21 09:45 Dose: 100 mg Multivitamins/Vitamin C (Multivitamin Tablet) 1 tab PO DAILY [facility] Last Admin: 10/12/21 09:46 Dose: 1 tab Non-Formulary Medication (Leflunomide) 20 mg PO DAILY [facility] Non-Formulary Medication (Zonisamide) 25 mg PO TID [facility] Ondansetron HCl (Ondansetron Hcl 4 Mg/2 Ml Vial) 4 mg IVPUSH Q8H PRN PRN Reason: Nausea and Vomiting Oxycodone HCl (Oxycodone Hcl Immed Release 5 Mg Tablet) 5 mg PO Q8H PRN PRN Reason: Pain, Severe (Pain Scale 7-10) Last Admin: 10/12/21 01:09 Dose: 5 mg Pharmacy Consult (Consult Rx Perform Med Rec) 1 each MISCELLANE ONCE PRN PRN Reason: Consult order Pharmacy Consult (Consult Rx Vancomycin Dosing) 1 each MISCELLANE DAILY PRN PRN Reason: Consult order Pravastatin Sodium (Pravastatin Sodium 20 Mg Tablet) 20 mg PO BEDTIME [facility] Prednisone (Prednisone 1 Mg Tablet) 2 mg PO DAILY [facility] Last Admin: 10/12/21 09:45 Dose: 2 mg Sodium Chloride (0.9 % Sodium Chloride Flush 3 Ml Syringe) 3 ml IVFLUSH QSHIFT [facility] Last Admin: 10/12/21 07:22 Dose: 3 ml Vitamin D (Cholecalciferol (Vitamin D3) 25 Mcg Tablet) 50 mcg PO DAILY [facility] Last Admin: 10/12/21 09:46 Dose: 50 mcg Warfarin Sodium (Warfarin Sodium 2.5 Mg Tablet) 2.5 mg PO DAILY@1800 [facility] Home Medications Medication Instructions Recorded Confirmed Last Taken Type cholecalciferol (vitamin D3) 50 50 mcg PO DAILY 04/26/20 10/11/21 10/11/21 History mcg (2,000 unit) capsule furosemide 40 mg tablet 40 mg PO DAILY 04/26/20 10/11/21 10/11/21 History lisinopril 5 mg tablet 5 mg PO DAILY 04/26/20 10/11/21 10/11/21 History ascorbate calcium (vitamin C) 500 500 mg PO BID 12/05/20 10/11/21 10/11/21 History mg tablet coenzyme Q10 100 mg capsule (Co 100 mg PO DAILY 12/05/20 10/11/21 10/11/21 History Q-10) docosahexaenoic acid 200 mg 200 mg PO DAILY 12/05/20 10/11/21 10/11/21 History capsule (Algal [place]-3 DHA) vitamin B complex 1 tab PO DAILY 12/05/20 10/11/21 10/11/21 History zonisamide 25 mg capsule 25 mg PO TID 08/30/21 10/11/21 10/11/21 History digoxin 125 mcg (0.125 mg) tablet 125 mcg PO Q48H 08/31/21 10/11/21 10/10/21 History (Digox) pravastatin 20 mg tablet 20 mg PO BEDTIME 10/11/21 10/11/21 10/10/21 History warfarin 5 mg tablet 2.5 mg PO DAILY 06/10/11/21 10/10/21 History Physical Exam Vital Signs: Vital Signs: Last Vital Signs Temp 97.6 F 10/12/21 00:00 Pulse 107 H 10/12/21 09:43 Resp 20 10/12/21 04:03 BP 111/44 L 10/12/21 09:43 Pulse Ox 99 10/12/21 04:03 O2 Del Method 10/12/21 04:03 O2 Flow Rate 3 10/12/21 00:48 BMI result Body Mass Index 15.7 Results Laboratory Findings CBC and BMP: 10/12/21 06:11 10/12/21 06:11 ABG, PT/INR, D-dimer: PT/INR, D-dimer PT 41.3 SEC (10.0-13.1) H 10/12/21 06:11 INR 3.4 (0.9-1.1) H 10/12/21 06:11 Abnormal lab findings: Abnormal Labs 10/11/21 10/11/21 10/11/21 16:15 16:15 16:15 WBC 13.5 H RBC 4.19 L MCV 105.0 H MCH 34.8 H Plt Count 131 L Immature Gran % (Auto) Neut % (Auto) 84.4 H Lymph % (Auto) 4.8 L Lymph # (Auto) 0.7 L Abs Immat Gran (auto) 0.05 H Absolute Neuts (auto) 11.4 H PT 36.4 H INR 3.0 H Potassium BUN 28 H D Random Glucose 120 H Total Bilirubin 1.2 H AST 45 H D C-Reactive Protein 1.35 H B-Natriuretic Peptide Urine Nitrite 10/11/21 10/12/21 10/12/21 16:15 02:22 06:11 WBC 14.0 H RBC 3.73 L MCV 105.9 H MCH 35.1 H Plt Count 114 L Immature Gran % (Auto) 0.6 H Neut % (Auto) 82.9 H Lymph % (Auto) 5.0 L Lymph # (Auto) 0.7 L Abs Immat Gran (auto) 0.08 H Absolute Neuts (auto) 11.6 H PT INR Potassium BUN Random Glucose Total Bilirubin AST C-Reactive Protein B-Natriuretic Peptide 287 H Urine Nitrite POS H 10/12/21 10/12/21 06:11 06:11 WBC RBC MCV MCH Plt Count Immature Gran % (Auto) Neut % (Auto) Lymph % (Auto) Lymph # (Auto) Abs Immat Gran (auto) Absolute Neuts (auto) PT 41.3 H INR 3.4 H Potassium 3.2 L D BUN 23 H Random Glucose Total Bilirubin AST C-Reactive Protein B-Natriuretic Peptide Urine Nitrite Assessment and Plan (1) Acute respiratory failure with hypoxia: Status: Acute (2) Bronchiectasis: Qualifiers: Bronchiectasis type: with acute lower respiratory infection Qualified Code(s): J47.0 - Bronchiectasis with acute lower respiratory infection Status: Acute (3) Pulmonary nodules: Status: Acute Plan Continue oxygen supplementation to maintain a pulse ox above 92% Continue Zosyn Add azithromycin for atypical coverage and also because of the bronchiectasis she may benefit from chronic macrolide therapy Start prednisone 40 mg daily Continue with nebulized therapy Please provide her with a Acapella valve were flutter valve for chest physical therapy She will need outpatient follow-up Procedures Date of Service Date of Service: 10/12/21
[2021-10-12] MEDS: predniSONE 20 MG TABLET 40 MG PO (11:47)
--- NOTE | 2021-10-12 11:57 | PC.NURSE ---
Azithromycin started late due to Zosyn running.
--- NOTE | 2021-10-12 12:06 | PC.NURSE ---
Addendum entered by Gilmar Adams 10/12/21 20:39: Dr. Taylor notified about patients low BP and Dr. Vargas instruction to monitor. Dr. Taylor instructed to continue to monitor. Will hold 2100 metoprolol. Addendum entered by Gilmar Adams 10/12/21 14:54: Dr. Hidalgo made aware of patient blood pressure. instructed to monitor. Original Note: made aware of patients low BP.
[2021-10-12] MEDS: Azithromycin 500 MG in 0.9 % Sodium Chloride 250 ML 125 MG IV (12:39)
--- NOTE | 2021-10-12 13:02 | MHC.CM.PN ---
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 SHE REPORTS SHE IS ALSO ACTIVE WITH [facility] AND [facility] PT USES A ROLLATOR AND HAS A TRANSPORT WHEEL CHAIR PT HAS PAGE TWO OF HER HCP ON FILE, HOWEVER IT DOES NOT INCLUDE HER SIGNATURE PAGE A COMPLETE COPY WAS REQUESTED PCP: NITIN AVILA COVID-19 VACCINATION STATUS: J&J X 2 AND MODERNA X 1 IMM DELIVERED, COPY SENT TO MEDICAL RECORDS PT IS AWARE STR HAS BEEN RECOMMENDED HOWEVER SHE REPORTS SHE IS NOT INTERESTED SHE REPORTS SHE WILL GO HOME WITH RESUMPTION OF HER SERVICES
--- NOTE | 2021-10-12 17:37 | PC.NURSE ---
Patient has medications in patient bin in medication room
[2021-10-12] MEDS: Pravastatin Sodium 20 MG TABLET PO (20:52)
[2021-10-12] MEDS: Acetaminophen 325 MG TABLET 650 MG PO (23:10)
[2021-10-13] VITALS (7 sets, daily range): BP systolic 95–125; BP diastolic 48–60; PULSE 52–70; RESP 14–18; TEMP 36.2–37; O2SAT 97–99; BMI 16.6
[2021-10-13] MEDS: Piperacillin Sodium/Tazobactam 2.25 GM in 0.9 % Sodium Chloride 50 ML IV ×3 (05:05→22:12)
[2021-10-13] MEDS: Levothyroxine Sodium 75 MCG TABLET PO (05:08)
[2021-10-13 08:23] LABS: INTERNATIONAL NORM RATIO 2.3 (0.9-1.1); Prothrombin Time 27.2 SEC (10.0-13.1)
[2021-10-13] MEDS: Furosemide 40 MG TABLET PO (09:39)
[2021-10-13] MEDS: Ascorbic Acid 500 MG TABLET PO ×2 (09:39→22:12)
[2021-10-13] MEDS: lisinopriL 5 MG TABLET PO (09:39)
[2021-10-13] MEDS: Gabapentin 300 MG CAPSULE PO ×3 (09:39→22:12)
[2021-10-13] MEDS: Cholecalciferol (Vitamin D3) 25 MCG TABLET 50 MCG PO (09:39)
[2021-10-13] MEDS: Multivitamin TABLET 1 TAB PO (09:39)
[2021-10-13] MEDS: 0.9 % Sodium Chloride Flush 3 ML SYRINGE IVFLUSH ×3 (09:40→22:13)
[2021-10-13] MEDS: Metoprolol Tartrate 100 MG TABLET PO ×2 (09:40→22:12)
[2021-10-13] MEDS: predniSONE 20 MG TABLET 40 MG PO (09:40)
--- NOTE | 2021-10-13 09:49 | P.CDIC_ITS ---
CDI Concurrent Query Documentation Clarification: PHYSICIAN'S DOCUMENTATION REQUEST Date of Query: 10/13/21 0950 Patient Name: Corinna Olivas Admit Date: 10/11/21 Dear Doctor, A review of the medical record indicates additional documentation may be needed. Please review below and update the documentation accordingly. Clinical Indicators: Risk Factors/Clinical Indicators/Treatments Infected pressure ulcers. WBC 13.5 LA 2.0 HR 97/107 RR 23 Please clarify which, if any, of the following is the most likely etiology of the above symptoms and treatment rendered: * Sepsis * Systemic manifestations of infection, with 2 or more SIRS criteria which include: - Fever > 100.4F or hypothermia < 96.8 F - Leukocytosis - WBC > 12,000 or leukopenia, WBC < 4,000 or > 10% bands - Tachycardia > 90 beats/minute - Tachypnea - RR > 20 breaths/minute or PaCO2 < 32mmHg (Source: Merck Manual 2013) * Indicate the known or suspected organism * Indicate the known or suspected underlying infection, such as UTI, pneumonia, or cellulitis * Indicate if a suspected bacterial infection of unknown source * Indicate if associated with an implanted device such as a F/C, PICC line, orthopedic hardware, etc. * Severe Sepsis * Sepsis with associated acute organ dysfunction, such as renal or respiratory failure * Documentation should indicate the association between the sepsis and the organ dysfunction Other - unable to determine Use of terms such as suspected, likely, concern for, or probable (associated with a specific diagnosis that is being evaluated, monitored, or treated as if it exists) are acceptable and can be coded in the inpatient setting, when documented at the time of discharge. Thank you, Shaina Chavez [facility], CDIS Extension: [phone] Please use your independent medical judgment in providing your response. THIS QUERY IS PART OF THE PERMANENT MEDICAL RECORD
--- NOTE | 2021-10-13 10:40 | HO.PM.IMPN ---
Subjective Subjective Date of Service: 10/13/21 Interval History: f/u on acute hypoxia, history of aspergiloma, infected wound inteval history:pain in the foot, HR is better Review of Systems Gen: no fever Resp: no sob, no cough CV: no chest, no ZAVALETA, no leg edema GI: No n/v, no abd pain Neuro: No confusion Physical Exam Vital Signs: Vital Signs: Last Vital Signs Temp 97.5 F 10/13/21 08:00 Pulse 60 10/13/21 08:00 Resp 17 10/13/21 08:00 BP 115/59 L 10/13/21 08:00 Pulse Ox 99 10/13/21 08:00 O2 Del Method 10/13/21 08:00 O2 Flow Rate 3 10/13/21 08:00 BMI result Body Mass Index 16.6 Const: Other: General: AO X 3, no acute distress Resp: CTA bilateral CVS: S1,S2, iregular GI: +BS, NT, no distention Skin: No rash, see pictures elsewhere Neuro: motor grossly intact Psych: appropriate affect Objective Data Active Medications Acetaminophen (Acetaminophen 325 Mg Tablet) 650 mg PO Q6H PRN PRN Reason: Pain, Mild (Pain Scale 1-3) Last Admin: 10/12/21 23:10 Dose: 650 mg Documented By: COREEN Ascorbic Acid (Ascorbic Acid 500 Mg Tablet) 500 mg PO BID [facility] Last Admin: 10/13/21 09:39 Dose: 500 mg Documented By: HOLLY Digoxin (Digoxin 0.125 Mg Tablet) 0.125 mg PO Q48H [facility] Last Admin: 10/12/21 09:46 Dose: 0.125 mg Documented By: JOSEOPEPierce Docusate Sodium (Docusate Sodium 100 Mg Capsule) 100 mg PO DAILY PRN PRN Reason: Constipation Furosemide (Furosemide 40 Mg Tablet) 40 mg PO DAILY [facility]; Protocol Last Admin: 10/13/21 09:39 Dose: 40 mg Documented By: HOLLY Gabapentin (Gabapentin 300 Mg Capsule) 300 mg PO TID [facility] Last Admin: 10/13/21 09:39 Dose: 300 mg Documented By: HOLLY Piperacillin Sod/Tazobactam (Sod 2.25 gm/ Sodium Chloride) 50 mls @ 100 mls/hr IV Q6H [facility] Last Infusion: 10/13/21 05:42 Dose: 0 mls/hr Documented By: COREEN Azithromycin 500 mg/ Sodium (Chloride) 250 mls @ 125 mls/hr IV Q24H [facility] Last Infusion: 10/12/21 19:50 Dose: 0 mls/hr Documented By: TERI Levothyroxine Sodium (Levothyroxine Sodium 75 Mcg Tablet) 75 mcg PO DAILY@0600 [facility] Last Admin: 10/13/21 05:08 Dose: 75 mcg Documented By: COREEN Lisinopril (Lisinopril 5 Mg Tablet) 5 mg PO DAILY [facility]; Protocol Last Admin: 10/13/21 09:39 Dose: 5 mg Documented By: HOLLY Metoprolol Tartrate (Metoprolol Tartrate 100 Mg Tablet) 100 mg PO BID [facility]; Protocol Last Admin: 10/13/21 09:40 Dose: 100 mg Documented By: HOLLY Multivitamins/Vitamin C (Multivitamin Tablet) 1 tab PO DAILY [facility] Last Admin: 10/13/21 09:39 Dose: 1 tab Documented By: HOLLY Patient Own Medication ( Leflunomide 20 Mg Tablet) 20 mg PO DAILY [facility] Last Admin: 10/13/21 09:43 Dose: 20 mg Documented By: HOLLY Patient Own Medication ( Zonisamide 25 Mg Capsule) 25 mg PO TID [facility] Last Admin: 10/13/21 09:43 Dose: 25 mg Documented By: HOLLY Ondansetron HCl (Ondansetron Hcl 4 Mg/2 Ml Vial) 4 mg IVPUSH Q8H PRN PRN Reason: Nausea and Vomiting Oxycodone HCl (Oxycodone Hcl Immed Release 5 Mg Tablet) 5 mg PO Q8H PRN PRN Reason: Pain, Severe (Pain Scale 7-10) Last Admin: 10/12/21 23:10 Dose: 5 mg Documented By: COREEN Pharmacy Consult (Consult Rx Perform Med Rec) 1 each MISCELLANE ONCE PRN PRN Reason: Consult order Pharmacy Consult (Consult Rx Vancomycin Dosing) 1 each MISCELLANE DAILY PRN PRN Reason: Consult order Pravastatin Sodium (Pravastatin Sodium 20 Mg Tablet) 20 mg PO BEDTIME [facility] Last Admin: 10/12/21 20:52 Dose: 20 mg Documented By: URIEL Prednisone (Prednisone 1 Mg Tablet) 2 mg PO DAILY [facility] Last Admin: 10/12/21 09:45 Dose: 2 mg Documented By: SAFIA Prednisone (Prednisone 20 Mg Tablet) 40 mg PO DAILY [facility] Last Admin: 10/13/21 09:40 Dose: 40 mg Documented By: HOLLY Sodium Chloride (0.9 % Sodium Chloride Flush 3 Ml Syringe) 3 ml IVFLUSH QSHIFT [facility] Last Admin: 10/13/21 09:40 Dose: 3 ml Documented By: HOLLY Vitamin D (Cholecalciferol (Vitamin D3) 25 Mcg Tablet) 50 mcg PO DAILY [facility] Last Admin: 10/13/21 09:39 Dose: 50 mcg Documented By: HOLLY Warfarin Sodium (Warfarin Sodium 2.5 Mg Tablet) 2.5 mg PO DAILY@1800 [facility] Labs CBC & Chem 7: 10/12/21 06:11 10/12/21 06:11 Labs: Laboratory Results - last 24 hr 10/13/21 08:01 PT 27.2 H INR 2.3 H Microbiology Microbiology Results: Microbiology 10/12/21 Unknown Urine Culture - Preliminary Urine clean catch - Urine marie top Gram negative lance 10/11/21 16:15 Blood Culture - Preliminary Blood - Venous No growth after 24 hours. 10/11/21 16:15 Blood Culture - Preliminary Blood - Venous No growth after 24 hours. Assessment and Plan (1) Acute respiratory failure with hypoxia: Status: Acute (2) Pulmonary nodules: Status: Acute (3) Infected pressure ulcer: Status: Acute Plan 81-year-old female with past medical history of peripheral vascular disease, chronic wounds in the left lower extremity, history of AFib on Coumadin, essential tremors, who presents to the hospital with complaints of lower extremity wound, as well as found to be hypoxic. # Infected pressure ulcer - Pt with multiple ulcer, with one on lateral left wound worst - No evidence of osteo, ESR and CRP not elevated - treat with IV antibiotics - follow cultures - infection disease to make DC Abx recommendation # Hypoxic resp failure - Unclear etiology at this time - has multiple abnormalities on CT chest including nodules - no evidence of fluid overload, no evidence of pneumonia - pulmonology recommending steroid and Azithro # Chronic AFib--rate controlled opn dig, metoprolol and coumadin for anticoagulation/stroke prevention #Moderate proteint calory malnutrition--supplement # hypothyroidism - continue levothyroxine # rheumatoid arthritis - continue home medications DVT prophylaxis: Warfarin Need for inaptient: Acute hypoxic respiratory failure as well as IV antibiotics for the infected pressure PT consult Quality Stroke Does the patient have a stroke diagnosis?: No VTE Prior VTE?: No VTE Risk Level:: Medical - moderate - high VTE Device Contraindication: Treatment Not Indicated VTE Drug Contraindication: N/A - Med Ordered
[2021-10-13] MEDS: Acetaminophen 325 MG TABLET 650 MG PO (12:34)
[2021-10-13] MEDS: oxyCODONE HCl Immed Release 5 MG TABLET PO (12:34)
[2021-10-13] MEDS: Azithromycin 500 MG in 0.9 % Sodium Chloride 250 ML 125 MG IV (12:35)
--- NOTE | 2021-10-13 13:45 | P.CNID_ITS ---
History of Present Illness Data of Consult Service Date: 10/13/21 Requesting physician: Willie Hidalgo Primary Care Provider: Leonor Fitzpatrick MD HPI Reason for consult: foot infection,left She presents with left foot drainage lateral ankle. She has pain and symptoms for a week. Drainage is yellow She has no fever or chills. She has rheumatoid arthritis. 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 Review of Systems Review of Systems: Yes all other systems are reviewed and are negative [facility] Past Medical History Medical History Avascular necrosis of right femoral head Bronchiectasis Bunion of great toe of left foot Cellulitis Current use of anticoagulant therapy Essential tremor Osteoarthritis Osteoporosis Persistent atrial fibrillation Sacroiliitis Seropositive rheumatoid arthritis Family History Family History Father No problems noted. Mother Heart disease Family history: reviewed and not pertinent Surgical History Surgical History H/O skin graft History of angioplasty History of appendectomy History of removal of both ovaries Social History Social History Household Members: None Housing: Apartment Are you a primary healthcare market consultant to a significant other at home: No Do you presently have visiting nurse or other home services: Yes (NETWORK SUPPORT SPECIALIST 5 days a week) Alcohol intake: never Patient Tobacco Use Status: Former Tobacco user Tobacco use type: Cigarette Cigarette Packs Per Day: 3 Years Smoked: 23 e-Cigarette/Vaping Use: Never Used Substance Use Type: Painkillers Advance Directives Date on File: 12/07/20 service: No Current occupational status: retired Cognitive needs: No Hearing needs: No Vision needs: Yes Meds Allergies Allergy/AdvReac Type Severity Reaction Status Date / Time ibuprofen Allergy hives Verified 09/27/21 02:12 [id number] Allergy injection Verified 09/27/21 02:12 [From Evenity] site reaction erythromycin base AdvReac upset Verified 09/27/21 02:12 stomach diarrhea Aspirin Allergy Intermediate Diff Uncoded 09/27/21 02:12 breathing Active Medications: Current Medications Acetaminophen (Acetaminophen 325 Mg Tablet) 650 mg PO Q6H PRN PRN Reason: Pain, Mild (Pain Scale 1-3) Last Admin: 10/13/21 12:34 Dose: 650 mg Ascorbic Acid (Ascorbic Acid 500 Mg Tablet) 500 mg PO BID [facility] Last Admin: 10/13/21 09:39 Dose: 500 mg Digoxin (Digoxin 0.125 Mg Tablet) 0.125 mg PO Q48H [facility] Last Admin: 10/12/21 09:46 Dose: 0.125 mg Docusate Sodium (Docusate Sodium 100 Mg Capsule) 100 mg PO DAILY PRN PRN Reason: Constipation Furosemide (Furosemide 40 Mg Tablet) 40 mg PO DAILY [facility]; Protocol Last Admin: 10/13/21 09:39 Dose: 40 mg Gabapentin (Gabapentin 300 Mg Capsule) 300 mg PO TID [facility] Last Admin: 10/13/21 09:39 Dose: 300 mg Piperacillin Sod/Tazobactam (Sod 2.25 gm/ Sodium Chloride) 50 mls @ 100 mls/hr IV Q6H [facility] Last Infusion: 10/13/21 05:42 Dose: Infused Azithromycin 500 mg/ Sodium (Chloride) 250 mls @ 125 mls/hr IV Q24H [facility] Last Admin: 10/13/21 12:35 Dose: 125 mls/hr Levothyroxine Sodium (Levothyroxine Sodium 75 Mcg Tablet) 75 mcg PO DAILY@0600 [facility] Last Admin: 10/13/21 05:08 Dose: 75 mcg Lisinopril (Lisinopril 5 Mg Tablet) 5 mg PO DAILY [facility]; Protocol Last Admin: 10/13/21 09:39 Dose: 5 mg Metoprolol Tartrate (Metoprolol Tartrate 100 Mg Tablet) 100 mg PO BID [facility]; Protocol Last Admin: 10/13/21 09:40 Dose: 100 mg Multivitamins/Vitamin C (Multivitamin Tablet) 1 tab PO DAILY [facility] Last Admin: 10/13/21 09:39 Dose: 1 tab Patient Own Medication ( Leflunomide 20 Mg Tablet) 20 mg PO DAILY [facility] Last Admin: 10/13/21 09:43 Dose: 20 mg Patient Own Medication ( Zonisamide 25 Mg Capsule) 25 mg PO TID [facility] Last Admin: 10/13/21 09:43 Dose: 25 mg Ondansetron HCl (Ondansetron Hcl 4 Mg/2 Ml Vial) 4 mg IVPUSH Q8H PRN PRN Reason: Nausea and Vomiting Oxycodone HCl (Oxycodone Hcl Immed Release 5 Mg Tablet) 5 mg PO Q8H PRN PRN Reason: Pain, Severe (Pain Scale 7-10) Last Admin: 10/13/21 12:34 Dose: 5 mg Pharmacy Consult (Consult Rx Perform Med Rec) 1 each MISCELLANE ONCE PRN PRN Reason: Consult order Pharmacy Consult (Consult Rx Vancomycin Dosing) 1 each MISCELLANE DAILY PRN PRN Reason: Consult order Pravastatin Sodium (Pravastatin Sodium 20 Mg Tablet) 20 mg PO BEDTIME [facility] Last Admin: 10/12/21 20:52 Dose: 20 mg Prednisone (Prednisone 1 Mg Tablet) 2 mg PO DAILY [facility] Last Admin: 10/13/21 11:05 Dose: Not Given Prednisone (Prednisone 20 Mg Tablet) 40 mg PO DAILY [facility] Last Admin: 10/13/21 09:40 Dose: 40 mg Sodium Chloride (0.9 % Sodium Chloride Flush 3 Ml Syringe) 3 ml IVFLUSH QSHIFT [facility] Last Admin: 10/13/21 09:40 Dose: 3 ml Vitamin D (Cholecalciferol (Vitamin D3) 25 Mcg Tablet) 50 mcg PO DAILY [facility] Last Admin: 10/13/21 09:39 Dose: 50 mcg Warfarin Sodium (Warfarin Sodium 2.5 Mg Tablet) 2.5 mg PO DAILY@1800 [facility] Home Medications Medication Instructions Recorded Confirmed Last Taken Type cholecalciferol (vitamin D3) 50 50 mcg PO DAILY 04/26/20 10/11/21 10/11/21 History mcg (2,000 unit) capsule furosemide 40 mg tablet 40 mg PO DAILY 04/26/20 10/11/21 10/11/21 History lisinopril 5 mg tablet 5 mg PO DAILY 04/26/20 10/11/21 10/11/21 History ascorbate calcium (vitamin C) 500 500 mg PO BID 12/05/20 10/11/21 10/11/21 His tory mg tablet coenzyme Q10 100 mg capsule (Co 100 mg PO DAILY 12/05/20 10/11/21 10/11/21 Hi story Q-10) docosahexaenoic acid 200 mg 200 mg PO DAILY 12/05/20 10/11/21 10/11/21 History capsule (Algal [place]-3 DHA) vitamin B complex 1 tab PO DAILY 12/05/20 10/11/21 10/11/21 History zonisamide 25 mg capsule 25 mg PO TID 08/30/21 10/11/21 10/11/21 History digoxin 125 mcg (0.125 mg) tablet 125 mcg PO Q48H 08/31/21 10/11/21 10/10/21 History (Digox) pravastatin 20 mg tablet 20 mg PO BEDTIME 10/11/21 10/11/21 10/10/21 History warfarin 5 mg tablet 2.5 mg PO DAILY 10/11/21 10/11/21 10/10/21 History Physical Exam Vital Signs: Vital Signs: Last Vital Signs Temp 98.5 F 10/13/21 12:00 Pulse 68 10/13/21 12:00 Resp 18 10/13/21 12:00 BP 125/60 10/13/21 12:00 Pulse Ox 99 10/13/21 12:00 O2 Del Method 10/13/21 12:00 O2 Flow Rate 3 10/13/21 12:00 BMI result Body Mass Index 16.6 Const: General: cooperative HEENT: Head: Yes normal to inspection Face and sinus: Yes normal facial exam Mouth: Normal oral and palatal mucosa present Teeth and gingiva: dentition normal Eyes: General: appearance normal, both eyes and all related structures Pupils: Equal, round and reactive pupils present Resp: Effort & Inspection: normal respiratory effort Cardio: Rate: regular rate Rhythm: regular rhythm GI: Palpation (GI): Soft to palpation and nontender : General: Yes no CVA tenderness Back/Spine/Pelvis: Back: no CVA tenderness Skin: General skin exam: no rashes or lesions noted Neuro: General: moves all extremities Cranial nerves: Yes Equal, round and reactive pupils present Extrem: General: Yes normal to inspection Left lower extremity: ankle (left area yellow clear drainage) Psych: Appearance: grossly normal Results Labs CBC & Chem 7: 10/12/21 06:11 10/12/21 06:11 Microbiology Microbiology Results: Microbiology 10/12/21 Unknown Urine clean catch - Urine marie top Urine Culture - Prelimin franko Gram negative lance 10/11/21 16:15 Blood - Venous Blood Culture - Preliminary No growth after 24 hours. 10/11/21 16:15 Blood - Venous Blood Culture - Preliminary No growth after 24 hours. Assessment and Plan (1) Acute respiratory failure with hypoxia: Status: Acute (2) Infected pressure ulcer: Status: Acute She is at risk for bone infection with rheumatoid arthritis. She has MRSA previously in wound areas. She has unremarkable inflammatory arthritis (3) Leg ulcer, left: Status: Acute (4) Seropositive rheumatoid arthritis: Status: Acute Plan Would give Vancomycin for MRSA (may change to po Doxycycline on discharge for po ssible 10 days) Stop Zosyn unless gram negative found next day or two She should get CT scan or MRI ankle since admitted and has drainage. Wound Care. She doesnt clinically appear to have UTI She is getting azithromycin for lung apparently.
--- NOTE | 2021-10-13 14:08 | PHA.PROG ---
Admission Date/Time: October 11, 2021 22:41 Indication: Skin Infection, risk of bone infection Weight in k.5 kg Adjusted body weight in K.4 kg [place] body weight in K.4 kg Obesity Dosing Indication % IBW: N/A Serum Creatinine - Last 168 Hours 10/11/21 10/12/21 16:15 06:11 Creatinine 1.02 0.88 Estimated CrCl and GFR - Last 168 Hours 10/11/21 10/12/21 16:15 06:11 Estim Creat Clear Calc 28.6 33.1 Estimated GFR 52 > 60 Vancomycin Loading Dose: N/A Current Vancomycin Dosing Regimen: 1000 mg Q24H (23 mg/kg) Date and Time for next Vancomycin Level to be drawn: 10/15 @ 1300 Pharmacist Comments on Vancomycin Plan: Patient started on vancomycin on 10/11 but then discontinue by provider. Dr Munoz would like vancomycin to be restarted due MRSA hx It will have been 40 hours since last dose. Start vancomycin 1000 mg Q24H. Expecetd AUC 492 with a trough of 16.4. Due to patient's size, renal function and age will get a random level after 2 dose to access for safety. Pharmacy will monitor renal function daily. Sapna Edgar, Carmen Vancomycin dosing will take advantage of Master Equation as a clinical decision support tool that uses Bayesian modeling to calculate individual patient's pharmacokinetic parameters and forecast the patient's drug concentration time course with the target goal AUC 24 range of 400 - 600 mg/L/hr.
--- NOTE | 2021-10-13 15:34 | MHC.CLN ---
NUTRITION CONSULT FOR WEIGHT LOSS. REPORTS WEIGHT LOSS OF 5# X 2 MONTHS (-5.6%). DIET=REGULAR. NO SIGNIFICANT WEIGHT CHANGE X 1 YEAR. REPORTS THAT DENTURES ARE LOOSE BUT REGULAR DIET OK. TAKES DARK CHOCOLATE ENSURE AT HOME. WILL TRY ENSURE CLEAR BID (480 KCALS, 16 G PROTEIN). SKIN: INFECTED PRESSURE AREA ON COCCYX. CHRONIC LOWER EXTREMITY WOUNDS. ENSURE CLEAR TO PROVIDE ADDITIONAL PROTEIN TO PROMOTE WOUND HEALING. BMI=16.6, UNDERWEIGHT, BUT DOES NOT APPEAR MALNOURISHED. FOLLOW FOR INTAKE, WEIGHT, AND SKIN.
[2021-10-13] MEDS: vancomycin HCL 1,000 MG in 0.9 % Sodium Chloride 250 ML 270 MG IV (15:45)
[2021-10-13] MEDS: Pravastatin Sodium 20 MG TABLET PO (22:12)
[2021-10-13] MEDS: Warfarin Sodium 2.5 MG TABLET PO (22:13)
[2021-10-14] VITALS (7 sets, daily range): BP systolic 95–137; BP diastolic 48–71; PULSE 39–90; RESP 18–20; TEMP 36.3–36.9; O2SAT 95–99; BMI 16.5
[2021-10-14] MEDS: Piperacillin Sodium/Tazobactam 2.25 GM in 0.9 % Sodium Chloride 50 ML IV ×4 (00:14→19:02)
[2021-10-14] MEDS: oxyCODONE HCl Immed Release 5 MG TABLET PO ×3 (00:20→21:53)
[2021-10-14] MEDS: Acetaminophen 325 MG TABLET 650 MG PO ×2 (00:21→10:48)
[2021-10-14] MEDS: Levothyroxine Sodium 75 MCG TABLET PO (06:01)
[2021-10-14 07:14] LABS: INTERNATIONAL NORM RATIO 1.7 (0.9-1.1); Prothrombin Time 20.2 SEC (10.0-13.1)
[2021-10-14 07:32] LABS: Creatinine Clr Calc Pharmacy 34.9; Estimated Glomerular Filt Rate > 60
--- NOTE | 2021-10-14 09:08 | P.PNIM_ITS ---
Subjective Subjective Date of Service: 10/14/21 Interval History: f/u on acute hypoxia, history of aspergiloma, infected wound inteval history:Persistent throbing in the foot Review of Systems Gen: no fever Resp: no sob, no cough CV: no chest, no ZAVALETA, no leg edema GI: No n/v, no abd pain Neuro: No confusion Physical Exam Vital Signs: Vital Signs: Last Vital Signs Temp 98.5 F 10/14/21 08:00 Pulse 63 10/14/21 08:00 Resp 20 10/14/21 08:00 BP 121/59 L 10/14/21 08:00 Pulse Ox 95 10/14/21 08:00 O2 Del Method 10/14/21 08:00 O2 Flow Rate 2 10/14/21 08:00 BMI result Body Mass Index 16.5 Const: Other: General: AO X 3, no acute distress Resp: CTA bilateral CVS: S1,S2, iregular GI: +BS, NT, no distention Skin: No rash, see pictures elsewhere Neuro: motor grossly intact Psych: appropriate affect Objective Data Active Medications Acetaminophen (Acetaminophen 325 Mg Tablet) 650 mg PO Q6H PRN PRN Reason: Pain, Mild (Pain Scale 1-3) Last Admin: 10/14/21 00:21 Dose: 650 mg Documented By: JAQUAN Ascorbic Acid (Ascorbic Acid 500 Mg Tablet) 500 mg PO BID [facility] Last Admin: 10/13/21 22:12 Dose: 500 mg Documented By: BARBARA Digoxin (Digoxin 0.125 Mg Tablet) 0.125 mg PO Q48H [facility] Last Admin: 10/12/21 09:46 Dose: 0.125 mg Documented By: COOPEPierce Docusate Sodium (Docusate Sodium 100 Mg Capsule) 100 mg PO DAILY PRN PRN Reason: Constipation Furosemide (Furosemide 40 Mg Tablet) 40 mg PO DAILY [facility]; Protocol Last Admin: 10/13/21 09:39 Dose: 40 mg Documented By: HOLLY Gabapentin (Gabapentin 300 Mg Capsule) 300 mg PO TID [facility] Last Admin: 10/13/21 22:12 Dose: 300 mg Documented By: BARBARA Piperacillin Sod/Tazobactam (Sod 2.25 gm/ Sodium Chloride) 50 mls @ 100 mls/hr IV Q6H [facility] Last Infusion: 10/14/21 06:46 Dose: 0 mls/hr Documented By: JAQUAN Azithromycin 500 mg/ Sodium (Chloride) 250 mls @ 125 mls/hr IV Q24H [facility] Last Infusion: 10/13/21 15:18 Dose: 0 mls/hr Documented By: HOLLY Vancomycin HCl 1,000 mg/ (Sodium Chloride) 270 mls @ 270 mls/hr IV Q24H [facility] Last Infusion: 10/13/21 17:06 Dose: 0 mls/hr Documented By: BROPierce Levothyroxine Sodium (Levothyroxine Sodium 75 Mcg Tablet) 75 mcg PO DAILY@0600 [facility] Last Admin: 10/14/21 06:01 Dose: 75 mcg Documented By: JAQUAN Lisinopril (Lisinopril 5 Mg Tablet) 5 mg PO DAILY [facility]; Protocol Last Admin: 10/13/21 09:39 Dose: 5 mg Documented By: HOLLY Metoprolol Tartrate (Metoprolol Tartrate 100 Mg Tablet) 100 mg PO BID [facility]; Protocol Last Admin: 10/13/21 22:12 Dose: 100 mg Documented By: BARBARA Multivitamins/Vitamin C (Multivitamin Tablet) 1 tab PO DAILY [facility] Last Admin: 10/13/21 09:39 Dose: 1 tab Documented By: HOLLY Patient Own Medication ( Leflunomide 20 Mg Tablet) 20 mg PO DAILY [facility] Last Admin: 10/13/21 09:43 Dose: 20 mg Documented By: HOLLY Patient Own Medication ( Zonisamide 25 Mg Capsule) 25 mg PO TID [facility] Last Admin: 10/13/21 22:11 Dose: 25 mg Documented By: BARBARA Ondansetron HCl (Ondansetron Hcl 4 Mg/2 Ml Vial) 4 mg IVPUSH Q8H PRN PRN Reason: Nausea and Vomiting Oxycodone HCl (Oxycodone Hcl Immed Release 5 Mg Tablet) 5 mg PO Q8H PRN PRN Reason: Pain, Severe (Pain Scale 7-10) Last Admin: 10/14/21 00:20 Dose: 5 mg Documented By: JAQUAN Pharmacy Consult (Consult Rx Perform Med Rec) 1 each MISCELLANE ONCE PRN PRN Reason: Consult order Pharmacy Consult (Consult Rx Vancomycin Dosing) 1 each MISCELLANE DAILY PRN PRN Reason: Consult order Pharmacy Consult (Consult Rx Vancomycin Dosing) 1 each MISCELLANE DAILY PRN PRN Reason: Consult order Pravastatin Sodium (Pravastatin Sodium 20 Mg Tablet) 20 mg PO BEDTIME [facility] Last Admin: 10/13/21 22:12 Dose: 20 mg Documented By: BARBARA Prednisone (Prednisone 1 Mg Tablet) 2 mg PO DAILY [facility] Last Admin: 10/13/21 11:05 Dose: Not Given Documented By: HOLLY Non-Admin Reason: Physician Held Med Prednisone (Prednisone 20 Mg Tablet) 40 mg PO DAILY [facility] Last Admin: 10/13/21 09:40 Dose: 40 mg Documented By: HOLLY Sodium Chloride (0.9 % Sodium Chloride Flush 3 Ml Syringe) 3 ml IVFLUSH QSHIFT [facility] Last Admin: 10/13/21 22:13 Dose: 3 ml Documented By: BARBARA Vitamin D (Cholecalciferol (Vitamin D3) 25 Mcg Tablet) 50 mcg PO DAILY [facility] Last Admin: 10/13/21 09:39 Dose: 50 mcg Documented By: HOLLY Warfarin Sodium (Warfarin Sodium 2.5 Mg Tablet) 2.5 mg PO DAILY@1800 [facility] Last Admin: 10/13/21 22:13 Dose: 2.5 mg Documented By: BARBARA Labs CBC & Chem 7: 10/12/21 06:11 10/14/21 06:27 Labs: Laboratory Results - last 24 hr 10/14/21 10/14/21 06:27 06:27 PT 20.2 H INR 1.7 H Estim Creat Clear Calc 34.9 Estimated GFR > 60 Microbiology Microbiology Results: Microbiology 10/12/21 Unknown Urine Culture - Final Urine clean catch - Urine marie top Escherichia coli 10/11/21 16:15 Blood Culture - Preliminary Blood - Venous No growth after 48 hours. 10/11/21 16:15 Blood Culture - Preliminary Blood - Venous No growth after 48 hours. Assessment and Plan (1) Acute respiratory failure with hypoxia: Status: Acute (2) Pulmonary nodules: Status: Acute (3) Infected pressure ulcer: Status: Acute Plan 81-year-old female with past medical history of peripheral vascular disease, chronic wounds in the left lower extremity, history of AFib on Coumadin, essential tremors, who presents to the hospital with complaints of lower extremity wound, as well as found to be hypoxic. # Infected pressure ulcer - Pt with multiple ulcer, with one on lateral left wound worst - No evidence of osteo, ESR and CRP not elevated - treat with IV antibiotics - follow cultures - On Zosyn, ID recommending Vanco for few days then PO Doxy # Hypoxic resp failure - Unclear etiology at this time - has multiple abnormalities on CT chest including nodules - no evidence of fluid overload, no evidence of pneumonia - pulmonology recommending steroid and Azithro # Chronic AFib--rate controlled on dig, metoprolol and coumadin for anticoagulation/stroke prevention #Moderate proteint calory malnutrition--supplement # hypothyroidism - continue levothyroxine # rheumatoid arthritis - continue home medications DVT prophylaxis: Warfarin Need for inaptient: Acute hypoxic respiratory failure as well as IV antibiotics for the infected pressure PT consult--she would not want to go rehab Quality Stroke Does the patient have a stroke diagnosis?: No VTE Prior VTE?: No VTE Risk Level:: Medical - moderate - high VTE Device Contraindication: Treatment Not Indicated VTE Drug Contraindication: N/A - Med Ordered
[2021-10-14] MEDS: 0.9 % Sodium Chloride Flush 3 ML SYRINGE IVFLUSH ×2 (10:38→21:54)
[2021-10-14] MEDS: Multivitamin TABLET 1 TAB PO (10:38)
[2021-10-14] MEDS: Cholecalciferol (Vitamin D3) 25 MCG TABLET 50 MCG PO (10:38)
[2021-10-14] MEDS: Ascorbic Acid 500 MG TABLET PO ×2 (10:38→21:54)
[2021-10-14] MEDS: predniSONE 1 MG TABLET 2 MG PO (10:38)
[2021-10-14] MEDS: lisinopriL 5 MG TABLET PO (10:38)
[2021-10-14] MEDS: Furosemide 40 MG TABLET PO (10:39)
[2021-10-14] MEDS: Digoxin 0.125 MG TABLET PO (10:39)
[2021-10-14] MEDS: Metoprolol Tartrate 100 MG TABLET PO ×2 (10:39→21:54)
[2021-10-14] MEDS: Gabapentin 300 MG CAPSULE PO ×3 (10:48→21:54)
[2021-10-14] MEDS: predniSONE 20 MG TABLET 40 MG PO (10:49)
[2021-10-14] MEDS: Azithromycin 500 MG in 0.9 % Sodium Chloride 250 ML 125 MG IV (12:49)
--- NOTE | 2021-10-14 13:43 | HE.PHANOTE ---
Continue 1 gm q24h vancomycin. Anticipated auc of 505. next level 7 1300
[2021-10-14] MEDS: vancomycin HCL 1,000 MG in 0.9 % Sodium Chloride 250 ML 270 MG IV (16:46)
[2021-10-14] MEDS: Warfarin Sodium 2.5 MG TABLET PO (19:02)
[2021-10-14] MEDS: Pravastatin Sodium 20 MG TABLET PO (21:54)
[2021-10-15] MEDS: Piperacillin Sodium/Tazobactam 2.25 GM in 0.9 % Sodium Chloride 50 ML IV ×5 (01:30→23:28)
[2021-10-15 04:00] VITALS: BP 101/58; PULSE 40; RESP 16; TEMP 37; O2SAT 98
[2021-10-15] MEDS: Levothyroxine Sodium 75 MCG TABLET PO (05:08)
[2021-10-15 07:14] LABS: INTERNATIONAL NORM RATIO 2.3 (0.9-1.1); Prothrombin Time 27.9 SEC (10.0-13.1)
[2021-10-15 07:26] LABS: Estimated Glomerular Filt Rate 57
[2021-10-15 08:00] VITALS: BP 106/59; PULSE 52; RESP 18; TEMP 36.9; O2SAT 97
[2021-10-15 08:02] LABS: Vancomycin Random 20.4 mcg/mL (15-20)
--- NOTE | 2021-10-15 11:33 | HO.PM.IMPN ---
Subjective Subjective Date of Service: 10/15/21 Interval History: f/u on acute hypoxia, history of aspergiloma, infected wound inteval history:Persistent throbing in the foot Review of Systems Gen: no fever Resp: no sob, no cough CV: no chest, no ZAVALETA, no leg edema GI: No n/v, no abd pain Neuro: No confusion Physical Exam Vital Signs: Vital Signs: Last Vital Signs Temp 98.4 F 10/15/21 08:00 Pulse 52 10/15/21 08:00 Resp 18 10/15/21 08:00 BP 106/59 L 10/15/21 08:00 Pulse Ox 97 10/15/21 08:00 O2 Del Method 10/15/21 08:00 O2 Flow Rate 3 10/15/21 08:00 BMI result Body Mass Index 16.5 Const: Other: General: AO X 3, no acute distress Resp: CTA bilateral CVS: S1,S2, iregular GI: +BS, NT, no distention Skin: No rash, see pictures elsewhere Neuro: motor grossly intact Psych: appropriate affect Objective Data Active Medications Acetaminophen (Acetaminophen 325 Mg Tablet) 650 mg PO Q6H PRN PRN Reason: Pain, Mild (Pain Scale 1-3) Last Admin: 10/14/21 10:48 Dose: 650 mg Documented By: ARLYN Ascorbic Acid (Ascorbic Acid 500 Mg Tablet) 500 mg PO BID [facility] Last Admin: 10/14/21 21:54 Dose: 500 mg Documented By: ARLEEN Digoxin (Digoxin 0.125 Mg Tablet) 0.125 mg PO Q48H [facility] Last Admin: 10/14/21 10:39 Dose: 0.125 mg Documented By: ARLYN Docusate Sodium (Docusate Sodium 100 Mg Capsule) 100 mg PO DAILY PRN PRN Reason: Constipation Furosemide (Furosemide 40 Mg Tablet) 40 mg PO DAILY [facility]; Protocol Last Admin: 10/14/21 10:39 Dose: 40 mg Documented By: ARLYN Gabapentin (Gabapentin 300 Mg Capsule) 300 mg PO TID [facility] Last Admin: 10/14/21 21:54 Dose: 300 mg Documented By: ARLEEN Piperacillin Sod/Tazobactam (Sod 2.25 gm/ Sodium Chloride) 50 mls @ 100 mls/hr IV Q6H [facility] Last Infusion: 10/15/21 05:43 Dose: 0 mls/hr Documented By: ARLEEN Azithromycin 500 mg/ Sodium (Chloride) 250 mls @ 125 mls/hr IV Q24H [facility] Last Infusion: 10/14/21 16:48 Dose: 0 mls/hr Documented By: ARLYN Vancomycin HCl 1,000 mg/ (Sodium Chloride) 270 mls @ 270 mls/hr IV Q24H [facility] Last Infusion: 10/14/21 18:46 Dose: 0 mls/hr Documented By: ARLYN Levothyroxine Sodium (Levothyroxine Sodium 75 Mcg Tablet) 75 mcg PO DAILY@0600 [facility] Last Admin: 10/15/21 05:08 Dose: 75 mcg Documented By: ARLEEN Lisinopril (Lisinopril 5 Mg Tablet) 5 mg PO DAILY [facility]; Protocol Last Admin: 10/14/21 10:38 Dose: 5 mg Documented By: ARLYN Metoprolol Tartrate (Metoprolol Tartrate 100 Mg Tablet) 100 mg PO BID [facility]; Protocol Last Admin: 10/14/21 21:54 Dose: 100 mg Documented By: ARLEEN Multivitamins/Vitamin C (Multivitamin Tablet) 1 tab PO DAILY [facility] Last Admin: 10/14/21 10:38 Dose: 1 tab Documented By: ARLYN Patient Own Medication ( Leflunomide 20 Mg Tablet) 20 mg PO DAILY [facility] Last Admin: 10/14/21 10:50 Dose: 20 mg Documented By: ARLYN Patient Own Medication ( Zonisamide 25 Mg Capsule) 25 mg PO TID [facility] Last Admin: 10/14/21 21:54 Dose: 25 mg Documented By: ARLEEN Ondansetron HCl (Ondansetron Hcl 4 Mg/2 Ml Vial) 4 mg IVPUSH Q8H PRN PRN Reason: Nausea and Vomiting Oxycodone HCl (Oxycodone Hcl Immed Release 5 Mg Tablet) 5 mg PO Q8H PRN PRN Reason: Pain, Severe (Pain Scale 7-10) Last Admin: 10/14/21 21:53 Dose: 5 mg Documented By: ARLEEN Pharmacy Consult (Consult Rx Perform Med Rec) 1 each MISCELLANE ONCE PRN PRN Reason: Consult order Pharmacy Consult (Consult Rx Vancomycin Dosing) 1 each MISCELLANE DAILY PRN PRN Reason: Consult order Pharmacy Consult (Consult Rx Vancomycin Dosing) 1 each MISCELLANE DAILY PRN PRN Reason: Consult order Pravastatin Sodium (Pravastatin Sodium 20 Mg Tablet) 20 mg PO BEDTIME [facility] Last Admin: 10/14/21 21:54 Dose: 20 mg Documented By: ARLEEN Prednisone (Prednisone 1 Mg Tablet) 2 mg PO DAILY [facility] Last Admin: 10/14/21 10:38 Dose: 2 mg Documented By: ARLYN Prednisone (Prednisone 20 Mg Tablet) 40 mg PO DAILY [facility] Last Admin: 10/14/21 10:49 Dose: 40 mg Documented By: ARLYN Sodium Chloride (0.9 % Sodium Chloride Flush 3 Ml Syringe) 3 ml IVFLUSH QSHIFT [facility] Last Admin: 10/14/21 21:54 Dose: 3 ml Documented By: ARLEEN Vitamin D (Cholecalciferol (Vitamin D3) 25 Mcg Tablet) 50 mcg PO DAILY [facility] Last Admin: 10/14/21 10:38 Dose: 50 mcg Documented By: ARLYN Warfarin Sodium (Warfarin Sodium 2.5 Mg Tablet) 2.5 mg PO DAILY@1800 [facility] Last Admin: 10/14/21 19:02 Dose: 2.5 mg Documented By: ALEORREffie Labs CBC & Chem 7: 10/12/21 06:11 10/15/21 06:24 Labs: Laboratory Results - last 24 hr 10/15/21 10/15/21 10/15/21 06:24 06:24 06:24 PT 27.9 H INR 2.3 H Estim Creat Clear Calc 32.0 Estimated GFR 57 Random Vancomycin 20.4 H Assessment and Plan (1) Acute respiratory failure with hypoxia: Status: Acute (2) Pulmonary nodules: Status: Acute (3) Infected pressure ulcer: Status: Acute Plan 81-year-old female with past medical history of peripheral vascular disease, chronic wounds in the left lower extremity, history of AFib on Coumadin, essential tremors, who presents to the hospital with complaints of lower extremity wound, as well as found to be hypoxic. Infected pressure ulcer - Pt with multiple ulcer, with one on lateral left wound worst - No evidence of osteo, ESR and CRP not elevated - treat with IV antibiotics - follow cultures - On Rae, ID recommending Vanco for few days then PO Doxy plan for MRI 10/16/21 acute vs chronic Hypoxic resp failure - Unclear etiology at this time - has multiple abnormalities on CT chest including nodules - no evidence of fluid overload, no evidence of pneumonia - pulmonology recommending steroid and Azithro Chronic AFib--rate controlled on dig, metoprolol and coumadin for anticoagulation/stroke prevention Moderate proteint calory malnutrition--supplement hypothyroidism - continue levothyroxine rheumatoid arthritis - continue home medications DVT prophylaxis: Warfarin Need for inaptient: Acute hypoxic respiratory failure as well as IV antibiotics for the infected pressure PT consult--she would not want to go rehab Quality Stroke Does the patient have a stroke diagnosis?: No VTE Prior VTE?: No VTE Risk Level:: Medical - moderate - high VTE Device Contraindication: Treatment Not Indicated VTE Drug Contraindication: N/A - Med Ordered
[2021-10-15 12:00] VITALS: BP 117/59; PULSE 56; RESP 18; TEMP 37.2; O2SAT 98
[2021-10-15] MEDS: 0.9 % Sodium Chloride Flush 3 ML SYRINGE IVFLUSH ×3 (12:28→20:47)
[2021-10-15] MEDS: Acetaminophen 325 MG TABLET 650 MG PO (12:29)
[2021-10-15] MEDS: predniSONE 1 MG TABLET 2 MG PO (12:29)
[2021-10-15] MEDS: Metoprolol Tartrate 100 MG TABLET PO (12:29)
[2021-10-15] MEDS: Cholecalciferol (Vitamin D3) 25 MCG TABLET 50 MCG PO (12:29)
[2021-10-15] MEDS: predniSONE 20 MG TABLET 40 MG PO (12:30)
[2021-10-15] MEDS: Multivitamin TABLET 1 TAB PO (12:30)
[2021-10-15] MEDS: lisinopriL 5 MG TABLET PO (12:31)
[2021-10-15] MEDS: oxyCODONE HCl Immed Release 5 MG TABLET PO ×2 (12:31→20:46)
[2021-10-15] MEDS: Ascorbic Acid 500 MG TABLET PO ×2 (12:31→20:46)
[2021-10-15] MEDS: Gabapentin 300 MG CAPSULE PO ×3 (12:32→20:46)
[2021-10-15] MEDS: Furosemide 40 MG TABLET PO (13:02)
[2021-10-15] MEDS: Azithromycin 500 MG in 0.9 % Sodium Chloride 250 ML 125 MG IV (13:34)
[2021-10-15 13:53] LABS: Vancomycin Trough 17.3 mcg/mL (10.0-20.0)
--- NOTE | 2021-10-15 14:05 | HE.PHANOTE ---
re radha, true trough was 17.3, will decrease dose in setting of increased scr. next random 10/16 @1300
[2021-10-15 14:34] LABS: Anion Gap 15 (12-20); Blood Urea Nitrogen 31 mg/dL (9-16); Calcium 8.2 mg/dL (8.4-10.2); Carbon Dioxide 24 mmol/L (22-29); Chloride 105 mmol/L (96-108); Glucose Random 88 mg/dL (60-115); Magnesium 1.9 mg/dL (1.6-2.6); Potassium 3.4 mmol/L (3.3-5.1); Sodium 141 mmol/L (135-145)
[2021-10-15 14:51] LABS: CDiff Gene PCR NEGATIVE (Negative)
[2021-10-15 15:24] VITALS: BP 80/51; PULSE 43; RESP 18; TEMP 36.7; O2SAT 99
[2021-10-15] MEDS: Potassium Chloride ER 20 MEQ TAB.ER.PRT 40 MEQ PO (16:15)
[2021-10-15] MEDS: vancomycin HCL 750 MG in 0.9 % Sodium Chloride 250 ML 265 MG IV (16:38)
[2021-10-15] MEDS: Warfarin Sodium 2.5 MG TABLET PO (18:35)
[2021-10-15 19:08] VITALS: BP 102/50; PULSE 63; RESP 18; TEMP 37.1; O2SAT 99
[2021-10-15] MEDS: Pravastatin Sodium 20 MG TABLET PO (20:47)
[2021-10-15 20:49] VITALS: BP 111/49
[2021-10-16] VITALS (7 sets, daily range): BP systolic 106–137; BP diastolic 51–65; PULSE 43–105; RESP 17–20; TEMP 36.4–37.3; O2SAT 96–99; BMI 17.2
[2021-10-16] MEDS: oxyCODONE HCl Immed Release 5 MG TABLET PO ×2 (04:01→17:44)
[2021-10-16] MEDS: Acetaminophen 325 MG TABLET 650 MG PO (04:02)
[2021-10-16] MEDS: Piperacillin Sodium/Tazobactam 2.25 GM in 0.9 % Sodium Chloride 50 ML IV (05:14)
[2021-10-16] MEDS: Levothyroxine Sodium 75 MCG TABLET PO (05:17)
[2021-10-16] MEDS: Loperamide HCl 2 MG CAPSULE PO ×3 (06:03→17:45)
[2021-10-16 07:23] LABS: Hemoglobin 11.9 g/dl (12.0-16.0); Mean Corpuscular HGB Conc 33.1 g/dl (31.0-35.0); Mean Corpuscular Hemoglobin 35.2 pg (27.0-33.0); Mean Corpuscular Volume 106.5 fL (80.0-98.0); Mean Platelet Volume 11.2 fL (9.4-12.3); Platelet Count 146 X10*3/uL (160-400); Red Blood Count 3.38 X10*6/uL (4.20-5.50); Red Cell Distribution Width 14.1 % (11.0-16.0); White Blood Count 8.4 X10*3/uL (4.8-10.8)
[2021-10-16 07:34] LABS: Anion Gap 12 (12-20); Blood Urea Nitrogen 32 mg/dL (9-16); Calcium 8.4 mg/dL (8.4-10.2); Carbon Dioxide 25 mmol/L (22-29); Chloride 105 mmol/L (96-108); Creatinine Clr Calc Pharmacy 39.3; Estimated Glomerular Filt Rate > 60; Glucose Fasting 99 mg/dL (60-99); Potassium 3.9 mmol/L (3.3-5.1); Sodium 138 mmol/L (135-145)
[2021-10-16] MEDS: Metoprolol Tartrate 100 MG TABLET PO ×2 (07:42→22:00)
[2021-10-16] MEDS: Cholecalciferol (Vitamin D3) 25 MCG TABLET 50 MCG PO (07:42)
[2021-10-16] MEDS: Digoxin 0.125 MG TABLET PO (07:43)
[2021-10-16] MEDS: lisinopriL 5 MG TABLET PO (07:43)
[2021-10-16] MEDS: Ascorbic Acid 500 MG TABLET PO ×2 (07:43→22:00)
[2021-10-16] MEDS: predniSONE 1 MG TABLET 2 MG PO (07:43)
[2021-10-16] MEDS: Multivitamin TABLET 1 TAB PO (07:43)
[2021-10-16] MEDS: Gabapentin 300 MG CAPSULE PO ×3 (07:43→22:00)
[2021-10-16] MEDS: predniSONE 20 MG TABLET 40 MG PO (07:43)
[2021-10-16] MEDS: Furosemide 40 MG TABLET PO (07:43)
[2021-10-16] MEDS: 0.9 % Sodium Chloride Flush 3 ML SYRINGE IVFLUSH ×2 (07:44→15:50)
--- NOTE | 2021-10-16 09:05 | HO.PM.IMPN ---
Subjective Subjective Date of Service: 10/16/21 Interval History: f/u on acute hypoxia, history of aspergiloma, infected wound inteval history:Pain level unchanged Review of Systems Gen: no fever Resp: no sob, no cough CV: no chest, no ZAVALETA, no leg edema GI: No n/v, no abd pain Neuro: No confusion Physical Exam Vital Signs: Vital Signs: Last Vital Signs Temp 97.5 F 10/16/21 07:46 Pulse 105 H 10/16/21 07:46 Resp 18 10/16/21 07:46 BP 118/57 L 10/16/21 07:46 Pulse Ox 99 10/16/21 07:46 O2 Del Method 10/16/21 07:46 O2 Flow Rate 3 10/16/21 07:46 BMI result Body Mass Index 17.2 Const: Other: General: AO X 3, no acute distress Resp: CTA bilateral CVS: S1,S2, iregular GI: +BS, NT, no distention Skin: No rash, see pictures elsewhere Neuro: motor grossly intact Psych: appropriate affect Objective Data Active Medications Acetaminophen (Acetaminophen 325 Mg Tablet) 650 mg PO Q6H PRN PRN Reason: Pain, Mild (Pain Scale 1-3) Last Admin: 10/16/21 04:02 Dose: 650 mg Documented By: COREEN Ascorbic Acid (Ascorbic Acid 500 Mg Tablet) 500 mg PO BID [facility] Last Admin: 10/16/21 07:43 Dose: 500 mg Documented By: MAGED Digoxin (Digoxin 0.125 Mg Tablet) 0.125 mg PO Q48H [facility] Last Admin: 10/16/21 07:43 Dose: 0.125 mg Documented By: MAGED Docusate Sodium (Docusate Sodium 100 Mg Capsule) 100 mg PO DAILY PRN PRN Reason: Constipation Furosemide (Furosemide 40 Mg Tablet) 40 mg PO DAILY [facility]; Protocol Last Admin: 10/16/21 07:43 Dose: 40 mg Documented By: MAGED Gabapentin (Gabapentin 300 Mg Capsule) 300 mg PO TID [facility] Last Admin: 10/16/21 07:43 Dose: 300 mg Documented By: MAGED Piperacillin Sod/Tazobactam (Sod 2.25 gm/ Sodium Chloride) 50 mls @ 100 mls/hr IV Q6H [facility] Last Infusion: 10/16/21 05:57 Dose: 0 mls/hr Documented By: COREEN Azithromycin 500 mg/ Sodium (Chloride) 250 mls @ 125 mls/hr IV Q24H [facility] Last Infusion: 10/15/21 15:49 Dose: 0 mls/hr Documented By: ARLYN Vancomycin HCl 750 mg/ Sodium (Chloride) 265 mls @ 265 mls/hr IV Q24H [facility] Last Infusion: 10/15/21 18:20 Dose: 0 mls/hr Documented By: ALEORREffie Levothyroxine Sodium (Levothyroxine Sodium 75 Mcg Tablet) 75 mcg PO DAILY@0600 [facility] Last Admin: 10/16/21 05:17 Dose: 75 mcg Documented By: COREEN Lisinopril (Lisinopril 5 Mg Tablet) 5 mg PO DAILY [facility]; Protocol Last Admin: 10/16/21 07:43 Dose: 5 mg Documented By: MAGED Loperamide HCl (Loperamide Hcl 2 Mg Capsule) 2 mg PO Q6H PRN PRN Reason: Diarrhea Last Admin: 10/16/21 06:03 Dose: 2 mg Documented By: COREEN Metoprolol Tartrate (Metoprolol Tartrate 100 Mg Tablet) 100 mg PO BID [facility]; Protocol Last Admin: 10/16/21 07:42 Dose: 100 mg Documented By: MAGED Multivitamins/Vitamin C (Multivitamin Tablet) 1 tab PO DAILY [facility] Last Admin: 10/16/21 07:43 Dose: 1 tab Documented By: MAGED Patient Own Medication ( Leflunomide 20 Mg Tablet) 20 mg PO DAILY [facility] Last Admin: 10/16/21 07:44 Dose: 20 mg Documented By: MAGED Patient Own Medication ( Zonisamide 25 Mg Capsule) 25 mg PO TID [facility] Last Admin: 10/16/21 07:44 Dose: 25 mg Documented By: MAGED Ondansetron HCl (Ondansetron Hcl 4 Mg/2 Ml Vial) 4 mg IVPUSH Q8H PRN PRN Reason: Nausea and Vomiting Oxycodone HCl (Oxycodone Hcl Immed Release 5 Mg Tablet) 5 mg PO Q8H PRN PRN Reason: Pain, Severe (Pain Scale 7-10) Last Admin: 10/16/21 04:01 Dose: 5 mg Documented By: COREEN Pharmacy Consult (Consult Rx Perform Med Rec) 1 each MISCELLANE ONCE PRN PRN Reason: Consult order Pharmacy Consult (Consult Rx Vancomycin Dosing) 1 each MISCELLANE DAILY PRN PRN Reason: Consult order Pharmacy Consult (Consult Rx Vancomycin Dosing) 1 each MISCELLANE DAILY PRN PRN Reason: Consult order Pravastatin Sodium (Pravastatin Sodium 20 Mg Tablet) 20 mg PO BEDTIME [facility] Last Admin: 10/15/21 20:47 Dose: 20 mg Documented By: COREEN Prednisone (Prednisone 1 Mg Tablet) 2 mg PO DAILY [facility] Last Admin: 10/16/21 07:43 Dose: 2 mg Documented By: MAGED Prednisone (Prednisone 20 Mg Tablet) 40 mg PO DAILY [facility] Last Admin: 10/16/21 07:43 Dose: 40 mg Documented By: MAGED Sodium Chloride (0.9 % Sodium Chloride Flush 3 Ml Syringe) 3 ml IVFLUSH QSHIFT [facility] Last Admin: 10/16/21 07:44 Dose: 3 ml Documented By: MAGED Vitamin D (Cholecalciferol (Vitamin D3) 25 Mcg Tablet) 50 mcg PO DAILY [facility] Last Admin: 10/16/21 07:42 Dose: 50 mcg Documented By: MAGED Warfarin Sodium (Warfarin Sodium 2.5 Mg Tablet) 2.5 mg PO DAILY@1800 [facility] Last Admin: 10/15/21 18:35 Dose: 2.5 mg Documented By: ARLYN Labs CBC & Chem 7: 10/16/21 06:51 10/16/21 06:51 Labs: Laboratory Results - last 24 hr 10/15/21 10/15/21 10/15/21 06:24 10:44 12:51 MCV MCH MCHC RDW Plt Count MPV Absolute Nucleated RBC Nucleated RBC % (auto) Anion Gap 15 Estim Creat Clear Calc 32.0 Estimated GFR 57 Random Glucose 88 Fasting Glucose Calcium 8.2 L D Magnesium 1.9 Vancomycin Trough 17.3 C. difficile Tox B Gene NEGATIVE 10/16/21 10/16/21 06:51 06:51 MCV 106.5 H MCH 35.2 H MCHC 33.1 RDW 14.1 Plt Count 146 L D MPV 11.2 Absolute Nucleated RBC 0.000 Nucleated RBC % (auto) 0.0 Anion Gap 12 Estim Creat Clear Calc 39.3 Estimated GFR > 60 Random Glucose Fasting Glucose 99 Calcium 8.4 Magnesium Vancomycin Trough C. difficile Tox B Gene Assessment and Plan (1) Acute respiratory failure with hypoxia: Status: Acute (2) Pulmonary nodules: Status: Acute (3) Infected pressure ulcer: Status: Acute Plan 81-year-old female with past medical history of peripheral vascular disease, chronic wounds in the left lower extremity, history of AFib on Coumadin, essential tremors, who presents to the hospital with complaints of lower extremity wound, as well as found to be hypoxic. #Infected pressure ulcer - Pt with multiple ulcer, with one on lateral left wound worst - No evidence of osteo, ESR and CRP not elevated - treat with IV antibiotics - follow cultures - On Zosyn, ID recommending Vanco for few days then PO Doxy -plan for MRI today 10/16/21 to r/o osteo #E. coli UTI--Zosyn as above #acute vs chronic Hypoxic resp failure - Unclear etiology at this time - has multiple abnormalities on CT chest including nodules - no evidence of fluid overload, no evidence of pneumonia - pulmonology recommending steroid and Azithro #Chronic AFib--rate controlled on dig, metoprolol and coumadin for anticoagulation/stroke prevention Moderate proteint calory malnutrition--supplement #hypothyroidism - continue levothyroxine # rheumatoid arthritis - continue home medications DVT prophylaxis: Warfarin Need for inaptient: Acute hypoxic respiratory failure as well as IV antibiotics for the infected pressure PT consult--she would not want to go rehab Quality Stroke Does the patient have a stroke diagnosis?: No VTE Prior VTE?: No VTE Risk Level:: Medical - moderate - high VTE Device Contraindication: Treatment Not Indicated VTE Drug Contraindication: N/A - Med Ordered
--- NOTE | 2021-10-16 09:15 | HE.PHANOTE ---
Per Dr. Munoz's note 10/13, Zosyn can be dc'd if no gram negative in 2 days. Blood culture from 10/12 are still clean today on 10/16. Contact Dr. Hidalgo, and chcuk was DC'd Sapna Edgar, JaminD
[2021-10-16 10:30] LABS: INTERNATIONAL NORM RATIO 2.9 (0.9-1.1); Prothrombin Time 35.1 SEC (10.0-13.1)
[2021-10-16] MEDS: Azithromycin 500 MG in 0.9 % Sodium Chloride 250 ML 125 MG IV (11:20)
--- NOTE | 2021-10-16 13:47 | MHC.CLN ---
F/U DIET=REGULAR. STATED THAT LIKES ENSURE CLEAR. PT CONCERNED FOR BALES INTERACTION WITH COUMADIN. REVIEWED LABEL WITH PATIENT THAT NO ACTUAL BERRIES USED IN PRODUCT. SKIN: INFECTED PRESSURE AREA ON COCCYX AND STAGE II LEFT BUTTOCK. CHRONIC LOWER EXTREMITY WOUNDS. ENSURE CLEAR BID (480 KCALS, 16 G PROTEIN) PROVIDES ADDITIONAL PROTEIN TO PROMOTE WOUND HEALING. INTAKE APPEARS USUALLY GOOD. FOLLOW FOR INTAKE, WEIGHT, AND SKIN.
[2021-10-16 14:00] LABS: Vancomycin Random 16.1 mcg/mL (15-20)
[2021-10-16] MEDS: vancomycin HCL 750 MG in 0.9 % Sodium Chloride 250 ML 265 MG IV (14:11)
--- NOTE | 2021-10-16 14:13 | HE.PHANOTE ---
Patients trough came back at 16.1, cr improved, predicted auc is 466, trough 13.7, cont same dose will do next trough 10/18
[2021-10-16] MEDS: Warfarin Sodium 2.5 MG TABLET PO (17:45)
[2021-10-16] MEDS: Pravastatin Sodium 20 MG TABLET PO (22:00)
[2021-10-17] MEDS: Acetaminophen 325 MG TABLET 650 MG PO (03:01)
[2021-10-17] MEDS: 0.9 % Sodium Chloride Flush 3 ML SYRINGE IVFLUSH ×4 (03:02→20:50)
[2021-10-17 03:18] VITALS: BP 138/62; PULSE 52; RESP 20; TEMP 36.8; O2SAT 98
[2021-10-17 05:44] VITALS: BMI 16.9
[2021-10-17] MEDS: Levothyroxine Sodium 75 MCG TABLET PO (06:03)
[2021-10-17 07:00] LABS: INTERNATIONAL NORM RATIO 4.5 (0.9-1.1); Prothrombin Time 55.1 SEC (10.0-13.1)
[2021-10-17 07:12] LABS: Estimated Glomerular Filt Rate > 60
[2021-10-17 07:56] VITALS: BP 109/54; PULSE 52; RESP 16; TEMP 36.1; O2SAT 99
[2021-10-17] MEDS: predniSONE 1 MG TABLET 2 MG PO (08:16)
[2021-10-17] MEDS: Cholecalciferol (Vitamin D3) 25 MCG TABLET 50 MCG PO (08:16)
[2021-10-17] MEDS: Ascorbic Acid 500 MG TABLET PO ×2 (08:16→20:49)
[2021-10-17] MEDS: Gabapentin 300 MG CAPSULE PO ×3 (08:16→20:49)
[2021-10-17] MEDS: predniSONE 20 MG TABLET 40 MG PO (08:16)
[2021-10-17] MEDS: lisinopriL 5 MG TABLET PO (08:16)
[2021-10-17] MEDS: Furosemide 40 MG TABLET PO (08:16)
[2021-10-17] MEDS: Multivitamin TABLET 1 TAB PO (08:16)
[2021-10-17] MEDS: oxyCODONE HCl Immed Release 5 MG TABLET PO ×2 (08:50→20:49)
--- NOTE | 2021-10-17 10:04 | HO.PM.IMPN ---
Subjective Subjective Date of Service: 10/17/21 Interval History: f/u on acute hypoxia, history of aspergiloma, infected wound inteval history:has lots of pain in the foot this morning Review of Systems Gen: no fever Resp: no sob, no cough CV: no chest, no ZAVALETA, no leg edema GI: No n/v, no abd pain Neuro: No confusion Physical Exam Vital Signs: Vital Signs: Last Vital Signs Temp 97.0 F 10/17/21 07:56 Pulse 52 10/17/21 07:56 Resp 16 10/17/21 07:56 BP 109/54 L 10/17/21 07:56 Pulse Ox 99 10/17/21 07:56 O2 Del Method 10/17/21 07:56 O2 Flow Rate 2 10/17/21 07:56 BMI result Body Mass Index 16.9 Const: Other: General: AO X 3, no acute distress Resp: CTA bilateral CVS: S1,S2, iregular GI: +BS, NT, no distention Skin: No rash, see pictures elsewhere Neuro: motor grossly intact Psych: appropriate affect Objective Data Active Medications Acetaminophen (Acetaminophen 325 Mg Tablet) 650 mg PO Q6H PRN PRN Reason: Pain, Mild (Pain Scale 1-3) Last Admin: 10/17/21 03:01 Dose: 650 mg Documented By: ARLYN Ascorbic Acid (Ascorbic Acid 500 Mg Tablet) 500 mg PO BID [facility] Last Admin: 10/17/21 08:16 Dose: 500 mg Documented By: HOPE Cefuroxime Axetil (Cefuroxime Axetil 250 Mg Tablet) 250 mg PO BID [facility] Stop: 10/21/21 09:13 Last Admin: 10/17/21 08:15 Dose: 250 mg Documented By: HOPE Digoxin (Digoxin 0.125 Mg Tablet) 0.125 mg PO Q48H [facility] Last Admin: 10/16/21 07:43 Dose: 0.125 mg Documented By: MAGED Docusate Sodium (Docusate Sodium 100 Mg Capsule) 100 mg PO DAILY PRN PRN Reason: Constipation Furosemide (Furosemide 40 Mg Tablet) 40 mg PO DAILY [facility]; Protocol Last Admin: 10/17/21 08:16 Dose: 40 mg Documented By: HOPE Gabapentin (Gabapentin 300 Mg Capsule) 300 mg PO TID [facility] Last Admin: 10/17/21 08:16 Dose: 300 mg Documented By: HOPE Azithromycin 500 mg/ Sodium (Chloride) 250 mls @ 125 mls/hr IV Q24H [facility] Last Infusion: 10/16/21 14:07 Dose: 0 mls/hr Documented By: MAGED Vancomycin HCl 750 mg/ Sodium (Chloride) 265 mls @ 265 mls/hr IV Q24H [facility] Last Infusion: 10/16/21 16:00 Dose: 0 mls/hr Documented By: YUAN Levothyroxine Sodium (Levothyroxine Sodium 75 Mcg Tablet) 75 mcg PO DAILY@0600 [facility] Last Admin: 10/17/21 06:03 Dose: 75 mcg Documented By: ARLYN Lisinopril (Lisinopril 5 Mg Tablet) 5 mg PO DAILY [facility]; Protocol Last Admin: 10/17/21 08:16 Dose: 5 mg Documented By: HOPE Loperamide HCl (Loperamide Hcl 2 Mg Capsule) 2 mg PO Q6H PRN PRN Reason: Diarrhea Last Admin: 10/16/21 17:45 Dose: 2 mg Documented By: YUAN Metoprolol Tartrate (Metoprolol Tartrate 100 Mg Tablet) 100 mg PO BID [facility]; Protocol Last Admin: 10/17/21 08:18 Dose: Not Given Documented By: HOPE Non-Admin Reason: parameters not met Multivitamins/Vitamin C (Multivitamin Tablet) 1 tab PO DAILY [facility] Last Admin: 10/17/21 08:16 Dose: 1 tab Documented By: HOPE Patient Own Medication ( Leflunomide 20 Mg Tablet) 20 mg PO DAILY [facility] Last Admin: 10/17/21 08:16 Dose: 20 mg Documented By: HOPE Patient Own Medication ( Zonisamide 25 Mg Capsule) 25 mg PO TID [facility] Last Admin: 10/17/21 08:17 Dose: 25 mg Documented By: HOPE Ondansetron HCl (Ondansetron Hcl 4 Mg/2 Ml Vial) 4 mg IVPUSH Q8H PRN PRN Reason: Nausea and Vomiting Oxycodone HCl (Oxycodone Hcl Immed Release 5 Mg Tablet) 5 mg PO Q6H PRN PRN Reason: Pain, Severe (Pain Scale 7-10) Last Admin: 10/17/21 08:50 Dose: 5 mg Documented By: HOPE Pharmacy Consult (Consult Rx Perform Med Rec) 1 each MISCELLANE ONCE PRN PRN Reason: Consult order Pharmacy Consult (Consult Rx Vancomycin Dosing) 1 each MISCELLANE DAILY PRN PRN Reason: Consult order Pharmacy Consult (Consult Rx Vancomycin Dosing) 1 each MISCELLANE DAILY PRN PRN Reason: Consult order Pravastatin Sodium (Pravastatin Sodium 20 Mg Tablet) 20 mg PO BEDTIME [facility] Last Admin: 10/16/21 22:00 Dose: 20 mg Documented By: YUAN Prednisone (Prednisone 1 Mg Tablet) 2 mg PO DAILY [facility] Last Admin: 10/17/21 08:16 Dose: 2 mg Documented By: HOPE Prednisone (Prednisone 20 Mg Tablet) 40 mg PO DAILY [facility] Last Admin: 10/17/21 08:16 Dose: 40 mg Documented By: HOPE Sodium Chloride (0.9 % Sodium Chloride Flush 3 Ml Syringe) 3 ml IVFLUSH QSHIFT [facility] Last Admin: 10/17/21 08:17 Dose: 3 ml Documented By: HOPE Vitamin D (Cholecalciferol (Vitamin D3) 25 Mcg Tablet) 50 mcg PO DAILY [facility] Last Admin: 10/17/21 08:16 Dose: 50 mcg Documented By: HOPE Warfarin Sodium (Warfarin Sodium 2.5 Mg Tablet) 2.5 mg PO DAILY@1800 [facility] Last Admin: 10/16/21 17:45 Dose: 2.5 mg Documented By: YUAN Labs CBC & Chem 7: 10/16/21 06:51 10/17/21 06:28 Labs: Laboratory Results - last 24 hr 10/16/21 10/16/21 10/17/21 06:51 13:08 06:28 PT 35.1 H 55.1 H INR 2.9 H 4.5 H Estim Creat Clear Calc Estimated GFR Random Vancomycin 16.1 10/17/21 06:28 PT INR Estim Creat Clear Calc 39.0 Estimated GFR > 60 Random Vancomycin Microbiology Microbiology Results: Microbiology 10/11/21 16:15 Blood Culture - Final Blood - Venous No growth after 5 days. 10/11/21 16:15 Blood Culture - Final Blood - Venous No growth after 5 days. Assessment and Plan (1) Acute respiratory failure with hypoxia: Status: Acute (2) Infected pressure ulcer: Status: Acute Plan 81-year-old female with past medical history of peripheral vascular disease, chronic wounds in the left lower extremity, history of AFib on Coumadin, essential tremors, who presents to the hospital with complaints of lower extremity wound, as well as found to be hypoxic. #Infected pressure ulcer of foot stage 4 - Pt with multiple ulcer, with one on lateral left wound worst - No evidence of osteo, ESR and CRP not elevated - treat with IV antibiotics - follow cultures - On Zosyn, ID recommending Vanco for few days then PO Doxy -plan for MRI today 10/17/21 to r/o osteo #E. coli UTI--Zosyn as above #acute vs chronic Hypoxic resp failure - Unclear etiology at this time - has multiple abnormalities on CT chest including nodules - no evidence of fluid overload, no evidence of pneumonia - pulmonology recommending steroid and Azithro -wean off O2 #Chronic AFib--HR has been reported in 20s and some pause---hold BB, dig, and if continues consult cardiology #Moderate proteint calory malnutrition--supplement #hypothyroidism - continue levothyroxine # rheumatoid arthritis - continue home medications DVT prophylaxis: Warfarin Need for inaptient: Acute hypoxic respiratory failure as well as IV antibiotics for the infected pressure PT consult--she would not want to go rehab Quality Stroke Does the patient have a stroke diagnosis?: No VTE Prior VTE?: No VTE Risk Level:: Medical - moderate - high VTE Device Contraindication: Treatment Not Indicated VTE Drug Contraindication: N/A - Med Ordered
[2021-10-17 10:30] VITALS: BP 109/54; PULSE 52; O2SAT 99
[2021-10-17 12:00] VITALS: BP 107/57; PULSE 65; RESP 17; TEMP 36.9; O2SAT 98
--- NOTE | 2021-10-17 12:10 | HE.PHANOTE ---
Vancomycin Dosing Addendum Vancomycin trough scheduled for 10/18/21 @1300. Continue current regimen for now.
[2021-10-17] MEDS: Azithromycin 500 MG in 0.9 % Sodium Chloride 250 ML 125 MG IV (14:25)
[2021-10-17] MEDS: vancomycin HCL 750 MG in 0.9 % Sodium Chloride 250 ML 265 MG IV (14:33)
[2021-10-17 15:13] VITALS: BP 118/57; PULSE 75; RESP 18; TEMP 36.6; O2SAT 98
[2021-10-17] MEDS: Loperamide HCl 2 MG CAPSULE PO (17:52)
[2021-10-17 19:24] VITALS: BP 130/61; PULSE 82; RESP 18; TEMP 37.2; O2SAT 98
[2021-10-17] MEDS: Pravastatin Sodium 20 MG TABLET PO (20:49)
[2021-10-18] VITALS (8 sets, daily range): BP systolic 113–160; BP diastolic 55–87; PULSE 60–117; RESP 15–21; TEMP 36.3–37.5; O2SAT 96–100; BMI 17.4
[2021-10-18] MEDS: Levothyroxine Sodium 75 MCG TABLET PO (05:36)
[2021-10-18] MEDS: oxyCODONE HCl Immed Release 5 MG TABLET PO ×3 (05:41→23:25)
[2021-10-18] MEDS: Acetaminophen 325 MG TABLET 650 MG PO (05:42)
[2021-10-18 06:31] LABS: INTERNATIONAL NORM RATIO 2.6 (0.9-1.1); Prothrombin Time 31.3 SEC (10.0-13.1)
[2021-10-18 07:00] LABS: Creatinine Clr Calc Pharmacy 45.8; Estimated Glomerular Filt Rate > 60
--- NOTE | 2021-10-18 09:02 | HO.PM.IMPN ---
Subjective Subjective Date of Service: 10/18/21 Interval History: f/u on acute hypoxia, history of aspergiloma, infected wound, inteval history:In AFIB with RVR HR 150s with palpitations and blury vision Review of Systems Gen: no fever Resp: no sob, no cough CV: no chest, no ZAVALETA, no leg edema,+palpitations GI: No n/v, no abd pain Neuro: No confusion, Physical Exam Vital Signs: Vital Signs: Last Vital Signs Temp 97.3 F 10/18/21 07:48 Pulse 117 H 10/18/21 07:48 Resp 21 H 10/18/21 07:48 BP 160/87 H 10/18/21 07:48 Pulse Ox 100 10/18/21 07:48 O2 Del Method 10/18/21 07:48 O2 Flow Rate 3 10/18/21 07:48 BMI result Body Mass Index 17.4 Const: Other: General: AO X 3, no acute distress Resp: CTA bilateral CVS: S1,S2, iregularly irregular, tachy GI: +BS, NT, no distention Skin: No rash, see pictures elsewhere Neuro: motor grossly intact, Psych: appropriate affect Objective Data Active Medications Acetaminophen (Acetaminophen 325 Mg Tablet) 650 mg PO Q6H PRN PRN Reason: Pain, Mild (Pain Scale 1-3) Last Admin: 10/18/21 05:42 Dose: 650 mg Documented By: ANDALEXIS Ascorbic Acid (Ascorbic Acid 500 Mg Tablet) 500 mg PO BID [facility] Last Admin: 10/17/21 20:49 Dose: 500 mg Documented By: ANDALEXIS Cefuroxime Axetil (Cefuroxime Axetil 250 Mg Tablet) 250 mg PO BID [facility] Stop: 10/21/21 09:13 Last Admin: 10/17/21 20:49 Dose: 250 mg Documented By: ADI Docusate Sodium (Docusate Sodium 100 Mg Capsule) 100 mg PO DAILY PRN PRN Reason: Constipation Furosemide (Furosemide 40 Mg Tablet) 40 mg PO DAILY [facility]; Protocol Last Admin: 10/17/21 08:16 Dose: 40 mg Documented By: N-EDLEK Gabapentin (Gabapentin 300 Mg Capsule) 300 mg PO TID [facility] Last Admin: 10/17/21 20:49 Dose: 300 mg Documented By: ADI Azithromycin 500 mg/ Sodium (Chloride) 250 mls @ 125 mls/hr IV Q24H [facility] Last Infusion: 10/17/21 17:37 Dose: 0 mls/hr Documented By: HOPE Vancomycin HCl 750 mg/ Sodium (Chloride) 265 mls @ 265 mls/hr IV Q24H [facility] Last Infusion: 10/17/21 17:37 Dose: 0 mls/hr Documented By: HOPE Diltiazem HCl 125 mg/ Sodium (Chloride) 125 mls @ 0 mls/hr IVCONT .Q0M [facility]; Protocol Levothyroxine Sodium (Levothyroxine Sodium 75 Mcg Tablet) 75 mcg PO DAILY@0600 [facility] Last Admin: 10/18/21 05:36 Dose: 75 mcg Documented By: ADI Lisinopril (Lisinopril 5 Mg Tablet) 5 mg PO DAILY [facility]; Protocol Last Admin: 10/17/21 08:16 Dose: 5 mg Documented By: HOPE Loperamide HCl (Loperamide Hcl 2 Mg Capsule) 2 mg PO Q6H PRN PRN Reason: Diarrhea Last Admin: 10/17/21 17:52 Dose: 2 mg Documented By: HOPE Multivitamins/Vitamin C (Multivitamin Tablet) 1 tab PO DAILY [facility] Last Admin: 10/17/21 08:16 Dose: 1 tab Documented By: HOPE Patient Own Medication ( Leflunomide 20 Mg Tablet) 20 mg PO DAILY [facility] Last Admin: 10/17/21 08:16 Dose: 20 mg Documented By: HOPE Patient Own Medication ( Zonisamide 25 Mg Capsule) 25 mg PO TID [facility] Last Admin: 10/17/21 20:49 Dose: 25 mg Documented By: ADI Ondansetron HCl (Ondansetron Hcl 4 Mg/2 Ml Vial) 4 mg IVPUSH Q8H PRN PRN Reason: Nausea and Vomiting Oxycodone HCl (Oxycodone Hcl Immed Release 5 Mg Tablet) 5 mg PO Q6H PRN PRN Reason: Pain, Severe (Pain Scale 7-10) Last Admin: 10/18/21 05:41 Dose: 5 mg Documented By: ADI Pharmacy Consult (Consult Rx Perform Med Rec) 1 each MISCELLANE ONCE PRN PRN Reason: Consult order Pharmacy Consult (Consult Rx Vancomycin Dosing) 1 each MISCELLANE DAILY PRN PRN Reason: Consult order Pharmacy Consult (Consult Rx Vancomycin Dosing) 1 each MISCELLANE DAILY PRN PRN Reason: Consult order Pravastatin Sodium (Pravastatin Sodium 20 Mg Tablet) 20 mg PO BEDTIME [facility] Last Admin: 10/17/21 20:49 Dose: 20 mg Documented By: ADI Prednisone (Prednisone 1 Mg Tablet) 2 mg PO DAILY [facility] Last Admin: 10/17/21 08:16 Dose: 2 mg Documented By: HOPE Prednisone (Prednisone 20 Mg Tablet) 40 mg PO DAILY [facility] Last Admin: 10/17/21 08:16 Dose: 40 mg Documented By: HOPE Sodium Chloride (0.9 % Sodium Chloride Flush 3 Ml Syringe) 3 ml IVFLUSH QSHIFT [facility] Last Admin: 10/17/21 20:50 Dose: 3 ml Documented By: ADI Vitamin D (Cholecalciferol (Vitamin D3) 25 Mcg Tablet) 50 mcg PO DAILY [facility] Last Admin: 10/17/21 08:16 Dose: 50 mcg Documented By: HOPE Warfarin Sodium (Warfarin Sodium 2.5 Mg Tablet) 2.5 mg PO DAILY@1800 [facility] Labs CBC & Chem 7: 10/16/21 06:51 10/18/21 05:29 Labs: Laboratory Results - last 24 hr 10/18/21 10/18/21 05:29 05:29 PT 31.3 H INR 2.6 H Estim Creat Clear Calc 45.8 Estimated GFR > 60 Assessment and Plan (1) Acute respiratory failure with hypoxia: Status: Acute (2) Infected pressure ulcer: Status: Acute Plan 81-year-old female with past medical history of peripheral vascular disease, chronic wounds in the left lower extremity, history of AFib on Coumadin, essential tremors, who presents to the hospital with complaints of lower extremity wound, as well as found to be hypoxic. 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 coli UTI--Zosyn as above #acute vs chronic Hypoxic resp failure - Unclear etiology at this time - has multiple abnormalities on CT chest including nodules - no evidence of fluid overload, no evidence of pneumonia - pulmonology recommending steroid and Azithro -wean off O2 #Moderate proteint calory malnutrition--supplement #hypothyroidism - continue levothyroxine # rheumatoid arthritis - continue home medications DVT prophylaxis: Warfarin Need for inaptient: Acute hypoxic respiratory failure as well as IV antibiotics for the infected pressure , AFIB with RVR needs IV cardizem PT consult--she would not want to go rehab Quality Stroke Does the patient have a stroke diagnosis?: No VTE Prior VTE?: No VTE Risk Level:: Medical - moderate - high VTE Device Contraindication: Treatment Not Indicated VTE Drug Contraindication: N/A - Med Ordered
[2021-10-18] MEDS: dilTIAZem HCL 50 MG/10 ML VIAL 10 MG IVPUSH (09:11)
[2021-10-18] MEDS: Furosemide 40 MG TABLET PO (09:12)
[2021-10-18] MEDS: Multivitamin TABLET 1 TAB PO (09:12)
[2021-10-18] MEDS: lisinopriL 5 MG TABLET PO (09:12)
[2021-10-18] MEDS: predniSONE 20 MG TABLET 40 MG PO (09:12)
[2021-10-18] MEDS: Gabapentin 300 MG CAPSULE PO ×3 (09:13→19:52)
[2021-10-18] MEDS: Cholecalciferol (Vitamin D3) 25 MCG TABLET 50 MCG PO (09:13)
[2021-10-18] MEDS: Ascorbic Acid 500 MG TABLET PO ×2 (09:13→19:52)
[2021-10-18] MEDS: predniSONE 1 MG TABLET 2 MG PO (09:14)
[2021-10-18] MEDS: 0.9 % Sodium Chloride Flush 3 ML SYRINGE IVFLUSH ×3 (09:14→19:53)
--- NOTE | 2021-10-18 12:02 | MHC.CLN ---
F/U PO INTAKE 75-100% X 3 DAYS NOTED WT UP 4# SINCE ADMISSION DIET RX: REGULAR-APPROPRIATE PT RECEIVING 8OZ ENSURE CLEAR BID TO PROMOTE WOUND HEALING AND PROVIDES 480KCALS, 16G PROTEIN PT PREFERS THIS SUPPLEMENT COMPARED TO ENSURE ENLIVE CONTINUE TO MONITOR PO INTAKE CLOSELY
--- NOTE | 2021-10-18 12:43 | PM.CNCAR ---
History of Present Illness History of Present Illness Date of Service: 10/18/21 Requesting physician: Willie Hidalgo Chief complaint: Afib Narrative: 81-year-old female who has known history of chronic atrial fibrillation on Coumadin, metoprolol and alternate days digoxin, perivascular disease with chronic leg wounds for which she is being seen by Dr. Pelletier and will be undergoing angiography and PCI, essential tremors, mitral valve prolapse and mitral regurgitation. She is presenting for her lower extremity wounds and was noted to be hypoxic. She is currently on azithromycin and steroids and is being followed by pulmonology. She has been in atrial fibrillation with rapid ventricular response. She has chronic atrial fibrillation and has been in AFib previously in the office to but her heart rates were well controlled. She is on 100 mg twice a day metoprolol and digoxin 125 mcg every other day. She has been noticed to have bradycardia at nighttime on telemetry. During the daytime she has AFib with RVR. No significant symptoms currently. No chest pains or significant shortness of breath right now. Has been coughing some phlegm for 1 week. She is getting MRI of her foot to for ?osteomyelitis. [facility] Past Medical History Medical History Avascular necrosis of right femoral head Bronchiectasis Bunion of great toe of left foot Cellulitis Current use of anticoagulant therapy Essential tremor Osteoarthritis Osteoporosis Persistent atrial fibrillation Sacroiliitis Seropositive rheumatoid arthritis Family History Family History Father No problems noted. Mother Heart disease Family history: reviewed and not pertinent Surgical History Surgical History H/O skin graft History of angioplasty History of appendectomy History of removal of both ovaries Social History Social History Household Members: None Housing: Apartment Are you a primary care information associate to a significant other at home: No Do you presently have visiting nurse or other home services: Yes ([employer] 5 days a week) Alcohol intake: never Patient Tobacco Use Status: Former Tobacco user Tobacco use type: Cigarette Cigarette Packs Per Day: 3 Years Smoked: 23 Smoked in Last 30 Days: No e-Cigarette/Vaping Use: Never Used Use of substances other than those prescribed or required for medical reasons: Yes Substance Use Type: Painkillers Substance Use Type Other:: oxycodone 5mg PRN for R hip discontinued Substance Use Frequency: Occasionally Currently Displaying Signs/Symptoms of Drug Intoxication Withdrawal: No Any prior treatment program specific to substance use: No Have you been hit, kicked, punched, or otherwise hurt by someone within the past year? If so, by whom?: No Do you feel safe in your current relationship?: No Current Relationship Is there a partner from a previous relationship who is making you feel unsafe now?: No Are you made to feel afraid or neglected: No Advance Directives: Yes Advance Directives on File: Yes Advance Directives Date on File: 12/07/20 Do you have thoughts of harming others: None Do you have a plan to hurt others: No Plan Recently lost weight without trying: Yes How much weight loss: 2-13 pounds Eating poorly because of decreased appetite: No Nutrition screen score: 3 Nutrition Risks: No Nutritional Risk Patient : No : No Poor oral hygiene: No service: No Current occupational status: retired Cognitive needs: No Hearing needs: No Vision needs: Yes Meds Allergies Allergy/AdvReac Type Severity Reaction Status Date / Time ibuprofen Allergy hives Verified 09/27/21 02:12 [id number] Allergy injection Verified 09/27/21 02:12 [From Evenity] site reaction erythromycin base AdvReac upset Verified 09/27/21 02:12 stomach diarrhea Aspirin Allergy Intermediate Diff Uncoded 09/27/21 02:12 breathing Active Medications: Current Medications Acetaminophen (Acetaminophen 325 Mg Tablet) 650 mg PO Q6H PRN PRN Reason: Pain, Mild (Pain Scale 1-3) Last Admin: 10/18/21 05:42 Dose: 650 mg Ascorbic Acid (Ascorbic Acid 500 Mg Tablet) 500 mg PO BID [facility] Last Admin: 10/18/21 09:13 Dose: 500 mg Cefuroxime Axetil (Cefuroxime Axetil 250 Mg Tablet) 250 mg PO BID [facility] Stop: 10/21/21 09:13 Last Admin: 10/18/21 09:13 Dose: 250 mg Docusate Sodium (Docusate Sodium 100 Mg Capsule) 100 mg PO DAILY PRN PRN Reason: Constipation Furosemide (Furosemide 40 Mg Tablet) 40 mg PO DAILY [facility]; Protocol Last Admin: 10/18/21 09:12 Dose: 40 mg Gabapentin (Gabapentin 300 Mg Capsule) 300 mg PO TID [facility] Last Admin: 10/18/21 09:13 Dose: 300 mg Azithromycin 500 mg/ Sodium (Chloride) 250 mls @ 125 mls/hr IV Q24H [facility] Last Infusion: 10/17/21 17:37 Dose: Infused Vancomycin HCl 750 mg/ Sodium (Chloride) 265 mls @ 265 mls/hr IV Q24H [facility] Last Infusion: 10/17/21 17:37 Dose: Infused Diltiazem HCl 125 mg/ Sodium (Chloride) 125 mls @ 0 mls/hr IVCONT .Q0M [facility]; Protocol Levothyroxine Sodium (Levothyroxine Sodium 75 Mcg Tablet) 75 mcg PO DAILY@0600 [facility] Last Admin: 10/18/21 05:36 Dose: 75 mcg Lisinopril (Lisinopril 5 Mg Tablet) 5 mg PO DAILY [facility]; Protocol Last Admin: 10/18/21 09:12 Dose: 5 mg Loperamide HCl (Loperamide Hcl 2 Mg Capsule) 2 mg PO Q6H PRN PRN Reason: Diarrhea Last Admin: 10/17/21 17:52 Dose: 2 mg Multivitamins/Vitamin C (Multivitamin Tablet) 1 tab PO DAILY [facility] Last Admin: 10/18/21 09:12 Dose: 1 tab Patient Own Medication ( Leflunomide 20 Mg Tablet) 20 mg PO DAILY [facility] Last Admin: 10/18/21 09:24 Dose: 20 mg Patient Own Medication ( Zonisamide 25 Mg Capsule) 25 mg PO TID [facility] Last Admin: 10/18/21 09:23 Dose: 25 mg Ondansetron HCl (Ondansetron Hcl 4 Mg/2 Ml Vial) 4 mg IVPUSH Q8H PRN PRN Reason: Nausea and Vomiting Oxycodone HCl (Oxycodone Hcl Immed Release 5 Mg Tablet) 5 mg PO Q6H PRN PRN Reason: Pain, Severe (Pain Scale 7-10) Last Admin: 10/18/21 05:41 Dose: 5 mg Pharmacy Consult (Consult Rx Perform Med Rec) 1 each MISCELLANE ONCE PRN PRN Reason: Consult order Pharmacy Consult (Consult Rx Vancomycin Dosing) 1 each MISCELLANE DAILY PRN PRN Reason: Consult order Pharmacy Consult (Consult Rx Vancomycin Dosing) 1 each MISCELLANE DAILY PRN PRN Reason: Consult order Pravastatin Sodium (Pravastatin Sodium 20 Mg Tablet) 20 mg PO BEDTIME [facility] Last Admin: 10/17/21 20:49 Dose: 20 mg Prednisone (Prednisone 1 Mg Tablet) 2 mg PO DAILY [facility] Last Admin: 10/18/21 09:14 Dose: 2 mg Prednisone (Prednisone 20 Mg Tablet) 40 mg PO DAILY [facility] Last Admin: 10/18/21 09:12 Dose: 40 mg Sodium Chloride (0.9 % Sodium Chloride Flush 3 Ml Syringe) 3 ml IVFLUSH QSHIFT [facility] Last Admin: 10/18/21 09:14 Dose: 3 ml Vitamin D (Cholecalciferol (Vitamin D3) 25 Mcg Tablet) 50 mcg PO DAILY [facility] Last Admin: 10/18/21 09:13 Dose: 50 mcg Warfarin Sodium (Warfarin Sodium 2.5 Mg Tablet) 2.5 mg PO DAILY@1800 [facility] Home Medications Medication Instructions Recorded Confirmed Last Taken Type cholecalciferol (vitamin D3) 50 50 mcg PO DAILY 04/26/20 10/11/21 10/11/21 History mcg (2,000 unit) capsule furosemide 40 mg tablet 40 mg PO DAILY 04/26/20 10/11/21 10/11/21 History lisinopril 5 mg tablet 5 mg PO DAILY 04/26/20 10/11/21 10/11/21 History ascorbate calcium (vitamin C) 500 500 mg PO BID 12/05/20 10/11/21 10/11/21 History mg tablet coenzyme Q10 100 mg capsule (Co 100 mg PO DAILY 12/05/20 10/11/21 10/11/21 History Q-10) docosahexaenoic acid 200 mg 200 mg PO DAILY 12/05/20 10/11/21 10/11/21 History capsule (Algal [place]-3 DHA) vitamin B complex 1 tab PO DAILY 12/05/20 10/11/21 10/11/21 History zonisamide 25 mg capsule 25 mg PO TID 08/30/21 10/11/21 10/11/21 History digoxin 125 mcg (0.125 mg) tablet 125 mcg PO Q48H 08/31/21 10/11/21 10/10/21 History (Digox) pravastatin 20 mg tablet 20 mg PO BEDTIME 10/11/21 10/11/21 10/10/21 History warfarin 5 mg tablet 2.5 mg PO DAILY 10/11/21 10/11/21 10/10/21 History Physical Exam Vital Signs: Vital Signs: Last Vital Signs Temp 97.4 F 10/18/21 11:43 Pulse 91 10/18/21 11:43 Resp 20 10/18/21 11:43 BP 138/63 10/18/21 11:43 Pulse Ox 99 10/18/21 11:43 O2 Del Method 10/18/21 11:43 O2 Flow Rate 3 10/18/21 11:43 BMI result Body Mass Index 17.4 GENERAL APPEARANCE: Frail lady. No distress. NECK: no carotid bruit, no jugular venous distention. SKIN: no suspicious lesions, warm and dry. HEART: Holosystolic murmur at the apex, irregularly irregular rhythm, tachycardia. LUNGS: clear to auscultation bilaterally. Upper airway secretions. ABDOMEN: soft, nontender. EXTREMITIES: no edema. Left foot dressed. NEUROLOGIC: No gross deficits, AAO X 3 Objective Labs and Meds Result diagrams: 10/16/21 06:51 10/18/21 05:29 Lab results: Laboratory Results - last 24 hr 10/18/21 10/18/21 05:29 05:29 PT 31.3 H INR 2.6 H Creatinine 0.70 Estim Creat Clear Calc 45.8 Estimated GFR > 60 Assessment and Plan (1) Chronic atrial fibrillation: Status: Acute (2) Mitral regurgitation: Status: Acute Plan 81-year-old female with multiple comorbidities who is presenting for chronic leg wounds due to peripheral vascular disease and question of osteomyelitis. She also was noted to be hypoxic. She is on azithromycin and steroids. Overall though shortness of breath is stable. She has chronic atrial fibrillation and as per the last office EKG she was in atrial fibrillation. She has AFib with RVR at this point. She was previously on digoxin and metoprolol. Overnight she noted to be bradycardic. Bradycardic episodes are at nighttime when she is sleeping. 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 I think her beta-keke should be resumed and if she stays stable her digoxin also should be resumed. She is getting vascular workup with Dr. Pelletier. Previous mitral valve regurgitation from mitral valve prolapse. Not in heart failure. Thank you for allowing me to participate in the care of your patient. Please feel free to contact me if you have any questions. Procedures Date of Service Date of Service: 10/18/21
[2021-10-18] MEDS: Azithromycin 500 MG in 0.9 % Sodium Chloride 250 ML 125 MG IV (14:46)
[2021-10-18 14:50] LABS: Vancomycin Trough 16.1 mcg/mL (10.0-20.0)
--- NOTE | 2021-10-18 16:24 | MHC.CM.PN ---
FEMALE 81 DX WOUND INFECTION AND HYPOXIC RESPIRATORY FAILURE PT REC STR PREFERENCES OBTAINED REFERRALS SENT. SHE HAS A FEW FACILITIES FOLLOWING FOR DC. PER MD ROUNDS PATIENT MAY NEED A PACER INSERTED PRIOR TO DISCHARGE.
[2021-10-18] MEDS: dilTIAZem HCL 125 MG in 0.9 % Sodium Chloride 100 ML 10 MG IVCONT (17:13)
[2021-10-18] MEDS: Warfarin Sodium 2.5 MG TABLET PO (17:23)
[2021-10-18] MEDS: vancomycin HCL 750 MG in 0.9 % Sodium Chloride 250 ML 265 MG IV (18:58)
[2021-10-18] MEDS: Pravastatin Sodium 20 MG TABLET PO (19:53)
[2021-10-19] VITALS (8 sets, daily range): BP systolic 102–130; BP diastolic 52–77; PULSE 52–93; RESP 15–18; TEMP 36–37.1; O2SAT 98–100; BMI 17.4
[2021-10-19] MEDS: Levothyroxine Sodium 75 MCG TABLET PO (06:06)
[2021-10-19] MEDS: 0.9 % Sodium Chloride Flush 3 ML SYRINGE IVFLUSH ×3 (08:44→21:49)
[2021-10-19] MEDS: predniSONE 1 MG TABLET 2 MG PO (08:46)
[2021-10-19] MEDS: Gabapentin 300 MG CAPSULE PO ×3 (08:46→22:02)
[2021-10-19] MEDS: Ascorbic Acid 500 MG TABLET PO ×2 (08:46→22:03)
[2021-10-19] MEDS: Cholecalciferol (Vitamin D3) 25 MCG TABLET 50 MCG PO (08:46)
[2021-10-19] MEDS: predniSONE 20 MG TABLET 40 MG PO (08:46)
[2021-10-19] MEDS: Metoprolol Tartrate 25 MG TABLET PO ×2 (08:47→22:02)
[2021-10-19] MEDS: Multivitamin TABLET 1 TAB PO (08:47)
[2021-10-19] MEDS: lisinopriL 5 MG TABLET PO (08:47)
[2021-10-19] MEDS: Furosemide 40 MG TABLET PO (08:47)
[2021-10-19 09:56] LABS: INTERNATIONAL NORM RATIO 1.7 (0.9-1.1); Prothrombin Time 20.1 SEC (10.0-13.1)
[2021-10-19 10:01] LABS: Creatinine Clr Calc Pharmacy 45.2; Estimated Glomerular Filt Rate > 60
--- NOTE | 2021-10-19 10:14 | HE.PHANOTE ---
silviano garcia continue current dose, next trough due 10/20 @1300
--- NOTE | 2021-10-19 12:03 | HO.PM.IMPN ---
Subjective Subjective Date of Service: 10/19/21 Interval History: f/u on acute hypoxia, history of aspergiloma, infected wound, inteval history:HR is better,pain is controlled. Review of Systems Gen: no fever Resp: no sob, no cough CV: no chest, no ZAVALETA, no leg edema,+palpitations GI: No n/v, no abd pain Neuro: No confusion, Physical Exam Vital Signs: Vital Signs: Last Vital Signs Temp 96.8 F 10/19/21 11:23 Pulse 68 10/19/21 11:23 Resp 18 10/19/21 11:23 BP 114/60 10/19/21 11:23 Pulse Ox 99 10/19/21 11:23 O2 Del Method 10/19/21 11:23 O2 Flow Rate 1 10/19/21 11:23 BMI result Body Mass Index 17.4 Const: Other: General: AO X 3, no acute distress Resp: CTA bilateral CVS: S1,S2, iregularly irregular, tachy GI: +BS, NT, no distention Skin: No rash, see pictures elsewhere Neuro: motor grossly intact, Psych: appropriate affect Objective Data Active Medications Acetaminophen (Acetaminophen 325 Mg Tablet) 650 mg PO Q6H PRN PRN Reason: Pain, Mild (Pain Scale 1-3) Last Admin: 10/18/21 05:42 Dose: 650 mg Documented By: ADI Ascorbic Acid (Ascorbic Acid 500 Mg Tablet) 500 mg PO BID [facility] Last Admin: 10/19/21 08:46 Dose: 500 mg Documented By: NIK Cefuroxime Axetil (Cefuroxime Axetil 250 Mg Tablet) 250 mg PO BID [facility] Stop: 10/21/21 09:13 Last Admin: 10/19/21 08:47 Dose: 250 mg Documented By: NIK Docusate Sodium (Docusate Sodium 100 Mg Capsule) 100 mg PO DAILY PRN PRN Reason: Constipation Furosemide (Furosemide 40 Mg Tablet) 40 mg PO DAILY [facility]; Protocol Last Admin: 10/19/21 08:47 Dose: 40 mg Documented By: NIK Gabapentin (Gabapentin 300 Mg Capsule) 300 mg PO TID [facility] Last Admin: 10/19/21 08:46 Dose: 300 mg Documented By: NIK Vancomycin HCl 750 mg/ Sodium (Chloride) 265 mls @ 265 mls/hr IV Q24H [facility] Last Infusion: 10/18/21 20:01 Dose: 0 mls/hr Documented By: ALTON Diltiazem HCl 125 mg/ Sodium (Chloride) 125 mls @ 0 mls/hr IVCONT .Q0M [facility]; Protocol Last Titration: 10/18/21 21:30 Dose: 0 mg/hr, 0 mls/hr Documented By: ALTON Azithromycin 500 mg/ Sodium (Chloride) 250 mls @ 125 mls/hr IV Q24H [facility] Last Infusion: 10/18/21 19:06 Dose: 0 mls/hr Documented By: PAT Levothyroxine Sodium (Levothyroxine Sodium 75 Mcg Tablet) 75 mcg PO DAILY@0600 [facility] Last Admin: 10/19/21 06:06 Dose: 75 mcg Documented By: ALTON Lisinopril (Lisinopril 5 Mg Tablet) 5 mg PO DAILY [facility]; Protocol Last Admin: 10/19/21 08:47 Dose: 5 mg Documented By: NIK Loperamide HCl (Loperamide Hcl 2 Mg Capsule) 2 mg PO Q6H PRN PRN Reason: Diarrhea Last Admin: 10/17/21 17:52 Dose: 2 mg Documented By: HOPE Metoprolol Tartrate (Metoprolol Tartrate 25 Mg Tablet) 25 mg PO BID [facility]; Protocol Last Admin: 10/19/21 08:47 Dose: 25 mg Documented By: NIK Multivitamins/Vitamin C (Multivitamin Tablet) 1 tab PO DAILY [facility] Last Admin: 10/19/21 08:47 Dose: 1 tab Documented By: NIK Patient Own Medication ( Leflunomide 20 Mg Tablet) 20 mg PO DAILY [facility] Last Admin: 10/19/21 08:49 Dose: 20 mg Documented By: NIK Patient Own Medication ( Zonisamide 25 Mg Capsule) 25 mg PO TID [facility] Last Admin: 10/19/21 08:49 Dose: 25 mg Documented By: NIK Ondansetron HCl (Ondansetron Hcl 4 Mg/2 Ml Vial) 4 mg IVPUSH Q8H PRN PRN Reason: Nausea and Vomiting Oxycodone HCl (Oxycodone Hcl Immed Release 5 Mg Tablet) 5 mg PO Q6H PRN PRN Reason: Pain, Severe (Pain Scale 7-10) Last Admin: 10/18/21 23:25 Dose: 5 mg Documented By: ALTON Pharmacy Consult (Consult Rx Perform Med Rec) 1 each MISCELLANE ONCE PRN PRN Reason: Consult order Pharmacy Consult (Consult Rx Vancomycin Dosing) 1 each MISCELLANE DAILY PRN PRN Reason: Consult order Pravastatin Sodium (Pravastatin Sodium 20 Mg Tablet) 20 mg PO BEDTIME [facility] Last Admin: 10/18/21 19:53 Dose: 20 mg Documented By: ALTON Prednisone (Prednisone 1 Mg Tablet) 2 mg PO DAILY [facility] Last Admin: 10/19/21 08:46 Dose: 2 mg Documented By: NIK Prednisone (Prednisone 20 Mg Tablet) 40 mg PO DAILY [facility] Last Admin: 10/19/21 08:46 Dose: 40 mg Documented By: NIK Sodium Chloride (0.9 % Sodium Chloride Flush 3 Ml Syringe) 3 ml IVFLUSH QSHIFT [facility] Last Admin: 10/19/21 08:44 Dose: 3 ml Documented By: NIK Vitamin D (Cholecalciferol (Vitamin D3) 25 Mcg Tablet) 50 mcg PO DAILY [facility] Last Admin: 10/19/21 08:46 Dose: 50 mcg Documented By: NIK Labs CBC & Chem 7: 10/16/21 06:51 10/19/21 09:28 Labs: Laboratory Results - last 24 hr 10/18/21 10/19/21 10/19/21 13:41 09:28 09:28 PT 20.1 H INR 1.7 H Estim Creat Clear Calc 45.2 Estimated GFR > 60 Vancomycin Trough 16.1 Assessment and Plan (1) Acute respiratory failure with hypoxia: Status: Acute (2) Infected pressure ulcer: Status: Acute Plan 81-year-old female with past medical history of peripheral vascular disease, chronic wounds in the left lower extremity, history of AFib on Coumadin, essential tremors, who presents to the hospital with complaints of lower extremity wound, as well as found to be hypoxic. 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 coli UTI--Zosyn as above #acute vs chronic Hypoxic resp failure - Unclear etiology at this time - has multiple abnormalities on CT chest including nodules - no evidence of fluid overload, no evidence of pneumonia - pulmonology recommending steroid and Azithro -wean off O2, only on 1 leter #Moderate proteint calory malnutrition--supplement #hypothyroidism - continue levothyroxine # rheumatoid arthritis - continue home medications DVT prophylaxis: Warfarin Need for inaptient: Acute hypoxic respiratory failure as well as IV antibiotics for the infected pressure ,MRI result to determine need for residential iv abx PT consult--she's now agreable to rehab Quality Stroke Does the patient have a stroke diagnosis?: No VTE Prior VTE?: No VTE Risk Level:: Medical - moderate - high VTE Device Contraindication: Treatment Not Indicated VTE Drug Contraindication: N/A - Med Ordered
[2021-10-19] MEDS: Azithromycin 500 MG in 0.9 % Sodium Chloride 250 ML 125 MG IV (13:45)
--- NOTE | 2021-10-19 13:45 | PM.PNCARD ---
Subjective Subjective Date of Service: 10/19/21 Interval history: Heart is control on Cardizem drip. Metoprolol was restarted at 25 mg twice a day. Home dose 100 mg twice a day. Physical Exam Vital Signs: Last Vital Signs Temp 96.8 F 10/19/21 11:23 Pulse 68 10/19/21 11:23 Resp 18 10/19/21 11:23 BP 114/60 10/19/21 11:23 Pulse Ox 99 10/19/21 11:23 O2 Del Method 10/19/21 11:23 O2 Flow Rate 1 10/19/21 11:23 BMI result Body Mass Index 17.4 GENERAL APPEARANCE: Frail lady. No distress. NECK: no carotid bruit, no jugular venous distention. SKIN: no suspicious lesions, warm and dry. HEART: Holosystolic murmur at the apex, irregularly irregular rhythm. LUNGS: clear to auscultation bilaterally. ABDOMEN: soft, nontender. EXTREMITIES: no edema. Left foot dressed. NEUROLOGIC: No gross deficits, AAO X 3 Objective Labs and Meds Result diagrams: 10/16/21 06:51 10/19/21 09:28 Lab results: Laboratory Results - last 24 hr 10/18/21 10/19/21 10/19/21 13:41 09:28 09:28 PT 20.1 H INR 1.7 H Creatinine 0.71 Estim Creat Clear Calc 45.2 Estimated GFR > 60 Vancomycin Trough 16.1 Progress Note: A&P Assessment and plan (1) Chronic atrial fibrillation: Status: Acute Plan Pleasant 81 year female with chronic atrial fibrillation presenting with AFib with RVR in the setting of leg wound infection. She had bradycardia at night times and her medications were held. She has been started on Cardizem drip now for AFib with RVR. Rates are well controlled currently. I think she does not have tachy-raimundo syndrome. Please increase her metoprolol to home does and try to stop the Cardizem drip. Thank you for allowing me to participate in the care of your patient. Please feel free to contact me if you have any questions. Time Spent With Patient Time: Total time spent is greater than 50% in coordination of care (as documented) at patient's floor/unit and/or counseling patient: Progress Note: Quality Stroke Does the patient have a stroke diagnosis?: No Procedures Date of Service Date of Service: 10/19/21
[2021-10-19] MEDS: vancomycin HCL 750 MG in 0.9 % Sodium Chloride 250 ML 265 MG IV (15:53)
[2021-10-19] MEDS: Pravastatin Sodium 20 MG TABLET PO (22:03)
[2021-10-20] VITALS (8 sets, daily range): BP systolic 96–149; BP diastolic 53–91; PULSE 67–107; RESP 14–20; TEMP 36.3–36.7; O2SAT 95–99
[2021-10-20] MEDS: oxyCODONE HCl Immed Release 5 MG TABLET PO ×3 (02:12→22:23)
[2021-10-20] MEDS: Levothyroxine Sodium 75 MCG TABLET PO (05:34)
[2021-10-20 06:46] LABS: INTERNATIONAL NORM RATIO 2.5 (0.9-1.1); Prothrombin Time 29.2 SEC (10.0-13.1)
[2021-10-20 06:56] LABS: Creatinine Clr Calc Pharmacy 44.5; Estimated Glomerular Filt Rate > 60
--- NOTE | 2021-10-20 08:03 | HE.PHANOTE ---
silviano garcia continue current dose, next trough due @1300 on 10/20
[2021-10-20] MEDS: Multivitamin TABLET 1 TAB PO (09:22)
[2021-10-20] MEDS: Ascorbic Acid 500 MG TABLET PO ×2 (09:22→22:23)
[2021-10-20] MEDS: lisinopriL 5 MG TABLET PO (09:22)
[2021-10-20] MEDS: Cholecalciferol (Vitamin D3) 25 MCG TABLET 50 MCG PO (09:22)
[2021-10-20] MEDS: 0.9 % Sodium Chloride Flush 3 ML SYRINGE IVFLUSH ×3 (09:22→22:25)
[2021-10-20] MEDS: Gabapentin 300 MG CAPSULE PO ×3 (09:22→22:22)
[2021-10-20] MEDS: predniSONE 20 MG TABLET PO (09:22)
[2021-10-20] MEDS: Furosemide 40 MG TABLET PO (09:22)
[2021-10-20] MEDS: Metoprolol Tartrate 25 MG TABLET PO (09:22)
--- NOTE | 2021-10-20 10:11 | MHC.CLN ---
F/U PO INTAKE 50-75% DIET RX: REGULAR-APPROPRIATE PT RECEIVING 8OZ ENSURE CLEAR BID TO PROMOTE WOUND HEALING AND PROVIDES 480KCALS, 16G PROTEIN PT PREFERS THIS SUPPLEMENT COMPARED TO ENSURE ENLIVE CONTINUE TO MONITOR PO INTAKE CLOSELY
--- NOTE | 2021-10-20 10:29 | P.PNIM_ITS ---
Subjective Subjective Date of Service: 10/20/21 Interval History: f/u on acute hypoxia, history of aspergiloma, infected wound, inteval history:HR is slightly up, pain in the foot MRI confirmed osteo Review of Systems Gen: no fever Resp: no sob, no cough CV: no chest, no ZAVALETA, no leg edema,+palpitations GI: No n/v, no abd pain Neuro: No confusion, Physical Exam Vital Signs: Vital Signs: Last Vital Signs Temp 98.0 F 10/20/21 08:00 Pulse 107 H 10/20/21 08:00 Resp 20 10/20/21 08:00 BP 147/91 H 10/20/21 08:00 Pulse Ox 97 10/20/21 08:00 O2 Del Method 10/20/21 08:00 O2 Flow Rate 1 10/20/21 08:00 BMI result Body Mass Index 17.4 Const: Other: General: AO X 3, no acute distress Resp: CTA bilateral CVS: S1,S2, iregularly irregular, tachy GI: +BS, NT, no distention Skin: No rash, see pictures elsewhere Neuro: motor grossly intact, Psych: appropriate affect Objective Data Active Medications Acetaminophen (Acetaminophen 325 Mg Tablet) 650 mg PO Q6H PRN PRN Reason: Pain, Mild (Pain Scale 1-3) Last Admin: 10/18/21 05:42 Dose: 650 mg Documented By: ANDERM Ascorbic Acid (Ascorbic Acid 500 Mg Tablet) 500 mg PO BID [facility] Last Admin: 10/20/21 09:22 Dose: 500 mg Documented By: COTEMA Cefuroxime Axetil (Cefuroxime Axetil 250 Mg Tablet) 250 mg PO BID [facility] Stop: 10/21/21 09:13 Last Admin: 10/20/21 09:22 Dose: 250 mg Documented By: COTEMA Docusate Sodium (Docusate Sodium 100 Mg Capsule) 100 mg PO DAILY PRN PRN Reason: Constipation Furosemide (Furosemide 40 Mg Tablet) 40 mg PO DAILY [facility]; Protocol Last Admin: 10/20/21 09:22 Dose: 40 mg Documented By: COTEMA Gabapentin (Gabapentin 300 Mg Capsule) 300 mg PO TID [facility] Last Admin: 10/20/21 09:22 Dose: 300 mg Documented By: COTEMA Vancomycin HCl 750 mg/ Sodium (Chloride) 265 mls @ 265 mls/hr IV Q24H [facility] Last Infusion: 10/19/21 18:44 Dose: 0 mls/hr Documented By: NIK Diltiazem HCl 125 mg/ Sodium (Chloride) 125 mls @ 0 mls/hr IVCONT .Q0M [facility]; Protocol Last Titration: 10/19/21 21:59 Dose: 0 mg/hr, 0 mls/hr Documented By: ALTON Azithromycin 500 mg/ Sodium (Chloride) 250 mls @ 125 mls/hr IV Q24H [facility] Last Infusion: 10/19/21 15:46 Dose: 0 mls/hr Documented By: NIK Levothyroxine Sodium (Levothyroxine Sodium 75 Mcg Tablet) 75 mcg PO DAILY@0600 [facility] Last Admin: 10/20/21 05:34 Dose: 75 mcg Documented By: JAKI Lisinopril (Lisinopril 5 Mg Tablet) 5 mg PO DAILY [facility]; Protocol Last Admin: 10/20/21 09:22 Dose: 5 mg Documented By: ANKIT Loperamide HCl (Loperamide Hcl 2 Mg Capsule) 2 mg PO Q6H PRN PRN Reason: Diarrhea Last Admin: 10/17/21 17:52 Dose: 2 mg Documented By: ANGIE-FABIEK Metoprolol Tartrate (Metoprolol Tartrate 25 Mg Tablet) 25 mg PO BID [facility]; Protocol Last Admin: 10/20/21 09:22 Dose: 25 mg Documented By: ANKIT Multivitamins/Vitamin C (Multivitamin Tablet) 1 tab PO DAILY [facility] Last Admin: 10/20/21 09:22 Dose: 1 tab Documented By: ANKIT Patient Own Medication ( Leflunomide 20 Mg Tablet) 20 mg PO DAILY [facility] Last Admin: 10/20/21 09:23 Dose: 20 mg Documented By: ANKIT Patient Own Medication ( Zonisamide 25 Mg Capsule) 25 mg PO TID [facility] Last Admin: 10/20/21 09:23 Dose: 25 mg Documented By: ANKIT Ondansetron HCl (Ondansetron Hcl 4 Mg/2 Ml Vial) 4 mg IVPUSH Q8H PRN PRN Reason: Nausea and Vomiting Oxycodone HCl (Oxycodone Hcl Immed Release 5 Mg Tablet) 5 mg PO Q6H PRN PRN Reason: Pain, Severe (Pain Scale 7-10) Last Admin: 10/20/21 02:12 Dose: 5 mg Documented By: ALTON Pharmacy Consult (Consult Rx Perform Med Rec) 1 each MISCELLANE ONCE PRN PRN Reason: Consult order Pharmacy Consult (Consult Rx Vancomycin Dosing) 1 each MISCELLANE DAILY PRN PRN Reason: Consult order Pravastatin Sodium (Pravastatin Sodium 20 Mg Tablet) 20 mg PO BEDTIME [facility] Last Admin: 10/19/21 22:03 Dose: 20 mg Documented By: ALTON Prednisone (Prednisone 20 Mg Tablet) 20 mg PO DAILY [facility] Last Admin: 10/20/21 09:22 Dose: 20 mg Documented By: COTEMA Sodium Chloride (0.9 % Sodium Chloride Flush 3 Ml Syringe) 3 ml IVFLUSH QSHIFT [facility] Last Admin: 10/20/21 09:22 Dose: 3 ml Documented By: FARZANEHEMA Vitamin D (Cholecalciferol (Vitamin D3) 25 Mcg Tablet) 50 mcg PO DAILY [facility] Last Admin: 10/20/21 09:22 Dose: 50 mcg Documented By: FARZANEHEMA Warfarin Sodium 1 mg/ Warfarin (Sodium 2.5 mg) 3.5 mg PO DAILY@1800 [facility] Last Admin: 10/19/21 18:05 Dose: 3.5 mg Documented By: NIK Labs CBC & Chem 7: 10/16/21 06:51 10/20/21 06:32 Labs: Laboratory Results - last 24 hr 10/20/21 10/20/21 06:32 06:32 PT 29.2 H INR 2.5 H Estim Creat Clear Calc 44.5 Estimated GFR > 60 Assessment and Plan (1) Acute respiratory failure with hypoxia: Status: Acute (2) Infected pressure ulcer: Status: Acute Plan 81-year-old female with past medical history of peripheral vascular disease, chronic wounds in the left lower extremity, history of AFib on Coumadin, essential tremors, who presents to the hospital with complaints of lower extremity wound, as well as found to be hypoxic. 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 coli UTI-ceftin #acute vs chronic Hypoxic resp failure - Unclear etiology at this time - has multiple abnormalities on CT chest including nodules - no evidence of fluid overload, no evidence of pneumonia - pulmonology recommending steroid and Azithro -wean off O2, only on 1 leter #Moderate proteint calory malnutrition--supplement #hypothyroidism - continue levothyroxine # rheumatoid arthritis - continue home medications DVT prophylaxis: Warfarin Need for inaptient: Acute hypoxic respiratory failure as well as IV antibiotics for the infected pressure ,MRI result to determine need for senior care iv abx PT consult--she's now agreable to rehab Quality Stroke Does the patient have a stroke diagnosis?: No VTE Prior VTE?: No VTE Risk Level:: Medical - moderate - high VTE Device Contraindication: Treatment Not Indicated VTE Drug Contraindication: N/A - Med Ordered
[2021-10-20] MEDS: Metoprolol Tartrate 25 MG TABLET 75 MG PO (10:57)
--- NOTE | 2021-10-20 11:32 | PM.PNCARD ---
Subjective Subjective Date of Service: 10/20/21 Interval history: Feeling better. Saying that her bronchitis is improving. Heart is better controlled. Physical Exam Vital Signs: Last Vital Signs Temp 97.4 F 10/20/21 11:03 Pulse 93 10/20/21 11:03 Resp 20 10/20/21 11:03 BP 149/66 H 10/20/21 10:55 Pulse Ox 95 10/20/21 11:03 O2 Del Method 10/20/21 11:03 O2 Flow Rate 1 10/20/21 08:00 BMI result Body Mass Index 17.4 GENERAL APPEARANCE: Frail lady. No distress. NECK: no carotid bruit, no jugular venous distention. SKIN: no suspicious lesions, warm and dry. HEART: Holosystolic murmur at the apex, irregularly irregular rhythm. LUNGS: clear to auscultation bilaterally. ABDOMEN: soft, nontender. EXTREMITIES: no edema. Left foot dressed. NEUROLOGIC: No gross deficits, AAO X 3 Objective Labs and Meds Result diagrams: 10/16/21 06:51 10/20/21 06:32 Lab results: Laboratory Results - last 24 hr 10/20/21 10/20/21 06:32 06:32 PT 29.2 H INR 2.5 H Creatinine 0.72 Estim Creat Clear Calc 44.5 Estimated GFR > 60 Imaging Radiologist's impression: Impressions Ankle MRI 10/18/21 13:00 IMPRESSION: Lateral soft tissue ulceration with underlying osteomyelitis of the distal fibula. Septic peroneal tenosynovitis and a septic posterior subtalar facet joint are also suspected. Progress Note: A&P Assessment and plan (1) Chronic atrial fibrillation: Status: Acute Plan [age] year female with chronic atrial fibrillation, mitral valve regurgitation and lung disease. Presenting with lower extremity wounds and AFib with RVR. Please titrate her metoprolol back to home was 100 mg twice a day. Resume home dose of digoxin every other day. Cardizem should not be added to this regimen. Thank you for allowing me to participate in the care of your patient. Please feel free to contact me if you have any questions. Time Spent With Patient Time: Total time spent is greater than 50% in coordination of care (as documented) at patient's floor/unit and/or counseling patient: Progress Note: Quality Stroke Does the patient have a stroke diagnosis?: No Procedures Date of Service Date of Service: 10/20/21
--- NOTE | 2021-10-20 12:45 | MHC.CM.PN ---
perrounds pt to have a picc todfay ? dc pedro herrmann today or tomorrow asked md silvio arechiga
[2021-10-20 13:39] LABS: Vancomycin Random 16.3 mcg/mL (15-20)
--- NOTE | 2021-10-20 13:45 | HE.PHANOTE ---
Vancomycin Dosing Addendum Vancomycin Trough 16.3, next trough due 10/22/21 @1300. continue with current dose. cr, stable
[2021-10-20] MEDS: Lidocaine HCl 1 % MPF 5 ML VIAL SUBCUT (15:34)
--- NOTE | 2021-10-20 16:01 | PM.IDPN ---
Subjective Subjective Date of Service: 10/20/21 Critical Care Time (minutes): 15 Comment: she has ankle MRI shows osteomyelitis of distal fibula she has MRSA in past Objective Data Labs CBC & Chem 7: 10/16/21 06:51 10/20/21 06:32 Labs: Laboratory Results - last 24 hr 10/20/21 10/20/21 10/20/21 06:32 06:32 13:07 PT 29.2 H INR 2.5 H Creatinine 0.72 Estim Creat Clear Calc 44.5 Estimated GFR > 60 Random Vancomycin 16.3 Microbiology Microbiology Results: Microbiology 10/11/21 16:15 Blood - Venous Blood Culture - Final No growth after 5 days. 10/11/21 16:15 Blood - Venous Blood Culture - Final No growth after 5 days. 10/12/21 Unknown Urine clean catch - Urine marie top Urine Culture - Final Escherichia coli Physical Exam Vital Signs: Vital Signs: Last Vital Signs Temp 97.9 F 10/20/21 16:00 Pulse 67 10/20/21 16:00 Resp 14 10/20/21 16:00 BP 119/61 10/20/21 16:00 Pulse Ox 95 10/20/21 16:00 O2 Del Method 10/20/21 16:00 O2 Flow Rate 1 10/20/21 08:00 BMI result Body Mass Index 17.4 Const: General: cooperative Eyes: General: appearance normal, both eyes and all related structures Pupils: Equal, round and reactive pupils present Resp: Effort & Inspection: normal respiratory effort Cardio: Rate: regular rate Rhythm: regular rhythm GI: Palpation (GI): Soft to palpation and nontender Neuro: Cranial nerves: Yes Equal, round and reactive pupils present Extrem: Other: some discomfort ankle Assessment and Plan Assessment and plan (1) Osteomyelitis of right fibula: Problem details: She has some discomfort still probable MRSA ankle Status: Acute Assessment and Plan: Would give IV Vancomycin with weekly trough,creatinine,CBC and ESR Continue Vancomycin until 11/27 and then po Doxycycline for 2-3 months or longer Follow with Orthopedics septic joint outpatient and with me Time Spent With Patient Time: Total time spent is greater than 50% in coordination of care (as documented) at patient's floor/unit and/or counseling patient:
[2021-10-20] MEDS: vancomycin HCL 750 MG in 0.9 % Sodium Chloride 250 ML 265 MG IV (16:11)
[2021-10-20] MEDS: Acetaminophen 325 MG TABLET 650 MG PO ×2 (16:12→22:23)
[2021-10-20] MEDS: Pravastatin Sodium 20 MG TABLET PO (22:23)
[2021-10-21] VITALS (7 sets, daily range): BP systolic 92–137; BP diastolic 51–71; PULSE 52–90; RESP 15–20; TEMP 36.4–37.2; O2SAT 94–97; BMI 17.9
[2021-10-21] MEDS: Acetaminophen 325 MG TABLET 650 MG PO ×3 (06:08→22:02)
[2021-10-21] MEDS: oxyCODONE HCl Immed Release 5 MG TABLET PO ×3 (06:08→22:02)
[2021-10-21] MEDS: Levothyroxine Sodium 75 MCG TABLET PO (06:09)
[2021-10-21 06:47] LABS: INTERNATIONAL NORM RATIO 2.9 (0.9-1.1); Prothrombin Time 34.5 SEC (10.0-13.1)
[2021-10-21 06:59] LABS: Creatinine Clr Calc Pharmacy 47.3; Estimated Glomerular Filt Rate > 60
--- NOTE | 2021-10-21 10:05 | HE.PHANOTE ---
RE VANCO SCR STABLE. CONTINUE CURRENT DOSE, NEXT TROUGH DUE 10/22 @1300
[2021-10-21] MEDS: Cholecalciferol (Vitamin D3) 25 MCG TABLET 50 MCG PO (11:38)
[2021-10-21] MEDS: Metoprolol Tartrate 100 MG TABLET PO (11:39)
[2021-10-21] MEDS: Furosemide 40 MG TABLET PO (11:39)
[2021-10-21] MEDS: Ascorbic Acid 500 MG TABLET PO ×2 (11:40→20:51)
[2021-10-21] MEDS: Multivitamin TABLET 1 TAB PO (11:40)
[2021-10-21] MEDS: predniSONE 20 MG TABLET PO (11:40)
[2021-10-21] MEDS: 0.9 % Sodium Chloride Flush 3 ML SYRINGE IVFLUSH ×3 (11:40→20:54)
[2021-10-21] MEDS: Gabapentin 300 MG CAPSULE PO ×3 (11:40→20:51)
[2021-10-21] MEDS: lisinopriL 5 MG TABLET PO (11:40)
--- NOTE | 2021-10-21 13:19 | HO.PM.IMPN ---
Subjective Subjective Date of Service: 10/22/21 Interval History: f/u on acute hypoxia, history of aspergiloma, infected wound, inteval history:HR is better, throbin in foot Review of Systems Gen: no fever Resp: no sob, no cough CV: no chest, no ZAVALETA, no leg edema,+palpitations GI: No n/v, no abd pain Neuro: No confusion, Physical Exam Vital Signs: Vital Signs: Last Vital Signs Temp 98.9 F 10/21/21 11:27 Pulse 77 10/21/21 11:27 Resp 16 10/21/21 11:27 BP 121/58 L 10/21/21 11:27 Pulse Ox 95 10/21/21 11:27 O2 Del Method 10/21/21 11:27 O2 Flow Rate 1 10/20/21 08:00 BMI result Body Mass Index 17.9 Const: Other: General: AO X 3, no acute distress Resp: CTA bilateral CVS: S1,S2, iregularly irregular, tachy GI: +BS, NT, no distention Skin: No rash, see pictures elsewhere Neuro: motor grossly intact, Psych: appropriate affect Objective Data Active Medications Acetaminophen (Acetaminophen 325 Mg Tablet) 650 mg PO Q6H PRN PRN Reason: Pain, Mild (Pain Scale 1-3) Last Admin: 10/21/21 06:08 Dose: 650 mg Documented By: COREEN Ascorbic Acid (Ascorbic Acid 500 Mg Tablet) 500 mg PO BID [facility] Last Admin: 10/21/21 11:40 Dose: 500 mg Documented By: RABIA Docusate Sodium (Docusate Sodium 100 Mg Capsule) 100 mg PO DAILY PRN PRN Reason: Constipation Furosemide (Furosemide 40 Mg Tablet) 40 mg PO DAILY [facility]; Protocol Last Admin: 10/21/21 11:39 Dose: 40 mg Documented By: RABIA Gabapentin (Gabapentin 300 Mg Capsule) 300 mg PO TID [facility] Last Admin: 10/21/21 11:40 Dose: 300 mg Documented By: RABIA Vancomycin HCl 750 mg/ Sodium (Chloride) 265 mls @ 265 mls/hr IV Q24H [facility] Last Infusion: 10/20/21 17:23 Dose: 0 mls/hr Documented By: COTSWAPNIL Diltiazem HCl 125 mg/ Sodium (Chloride) 125 mls @ 0 mls/hr IVCONT .Q0M [facility]; Protocol Last Titration: 10/19/21 21:59 Dose: 0 mg/hr, 0 mls/hr Documented By: ALTON Levothyroxine Sodium (Levothyroxine Sodium 75 Mcg Tablet) 75 mcg PO DAILY@0600 [facility] Last Admin: 10/21/21 06:09 Dose: 75 mcg Documented By: COREEN Lisinopril (Lisinopril 5 Mg Tablet) 5 mg PO DAILY [facility]; Protocol Last Admin: 10/21/21 11:40 Dose: 5 mg Documented By: RABIA Loperamide HCl (Loperamide Hcl 2 Mg Capsule) 2 mg PO Q6H PRN PRN Reason: Diarrhea Last Admin: 10/17/21 17:52 Dose: 2 mg Documented By: HOPE Metoprolol Tartrate (Metoprolol Tartrate 100 Mg Tablet) 100 mg PO BID [facility] Last Admin: 10/21/21 11:39 Dose: 100 mg Documented By: RABIA Multivitamins/Vitamin C (Multivitamin Tablet) 1 tab PO DAILY [facility] Last Admin: 10/21/21 11:40 Dose: 1 tab Documented By: RABIA Patient Own Medication ( Leflunomide 20 Mg Tablet) 20 mg PO DAILY [facility] Last Admin: 10/21/21 11:42 Dose: 20 mg Documented By: RABIA Patient Own Medication ( Zonisamide 25 Mg Capsule) 25 mg PO TID [facility] Last Admin: 10/21/21 11:42 Dose: 25 mg Documented By: RABIA Ondansetron HCl (Ondansetron Hcl 4 Mg/2 Ml Vial) 4 mg IVPUSH Q8H PRN PRN Reason: Nausea and Vomiting Oxycodone HCl (Oxycodone Hcl Immed Release 5 Mg Tablet) 5 mg PO Q6H PRN PRN Reason: Pain, Severe (Pain Scale 7-10) Last Admin: 10/21/21 06:08 Dose: 5 mg Documented By: COREEN Pharmacy Consult (Consult Rx Perform Med Rec) 1 each MISCELLANE ONCE PRN PRN Reason: Consult order Pravastatin Sodium (Pravastatin Sodium 20 Mg Tablet) 20 mg PO BEDTIME [facility] Last Admin: 10/20/21 22:23 Dose: 20 mg Documented By: COREEN Prednisone (Prednisone 20 Mg Tablet) 20 mg PO DAILY [facility] Last Admin: 10/21/21 11:40 Dose: 20 mg Documented By: RABIA Sodium Chloride (0.9 % Sodium Chloride Flush 3 Ml Syringe) 3 ml IVFLUSH QSHIFT [facility] Last Admin: 10/21/21 11:40 Dose: 3 ml Documented By: RABIA Vitamin D (Cholecalciferol (Vitamin D3) 25 Mcg Tablet) 50 mcg PO DAILY [facility] Last Admin: 10/21/21 11:38 Dose: 50 mcg Documented By: RABIA Warfarin Sodium 1 mg/ Warfarin (Sodium 2.5 mg) 3.5 mg PO DAILY@1800 [facility] Last Admin: 10/20/21 17:21 Dose: 3.5 mg Documented By: ANKIT Labs CBC & Chem 7: 10/16/21 06:51 10/22/21 06:05 Labs: Laboratory Results - last 24 hr 10/20/21 10/21/21 10/21/21 13:07 06:15 06:15 PT 34.5 H INR 2.9 H Estim Creat Clear Calc 47.3 Estimated GFR > 60 Random Vancomycin 16.3 Assessment and Plan (1) Acute respiratory failure with hypoxia: Status: Acute (2) Infected pressure ulcer: Status: Acute Plan 81-year-old female with past medical history of peripheral vascular disease, chronic wounds in the left lower extremity, history of AFib on Coumadin, essential tremors, who presents to the hospital with complaints of lower extremity wound, as well as found to be hypoxic. 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 coli UTI-ceftin #acute vs chronic Hypoxic resp failure - Unclear etiology at this time - has multiple abnormalities on CT chest including nodules - no evidence of fluid overload, no evidence of pneumonia - pulmonology recommending steroid and Azithro -wean off O2, only on 1 leter #Moderate proteint calory malnutrition--supplement #hypothyroidism - continue levothyroxine # rheumatoid arthritis - continue home medications DVT prophylaxis: Warfarin Need for inaptient: Acute hypoxic respiratory failure as well as IV antibiotics for the infected pressure ,MRI result to determine need for half-way iv abx PT consult--she's now agreable to rehab Quality Stroke Does the patient have a stroke diagnosis?: No VTE Prior VTE?: No VTE Risk Level:: Medical - moderate - high VTE Device Contraindication: Treatment Not Indicated VTE Drug Contraindication: N/A - Med Ordered
[2021-10-21] MEDS: vancomycin HCL 750 MG in 0.9 % Sodium Chloride 250 ML 265 MG IV (16:42)
[2021-10-21] MEDS: Pravastatin Sodium 20 MG TABLET PO (20:51)
[2021-10-22] VITALS (7 sets, daily range): BP systolic 97–126; BP diastolic 48–65; PULSE 64–90; RESP 16–20; TEMP 36.6–37.1; O2SAT 94–97; BMI 17.5
[2021-10-22] MEDS: oxyCODONE HCl Immed Release 5 MG TABLET PO ×3 (06:07→22:45)
[2021-10-22] MEDS: Levothyroxine Sodium 75 MCG TABLET PO (06:07)
[2021-10-22] MEDS: Acetaminophen 325 MG TABLET 650 MG PO ×2 (06:08→16:51)
[2021-10-22 07:17] LABS: Creatinine Clr Calc Pharmacy 42.6; Estimated Glomerular Filt Rate > 60
--- NOTE | 2021-10-22 10:03 | P.PNIM_ITS ---
Subjective Subjective Date of Service: 10/22/21 Interval History: f/u on acute hypoxia, history of aspergiloma, infected wound, inteval history:Paroxysmal tachy this morning, o/w no change Review of Systems Gen: no fever Resp: no sob, no cough CV: no chest, no ZAVALETA, no leg edema,+palpitations GI: No n/v, no abd pain Neuro: No confusion, Physical Exam Vital Signs: Vital Signs: Last Vital Signs Temp 98.4 F 10/22/21 08:00 Pulse 75 10/22/21 08:00 Resp 18 10/22/21 08:00 BP 107/57 L 10/22/21 08:00 Pulse Ox 97 10/22/21 08:00 O2 Del Method 10/22/21 08:00 O2 Flow Rate 1 10/20/21 08:00 BMI result Body Mass Index 17.5 Const: Other: General: AO X 3, no acute distress Resp: CTA bilateral CVS: S1,S2, iregularly irregular, tachy GI: +BS, NT, no distention Skin: No rash, see pictures elsewhere Neuro: motor grossly intact, Psych: appropriate affect Objective Data Active Medications Acetaminophen (Acetaminophen 325 Mg Tablet) 650 mg PO Q6H PRN PRN Reason: Pain, Mild (Pain Scale 1-3) Last Admin: 10/22/21 06:08 Dose: 650 mg Documented By: COREEN Ascorbic Acid (Ascorbic Acid 500 Mg Tablet) 500 mg PO BID [facility] Last Admin: 10/21/21 20:51 Dose: 500 mg Documented By: COREEN Docusate Sodium (Docusate Sodium 100 Mg Capsule) 100 mg PO DAILY PRN PRN Reason: Constipation Furosemide (Furosemide 40 Mg Tablet) 40 mg PO DAILY [facility]; Protocol Last Admin: 10/21/21 11:39 Dose: 40 mg Documented By: RABIA Gabapentin (Gabapentin 300 Mg Capsule) 300 mg PO TID [facility] Last Admin: 10/21/21 20:51 Dose: 300 mg Documented By: COREEN Vancomycin HCl 750 mg/ Sodium (Chloride) 265 mls @ 265 mls/hr IV Q24H [facility] Last Infusion: 10/21/21 18:29 Dose: 0 mls/hr Documented By: RABIA Levothyroxine Sodium (Levothyroxine Sodium 75 Mcg Tablet) 75 mcg PO DAILY@0600 [facility] Last Admin: 10/22/21 06:07 Dose: 75 mcg Documented By: COREEN Lisinopril (Lisinopril 5 Mg Tablet) 5 mg PO DAILY [facility]; Protocol Last Admin: 10/21/21 11:40 Dose: 5 mg Documented By: RABIA Loperamide HCl (Loperamide Hcl 2 Mg Capsule) 2 mg PO Q6H PRN PRN Reason: Diarrhea Last Admin: 10/17/21 17:52 Dose: 2 mg Documented By: HOPE Metoprolol Tartrate (Metoprolol Tartrate 100 Mg Tablet) 100 mg PO BID [facility] Last Admin: 10/21/21 20:53 Dose: Not Given Documented By: COREEN Non-Admin Reason: Decreased Blood Pressure Multivitamins/Vitamin C (Multivitamin Tablet) 1 tab PO DAILY [facility] Last Admin: 10/21/21 11:40 Dose: 1 tab Documented By: RABIA Patient Own Medication ( Leflunomide 20 Mg Tablet) 20 mg PO DAILY [facility] Last Admin: 10/21/21 11:42 Dose: 20 mg Documented By: RABIA Patient Own Medication ( Zonisamide 25 Mg Capsule) 25 mg PO TID [facility] Last Admin: 10/21/21 20:53 Dose: 25 mg Documented By: COREEN Ondansetron HCl (Ondansetron Hcl 4 Mg/2 Ml Vial) 4 mg IVPUSH Q8H PRN PRN Reason: Nausea and Vomiting Pharmacy Consult (Consult Rx Perform Med Rec) 1 each MISCELLANE ONCE PRN PRN Reason: Consult order Pravastatin Sodium (Pravastatin Sodium 20 Mg Tablet) 20 mg PO BEDTIME [facility] Last Admin: 10/21/21 20:51 Dose: 20 mg Documented By: COREEN Prednisone (Prednisone 20 Mg Tablet) 20 mg PO DAILY [facility] Last Admin: 10/21/21 11:40 Dose: 20 mg Documented By: RABIA Sodium Chloride (0.9 % Sodium Chloride Flush 3 Ml Syringe) [facility] Admin: 10/21/21 20:54 Dose: 3 ml Documented By: COREEN Vitamin D (Cholecalciferol (Vitamin D3) 25 Mcg Tablet) 50 mcg PO DAILY [facility] Last Admin: 10/21/21 11:38 Dose: 50 mcg Documented By: RABIA Warfarin Sodium 1 mg/ Warfarin (Sodium 2.5 mg) 3.5 mg PO DAILY@1800 [facility] Last Admin: 10/21/21 16:42 Dose: 3.5 mg Documented By: PAT Labs CBC & Chem 7: 10/16/21 06:51 10/22/21 06:05 Labs: Laboratory Results - last 24 hr 10/22/21 06:05 Estim Creat Clear Calc 42.6 Estimated GFR > 60 Assessment and Plan (1) Acute respiratory failure with hypoxia: Status: Acute (2) Infected pressure ulcer: Status: Acute Plan 81-year-old female with past medical history of peripheral vascular disease, chronic wounds in the left lower extremity, history of AFib on Coumadin, essential tremors, who presents to the hospital with complaints of lower extremity wound, as well as found to be hypoxic. 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 coli UTI-treated with Ceftin #acute vs chronic Hypoxic resp failure - Unclear etiology at this time - has multiple abnormalities on CT chest including nodules - no evidence of fluid overload, no evidence of pneumonia - pulmonology recommending steroid and Azithro -wean off O2, 97 on room air #Moderate proteint calory malnutrition--supplement #hypothyroidism - continue levothyroxine # rheumatoid arthritis - continue home medications DVT prophylaxis: Warfarin Need for inaptient: Acute hypoxic respiratory failure as well as IV antibiotics for the infected pressure ,MRI result to determine need for residential iv abx PT consult--she's now agreable to rehab Quality Stroke Does the patient have a stroke diagnosis?: No VTE Prior VTE?: No VTE Risk Level:: Medical - moderate - high VTE Device Contraindication: Treatment Not Indicated VTE Drug Contraindication: N/A - Med Ordered
[2021-10-22] MEDS: Metoprolol Tartrate 100 MG TABLET PO ×2 (11:00→22:32)
[2021-10-22] MEDS: lisinopriL 5 MG TABLET PO (11:00)
[2021-10-22] MEDS: Gabapentin 300 MG CAPSULE PO ×3 (11:00→22:33)
[2021-10-22] MEDS: Furosemide 40 MG TABLET PO (11:01)
[2021-10-22] MEDS: Ascorbic Acid 500 MG TABLET PO ×2 (11:01→22:33)
[2021-10-22] MEDS: 0.9 % Sodium Chloride Flush 3 ML SYRINGE IVFLUSH ×3 (11:02→22:33)
[2021-10-22] MEDS: predniSONE 20 MG TABLET PO (11:02)
[2021-10-22] MEDS: Multivitamin TABLET 1 TAB PO (11:02)
[2021-10-22] MEDS: Cholecalciferol (Vitamin D3) 25 MCG TABLET 50 MCG PO (11:18)
[2021-10-22 13:07] LABS: INTERNATIONAL NORM RATIO 4.3 (0.9-1.1); Prothrombin Time 52.8 SEC (10.0-13.1)
[2021-10-22 13:27] LABS: Vancomycin Trough 16.4 mcg/mL (10.0-20.0)
--- NOTE | 2021-10-22 13:37 | HE.PHANOTE ---
EZEKIEL ALLRED CONTINUE CURRENT DOSE, NEXT TROUGH 10/24 @1300
[2021-10-22] MEDS: Pravastatin Sodium 20 MG TABLET PO (22:33)
[2021-10-23 04:00] VITALS: BP 118/67; PULSE 75; RESP 20; TEMP 37.2; O2SAT 92
[2021-10-23] MEDS: Levothyroxine Sodium 75 MCG TABLET PO (05:11)
[2021-10-23] MEDS: oxyCODONE HCl Immed Release 5 MG TABLET PO ×2 (05:11→13:23)
[2021-10-23 05:39] VITALS: BMI 17.8
[2021-10-23 06:40] LABS: INTERNATIONAL NORM RATIO 2.9 (0.9-1.1); Prothrombin Time 34.4 SEC (10.0-13.1)
[2021-10-23 07:16] LABS: Creatinine Clr Calc Pharmacy 46.8; Estimated Glomerular Filt Rate > 60
[2021-10-23 08:00] VITALS: BP 114/60; PULSE 61; RESP 20; TEMP 36.4; O2SAT 97
[2021-10-23] MEDS: Metoprolol Tartrate 100 MG TABLET PO (09:10)
[2021-10-23] MEDS: predniSONE 20 MG TABLET PO (09:10)
[2021-10-23] MEDS: lisinopriL 5 MG TABLET PO (09:10)
[2021-10-23] MEDS: Ascorbic Acid 500 MG TABLET PO (09:10)
[2021-10-23] MEDS: Gabapentin 300 MG CAPSULE PO ×2 (09:10→13:23)
[2021-10-23] MEDS: 0.9 % Sodium Chloride Flush 3 ML SYRINGE IVFLUSH ×2 (09:10→17:23)
[2021-10-23] MEDS: Cholecalciferol (Vitamin D3) 25 MCG TABLET 50 MCG PO (09:10)
[2021-10-23] MEDS: Multivitamin TABLET 1 TAB PO (09:10)
[2021-10-23] MEDS: Furosemide 40 MG TABLET PO (09:10)
--- NOTE | 2021-10-23 10:15 | P.PNIM_ITS ---
Subjective Subjective Date of Service: 10/23/21 Interval History: f/u on acute hypoxia, history of aspergiloma, infected wound, inteval history:respiratory failure resolved, some pain in the foot, HR is controlled Review of Systems Gen: no fever Resp: no sob, no cough CV: no chest, no ZAVALETA, no leg edema,+palpitations GI: No n/v, no abd pain Neuro: No confusion, Physical Exam Vital Signs: Vital Signs: Last Vital Signs Temp 97.5 F 10/23/21 08:00 Pulse 61 10/23/21 08:00 Resp 20 10/23/21 08:00 BP 114/60 10/23/21 08:00 Pulse Ox 97 10/23/21 08:00 O2 Del Method 10/23/21 08:00 O2 Flow Rate 1 10/20/21 08:00 BMI result Body Mass Index 17.8 Const: Other: General: AO X 3, no acute distress Resp: CTA bilateral CVS: S1,S2, iregularly irregular, tachy GI: +BS, NT, no distention Skin: No rash, see pictures elsewhere Neuro: motor grossly intact, Psych: appropriate affect Objective Data Active Medications Acetaminophen (Acetaminophen 325 Mg Tablet) 650 mg PO Q6H PRN PRN Reason: Pain, Mild (Pain Scale 1-3) Last Admin: 10/22/21 16:51 Dose: 650 mg Documented By: RABIA Ascorbic Acid (Ascorbic Acid 500 Mg Tablet) 500 mg PO BID [facility] Last Admin: 10/23/21 09:10 Dose: 500 mg Documented By: NOHEMI Docusate Sodium (Docusate Sodium 100 Mg Capsule) 100 mg PO DAILY PRN PRN Reason: Constipation Furosemide (Furosemide 40 Mg Tablet) 40 mg PO DAILY [facility]; Protocol Last Admin: 10/23/21 09:10 Dose: 40 mg Documented By: NOHEMI Gabapentin (Gabapentin 300 Mg Capsule) 300 mg PO TID [facility] Last Admin: 10/23/21 09:10 Dose: 300 mg Documented By: NOHEMI Levothyroxine Sodium (Levothyroxine Sodium 75 Mcg Tablet) 75 mcg PO DAILY@0600 [facility] Last Admin: 10/23/21 05:11 Dose: 75 mcg Documented By: FOSHALIMA Lisinopril (Lisinopril 5 Mg Tablet) 5 mg PO DAILY [facility]; Protocol Last Admin: 10/23/21 09:10 Dose: 5 mg Documented By: NOHEMI Loperamide HCl (Loperamide Hcl 2 Mg Capsule) 2 mg PO Q6H PRN PRN Reason: Diarrhea Last Admin: 10/17/21 17:52 Dose: 2 mg Documented By: ANGIE-SWETHA Metoprolol Tartrate (Metoprolol Tartrate 100 Mg Tablet) 100 mg PO BID [facility] Last Admin: 10/23/21 09:10 Dose: 100 mg Documented By: NOHEMI Multivitamins/Vitamin C (Multivitamin Tablet) 1 tab PO DAILY [facility] Last Admin: 10/23/21 09:10 Dose: 1 tab Documented By: NOHEMI Patient Own Medication ( Leflunomide 20 Mg Tablet) 20 mg PO DAILY [facility] Last Admin: 10/23/21 09:11 Dose: 20 mg Documented By: NOHEMI Patient Own Medication ( Zonisamide 25 Mg Capsule) 25 mg PO TID [facility] Last Admin: 10/23/21 09:12 Dose: 25 mg Documented By: NOHEMI Ondansetron HCl (Ondansetron Hcl 4 Mg/2 Ml Vial) 4 mg IVPUSH Q8H PRN PRN Reason: Nausea and Vomiting Oxycodone HCl (Oxycodone Hcl Immed Release 5 Mg Tablet) 5 mg PO Q6H PRN PRN Reason: Pain, Severe (Pain Scale 7-10) Last Admin: 10/23/21 05:11 Dose: 5 mg Documented By: CHEVY Pharmacy Consult (Consult Rx Perform Med Rec) 1 each MISCELLANE ONCE PRN PRN Reason: Consult order Pravastatin Sodium (Pravastatin Sodium 20 Mg Tablet) 20 mg PO BEDTIME [facility] Last Admin: 10/22/21 22:33 Dose: 20 mg Documented By: KASSANDRA Prednisone (Prednisone 20 Mg Tablet) 20 mg PO DAILY [facility] Last Admin: 10/23/21 09:10 Dose: 20 mg Documented By: NOHEMI Sodium Chloride (0.9 % Sodium Chloride Flush 3 Ml Syringe) 3 ml IVFLUSH QSHIFT [facility] Last Admin: 10/23/21 09:10 Dose: 3 ml Documented By: NOHEMI Vitamin D (Cholecalciferol (Vitamin D3) 25 Mcg Tablet) 50 mcg PO DAILY [facility] Last Admin: 10/23/21 09:10 Dose: 50 mcg Documented By: NOHEMI Warfarin Sodium (Warfarin Sodium 3 Mg Tablet) 3 mg PO DAILY@1800 [facility] Labs CBC & Chem 7: 10/16/21 06:51 10/23/21 06:21 Labs: Laboratory Results - last 24 hr 10/22/21 10/22/21 10/22/21 06:36 12:55 12:55 PT TNP 52.8 H INR TNP 4.3 H Estim Creat Clear Calc Estimated GFR Vancomycin Trough 16.4 10/23/21 10/23/21 06:21 06:21 PT 34.4 H INR 2.9 H Estim Creat Clear Calc 46.8 Estimated GFR > 60 Vancomycin Trough Assessment and Plan (1) Osteomyelitis of right fibula: Status: Acute (2) Pulmonary nodules: Status: Acute Plan 81-year-old female with past medical history of peripheral vascular disease, chronic wounds in the left lower extremity, history of AFib on Coumadin, essential tremors, who presents to the hospital with complaints of lower extremity wound,? as well as found to be hypoxic. #Infected pressure ulcer of foot?stage 4 present on admission- multiple ulcer, with one on lateral left wound worst, xray showed no osteo but MRI of 10/18/21 later showed evidence of osteomyltis as reported: Lateral soft tissue ulceration with underlying osteomyelitis of the distal fibula. Septic peroneal tenosynovitis and a septic posterior subtalar facet joint are also suspected. Initially was on IV Zosyn and IV vancomycin, blood cultures have been negative. She has no fever. Was seen by ID with the followng recommendation: ?IV Vancomycin with weekly trough,creatinine,CBC and ESR Continue Vancomycin until 11/27 and then po Doxycycline for 2-3 months or longer Follow with Orthopedics septic joint outpatient and with me #Permanent AFIB with iternmittent epsisodes of RVR- She was noted to have some episodes of bradycardia when she is sleeping and so Metoprolol and dig were on hold and she developped tachycardia. She was then evaluated by cardiolgoy with recommendation to restart metoprolol, she remains off digoxin. Heart rate is now less than 100. To continue anticoagulation with coumadin , INR is now 2.9 goal 2 to 3 #E. coli UTI-completed treament with ceftin #Acute vs chronic Hypoxic resp failure Unclear etiology at this time - has multiple abnormalities on CT chest including nodules likely rheumatoid ndules - no evidence of fluid overload, no evidence of pneumonia - pulmonology recommending steroid and Azithro---she has completed Azithro and weaning of steroid. She has been weaned off O2 97 on room air; #Moderate proteint calory malnutrition--supplement ?#hypothyroidism - to cointinue continue levothyroxine # rheumatoid arthritis - continue home medications DVT prophylaxis:? Warfarin Need for inaptient: Acute hypoxic respiratory failure as well as IV antibiotics for the infected pressure ,MRI result to determine need for [facility] iv abx PT consult--she's now agreable to rehab hopefully today Quality Stroke Does the patient have a stroke diagnosis?: No VTE Prior VTE?: No VTE Risk Level:: Medical - moderate - high VTE Device Contraindication: Treatment Not Indicated VTE Drug Contraindication: N/A - Med Ordered
[2021-10-23 10:24] VITALS: BP 114/60; PULSE 61; O2SAT 97
[2021-10-23 12:00] VITALS: BP 108/59; PULSE 56; RESP 20; TEMP 36.7; O2SAT 96
--- NOTE | 2021-10-23 12:15 | HE.PHANOTE ---
RE VANCO VANCOMYCIN ORDER WAS NOT RENEWED RESULTING IN PATIENT MISSING DOSE FOR 10/22. ORDER RENTERED WITH NEW TROUGH SCHEDULED FOR 10/25 @1100
[2021-10-23] MEDS: Acetaminophen 325 MG TABLET 650 MG PO (13:23)
[2021-10-23] MEDS: vancomycin HCL 750 MG in 0.9 % Sodium Chloride 250 ML 265 MG IV (13:24)
--- NOTE | 2021-10-23 14:27 | P.DS_ITS ---
DS: Providers Provider Date of Service: 10/23/21 Date of admission: 10/11/21 22:41 Primary care physician: Leonor Fitzpatrick MD Consults: 10/12/21 07:12 Consult to Infectious Diseases Routine Consulting Provider: Sherita Munoz Reason for consultation: wound 10/12/21 07:15 Consult to Pulmonology Routine Consulting Provider: Shahriar Solis Reason for consultation: Hypoxia, nodules on chest CT 10/18/21 08:55 Consult to Cardiology Routine Consulting Provider: Kenny Martin Reason for consultation: Sick Sinus Syndrome Has provider been notified: No DS: Diagnosis Discharge Diagnosis (1) Osteomyelitis of right fibula: Status: Acute (2) Pulmonary nodules: Status: Acute DS: Summary Hospital Course Hospital Course: HPI from admission Chief Complaint: painful foot wound, cough 81-year-old female with past medical history of avascular necrosis of right femoral head, PVD, history of bunion of great toe, essential tremor, osteoarth ritis, history proces, persistent AFib, rheumatoid arthritis, who presents to the hospital with complaints of severe pain around the ulcer on her right ankle.? Patient reports that she has had multiple pressure sources given the history peripheral vascular disease, she reports that she used to follow-up with wound clinic last seen about 3 weeks ago, and did not have any trouble until about 3 days ago where she developed significant 10/10 pain as well as drainage, swelling around the right ankle wound.? These wounds have been on her right foot for the past 4-5 years not healed. Patient also complaining of cough, shortness of breath, sputum production, for the past 4-5 days, denies any fever or chills, no abdominal pain nausea or vomiting, no diarrhea constipation, no urinary symptoms and no lower extremity edema except as mentioned.? She has no headache or change in vision, no numbness tingling or weakness.? On arrival to the ED patient hemodynamically stable but found to have hypoxia satting in the 70% on room air Labs are significant for WBC count of 13.5, hemoglobin of 14.6, PT of 36, INR 3.0, BUN of 28, creatinine of 1.02, BNP of 287, UA positive for nitrites with no evidence of leukocyte Estrace or WBC, COVID-19 infection negative CRP of 1.35, ESR of 6 CT of the chest showed peribronchial thickening and biapical pleural parenchymal scarring multiple lung nodules, the largest of which has decreased in size, she also had a decrease of 1.5 cm mass.? She has new small pulmonary nodules the largest being 8 mm.? 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 multiple ulcer, with one on lateral left wound worst, xray showed no osteo but? MRI of? 10/18/21 later showed evidence of osteomyltis as reported: Lateral soft tissue ulceration with underlying osteomyelitis of the distal fibula. Septic peroneal tenosynovitis and a septic posterior subtalar facet joint are also suspected. Initially was on IV Zosyn and IV vancomycin, blood cultures have been negative. She has no fever. Was seen by ID with the followng recommendation:? ?IV Vancomycin with weekly trough,creatinine,CBC and ESR Continue Vancomycin until 11/27 and then po Doxycycline for 2-3 months or longer Follow with Orthopedics septic joint outpatient and with me #Permanent AFIB with iternmittent epsisodes of RVR- She was noted to have some episodes of bradycardia when she is sleeping and so Metoprolol and dig were on hold and she developped tachycardia. She was then evaluated by cardiolgoy with recommendation to restart metoprolol, she remains off digoxin. Heart rate is now less than 100. To continue anticoagulation with coumadin , INR is now 2.9 goal 2 to 3 #left buttock stage 2 txt w foam dressing #E. coli UTI-completed treament with ceftin #Acute vs chronic Hypoxic resp failure? Unclear etiology at this time - has multiple abnormalities on CT chest including nodules likely rheumatoid ndules - no evidence of fluid overload, no evidence of pneumonia - pulmonology recommending steroid and Azithro---she has completed Azithro and weaning of steroid.? She has been weaned off? O2 97 on room air; #Moderate proteint calory malnutrition--supplement ?#hypothyroidism - to cointinue? continue levothyroxine # rheumatoid arthritis - continue home medications Time Spent with Patient Time attestation: Total time spent providing and/or coordinating discharge services: Discharge coordination time: Greater than 30 minutes Quality: Safe Use of Opioids Does Pt have an Active Cancer Diagnosis on the Problem List?: No Quality: Stroke Does the patient have a stroke diagnosis?: No Physical Exam Vital Signs: Vital Signs: Last Vital Signs Temp 98.1 F 10/23/21 12:00 Pulse 56 10/23/21 12:00 Resp 20 10/23/21 12:00 BP 108/59 L 10/23/21 12:00 Pulse Ox 96 10/23/21 12:00 O2 Del Method 10/23/21 12:00 O2 Flow Rate 1 10/20/21 08:00 BMI result Body Mass Index 17.8 Const: Other: General: AO X 3, no acute distress Resp: CTA bilateral CVS: S1,S2, iregularly irregular, tachy GI: +BS, NT, no distention Skin: No rash, see pictures elsewhere Neuro: motor grossly intact, Psych: appropriate affect DS: Data Data Completed and Pending Labs on day of discharge: Laboratory Results - last 24 hr 10/23/21 10/23/21 06:21 06:21 PT 34.4 H INR 2.9 H Creatinine 0.70 Estim Creat Clear Calc 46.8 Estimated GFR > 60 Discharge Plan Discharge Anticipated Discharge Date/Time: 10/23/21 12:04 Patient Disposition: Xfer SNF Discharge Diagnosis: Osteomylitis Referrals: [facility] [Outside] - 1 Week Everardo Huffman MD [Physician] - 1 Week (Septic arthritis) Leonor Fitzpatrick MD [Primary Care Provider] - 1 Week Sherita Munoz MD [Physician] - 2 Weeks Discharge Medications: New vancomycin in 0.9 % sodium chl 750 mg/150 mL piggyback 1 g IV Q24H 35 Days Qty: 7000 0RF doxycycline monohydrate 100 mg capsule 100 mg PO BID 21 Days Qty: 42 0RF Rx Instructions: Starting November 28, 2021 oxycodone 5 mg Tablet 5 mg PO Q6H PRN (Reason: Pain, Severe (Pain Scale 7-10)) Qty: 20 0RF Rx Instructions: Partial Fill upon patient request. Continued Prolia 60 mg/mL syringe 60 mg subcut [id number] Qty: 1 1RF Rx Instructions: next dose due 11/03/21 gabapentin 300 mg capsule 300 mg PO TID 30 Days Qty: 90 8RF metoprolol tartrate 100 mg tablet 100 mg PO BID Qty: 180 3RF (DME) Transport wheelchair See Rx Instructions .Route .MEDSUPPLY Qty: 1 0RF Rx Instructions: As directed levothyroxine [Synthroid] 75 mcg tablet 75 mcg PO QAM Qty: 90 1RF leflunomide 20 mg tablet 20 mg PO DAILY Qty: 90 0RF prednisone 1 mg tablet 2 mg PO DAILY Qty: 60 2RF Actemra 162 mg/0.9 mL syringe 162 mg subcut Q2W Qty: 1.8 1RF Rx Instructions: [place] [place] Misc See Rx Instructions .Route Qty: 1 0RF Rx Instructions: As directed [place] bedside commode Kit See Rx Instructions .Route Qty: 1 0RF Rx Instructions: As directed zonisamide 25 mg capsule 25 mg PO TID [place] [place] Ultra-Light Rollator Misc See Rx Instructions .Route Qty: 1 0RF Rx Instructions: use As directed warfarin 5 mg tablet 2.5 mg PO DAILY Protocol: Dose Management Condition: Saturday Dose/Route: 2.5 mg Instruction: 0.5 x 5 mg tablets Condition: Saturday Dose/Route: 2.5 mg Instruction: 0.5 x 5 mg tablets Condition: Saturday Dose/Route: 2.5 mg Instruction: 0.5 x 5 mg tablets Condition: Saturday Dose/Route: 2.5 mg Instruction: 0.5 x 5 mg tablets Condition: Dose/Route: 2.5 mg Instruction: 0.5 x 5 mg tablets Condition: Saturday Dose/Route: 2.5 mg Instruction: 0.5 x 5 mg tablets Condition: Saturday Dose/Route: 2.5 mg Instruction: 0.5 x 5 mg tablets Protocol Text: Adjustment Start Date: Saturday09/13/20 INR Value: 2.8 INR Date: 09/08/20 Recheck Date: 09/21/20 Additional Instructions: Pt to take 2.5mg daily and have repeat draw in 2 weeks 09/21/20 pravastatin 20 mg tablet 20 mg PO BEDTIME coenzyme Q10 [Co Q-10] 100 mg capsule 100 mg PO DAILY vitamin B complex Tablet 1 tab PO DAILY Algal [place]-3 DHA 200 mg capsule 200 mg PO DAILY ascorbate calcium (vitamin C) 500 mg tablet 500 mg PO BID (DME) nebulizers [facility] [place] See Rx Instructions .Route Qty: 1 0RF Rx Instructions: As directed furosemide 40 mg tablet 40 mg PO DAILY cholecalciferol (vitamin D3) 50 mcg (2,000 unit) capsule 50 mcg PO DAILY lisinopril 5 mg tablet 5 mg PO DAILY Discontinued oxycodone 5 mg tablet 5 mg PO Q8H PRN (Reason: pain) 14 Days Qty: 42 0RF Rx Instructions: Please use this prescription to taper off medication, two week compassionate prescription. 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 Huffman) on outpatient basis Follow up with Dr. Munoz in infectious disease clinic in 10 day take coumadin as directed with goal of INR 2 to 3--INR is 2. 9 today, hold coumadin today and recheck tomorrow and resume as necessary Assessment: As above
--- NOTE | 2021-10-23 14:49 | MHC.CM.PN ---
IMM 10/23/21 Female 81 is discharged today to [facility]. Pending a covid test, result All discharge info has been sent to the facility. Transportation notified t/w that cloth picker will be at 6pm today.
[2021-10-23 15:11] LABS: COVID-19 Test Negative (Negative); IDNOW Serial# 16C4AD1C
[2021-10-23 16:00] VITALS: BP 108/58; PULSE 69; RESP 15; TEMP 36.6; O2SAT 96
[2021-10-23 16:57] LABS: Influenza A PCR NEGATIVE (Negative); Influenza B PCR NEGATIVE (Negative); Resp Syncy Virus RNA Qual PCR NEGATIVE (Negative); SARS COV2 PCR INHOUSE NEGATIVE (Negative)
[2021-10-23] MEDS: Warfarin Sodium 3 MG TABLET PO (17:23)
--- NOTE | 2021-10-27 05:48 | P.CDIR_ITS ---
Retrospective Query PHYSICIAN'S DOCUMENTATION REQUEST Date of Query: 10/27/21 0548 Patient Name: Corinna Olivas Admit Date: 10/11/21 Dear Doctor, A review of the medical record indicates additional documentation may be indicated. Please review below and update the documentation accordingly. Clinical Indicators: Risk Factors/Clinical Indicators/Treatments Nutrition note 10/13 - infected pressure area on coccyx. Ensure clear to provide protein to promote wound healing. Wound care 10/22 - Pressure injury Stage 2 left buttock. Foam dressing. Based on the above, could you please provide, in the Progress Notes, further information regarding the ulcer/wound: * If a pressure ulcer, please also include the stage* of the ulcer: * Stage 1 - Skin intact, non-blanchable redness * Stage 2 - Partial thickness loss of dermis, includes intact or open blister * Stage 3 - Full thickness tissue not including bone, tendon, or muscle * Other * Unable to determine *Source: National Pressure Ulcer Advisory Panel (NPUAP) Use of terms such as suspected, likely, concern for, or probable (associated with a specific diagnosis that is being evaluated, monitored, or treated as if it exists) are acceptable and can be coded in the inpatient setting, when documented at the time of discharge. Thank you, Shaina Chavez [facility], CDIS Extension: [phone] Please use your independent medical judgment in providing your response. THIS QUERY IS PART OF THE PERMANENT MEDICAL RECORD
== END 2021-10-23 18:39 | disposition skilled nursing facility (03) | DRG 539 ==
LOC: HO.ED 23:08 → HO.EDOVER 23:21 → HO.IMC 10-12 21:04
PROVIDERS: Internal Medicine; Physician Assistant; Admitting Provider Internal Medicine; Emergency Provider Emergency Medicine; PCP Internal Medicine; Visit Provider Internal Medicine
DX: M86.9 Osteomyelitis, unspecified (principal); J96.21 Acute and chronic respiratory failure with hypoxia; L89.894 Pressure ulcer of other site, stage 4; M00.872 Arthritis due to other bacteria, left ankle and foot; E44.0 Moderate protein-calorie malnutrition; I48.21 Permanent atrial fibrillation; Z68.1 Body mass index [BMI] 19.9 or less, adult; N39.0 Urinary tract infection, site not specified; M05.10 Rheumatoid lung disease with rheumatoid arthritis of unspecified site; M65.9 Synovitis and tenosynovitis, unspecified; M05.9 Rheumatoid arthritis with rheumatoid factor, unspecified; L89.159 Pressure ulcer of sacral region, unspecified stage; L89.322 Pressure ulcer of left buttock, stage 2; B96.20 Unspecified Escherichia coli [E. coli] as the cause of diseases classified elsewhere; I25.10 Atherosclerotic heart disease of native coronary artery without angina pectoris; E78.5 Hyperlipidemia, unspecified; E03.9 Hypothyroidism, unspecified; I34.0 Nonrheumatic mitral (valve) insufficiency; Z20.822 Contact with and (suspected) exposure to COVID-19; Z86.14 Personal history of Methicillin resistant Staphylococcus aureus infection; Z87.891 Personal history of nicotine dependence; Z88.6 Allergy status to analgesic agent; Z88.8 Allergy status to other drugs, medicaments and biological substances; Z79.01 Long term (current) use of anticoagulants; Z79.899 Other long term (current) drug therapy
CPT/HCPCS: 0241U; 36415; 36573; 71045; 71250; 73630; 73723; 80048; 80076; 80202; 81001; 82565; 83605; 83735; 83880; 85025; 85027; 85610; 85652; 86140; 87040; 87086; 87088; 87186; 87493; 87502; 87633; 87635; 93005; 94640; 96361; 96365; 97110; 97162; 97530; 99285; A9585; J0456; J2543; J3370

== ENCOUNTER → 2021-10-30 10:57 | Outpatient (BNVA) | payer MEDICARE, MEDICAID, SELFPAY | PROVIDERS: Visit Provider Internal Medicine | DX: M86.9 Osteomyelitis, unspecified (principal); B95.62 Methicillin resistant Staphylococcus aureus infection as the cause of diseases classified elsewhere | CPT/HCPCS: 99212 ==

== ENCOUNTER → 2021-11-13 13:42 | Outpatient (BNVA) | payer MEDICARE, MEDICAID, SELFPAY | PROVIDERS: PCP Internal Medicine; Visit Provider Nurse Practitioner Family | DX: M81.8 Other osteoporosis without current pathological fracture (principal); M05.80 Other rheumatoid arthritis with rheumatoid factor of unspecified site; M86.9 Osteomyelitis, unspecified; M87.051 Idiopathic aseptic necrosis of right femur; M25.551 Pain in right hip; M79.604 Pain in right leg; I73.9 Peripheral vascular disease, unspecified; I48.20 Chronic atrial fibrillation, unspecified; Z79.01 Long term (current) use of anticoagulants; Z79.899 Other long term (current) drug therapy | CPT/HCPCS: 96372; 99212 ==

== ENCOUNTER → 2021-11-24 10:46 | Outpatient (BNVA) | payer MEDICARE, MEDICAID, SELFPAY | PROVIDERS: PCP Internal Medicine; Visit Provider Internal Medicine | DX: M86.9 Osteomyelitis, unspecified (principal) | CPT/HCPCS: 99212 ==

== ENCOUNTER 2021-11-30 06:29 | Outpatient (REF) | payer MEDICARE, MEDICAID, SELFPAY | END 2021-11-30 06:30 | disposition home or self-care (01) | LOC: HO.HOSX 06:29 | PROVIDERS: Visit Provider Physician Assistant | DX: Z13.89 Encounter for screening for other disorder (principal) ==

== ENCOUNTER 2021-12-04 12:49 | Outpatient (REF) | payer MEDICARE, MEDICAID, SELFPAY ==
[2021-12-04 14:03] LABS: Prothrombin Time 89.1 SEC (10.0-13.1)
[2021-12-04 14:17] LABS: INTERNATIONAL NORM RATIO 7.1 (0.9-1.1)
== END 2021-12-04 12:50 | disposition home or self-care (01) ==
LOC: HO.HVNA 12:49
PROVIDERS: Visit Provider Internal Medicine
DX: I25.10 Atherosclerotic heart disease of native coronary artery without angina pectoris (principal)
CPT/HCPCS: 36415; 85610

== ENCOUNTER 2021-12-05 06:06 | Outpatient (REF) | payer MEDICARE, MEDICAID, SELFPAY ==
[2021-12-05 10:16] LABS: MANUAL DIFF FLAG NO
[2021-12-05 10:21] LABS: Basophils Absolute Auto 0.1 X10*3/uL (0.0-0.2); Eosinophils Absolute Auto 0.5 X10*3/uL (0.0-0.4); Eosinophils Percent Auto 6.6 % (0-4); Hematocrit 41.3 % (37.0-47.0); Imm Gran Abs Auto 0.04 X10*3/uL (0.00-0.03); Imm Gran Pct Auto 0.5 % (0.0-0.4); Lymphocytes Absolute Auto 1.8 X10*3/uL (1.2-4.9); Lymphocytes Percent Auto 21.6 % (20-40); Mean Corpuscular HGB Conc 33.9 g/dl (31.0-35.0); Mean Corpuscular Volume 103.3 fL (80.0-98.0); Mean Platelet Volume 11.1 fL (9.4-12.3); Monocytes Absolute Auto 1.4 X10*3/uL (0.1-1.2); Monocytes Percent Auto 16.6 % (2-11); Neutrophils Absolute Auto 4.4 x10*3/uL (2.0-8.3); Neutrophils Percent Auto 53.7 % (45-73); Platelet Count 185 X10*3/uL (160-400); Red Cell Distribution Width 14.1 % (11.0-16.0); White Blood Count 8.2 X10*3/uL (4.8-10.8)
[2021-12-05 10:46] LABS: Prothrombin Time 102.3 SEC (10.0-13.1)
[2021-12-05 10:51] LABS: INTERNATIONAL NORM RATIO 8.2 (0.9-1.1)
[2021-12-05 11:03] LABS: Erythrocyte Sedimentation Rate 3 MM/HR (0-20)
[2021-12-05 11:22] LABS: Alanine Aminotransferase 21 U/L (0-31); Aspartate Amino Transferase 29 U/L (5-31); C Reactive Protein < 0.02 mg/dL (< or = 0.50); Estimated Glomerular Filt Rate > 60
== END 2021-12-05 06:07 | disposition home or self-care (01) ==
LOC: HO.LHD 06:06
PROVIDERS: Nurse Practitioner Family; Visit Provider Internal Medicine
DX: M06.9 Rheumatoid arthritis, unspecified (principal); I48.19 Other persistent atrial fibrillation; Z79.01 Long term (current) use of anticoagulants; Z79.899 Other long term (current) drug therapy
CPT/HCPCS: 36415; 82565; 84450; 84460; 85025; 85610; 85652; 86140

== ENCOUNTER 2021-12-06 13:28 | Outpatient (REF) | payer MEDICARE, MEDICAID, SELFPAY ==
[2021-12-06 14:30] LABS: Prothrombin Time 93.1 SEC (10.0-13.1)
[2021-12-06 14:32] LABS: INTERNATIONAL NORM RATIO 7.5 (0.9-1.1)
== END 2021-12-06 13:29 | disposition home or self-care (01) ==
LOC: HO.HMGCLR 13:28
PROVIDERS: PCP Internal Medicine; Visit Provider Internal Medicine
DX: I48.19 Other persistent atrial fibrillation (principal)
CPT/HCPCS: 36415; 85610

== ENCOUNTER 2021-12-08 06:21 | Outpatient (REF) | payer MEDICARE, MEDICAID, SELFPAY ==
[2021-12-08 10:55] LABS: Prothrombin Time 49.1 SEC (10.0-13.1)
[2021-12-08 12:34] LABS: Alanine Aminotransferase 20 U/L (0-31); Anion Gap 14 (12-20); Aspartate Amino Transferase 29 U/L (5-31); Blood Urea Nitrogen 30 mg/dL (9-16); Calcium 9.2 mg/dL (8.4-10.2); Carbon Dioxide 24 mmol/L (22-29); Chloride 109 mmol/L (96-108); Cholesterol 109 mg/dL; Estimated Glomerular Filt Rate > 60; Glucose Fasting 80 mg/dL (60-99); HDL Cholesterol 52 mg/dL; LDL Cholesterol Calculated 44 mg/dl; Potassium 3.9 mmol/L (3.3-5.1); Sodium 143 mmol/L (135-145); Triglycerides 68 mg/dL
[2021-12-08 12:55] LABS: Free T4 (Free Thyroxine) 1.79 ng/dL (0.71-1.85); Thyroid Stimulating Hormone 0.06 uIU/mL (0.32-4.0); Vitamin D 25-OH Total 102.4 ng/mL (>30)
[2021-12-08 12:58] LABS: Folate > 20.0 ng/mL (> or = 4.0); Vitamin B12 1101 pg/mL (200-900)
== END 2021-12-08 06:22 | disposition home or self-care (01) ==
LOC: HO.LHD 06:21
PROVIDERS: Visit Provider Internal Medicine
DX: I48.19 Other persistent atrial fibrillation (principal); E03.9 Hypothyroidism, unspecified; I73.9 Peripheral vascular disease, unspecified; M81.8 Other osteoporosis without current pathological fracture; R11.0 Nausea; Z79.01 Long term (current) use of anticoagulants
CPT/HCPCS: 36415; 80048; 80061; 82306; 82607; 82746; 84439; 84443; 84450; 84460; 85610

== ENCOUNTER 2021-12-08 12:40 | Outpatient (RCR) | payer MEDICARE, MEDICAID, SELFPAY | END 2022-01-23 02:00 | disposition home or self-care (01) | LOC: HO.WCC 12:40 | PROVIDERS: PCP Internal Medicine; Visit Provider Physician Assistant | DX: L97.326 Non-pressure chronic ulcer of left ankle with bone involvement without evidence of necrosis (principal); M86.462 Chronic osteomyelitis with draining sinus, left tibia and fibula; M05.272 Rheumatoid vasculitis with rheumatoid arthritis of left ankle and foot; I73.9 Peripheral vascular disease, unspecified; I73.00 Raynaud's syndrome without gangrene; G62.9 Polyneuropathy, unspecified; L53.9 Erythematous condition, unspecified; I10 Essential (primary) hypertension; Z79.2 Long term (current) use of antibiotics; Z79.01 Long term (current) use of anticoagulants; Z79.899 Other long term (current) drug therapy; Z79.52 Long term (current) use of systemic steroids; Z87.891 Personal history of nicotine dependence | CPT/HCPCS: 11044 ==

== ENCOUNTER 2021-12-11 05:59 | Outpatient (REF) | payer MEDICARE, MEDICAID, SELFPAY ==
[2021-12-11 10:01] LABS: INTERNATIONAL NORM RATIO 1.7 (0.9-1.1)
== END 2021-12-11 06:00 | disposition home or self-care (01) ==
LOC: HO.LHD 05:59
PROVIDERS: Visit Provider Internal Medicine
DX: I48.19 Other persistent atrial fibrillation (principal); Z79.01 Long term (current) use of anticoagulants
CPT/HCPCS: 36415; 85610

== ENCOUNTER 2021-12-13 08:17 | Outpatient (REF) | payer MEDICARE, MEDICAID, SELFPAY ==
[2021-12-13 11:24] LABS: INTERNATIONAL NORM RATIO 2.5 (0.9-1.1); Prothrombin Time 29.4 SEC (10.0-13.1)
== END 2021-12-13 08:18 | disposition home or self-care (01) ==
LOC: HO.LHD 08:17
PROVIDERS: Visit Provider Internal Medicine
DX: I48.19 Other persistent atrial fibrillation (principal); Z79.01 Long term (current) use of anticoagulants
CPT/HCPCS: 36415; 85610

== ENCOUNTER 2021-12-15 06:49 | Outpatient (REF) | payer MEDICARE, MEDICAID, SELFPAY ==
[2021-12-15 11:57] LABS: INTERNATIONAL NORM RATIO 4.5 (0.9-1.1); Prothrombin Time 55.3 SEC (10.0-13.1)
== END 2021-12-15 06:50 | disposition home or self-care (01) ==
LOC: HO.LHD 06:49
PROVIDERS: Visit Provider Internal Medicine
DX: Z13.89 Encounter for screening for other disorder (principal)
CPT/HCPCS: 36415; 85610

== ENCOUNTER 2021-12-19 06:16 | Outpatient (REF) | payer MEDICARE, MEDICAID, SELFPAY ==
[2021-12-19 14:34] LABS: INTERNATIONAL NORM RATIO 1.3 (0.9-1.1); Prothrombin Time 15.2 SEC (10.0-13.1)
== END 2021-12-19 06:17 | disposition home or self-care (01) ==
LOC: HO.LHD 06:16
PROVIDERS: Visit Provider Internal Medicine
DX: I48.19 Other persistent atrial fibrillation (principal); Z79.01 Long term (current) use of anticoagulants
CPT/HCPCS: 36415; 85610

== ENCOUNTER 2021-12-22 07:51 | Outpatient (REF) | payer MEDICARE, MEDICAID, SELFPAY ==
[2021-12-22 12:34] LABS: INTERNATIONAL NORM RATIO 1.1 (0.9-1.1); Prothrombin Time 13.2 SEC (10.0-13.1)
== END 2021-12-22 07:52 | disposition home or self-care (01) ==
LOC: HO.LHD 07:51
PROVIDERS: Visit Provider Internal Medicine
DX: I48.19 Other persistent atrial fibrillation (principal); Z79.01 Long term (current) use of anticoagulants
CPT/HCPCS: 36415; 85610

== ENCOUNTER 2021-12-26 07:00 | Outpatient (REF) | payer MEDICARE, MEDICAID, SELFPAY ==
[2021-12-26 13:09] LABS: INTERNATIONAL NORM RATIO 2.7 (0.9-1.1); Prothrombin Time 32.9 SEC (10.0-13.1)
== END 2021-12-26 07:01 | disposition home or self-care (01) ==
LOC: HO.LHD 07:00
PROVIDERS: Visit Provider Internal Medicine
DX: I48.19 Other persistent atrial fibrillation (principal); Z79.01 Long term (current) use of anticoagulants
CPT/HCPCS: 36415; 85610

== ENCOUNTER → 2022-01-01 13:33 | Outpatient (BNVA) | payer MEDICARE, MEDICAID, SELFPAY | PROVIDERS: PCP Internal Medicine; Referring Provider Internal Medicine; Visit Provider Nurse Practitioner Family | DX: I48.20 Chronic atrial fibrillation, unspecified (principal); I34.0 Nonrheumatic mitral (valve) insufficiency; I73.9 Peripheral vascular disease, unspecified; Z79.01 Long term (current) use of anticoagulants | CPT/HCPCS: 99212 ==

== ENCOUNTER 2022-01-02 05:57 | Outpatient (REF) | payer MEDICARE, MEDICAID, SELFPAY ==
[2022-01-02 11:49] LABS: INTERNATIONAL NORM RATIO 2.6 (0.9-1.1); Prothrombin Time 30.8 SEC (10.0-13.1)
== END 2022-01-02 05:58 | disposition home or self-care (01) ==
LOC: HO.LHD 05:57
PROVIDERS: Visit Provider Internal Medicine
DX: I48.19 Other persistent atrial fibrillation (principal); Z79.01 Long term (current) use of anticoagulants
CPT/HCPCS: 36415; 85610

== ENCOUNTER 2022-01-08 09:12 | Inpatient (IN) | payer MEDICARE, MEDICAID, SELFPAY ==
[2022-01-08] VITALS (14 sets, daily range): BP systolic 87–147; BP diastolic 51–88; PULSE 64–160; RESP 15–22; TEMP 35.9–36.6; O2SAT 88–100; BMI 14.8
--- NOTE | ~2022-01-08 | XR_ITS ---
EXAMINATION: XR CHEST CLINICAL INFORMATION: Pneumonia. Difficulty breathing COMPARISON: 10/11/2021 TECHNIQUE: Frontal view of the chest was obtained. FINDINGS: Lungs hyperaerated. Minor bilateral fibrotic changes noted. Lungs grossly clear. Heart size borderline with normal caliber pulmonary vessels. There are advanced degenerative changes in both shoulders. XR/XR chest 1V IMPRESSION: No active disease.
--- NOTE | ~2022-01-08 | XR_ITS ---
EXAMINATION: XR CHEST CLINICAL INFORMATION: SOB. COMPARISON: None TECHNIQUE: Frontal view of the chest was obtained. FINDINGS: The lungs are well-expanded and with patchy opacity right lung base likely from underlying effusion/atelectasis. The heart size is enlarged.. Pulmonary vascularity is slightly increased. No gross bony abnormality seen. XR/XR chest 1V IMPRESSION: Cardiomegaly with right basilar pleural effusion with underlying atelectasis. Suspect mild pulmonary vascular congestion. No change from previous exam 01/16/2022.
--- NOTE | ~2022-01-08 | XR_ITS ---
EXAMINATION: XR CHEST CLINICAL INFORMATION: Shortness of breath. COMPARISON: 01/02/2022 chest radiograph. TECHNIQUE: Frontal view of the chest was obtained. FINDINGS: There are increased pulmonary vascular markings with small bilateral pleural effusions. The heart is enlarged. The mediastinal structures are unremarkable. XR/XR chest 1V IMPRESSION: CHF and small bilateral pleural effusions represents interval worsening from the previous study.
--- NOTE | ~2022-01-08 | XR_ITS ---
EXAMINATION: XR CHEST CLINICAL INFORMATION: Hypoxia COMPARISON: Chest x-ray 01/08/2022. CT of chest 10/11/2021 TECHNIQUE: Frontal portable view of the chest was obtained. 2:23 PM FINDINGS: Heart size is enlarged. Hazy density at both the right and left costophrenic angles consistent with small bilateral pleural effusions. No pulmonary vascular congestion. New focal density in the right lung base medially suggestive of consolidation in right lower lobe, possible pneumonia. XR/XR chest 1V IMPRESSION: Cardiomegaly. Small bilateral pleural effusions. Dense right lung base concerning for pneumonia. No pulmonary vascular congestion.
--- NOTE | ~2022-01-08 | CT_ITS ---
EXAMINATION: CT ABDOMEN AND PELVIS WITH CONTRAST CLINICAL INFORMATION: Vaginal bleeding, hematuria, rectal bleeding COMPARISON: CT chest 10/11/2021, pelvic CT 01/31/2018, CT abdomen pelvis 12/09/2014 TECHNIQUE: Multidetector volumetric images were obtained from the superior aspect of the liver through the pubic symphysis following administration 85 mL of Omnipaque 350 intravenous contrast. Delayed images through the bladder were obtained in both the supine and prone positions. Sagittal and coronal reformatted images were obtained on the technologist's workstation. Oral contrast: No This CT examination was performed using dose optimization techniques as appropriate, variously including the following: *Automated exposure control *Adjustment of mA and/or kV according to patient size (this includes techniques or standardized protocols for targeted exams where dose is matched to indication/reason for exam; i.e. extremities or head) *Use of iterative reconstruction technique DLP: 409 mGy-cm FINDINGS: LUNG BASES: The heart is again noted to be enlarged. No lung masses are seen at the bases. Moderate right-sided pleural effusion is present. No left-sided pleural effusion is present LIVER, GALLBLADDER, AND BILIARY TREE: The liver is normal in size, shape, and attenuation. No focal hepatic lesion or biliary ductal dilatation is present. The gallbladder is unremarkable with no evidence of radiopaque gallstones, gallbladder wall thickening, or obvious pericholecystic inflammatory changes. PANCREAS: Unremarkable. SPLEEN: Unremarkable. ADRENAL GLANDS: Unremarkable. KIDNEYS, URETERS AND BLADDER: A horseshoe kidney is present . There is mild fullness in the renal collecting systems, right greater than left with mild dilatation of the ureters. No renal calculi are seen no renal masses are detected. A large mobile blood clot measuring 9.2 x 6.4 x 7.8 cm is present in the bladder. The bladder otherwise appears unremarkable without definite mucosal lesions. GASTROINTESTINAL TRACT: Diverticular changes are present in the colon without evidence of diverticulitis. No colonic masses are seen. There is no evidence of small bowel obstruction. The appendix is not seen but there is no evidence of appendicitis. ABDOMINAL WALL: No significant hernia is appreciated. LYMPH NODES: No retroperitoneal lymphadenopathy appreciated VASCULAR: Atherosclerotic changes are seen in the aorta and iliofemoral vessels without aneurysm. PELVIC VISCERA: Aside from the abnormal bladder containing clot a worrisome pelvic masses seen. OSSEOUS STRUCTURES: Severe scoliosis with degenerative changes in the spine. There is right lateral listhesis of L4 upon L5 and L3 upon L4 CT/CT abdomen pelvis w IV con IMPRESSION: 1. Large blood clot is seen within the bladder. 2. Other incidental findings include a new right-sided pleural effusion, horseshoe kidney, colonic diverticulosis without diverticulitis, atherosclerotic change and severe scoliosis and degenerative changes in the spine lateral listhesis. Fleischner guidelines were followed.
--- NOTE | 2022-01-08 09:39 | ECG_ITS ---
Test Reason : ON EPIDOSE OF LOW O2 STAT Blood Pressure : / mmHG Vent. Rate : 093 BPM Atrial Rate : 000 BPM P-R Int : 000 ms QRS Dur : 088 ms QT Int : 358 ms P-R-T Axes : 000 047 012 degrees QTc Int : 445 ms Atrial fibrillation with premature ventricular or aberrantly conducted complexes Abnormal ECG When compared with ECG of 11-OCT-2021 17:46, T wave inversion no longer evident in Inferior leads T wave inversion no longer evident in Anterolateral leads Referred By: Yoshi Mata Electronically Signed By:FELISHA GUEVARA
--- NOTE | 2022-01-08 10:10 | ED.GENADULT ---
HPI - General Adult General Chief complaint: Vaginal Bleeding <RADHA Messer - Last Filed: 01/09/22 08:26> Stated complaint: VAGINAL BLEED <RADHA Messer - Last Filed: 01/09/22 08:26> Time Seen by Provider: 01/08/22 09:20 <RADHA Messer - Last Filed: 01/09/22 08:26> Source: patient <RADHA Messer Last Filed: 01/09/22 08:26> Mode of arrival: ambulatory <RADHA Messer - Last Filed: 01/09/22 08:26> Limitations: no limitations <RADHA Messer Last Filed: 01/09/22 08:26> History of Present Illness HPI narrative: 81-year-old female with past medical history of atrial fibrillation, rheumatoid arthritis, peripheral vascular disease, osteomyelitis, Raynaud's phenomena presents to ED for vaginal bleeding. Patient states at 03:00 she went to use the bathroom and realized there was blood in the toilet. Patient states she could urinate but use the bathroom 2. Patient does not remember color stool. Patient states after wiping there was blood. Patient then states without urinating she had burning sensation not able to urine but then bunch of blood in her pad. Patient states history of vaginal bleeding before in the past. Patient is compliant with Coumadin. patient states lower abdominal pain also. <RADHA Messer - Last Filed: 01/09/22 08:26> Related Data Home medications: Previous Rx's Medication Instructions Recorded denosumab 60 mg/mL subcutaneous 60 mg subcut [id number] #1 mL 04/24/21 syringe (Prolia) Transport wheelchair #1 ea 06/05/21 nebulizers #1 ea 06/21/21 commode (bedside commode) #1 ea 08/29/21 walker #1 ea 08/29/21 walker (Ultra-Light Rollator [place]) #1 ea 10/02/21 prednisone 1 mg tablet 2 mg PO DAILY #60 tabs 12/06/21 ascorbate calcium (vitamin C) 500 500 mg PO BID #180 tabs 12/20/21 mg tablet cholecalciferol (vitamin D3) 50 50 mcg PO DAILY #90 caps 12/20/21 mcg (2,000 unit) capsule coenzyme Q10 100 mg capsule (Co 100 mg PO DAILY #90 caps 12/20/21 Q-10) gabapentin 300 mg capsule 300 mg PO TID 30 days #90 caps 12/20/21 levothyroxine 50 mcg tablet 50 mcg PO QAM #90 tabs 12/20/21 metoprolol tartrate 100 mg tablet 100 mg PO BID #180 tabs 12/20/21 pravastatin 20 mg tablet 20 mg PO BEDTIME #90 tabs 12/20/21 vitamin B complex 1 tab PO DAILY #90 tabs 12/20/21 warfarin 5 mg tablet 2.5 mg PO DAILY #90 tabs 12/20/21 rollator walkeer #1 ea 12/21/21 leflunomide 20 mg tablet 20 mg PO DAILY #60 tabs 01/01/22 ondansetron HCl 4 mg tablet 4 mg PO Q8H PRN nausea and 01/02/22 vomiting #30 tabs zonisamide 25 mg capsule 25 mg PO TID #90 caps 01/03/22 <RADHA Messer - Last Filed: 01/09/22 08:26> Allergies/adverse reactions: Allergies Allergy/AdvReac Type Severity Reaction Status Date / Time ibuprofen Allergy hives Verified 01/01/22 13:46 [id number] Allergy injection Verified 01/01/22 13:46 [From Evenity] site reaction erythromycin base AdvReac upset Verified 01/01/22 13:46 stomach diarrhea Aspirin Allergy Intermediate Diff Uncoded 01/01/22 13:46 breathing <RADHA Messer - Last Filed: 01/09/22 08:26> Review of Systems Review of Systems: Vaginal bleeding. Lower abdominal pain. <RADHA Messer - Last Filed: 01/09/22 08:26> Yes all other systems are reviewed and are negative <RADHA Messer - Last Filed: 01/09/22 08:26> [facility] Past Medical History Medical History: Medical History (Updated 01/08/22 @ 23:27 by Michael Berumen MD) Avascular necrosis of right femoral head Bronchiectasis Bunion of great toe of left foot Cellulitis Chronic atrial fibrillation Current use of anticoagulant therapy Essential tremor Infected pressure ulcer Leg ulcer, left Mitral regurgitation Nausea Osteoarthritis Osteomyelitis of right fibula Osteoporosis Persistent atrial fibrillation Pulmonary nodules Sacroiliitis Seropositive rheumatoid arthritis <RADHA Messer - Last Filed: 01/09/22 08:26> Surgical History: Surgical History H/O skin graft History of angioplasty History of appendectomy History of removal of both ovaries History of vascular surgery <RADHA Messer - Last Filed: 01/09/22 08:26> Family History Family History: Family History Father No problems noted. Mother Heart disease <RADHA Messer - Last Filed: 01/09/22 08:26> Social History Social History: Social History Household Members: None Housing: Apartment Are you a primary director long term care to a significant other at home: No Do you presently have visiting nurse or other home services: Yes ([employer] 5 days a week) Alcohol intake: never Patient Tobacco Use Status: Former Tobacco user Tobacco use type: Cigarette Cigarette Packs Per Day: 3 Years Smoked: 23 e-Cigarette/Vaping Use: Never Used Substance Use Type: Painkillers Advance Directives Date on File: 12/07/20 service: No Current occupational status: retired Cognitive needs: No Hearing needs: No Vision needs: Yes <RADHA Messer - Last Filed: 01/09/22 08:26> Physical Exam ED Vital Signs: Vital Signs - 24 hr 01/08/22 09:27 01/08/22 09:34 01/08/22 09:51 Temperature 97.7 F 97.7 F Pulse Rate 106 H 117 H Respiratory Rate 22 H 15 Blood Pressure 129/81 Pulse Oximetry 99 100 98 Oxygen Delivery Method Non-Rebreather Mask Non-Rebreather Mask Room Air Oxygen Flow Rate 10 01/08/22 10:33 01/08/22 12:47 01/08/22 13:45 Temperature 97.9 F 97.8 F 97.8 F Pulse Rate 81 90 64 Respiratory Rate 22 H 20 22 H Blood Pressure 106/51 L 112/61 122/65 Pulse Oximetry 96 98 92 Oxygen Delivery Method Room Air Room Air Room Air Oxygen Flow Rate 01/08/22 19:25 01/08/22 19:48 01/08/22 20:18 Temperature Pulse Rate 146 H 136 H Respiratory Rate 20 21 H Blood Pressure 97/70 137/59 L Pulse Oximetry 90 L Oxygen Delivery Method Room Air Oxygen Flow Rate 6 01/08/22 21:29 01/08/22 21:45 01/08/22 21:58 Temperature Pulse Rate 131 H 160 H 150 H Respiratory Rate 22 H 20 22 H Blood Pressure 129/51 L 99/77 87/57 L Pulse Oximetry Oxygen Delivery Method Oxygen Flow Rate 01/08/22 22:02 01/08/22 22:24 Temperature 96.7 F L Pulse Rate 145 H 140 H Respiratory Rate 21 H 19 Blood Pressure 130/68 147/66 H Pulse Oximetry Oxygen Delivery Method Oxygen Flow Rate BMI result Body Mass Index 14.8 <RADHA Messer - Last Filed: 01/09/22 08:26> Vital Signs - 24 hr 01/08/22 09:27 01/08/22 09:34 01/08/22 09:51 Temperature 97.7 F 97.7 F Pulse Rate 106 H 117 H Respiratory Rate 22 H 15 Blood Pressure 129/81 Pulse Oximetry 99 100 98 Oxygen Delivery Method Non-Rebreather Mask Non-Rebreather Mask Room Air Oxygen Flow Rate 10 01/08/22 10:33 01/08/22 12:47 01/08/22 13:45 Temperature 97.9 F 97.8 F 97.8 F Pulse Rate 81 90 64 Respiratory Rate 22 H 20 22 H Blood Pressure 106/51 L 112/61 122/65 Pulse Oximetry 96 98 92 Oxygen Delivery Method Room Air Room Air Room Air Oxygen Flow Rate 01/08/22 19:25 01/08/22 19:48 01/08/22 20:18 Temperature Pulse Rate 146 H 136 H Respiratory Rate 20 21 H Blood Pressure 97/70 137/59 L Pulse Oximetry 90 L Oxygen Delivery Method Room Air Oxygen Flow Rate 6 01/08/22 21:29 01/08/22 21:45 01/08/22 21:58 Temperature Pulse Rate 131 H 160 H 150 H Respiratory Rate 22 H 20 22 H Blood Pressure 129/51 L 99/77 87/57 L Pulse Oximetry Oxygen Delivery Method Oxygen Flow Rate 01/08/22 22:02 01/08/22 22:24 Temperature 96.7 F L Pulse Rate 145 H 140 H Respiratory Rate 21 H 19 Blood Pressure 130/68 147/66 H Pulse Oximetry Oxygen Delivery Method Oxygen Flow Rate BMI result Body Mass Index 14.8 <Ana Mueller MD - Last Filed: 01/08/22 23:34> Const General: cooperative, healthy appearing, comfortable, no acute distress, well developed, alert, awake and Physically active <RADHA Messer Last Filed: 01/09/22 08:26> Orientation/consciousness: patient oriented x3 <RADHA Messer Last Filed: 01/09/22 08:26> HENMT Head: Yes normal to inspection, Yes No palpable skull fracture present, Yes normocephalic, Yes atraumatic and No abrasion <RADHA Messer Last Filed: 01/09/22 08:26> Eyes General: appearance normal, both eyes and all related structures <RADHA Messer Last Filed: 01/09/22 08:26> Neck Neck: Yes normal visual inspection, Yes full ROM, Yes no lymphadenopathy, Yes no meningeal signs, Yes trachea midline, Yes supple, No anterior neck swelling and No tender <RADHA Messer Last Filed: 01/09/22 08:26> Chest Chest palpation & inspection: normal inspection of the chest and normal palpation of entire chest wall <RADHA Messer Last Filed: 01/09/22 08:26> Resp Effort & Inspection: normal respiratory effort and able to speak in complete sentences <RADHA Messer Last Filed: 01/09/22 08:26> Auscultation: clear to auscultation bilaterally <RADHA Messer Last Filed: 01/09/22 08:26> Cardio Jugular venous distension: no JVD <RADHA Messer Last Filed: 01/09/22 08:26> Heart sounds: S1 normal heart sound present and S2 normal heart sound present <RADHA Messer Last Filed: 01/09/22 08:26> GI Other: REctal exam: stool is brown. Negative for black stool or melena. Negative for cristela blood <RADHA Messer Last Filed: 01/09/22 08:26> Inspection: Yes normal to inspection and No abdominal wall ecchymosis <RADHA Messer Last Filed: 01/09/22 08:26> Palpation (GI): Soft to palpation, not firm, Tenderness to palpation present (GI) in the LLQ and in the RLQ, no guarding and not rigid <RADHA Messer Last Filed: 01/09/22 08:26> Other: Positive for vaginal bleeding. Positive for blood in vaginal vault. Patient not able to tolerate speculums only manual exam was done <RADHA Messer Last Filed: 01/09/22 08:26> General: No CVA tenderness and Yes no CVA tenderness <RADHA Messer Last Filed: 01/09/22 08:26> Back/Spine/Pelvis Back: no CVA tenderness, No CVA tenderness and No back tenderness <RADHA Messer Last Filed: 01/09/22 08:26> Skin General skin exam: no rashes or lesions noted, elasticity normal, turgor normal and no atrophy <RADHA Messer Last Filed: 01/09/22 08:26> Neuro General: patient oriented x3, gait normal, no meningeal signs and CN's II-XI intact bilaterally <RADHA Messer Last Filed: 01/09/22 08:26> Cranial nerves: Yes CN's II-XII intact bilaterally <RADHA Messer Last Filed: 01/09/22 08:26> Extrem General: Yes normal to inspection and Yes full ROM <RADHA Messer Last Filed: 01/09/22 08:26> Psych Appearance: grossly normal, well kempt and not disheveled <RADHA Messer Last Filed: 01/09/22 08:26> Course Course Course Narrative: Due to patient being on Coumadin will check for coags to make sure her INR is not elevated. Occult stool ordered. CBC ordered. On room air O2 saturation 98%. Troponin was ordered due to EMS stating O2 sat was 88% on room air on ambulance but patient has severe arthritis and raynaud which can cause false hypoxia. Patient not in respiratory distress. Lungs are clear. Patient most likely will get abdominal CT scan imaging. <RADHA Messer Last Filed: 01/09/22 08:26> Reevaluation(s) Reevaluation #1: CBC shows drop in hemoglobin/hematocrit since November. Urine also shows blood. Co stool guaiac positive. Patient's INR 3. Platelets normal. CT scan ordered to see there is any cancer occurring. Patient may need at least 1 unit of blood. Blood pressure so far is stable. Patient is sleeping comfortably in bed. <RADHA Messer - Last Filed: 01/09/22> Time: 12:53 <RADHA Messer - Last Filed: 01/09/22 08:26> Reevaluation #2: Want to discuss case with patient concerning possibility of giving her blood. Patient states she is a Jehovah Witness and does not take blood. She will take blood cells to search as normal saline and lactated Ringer's. If those do not not work than last resort is dextran. Patient is also a DNR/DNI. patient had two bracelets on right wrist with one stating DNR and other with substitues instead of blood. <RADHA Messer - Last Filed: 01/09/22> Time: 13:39 <RADHA Messer - Last Filed: 01/09/22 08:26> Reevaluation #3: Case discussed with Dr. Moore of urology and he states patient should be admitted to the hospital. He is agreeable with plan for CBI and three way nicholas. Case discussed with heme oncologist on-call Dr. Dill recommends patient be started on vitamin K and also could receive venofer 200mg daily. FFP was brought up to patient and she states that is considered a broad product so she refused due to her zoroastrianism. <RADHA Messer Last Filed: 01/09/22> Time: 18:11 <RADHA Messer Last Filed: 01/09/22 08:26> Additional Reevaluation(s): 8374: I discussed this case with Dr. Moore after patient was noted to be clinically declining with heart rate in the 160s and persistent hypotension with evidence of continued bleeding. Patient has already received vitamin K as well as IV iron and 2 L of normal saline. Dr. Moore agrees that it is worthwhile to try TXA as he has used it previously in this scenario and recommends a 1000 IV. 2215: I conducted a pelvic exam with speculum with finisher wallboard and plasterboard, nurse Mims, and active bleeding is absolutely noted to be from the urethra. On review of patient's underlying conditions it is felt that the low blood pressure that is intermittently seen may be secondary to patient's atrial fibrillation with RVR. Will repeat the H&H prior to administering TXA. At this time patient's blood pressure has significantly improved and will not start phenylephrine. 2311: H&H does demonstrate a 2 g drop, CBI has been started, blood pressure remained stable, but will proceed with administering TXA. No phenylephrine at this time. 2333: Documenting 30 minutes of critical care time for consultation with specialists, management of atrial fibrillation with RVR, acute blood loss. <Ana Mueller MD - Last Filed: 01/08/22 23:34> Medical Decision Making MDM Narrative Medical decision making narrative: Hematuria. Blood clot in bladder <RADHA Messer - Last Filed: 01/09/22 08:26> Lab Data Result diagrams: : 01/09/22 04:47 01/09/22 04:47 <RADHA Messer - Last Filed: 01/09/22 08:26> Labs: Lab Results 01/08/22 01/08/22 01/08/22 Range/Units 10:08 10:08 10:09 WBC 7.8 (4.8-10.8) X10*3/uL RBC 3.03 L D (4.20-5.50) X10*6/uL Hgb 10.5 L D (12.0-16.0) g/dl Hct 33.7 L (37.0-47.0) % MCV 111.2 H (80.0-98.0) fL MCH 34.7 H (27.0-33.0) pg MCHC 31.2 (31.0-35.0) g/dl RDW 16.3 H (11.0-16.0) % Plt Count 178 (160-400) X10*3/uL MPV 12.0 (9.4-12.3) fL Immature Gran % (Auto) 0.4 (0.0-0.4) % Neut % (Auto) 77.8 H (45-73) % Lymph % (Auto) 9.4 L (20-40) % Vance % (Auto) 9.9 (2-11) % Eos % (Auto) 1.5 (0-4) % Baso % (Auto) 1.0 (0-2) % Lymph # (Auto) 0.7 L (1.2-4.9) X10*3/uL Vance # (Auto) 0.8 (0.1-1.2) X10*3/uL Eos # (Auto) 0.1 (0.0-0.4) X10*3/uL Baso # (Auto) 0.1 (0.0-0.2) X10*3/uL Abs Immat Gran (auto) 0.03 (0.00-0.03) X10*3/uL Absolute Neuts (auto) 6.1 (2.0-8.3) x10*3/uL Absolute Nucleated RBC 0.000 (0.0-0.012) X10*3/uL Nucleated RBC % (auto) 0.0 (0.0-0.2) /100WBC Smear Path Review Cancelled PT 37.8 H (10.0-13.1) SEC INR 3.1 H (0.9-1.1) APTT 45.4 H (26.0-36.4) SEC Sodium (135-145) mmol/L Potassium (3.3-5.1) mmol/L Chloride (96-108) mmol/L Carbon Dioxide (22-29) mmol/L Anion Gap (12-20) BUN (9-16) mg/dL Creatinine (0.5-1.4) mg/dL Estim Creat Clear Calc Estimated GFR Random Glucose (60-115) mg/dL Lactic Acid (0.5-2.0) mmol/L Calcium (8.4-10.2) mg/dL Total Bilirubin (0.0-1.0) mg/dL AST (5-31) U/L ALT (0-31) U/L Alkaline Phosphatase (39-117) U/L Troponin I High Sens 14.5 (<3.5-17.0) ng/L B-Natriuretic Peptide 892 H (<100) pg/mL Total Protein (6.5-8.0) g/dL Albumin (3.5-5.0) g/dL Urine Color Urine Appearance Urine pH (5.0-9.0) Ur Specific Crosby (1.005-1.025) Urine Protein (Neg-Trace) mg/dL Urine Glucose (UA) (Negative) mg/dL Urine Ketones (Negative) mg/dL Urine Blood (Negative) Urine Nitrite (Negative) Ur Leukocyte Esterase (Negative) Urine RBC (0-2) /HPF Urine WBC (0-5) /HPF Ur Squamous Epith Cells (0-2) /HPF Urine Bacteria (None Seen) Hyaline Casts (0-2) /LPF Stool Occult Blood (NEGATIVE) COVID-19 (TRISTIN) (Negative) COVID-19 Clin Com Blood Type Antibody Screen 01/08/22 01/08/22 01/08/22 Range/Units 10:09 10:12 11:29 WBC (4.8-10.8) X10*3/uL RBC (4.20-5.50) X10*6/uL Hgb (12.0-16.0) g/dl Hct (37.0-47.0) % MCV (80.0-98.0) fL MCH (27.0-33.0) pg MCHC (31.0-35.0) g/dl RDW (11.0-16.0) % Plt Count (160-400) X10*3/uL MPV (9.4-12.3) fL Immature Gran % (Auto) (0.0-0.4) % Neut % (Auto) (45-73) % Lymph % (Auto) (20-40) % Vance % (Auto) (2-11) % Eos % (Auto) (0-4) % Baso % (Auto) (0-2) % Lymph # (Auto) (1.2-4.9) X10*3/uL Vance # (Auto) (0.1-1.2) X10*3/uL Eos # (Auto) (0.0-0.4) X10*3/uL Baso # (Auto) (0.0-0.2) X10*3/uL Abs Immat Gran (auto) (0.00-0.03) X10*3/uL Absolute Neuts (auto) (2.0-8.3) x10*3/uL Absolute Nucleated RBC (0.0-0.012) X10*3/uL Nucleated RBC % (auto) (0.0-0.2) /100WBC Smear Path Review PT (10.0-13.1) SEC INR (0.9-1.1) APTT (26.0-36.4) SEC Sodium 143 (135-145) mmol/L Potassium 4.1 (3.3-5.1) mmol/L Chloride 110 H (96-108) mmol/L Carbon Dioxide 22 (22-29) mmol/L Anion Gap 15 (12-20) BUN 25 H (9-16) mg/dL Creatinine 0.77 (0.5-1.4) mg/dL Estim Creat Clear Calc 37.7 Estimated GFR > 60 Random Glucose 101 (60-115) mg/dL Lactic Acid (0.5-2.0) mmol/L Calcium 9.3 (8.4-10.2) mg/dL Total Bilirubin 0.7 (0.0-1.0) mg/dL AST 36 H (5-31) U/L ALT 31 (0-31) U/L Alkaline Phosphatase 80 D (39-117) U/L Troponin I High Sens (<3.5-17.0) ng/L B-Natriuretic Peptide (<100) pg/mL Total Protein 6.4 L (6.5-8.0) g/dL Albumin 4.2 (3.5-5.0) g/dL Urine Color Urine Appearance Urine pH (5.0-9.0) Ur Specific Crosby (1.005-1.025) Urine Protein (Neg-Trace) mg/dL Urine Glucose (UA) (Negative) mg/dL Urine Ketones (Negative) mg/dL Urine Blood (Negative) Urine Nitrite (Negative) Ur Leukocyte Esterase (Negative) Urine RBC (0-2) /HPF Urine WBC (0-5) /HPF Ur Squamous Epith Cells (0-2) /HPF Urine Bacteria (None Seen) Hyaline Casts (0-2) /LPF Stool Occult Blood POSITIVE (NEGATIVE) COVID-19 (TRISTIN) Negative (Negative) COVID-19 Clin Com See Note Blood Type Antibody Screen 01/08/22 01/08/22 01/08/22 Range/Units 11:29 11:42 14:19 WBC 7.5 (4.8-10.8) X10*3/uL RBC 2.99 L (4.20-5.50) X10*6/uL Hgb 10.5 L (12.0-16.0) g/dl Hct 33.4 L (37.0-47.0) % MCV 111.7 H (80.0-98.0) fL MCH 35.1 H (27.0-33.0) pg MCHC 31.4 (31.0-35.0) g/dl RDW 16.3 H (11.0-16.0) % Plt Count 186 (160-400) X10*3/uL MPV 12.4 H (9.4-12.3) fL Immature Gran % (Auto) 0.5 H (0.0-0.4) % Neut % (Auto) 83.4 H (45-73) % Lymph % (Auto) 7.5 L (20-40) % Vance % (Auto) 7.0 (2-11) % Eos % (Auto) 0.5 (0-4) % Baso % (Auto) 1.1 (0-2) % Lymph # (Auto) 0.6 L (1.2-4.9) X10*3/uL Vance # (Auto) 0.5 (0.1-1.2) X10*3/uL Eos # (Auto) 0.0 (0.0-0.4) X10*3/uL Baso # (Auto) 0.1 (0.0-0.2) X10*3/uL Abs Immat Gran (auto) 0.04 H (0.00-0.03) X10*3/uL Absolute Neuts (auto) 6.2 (2.0-8.3) x10*3/uL Absolute Nucleated RBC 0.000 (0.0-0.012) X10*3/uL Nucleated RBC % (auto) 0.0 (0.0-0.2) /100WBC Smear Path Review PT (10.0-13.1) SEC INR (0.9-1.1) APTT (26.0-36.4) SEC Sodium (135-145) mmol/L Potassium (3.3-5.1) mmol/L Chloride (96-108) mmol/L Carbon Dioxide (22-29) mmol/L Anion Gap (12-20) BUN (9-16) mg/dL Creatinine (0.5-1.4) mg/dL Estim Creat Clear Calc Estimated GFR Random Glucose (60-115) mg/dL Lactic Acid (0.5-2.0) mmol/L Calcium (8.4-10.2) mg/dL Total Bilirubin (0.0-1.0) mg/dL AST (5-31) U/L ALT (0-31) U/L Alkaline Phosphatase (39-117) U/L Troponin I High Sens (<3.5-17.0) ng/L B-Natriuretic Peptide (<100) pg/mL Total Protein (6.5-8.0) g/dL Albumin (3.5-5.0) g/dL Urine Color Red A Urine Appearance Turbid Urine pH 7.0 (5.0-9.0) Ur Specific Crosby 1.025 (1.005-1.025) Urine Protein 300 (3+) H (Neg-Trace) mg/dL Urine Glucose (UA) 100 H (Negative) mg/dL Urine Ketones Negative (Negative) mg/dL Urine Blood Large (3+) H (Negative) Urine Nitrite Positive H (Negative) Ur Leukocyte Esterase Negative (Negative) Urine RBC >20 H (0-2) /HPF Urine WBC 0-5 (0-5) /HPF Ur Squamous Epith Cells 0-2 (0-2) /HPF Urine Bacteria None Seen (None Seen) Hyaline Casts 0-2 (0-2) /LPF Stool Occult Blood (NEGATIVE) COVID-19 (TRISTIN) (Negative) COVID-19 Clin Com Blood Type O Positive Antibody Screen NEGATIVE 01/08/22 01/08/22 01/08/22 Range/Units 14:19 14:19 19:41 WBC 8.9 (4.8-10.8) X10*3/uL RBC 2.96 L (4.20-5.50) X10*6/uL Hgb 10.4 L (12.0-16.0) g/dl Hct 32.6 L (37.0-47.0) % MCV 110.1 H (80.0-98.0) fL MCH 35.1 H (27.0-33.0) pg MCHC 31.9 (31.0-35.0) g/dl RDW 16.3 H (11.0-16.0) % Plt Count 200 (160-400) X10*3/uL MPV 12.0 (9.4-12.3) fL Immature Gran % (Auto) 0.6 H (0.0-0.4) % Neut % (Auto) 75.8 H (45-73) % Lymph % (Auto) 11.7 L (20-40) % Vance % (Auto) 10.7 (2-11) % Eos % (Auto) 0.2 (0-4) % Baso % (Auto) 1.0 (0-2) % Lymph # (Auto) 1.0 L (1.2-4.9) X10*3/uL Vance # (Auto) 1.0 (0.1-1.2) X10*3/uL Eos # (Auto) 0.0 (0.0-0.4) X10*3/uL Baso # (Auto) 0.1 (0.0-0.2) X10*3/uL Abs Immat Gran (auto) 0.05 H (0.00-0.03) X10*3/uL Absolute Neuts (auto) 6.7 (2.0-8.3) x10*3/uL Absolute Nucleated RBC 0.000 (0.0-0.012) X10*3/uL Nucleated RBC % (auto) 0.0 (0.0-0.2) /100WBC Smear Path Review PT (10.0-13.1) SEC INR (0.9-1.1) APTT (26.0-36.4) SEC Sodium (135-145) mmol/L Potassium (3.3-5.1) mmol/L Chloride (96-108) mmol/L Carbon Dioxide (22-29) mmol/L Anion Gap (12-20) BUN (9-16) mg/dL Creatinine (0.5-1.4) mg/dL Estim Creat Clear Calc Estimated GFR Random Glucose (60-115) mg/dL Lactic Acid 1.9 (0.5-2.0) mmol/L Calcium (8.4-10.2) mg/dL Total Bilirubin (0.0-1.0) mg/dL AST (5-31) U/L ALT (0-31) U/L Alkaline Phosphatase (39-117) U/L Troponin I High Sens 12.9 (<3.5-17.0) ng/L B-Natriuretic Peptide (<100) pg/mL Total Protein (6.5-8.0) g/dL Albumin (3.5-5.0) g/dL Urine Color Urine Appearance Urine pH (5.0-9.0) Ur Specific Crosby (1.005-1.025) Urine Protein (Neg-Trace) mg/dL Urine Glucose (UA) (Negative) mg/dL Urine Ketones (Negative) mg/dL Urine Blood (Negative) Urine Nitrite (Negative) Ur Leukocyte Esterase (Negative) Urine RBC (0-2) /HPF Urine WBC (0-5) /HPF Ur Squamous Epith Cells (0-2) /HPF Urine Bacteria (None Seen) Hyaline Casts (0-2) /LPF Stool Occult Blood (NEGATIVE) COVID-19 (TRISTIN) (Negative) COVID-19 Clin Com Blood Type Antibody Screen 01/08/22 Range/Units 22:24 WBC 10.8 (4.8-10.8) X10*3/uL RBC 2.44 L (4.20-5.50) X10*6/uL Hgb 8.6 L (12.0-16.0) g/dl Hct 27.3 L (37.0-47.0) % MCV 111.9 H (80.0-98.0) fL MCH 35.2 H (27.0-33.0) pg MCHC 31.5 (31.0-35.0) g/dl RDW 16.3 H (11.0-16.0) % Plt Count 166 (160-400) X10*3/uL MPV 12.0 (9.4-12.3) fL Immature Gran % (Auto) (0.0-0.4) % Neut % (Auto) (45-73) % Lymph % (Auto) (20-40) % Vance % (Auto) (2-11) % Eos % (Auto) (0-4) % Baso % (Auto) (0-2) % Lymph # (Auto) (1.2-4.9) X10*3/uL Vance # (Auto) (0.1-1.2) X10*3/uL Eos # (Auto) (0.0-0.4) X10*3/uL Baso # (Auto) (0.0-0.2) X10*3/uL Abs Immat Gran (auto) (0.00-0.03) X10*3/uL Absolute Neuts (auto) (2.0-8.3) x10*3/uL Absolute Nucleated RBC 0.000 (0.0-0.012) X10*3/uL Nucleated RBC % (auto) 0.0 (0.0-0.2) /100WBC Smear Path Review PT (10.0-13.1) SEC INR (0.9-1.1) APTT (26.0-36.4) SEC Sodium (135-145) mmol/L Potassium (3.3-5.1) mmol/L Chloride (96-108) mmol/L Carbon Dioxide (22-29) mmol/L Anion Gap (12-20) BUN (9-16) mg/dL Creatinine (0.5-1.4) mg/dL Estim Creat Clear Calc Estimated GFR Random Glucose (60-115) mg/dL Lactic Acid (0.5-2.0) mmol/L Calcium (8.4-10.2) mg/dL Total Bilirubin (0.0-1.0) mg/dL AST (5-31) U/L ALT (0-31) U/L Alkaline Phosphatase (39-117) U/L Troponin I High Sens (<3.5-17.0) ng/L B-Natriuretic Peptide (<100) pg/mL Total Protein (6.5-8.0) g/dL Albumin (3.5-5.0) g/dL Urine Color Urine Appearance Urine pH (5.0-9.0) Ur Specific Crosby (1.005-1.025) Urine Protein (Neg-Trace) mg/dL Urine Glucose (UA) (Negative) mg/dL Urine Ketones (Negative) mg/dL Urine Blood (Negative) Urine Nitrite (Negative) Ur Leukocyte Esterase (Negative) Urine RBC (0-2) /HPF Urine WBC (0-5) /HPF Ur Squamous Epith Cells (0-2) /HPF Urine Bacteria (None Seen) Hyaline Casts (0-2) /LPF Stool Occult Blood (NEGATIVE) COVID-19 (TRISTIN) (Negative) COVID-19 Clin Com Blood Type Antibody Screen <RADHA Messer - Last Filed: 01/09/22 08:26> Lab Results 01/08/22 01/08/22 01/08/22 Range/Units 10:08 10:08 10:09 WBC 7.8 (4.8-10.8) X10*3/uL RBC 3.03 L D (4.20-5.50) X10*6/uL Hgb 10.5 L D (12.0-16.0) g/dl Hct 33.7 L (37.0-47.0) % MCV 111.2 H (80.0-98.0) fL MCH 34.7 H (27.0-33.0) pg MCHC 31.2 (31.0-35.0) g/dl RDW 16.3 H (11.0-16.0) % Plt Count 178 (160-400) X10*3/uL MPV 12.0 (9.4-12.3) fL Immature Gran % (Auto) 0.4 (0.0-0.4) % Neut % (Auto) 77.8 H (45-73) % Lymph % (Auto) 9.4 L (20-40) % Vance % (Auto) 9.9 (2-11) % Eos % (Auto) 1.5 (0-4) % Baso % (Auto) 1.0 (0-2) % Lymph # (Auto) 0.7 L (1.2-4.9) X10*3/uL Vance # (Auto) 0.8 (0.1-1.2) X10*3/uL Eos # (Auto) 0.1 (0.0-0.4) X10*3/uL Baso # (Auto) 0.1 (0.0-0.2) X10*3/uL Abs Immat Gran (auto) 0.03 (0.00-0.03) X10*3/uL Absolute Neuts (auto) 6.1 (2.0-8.3) x10*3/uL Absolute Nucleated RBC 0.000 (0.0-0.012) X10*3/uL Nucleated RBC % (auto) 0.0 (0.0-0.2) /100WBC Smear Path Review Cancelled PT 37.8 H (10.0-13.1) SEC INR 3.1 H (0.9-1.1) APTT 45.4 H (26.0-36.4) SEC Sodium (135-145) mmol/L Potassium (3.3-5.1) mmol/L Chloride (96-108) mmol/L Carbon Dioxide (22-29) mmol/L Anion Gap (12-20) BUN (9-16) mg/dL Creatinine (0.5-1.4) mg/dL Estim Creat Clear Calc Estimated GFR Random Glucose (60-115) mg/dL Lactic Acid (0.5-2.0) mmol/L Calcium (8.4-10.2) mg/dL Total Bilirubin (0.0-1.0) mg/dL AST (5-31) U/L ALT (0-31) U/L Alkaline Phosphatase (39-117) U/L Troponin I High Sens 14.5 (<3.5-17.0) ng/L B-Natriuretic Peptide 892 H (<100) pg/mL Total Protein (6.5-8.0) g/dL Albumin (3.5-5.0) g/dL Urine Color Urine Appearance Urine pH (5.0-9.0) Ur Specific [place] (1.005-1.025) Urine Protein (Neg-Trace) mg/dL Urine Glucose (UA) (Negative) mg/dL Urine Ketones (Negative) mg/dL Urine Blood (Negative) Urine Nitrite (Negative) Ur Leukocyte Esterase (Negative) Urine RBC (0-2) /HPF Urine WBC (0-5) /HPF Ur Squamous Epith Cells (0-2) /HPF Urine Bacteria (None Seen) Hyaline Casts (0-2) /LPF Stool Occult Blood (NEGATIVE) COVID-19 (TRISTIN) (Negative) COVID-19 Clin Com Blood Type Antibody Screen 01/08/22 01/08/22 01/08/22 Range/Units 10:09 10:12 11:29 WBC (4.8-10.8) X10*3/uL RBC (4.20-5.50) X10*6/uL Hgb (12.0-16.0) g/dl Hct (37.0-47.0) % MCV (80.0-98.0) fL MCH (27.0-33.0) pg MCHC (31.0-35.0) g/dl RDW (11.0-16.0) % Plt Count (160-400) X10*3/uL MPV (9.4-12.3) fL Immature Gran % (Auto) (0.0-0.4) % Neut % (Auto) (45-73) % Lymph % (Auto) (20-40) % Vance % (Auto) (2-11) % Eos % (Auto) (0-4) % Baso % (Auto) (0-2) % Lymph # (Auto) (1.2-4.9) X10*3/uL Vance # (Auto) (0.1-1.2) X10*3/uL Eos # (Auto) (0.0-0.4) X10*3/uL Baso # (Auto) (0.0-0.2) X10*3/uL Abs Immat Gran (auto) (0.00-0.03) X10*3/uL Absolute Neuts (auto) (2.0-8.3) x10*3/uL Absolute Nucleated RBC (0.0-0.012) X10*3/uL Nucleated RBC % (auto) (0.0-0.2) /100WBC Smear Path Review PT (10.0-13.1) SEC INR (0.9-1.1) APTT (26.0-36.4) SEC Sodium 143 (135-145) mmol/L Potassium 4.1 (3.3-5.1) mmol/L Chloride 110 H (96-108) mmol/L Carbon Dioxide 22 (22-29) mmol/L Anion Gap 15 (12-20) BUN 25 H (9-16) mg/dL Creatinine 0.77 (0.5-1.4) mg/dL Estim Creat Clear Calc 37.7 Estimated GFR > 60 Random Glucose 101 (60-115) mg/dL Lactic Acid (0.5-2.0) mmol/L Calcium 9.3 (8.4-10.2) mg/dL Total Bilirubin 0.7 (0.0-1.0) mg/dL AST 36 H (5-31) U/L ALT 31 (0-31) U/L Alkaline Phosphatase 80 D (39-117) U/L Troponin I High Sens (<3.5-17.0) ng/L B-Natriuretic Peptide (<100) pg/mL Total Protein 6.4 L (6.5-8.0) g/dL Albumin 4.2 (3.5-5.0) g/dL Urine Color Urine Appearance Urine pH (5.0-9.0) Ur Specific [place] (1.005-1.025) Urine Protein (Neg-Trace) mg/dL Urine Glucose (UA) (Negative) mg/dL Urine Ketones (Negative) mg/dL Urine Blood (Negative) Urine Nitrite (Negative) Ur Leukocyte Esterase (Negative) Urine RBC (0-2) /HPF Urine WBC (0-5) /HPF Ur Squamous Epith Cells (0-2) /HPF Urine Bacteria (None Seen) Hyaline Casts (0-2) /LPF Stool Occult Blood POSITIVE (NEGATIVE) COVID-19 (TRISTIN) Negative (Negative) COVID-19 Clin Com See Note Blood Type Antibody Screen 01/08/22 01/08/22 01/08/22 Range/Units 11:29 11:42 14:19 WBC 7.5 (4.8-10.8) X10*3/uL RBC 2.99 L (4.20-5.50) X10*6/uL Hgb 10.5 L (12.0-16.0) g/dl Hct 33.4 L (37.0-47.0) % MCV 111.7 H (80.0-98.0) fL MCH 35.1 H (27.0-33.0) pg MCHC 31.4 (31.0-35.0) g/dl RDW 16.3 H (11.0-16.0) % Plt Count 186 (160-400) X10*3/uL MPV 12.4 H (9.4-12.3) fL Immature Gran % (Auto) 0.5 H (0.0-0.4) % Neut % (Auto) 83.4 H (45-73) % Lymph % (Auto) 7.5 L (20-40) % Vance % (Auto) 7.0 (2-11) % Eos % (Auto) 0.5 (0-4) % Baso % (Auto) 1.1 (0-2) % Lymph # (Auto) 0.6 L (1.2-4.9) X10*3/uL [place] # (Auto) 0.5 (0.1-1.2) X10*3/uL Eos # (Auto) 0.0 (0.0-0.4) X10*3/uL Baso # (Auto) 0.1 (0.0-0.2) X10*3/uL Abs Immat Gran (auto) 0.04 H (0.00-0.03) X10*3/uL Absolute Neuts (auto) 6.2 (2.0-8.3) x10*3/uL Absolute Nucleated RBC 0.000 (0.0-0.012) X10*3/uL Nucleated RBC % (auto) 0.0 (0.0-0.2) /100WBC Smear Path Review PT (10.0-13.1) SEC INR (0.9-1.1) APTT (26.0-36.4) SEC Sodium (135-145) mmol/L Potassium (3.3-5.1) mmol/L Chloride (96-108) mmol/L Carbon Dioxide (22-29) mmol/L Anion Gap (12-20) BUN (9-16) mg/dL Creatinine (0.5-1.4) mg/dL Estim Creat Clear Calc Estimated GFR Random Glucose (60-115) mg/dL Lactic Acid (0.5-2.0) mmol/L Calcium (8.4-10.2) mg/dL Total Bilirubin (0.0-1.0) mg/dL AST (5-31) U/L ALT (0-31) U/L Alkaline Phosphatase (39-117) U/L Troponin I High Sens (<3.5-17.0) ng/L B-Natriuretic Peptide (<100) pg/mL Total Protein (6.5-8.0) g/dL Albumin (3.5-5.0) g/dL Urine Color Red A Urine Appearance Turbid Urine pH 7.0 (5.0-9.0) Ur Specific [place] 1.025 (1.005-1.025) Urine Protein 300 (3+) H (Neg-Trace) mg/dL Urine Glucose (UA) 100 H (Negative) mg/dL Urine Ketones Negative (Negative) mg/dL Urine Blood Large (3+) H (Negative) Urine Nitrite Positive H (Negative) Ur Leukocyte Esterase Negative (Negative) Urine RBC >20 H (0-2) /HPF Urine WBC 0-5 (0-5) /HPF Ur Squamous Epith Cells 0-2 (0-2) /HPF Urine Bacteria None Seen (None Seen) Hyaline Casts 0-2 (0-2) /LPF Stool Occult Blood (NEGATIVE) COVID-19 (TRISTIN) (Negative) COVID-19 Clin Com Blood Type O Positive Antibody Screen NEGATIVE 01/08/22 01/08/22 01/08/22 Range/Units 14:19 14:19 19:41 WBC 8.9 (4.8-10.8) X10*3/uL RBC 2.96 L (4.20-5.50) X10*6/uL Hgb 10.4 L (12.0-16.0) g/dl Hct 32.6 L (37.0-47.0) % MCV 110.1 H (80.0-98.0) fL MCH 35.1 H (27.0-33.0) pg MCHC 31.9 (31.0-35.0) g/dl RDW 16.3 H (11.0-16.0) % Plt Count 200 (160-400) X10*3/uL MPV 12.0 (9.4-12.3) fL Immature Gran % (Auto) 0.6 H (0.0-0.4) % Neut % (Auto) 75.8 H (45-73) % Lymph % (Auto) 11.7 L (20-40) % Vance % (Auto) 10.7 (2-11) % Eos % (Auto) 0.2 (0-4) % Baso % (Auto) 1.0 (0-2) % Lymph # (Auto) 1.0 L (1.2-4.9) X10*3/uL Vance # (Auto) 1.0 (0.1-1.2) X10*3/uL Eos # (Auto) 0.0 (0.0-0.4) X10*3/uL Baso # (Auto) 0.1 (0.0-0.2) X10*3/uL Abs Immat Gran (auto) 0.05 H (0.00-0.03) X10*3/uL Absolute Neuts (auto) 6.7 (2.0-8.3) x10*3/uL Absolute Nucleated RBC 0.000 (0.0-0.012) X10*3/uL Nucleated RBC % (auto) 0.0 (0.0-0.2) /100WBC Smear Path Review PT (10.0-13.1) SEC INR (0.9-1.1) APTT (26.0-36.4) SEC Sodium (135-145) mmol/L Potassium (3.3-5.1) mmol/L Chloride (96-108) mmol/L Carbon Dioxide (22-29) mmol/L Anion Gap (12-20) BUN (9-16) mg/dL Creatinine (0.5-1.4) mg/dL Estim Creat Clear Calc Estimated GFR Random Glucose (60-115) mg/dL Lactic Acid 1.9 (0.5-2.0) mmol/L Calcium (8.4-10.2) mg/dL Total Bilirubin (0.0-1.0) mg/dL AST (5-31) U/L ALT (0-31) U/L Alkaline Phosphatase (39-117) U/L Troponin I High Sens 12.9 (<3.5-17.0) ng/L B-Natriuretic Peptide (<100) pg/mL Total Protein (6.5-8.0) g/dL Albumin (3.5-5.0) g/dL Urine Color Urine Appearance Urine pH (5.0-9.0) Ur Specific [place] (1.005-1.025) Urine Protein (Neg-Trace) mg/dL Urine Glucose (UA) (Negative) mg/dL Urine Ketones (Negative) mg/dL Urine Blood (Negative) Urine Nitrite (Negative) Ur Leukocyte Esterase (Negative) Urine RBC (0-2) /HPF Urine WBC (0-5) /HPF Ur Squamous Epith Cells (0-2) /HPF Urine Bacteria (None Seen) Hyaline Casts (0-2) /LPF Stool Occult Blood (NEGATIVE) COVID-19 (TRISTIN) (Negative) COVID-19 Clin Com Blood Type Antibody Screen 01/08/22 Range/Units 22:24 WBC 10.8 (4.8-10.8) X10*3/uL RBC 2.44 L (4.20-5.50) X10*6/uL Hgb 8.6 L (12.0-16.0) g/dl Hct 27.3 L (37.0-47.0) % MCV 111.9 H (80.0-98.0) fL MCH 35.2 H (27.0-33.0) pg MCHC 31.5 (31.0-35.0) g/dl RDW 16.3 H (11.0-16.0) % Plt Count 166 (160-400) X10*3/uL MPV 12.0 (9.4-12.3) fL Immature Gran % (Auto) (0.0-0.4) % Neut % (Auto) (45-73) % Lymph % (Auto) (20-40) % Vance % (Auto) (2-11) % Eos % (Auto) (0-4) % Baso % (Auto) (0-2) % Lymph # (Auto) (1.2-4.9) X10*3/uL Vance # (Auto) (0.1-1.2) X10*3/uL Eos # (Auto) (0.0-0.4) X10*3/uL Baso # (Auto) (0.0-0.2) X10*3/uL Abs Immat Gran (auto) (0.00-0.03) X10*3/uL Absolute Neuts (auto) (2.0-8.3) x10*3/uL Absolute Nucleated RBC 0.000 (0.0-0.012) X10*3/uL Nucleated RBC % (auto) 0.0 (0.0-0.2) /100WBC Smear Path Review PT (10.0-13.1) SEC INR (0.9-1.1) APTT (26.0-36.4) SEC Sodium (135-145) mmol/L Potassium (3.3-5.1) mmol/L Chloride (96-108) mmol/L Carbon Dioxide (22-29) mmol/L Anion Gap (12-20) BUN (9-16) mg/dL Creatinine (0.5-1.4) mg/dL Estim Creat Clear Calc Estimated GFR Random Glucose (60-115) mg/dL Lactic Acid (0.5-2.0) mmol/L Calcium (8.4-10.2) mg/dL Total Bilirubin (0.0-1.0) mg/dL AST (5-31) U/L ALT (0-31) U/L Alkaline Phosphatase (39-117) U/L Troponin I High Sens (<3.5-17.0) ng/L B-Natriuretic Peptide (<100) pg/mL Total Protein (6.5-8.0) g/dL Albumin (3.5-5.0) g/dL Urine Color Urine Appearance Urine pH (5.0-9.0) Ur Specific [place] (1.005-1.025) Urine Protein (Neg-Trace) mg/dL Urine Glucose (UA) (Negative) mg/dL Urine Ketones (Negative) mg/dL Urine Blood (Negative) Urine Nitrite (Negative) Ur Leukocyte Esterase (Negative) Urine RBC (0-2) /HPF Urine WBC (0-5) /HPF Ur Squamous Epith Cells (0-2) /HPF Urine Bacteria (None Seen) Hyaline Casts (0-2) /LPF Stool Occult Blood (NEGATIVE) COVID-19 (TRISTIN) (Negative) COVID-19 Clin Com Blood Type Antibody Screen <Ana Mueller MD - Last Filed: 01/08/22 23:34> ECG Data Interpretation: Atrial fibrillation. Alert 93. QRS 88. QTC 445. Negative STEMI <RADHA Messer - Last Filed: 01/09/22 08:26> Critical Care Time Critical Care Time Critical Care Time: Yes <RADHA Messer - Last Filed: 01/09/22 08:26> Total Critical Care Time: 60 <RADHA Messer - Last Filed: 01/09/22 08:26> Attestation: Bleeding. CBI. Spoke with Dr. Moore and Dr. dill. Vitamin K <RADHA Messer - Last Filed: 01/09/22 08:26> Discharge Plan Discharge Clinical Impression: Hematuria, Blood clot in bladder, Current use of anticoagulant therapy, Acute blood loss anemia <RADHA Messer - Last Filed: 01/09/22 08:26> Patient Disposition: Admitted As Inpatient <RADHA Messer - Last Filed: 01/09/22 08:26>
[2022-01-08 10:13] LABS: MANUAL DIFF FLAG NO
[2022-01-08 10:14] LABS: Basophils Absolute Auto 0.1 X10*3/uL (0.0-0.2); Eosinophils Absolute Auto 0.1 X10*3/uL (0.0-0.4); Eosinophils Percent Auto 1.5 % (0-4); Hematocrit 33.7 % (37.0-47.0); Hemoglobin 10.5 g/dl (12.0-16.0); Imm Gran Abs Auto 0.03 X10*3/uL (0.00-0.03); Imm Gran Pct Auto 0.4 % (0.0-0.4); Lymphocytes Absolute Auto 0.7 X10*3/uL (1.2-4.9); Lymphocytes Percent Auto 9.4 % (20-40); Mean Corpuscular HGB Conc 31.2 g/dl (31.0-35.0); Mean Corpuscular Hemoglobin 34.7 pg (27.0-33.0); Monocytes Absolute Auto 0.8 X10*3/uL (0.1-1.2); Monocytes Percent Auto 9.9 % (2-11); Neutrophils Absolute Auto 6.1 x10*3/uL (2.0-8.3); Neutrophils Percent Auto 77.8 % (45-73); Platelet Count 178 X10*3/uL (160-400); Red Blood Count 3.03 X10*6/uL (4.20-5.50); Red Cell Distribution Width 16.3 % (11.0-16.0); White Blood Count 7.8 X10*3/uL (4.8-10.8)
[2022-01-08 10:15] LABS: OBS Int Ctl Valid YES; OBS1 POSITIVE (NEGATIVE)
[2022-01-08 10:20] LABS: INTERNATIONAL NORM RATIO 3.1 (0.9-1.1); Prothrombin Time 37.8 SEC (10.0-13.1)
[2022-01-08 10:22] LABS: Mean Corpuscular Volume 111.2 fL (80.0-98.0)
[2022-01-08 10:23] LABS: Partial Thromboplastin Time 45.4 SEC (26.0-36.4)
[2022-01-08 10:35] LABS: B Type Natriuretic Peptide 892 pg/mL (<100); Troponin-I High Sensitivity 14.5 ng/L (<3.5-17.0)
[2022-01-08 10:39] LABS: IDNOW Serial# 55D5AD1C
[2022-01-08 10:40] LABS: COVID-19 Test Negative (Negative)
--- NOTE | 2022-01-08 11:50 | PC.NURSE ---
Straight cath performed with no issuee/concerns. Pt tolerated well.
[2022-01-08 12:12] LABS: Appearance Urine Turbid; Glucose Urine UA 100 mg/dL (Negative); Leukocyte Esterase Urine Negative (Negative); Nitrite Urine Positive (Negative); Specific Gravity - Urine 1.025 (1.005-1.025); UMIC TRIGGER UACC YES; Urine Blood Large (3+) (Negative); Urine Ketones Negative (Negative); Urine Protein 300 (3+) mg/dL (Neg-Trace)
[2022-01-08 12:18] LABS: Alanine Aminotransferase 31 U/L (0-31); Albumin Level 4.2 g/dL (3.5-5.0); Alkaline Phosphatase 80 U/L (39-117); Anion Gap 15 (12-20); Aspartate Amino Transferase 36 U/L (5-31); Bilirubin Total 0.7 mg/dL (0.0-1.0); Blood Urea Nitrogen 25 mg/dL (9-16); Calcium 9.3 mg/dL (8.4-10.2); Carbon Dioxide 22 mmol/L (22-29); Chloride 110 mmol/L (96-108); Creatinine Clr Calc Pharmacy 37.7; Estimated Glomerular Filt Rate > 60; Glucose Random 101 mg/dL (60-115); Potassium 4.1 mmol/L (3.3-5.1); Sodium 143 mmol/L (135-145); Total Protein 6.4 g/dL (6.5-8.0)
[2022-01-08 12:19] LABS: Bacteria Urine None Seen (None Seen); Hyaline Casts Urine 0-2 /LPF (0-2); RBC Urine >20 /HPF (0-2); Squamous Epithelial Cell Urine 0-2 /HPF (0-2); UACC Culture Trigger YES; WBC Urine 0-5 /HPF (0-5)
[2022-01-08 12:23] LABS: Color Urine Red
[2022-01-08] MEDS: Furosemide 40 MG/4 ML VIAL IVPUSH (12:45)
[2022-01-08] MEDS: iohexoL 350 MG/ML 100 ML INFUS..BTL 85 ML IV (13:21)
[2022-01-08] MEDS: 0.9 % Sodium Chloride 1,000 ML 100 ML IVCONT (13:42)
[2022-01-08 14:42] LABS: Lactic Acid 1.9 mmol/L (0.5-2.0)
[2022-01-08 14:50] LABS: MANUAL DIFF FLAG NO
[2022-01-08 14:53] LABS: Basophils Absolute Auto 0.1 X10*3/uL (0.0-0.2); Basophils Percent Auto 1.1 % (0-2); Eosinophils Percent Auto 0.5 % (0-4); Hematocrit 33.4 % (37.0-47.0); Hemoglobin 10.5 g/dl (12.0-16.0); Imm Gran Abs Auto 0.04 X10*3/uL (0.00-0.03); Imm Gran Pct Auto 0.5 % (0.0-0.4); Lymphocytes Absolute Auto 0.6 X10*3/uL (1.2-4.9); Lymphocytes Percent Auto 7.5 % (20-40); Mean Corpuscular HGB Conc 31.4 g/dl (31.0-35.0); Mean Corpuscular Hemoglobin 35.1 pg (27.0-33.0); Mean Platelet Volume 12.4 fL (9.4-12.3); Monocytes Absolute Auto 0.5 X10*3/uL (0.1-1.2); Neutrophils Absolute Auto 6.2 x10*3/uL (2.0-8.3); Neutrophils Percent Auto 83.4 % (45-73); Platelet Count 186 X10*3/uL (160-400); Red Blood Count 2.99 X10*6/uL (4.20-5.50); Red Cell Distribution Width 16.3 % (11.0-16.0); White Blood Count 7.5 X10*3/uL (4.8-10.8)
[2022-01-08 14:54] LABS: Mean Corpuscular Volume 111.7 fL (80.0-98.0)
[2022-01-08 15:20] LABS: Troponin-I High Sensitivity 12.9 ng/L (<3.5-17.0)
[2022-01-08] MEDS: Phytonadione (Vit K1) 5 MG in 0.9 % Sodium Chloride 50 ML 50.5 MG IV (18:43)
--- NOTE | 2022-01-08 19:23 | PHA.MEDREC ---
Pharmacy Consult ? Medication Reconciliation Pharmacy has completed the medication reconciliation. Spoke with pt
[2022-01-08] MEDS: 0.9 % Sodium Chloride 1,000 ML 999 ML IV ×2 (19:42→21:30)
[2022-01-08] MEDS: Iron Sucrose Complex 200 MG in 0.9 % Sodium Chloride 100 ML 440 MG IV (19:44)
[2022-01-08 19:47] LABS: MANUAL DIFF FLAG NO
[2022-01-08 19:48] LABS: Basophils Absolute Auto 0.1 X10*3/uL (0.0-0.2); Eosinophils Percent Auto 0.2 % (0-4); Hematocrit 32.6 % (37.0-47.0); Hemoglobin 10.4 g/dl (12.0-16.0); Imm Gran Abs Auto 0.05 X10*3/uL (0.00-0.03); Imm Gran Pct Auto 0.6 % (0.0-0.4); Lymphocytes Percent Auto 11.7 % (20-40); Mean Corpuscular HGB Conc 31.9 g/dl (31.0-35.0); Mean Corpuscular Hemoglobin 35.1 pg (27.0-33.0); Monocytes Percent Auto 10.7 % (2-11); Neutrophils Absolute Auto 6.7 x10*3/uL (2.0-8.3); Neutrophils Percent Auto 75.8 % (45-73); Platelet Count 200 X10*3/uL (160-400); Red Blood Count 2.96 X10*6/uL (4.20-5.50); Red Cell Distribution Width 16.3 % (11.0-16.0); White Blood Count 8.9 X10*3/uL (4.8-10.8)
[2022-01-08 19:56] LABS: Mean Corpuscular Volume 110.1 fL (80.0-98.0)
[2022-01-08] MEDS: fentaNYL citrate/PF 100 MCG/2 ML VIAL 12.5 MCG IVPUSH (20:18)
[2022-01-08 22:30] LABS: Hematocrit 27.3 % (37.0-47.0); Hemoglobin 8.6 g/dl (12.0-16.0); Mean Corpuscular HGB Conc 31.5 g/dl (31.0-35.0); Mean Corpuscular Hemoglobin 35.2 pg (27.0-33.0); Platelet Count 166 X10*3/uL (160-400); Red Blood Count 2.44 X10*6/uL (4.20-5.50); Red Cell Distribution Width 16.3 % (11.0-16.0); White Blood Count 10.8 X10*3/uL (4.8-10.8)
[2022-01-08 22:36] LABS: Mean Corpuscular Volume 111.9 fL (80.0-98.0)
--- NOTE | 2022-01-08 23:27 | PM.IMHP ---
History of Present Illness Date of Service: 01/08/22 Chief Complaint: hematuria 81-year-old female female with a past medical history of hypertension, hyperlipidemia, peripheral vascular disease, rheumatoid arthritis, Raynaud's phenomenon, atrial fibrillation on Coumadin, hypothyroidism, neuropathy, Jehovah Witness presented to the hospital today with a chief complaint of hematuria. Patient reports that she noted to have blood in the urine started around 15:00 this afternoon; mentions that she did not have any prior episodes of blood in the urine. Denies any urinary frequency urgency. Denies any abdominal pain. Patient denies any chest pain or palpitations. Denies any lightheadedness or dizziness. Denies any shortness of breath. Review of all other systems is negative except mentioned above ER course: Per ER team patient noted to have hematuria; CT scan showed blood clot in the bladder; urology was notified; started on CBI. Patient blood pressure is slightly dropped- patient was given IV fluid bolus. Blood pressure on the soft side. Patient reportedly to have weakness- after extensive discussions with the ER team patient refused any blood transfusions. Patient has not received any albumin, FFP, blood transfusion in the ER. Patient's hemoglobin dropped from 14-8.6. Received vitamin K IV as INR was noted to be 3.1. rapid AFib: Patient heart rate noted to be in 120s to 140s. Admitted to the hospital for further management [facility] Medical History (Updated 01/09/22 @ 13:30 by Kenny Martin MD) Avascular necrosis of right femoral head Bronchiectasis Bunion of great toe of left foot Cellulitis Chronic atrial fibrillation Current use of anticoagulant therapy Essential tremor Infected pressure ulcer Leg ulcer, left Mitral regurgitation Nausea Osteoarthritis Osteomyelitis of right fibula Osteoporosis Persistent atrial fibrillation Pulmonary nodules Sacroiliitis Seropositive rheumatoid arthritis Family History Father No problems noted. Mother Heart disease Surgical History H/O skin graft History of angioplasty History of appendectomy History of removal of both ovaries History of vascular surgery Social History Household Members: None Housing: Apartment Are you a primary healthcare financial analyst to a significant other at home: No Do you presently have visiting nurse or other home services: Yes ([employer] WORK[employer] 5 days a week) Alcohol intake: never Patient Tobacco Use Status: Former Tobacco user Tobacco use type: Cigarette Cigarette Packs Per Day: 3 Years Smoked: 23 e-Cigarette/Vaping Use: Never Used Substance Use Type: Painkillers Advance Directives Date on File: 12/07/20 service: No Current occupational status: retired Cognitive needs: No Hearing needs: No Vision needs: Yes Meds Allergies Allergy/AdvReac Type Severity Reaction Status Date / Time ibuprofen Allergy hives Verified 01/01/22 13:46 [id number] Allergy injection Verified 01/01/22 13:46 [From Evenity] site reaction erythromycin base AdvReac upset Verified 01/01/22 13:46 stomach diarrhea Aspirin Allergy Intermediate Diff Uncoded 01/01/22 13:46 breathing Active Medications: Current Medications Acetaminophen (Acetaminophen 325 Mg Tablet) 650 mg PO Q6H PRN PRN Reason: Pain, Mild (Pain Scale 1-3) Sodium Chloride (Ns) 1,000 mls @ 100 mls/hr IVCONT .Q10H [facility] Last Admin: 01/08/22 13:42 Dose: 100 mls/hr Phenylephrine HCl 20 mg/ (Sodium Chloride) 252 mls @ 0 mls/hr IVCONT .Q0M PETR; Protocol Tranexamic Acid 1,000 mg/ (Sodium Chloride) 260 mls @ 32.5 mls/hr IV .Q8H ONE Stop: 01/09/22 06:03 Sodium Chloride (Ns) 1,000 mls @ 100 mls/hr IVCONT .Q10H [facility] Ceftriaxone Sodium 1 gm/ (Sodium Chloride) 50 mls @ 100 mls/hr IV Q24H [facility] Melatonin (Melatonin 3 Mg Tablet) 6 mg PO BEDTIME PRN PRN Reason: Insomnia Senna (Sennosides 8.6 Mg Tablet) 17.2 mg PO BEDTIME PRN PRN Reason: Constipation Sodium Chloride (0.9 % Sodium Chloride Flush 3 Ml Syringe) 3 ml IVFLUSH QSHIFT PETR Physical Exam Vital Signs and Narrative: Vital Signs: Last Vital Signs Temp 96.7 F L 01/08/22 22:24 Pulse 140 H 01/08/22 22:24 Resp 19 01/08/22 22:24 BP 147/66 H 01/08/22 22:24 Pulse Ox 90 L 01/08/22 19:25 O2 Del Method 01/08/22 19:25 O2 Flow Rate 6 01/08/22 19:25 Oxygen Flow Rate 10 01/08/22 09:27 BMI result Body Mass Index 14.8 Gen: Appears be in no acute distress HEENT: NCAT, Moist mucosa. Pulmonary: Vesicular breath sounds, fair air entry CVS: Normal S1-S2 Abdomen: BS+, Soft, Nontender Extremities: Peripheries are cold-patient mentioned that she has Raynaud's phenomena and her extremities are always cold. Neuro: Alert and awake. Grossly nonfocal Results Labs CBC and Chem 7: 01/09/22 15:45 01/09/22 04:47 Labs: Laboratory Results - last 24 hr 01/08/22 01/08/22 01/08/22 10:08 10:08 10:09 MCV 111.2 H MCH 34.7 H MCHC 31.2 RDW 16.3 H Plt Count 178 MPV 12.0 Immature Gran % (Auto) 0.4 Neut % (Auto) 77.8 H Lymph % (Auto) 9.4 L [place] % (Auto) 9.9 Eos % (Auto) 1.5 Baso % (Auto) 1.0 Lymph # (Auto) 0.7 L [place] # (Auto) 0.8 Eos # (Auto) 0.1 Baso # (Auto) 0.1 Abs Immat Gran (auto) 0.03 Absolute Neuts (auto) 6.1 Absolute Nucleated RBC 0.000 Nucleated RBC % (auto) 0.0 PT 37.8 H INR 3.1 H APTT 45.4 H Anion Gap Estim Creat Clear Calc Estimated GFR Random Glucose Lactic Acid Calcium Total Bilirubin AST ALT Alkaline Phosphatase B-Natriuretic Peptide 892 H Total Protein Albumin Urine Color Urine Appearance Urine pH Ur Specific [place] Urine Protein Urine Glucose (UA) Urine Ketones Urine Blood Urine Nitrite Ur Leukocyte Esterase Urine RBC Urine WBC Ur Squamous Epith Cells Urine Bacteria Hyaline Casts Stool Occult Blood COVID-19 (TRISTIN) COVID-19 Clin Com Blood Type Antibody Screen 01/08/22 01/08/22 01/08/22 10:09 10:12 11:29 MCV MCH MCHC RDW Plt Count MPV Immature Gran % (Auto) Neut % (Auto) Lymph % (Auto) [place] % (Auto) Eos % (Auto) Baso % (Auto) Lymph # (Auto) [place] # (Auto) Eos # (Auto) Baso # (Auto) Abs Immat Gran (auto) Absolute Neuts (auto) Absolute Nucleated RBC Nucleated RBC % (auto) PT INR APTT Anion Gap 15 Estim Creat Clear Calc 37.7 Estimated GFR > 60 Random Glucose 101 Lactic Acid Calcium 9.3 Total Bilirubin 0.7 AST 36 H ALT 31 Alkaline Phosphatase 80 D B-Natriuretic Peptide Total Protein 6.4 L Albumin 4.2 Urine Color Urine Appearance Urine pH Ur Specific [place] Urine Protein Urine Glucose (UA) Urine Ketones Urine Blood Urine Nitrite Ur Leukocyte Esterase Urine RBC Urine WBC Ur Squamous Epith Cells Urine Bacteria Hyaline Casts Stool Occult Blood POSITIVE COVID-19 (TRISTIN) Negative [employer] Com See Note Blood Type Antibody Screen 01/08/22 01/08/22 01/08/22 11:29 11:42 14:19 MCV 111.7 H MCH 35.1 H MCHC 31.4 RDW 16.3 H Plt Count 186 MPV 12.4 H Immature Gran % (Auto) 0.5 H Neut % (Auto) 83.4 H Lymph % (Auto) 7.5 L [place] % (Auto) 7.0 Eos % (Auto) 0.5 Baso % (Auto) 1.1 Lymph # (Auto) 0.6 L [place] # (Auto) 0.5 Eos # (Auto) 0.0 Baso # (Auto) 0.1 Abs Immat Gran (auto) 0.04 H Absolute Neuts (auto) 6.2 Absolute Nucleated RBC 0.000 Nucleated RBC % (auto) 0.0 PT INR APTT Anion Gap Estim Creat Clear Calc Estimated GFR Random Glucose Lactic Acid Calcium Total Bilirubin AST ALT Alkaline Phosphatase B-Natriuretic Peptide Total Protein Albumin Urine Color Red A Urine Appearance Turbid Urine pH 7.0 Ur Specific [place] 1.025 Urine Protein 300 (3+) H Urine Glucose (UA) 100 H Urine Ketones Negative Urine Blood Large (3+) H Urine Nitrite Positive H Ur Leukocyte Esterase Negative Urine RBC >20 H Urine WBC 0-5 Ur Squamous Epith Cells 0-2 Urine Bacteria None Seen Hyaline Casts 0-2 Stool Occult Blood COVID-19 (TRISTIN) COVID-19 [employer] Com Blood Type O Positive Antibody Screen NEGATIVE 01/08/22 01/08/22 01/08/22 14:19 19:41 22:24 MCV 110.1 H 111.9 H MCH 35.1 H 35.2 H MCHC 31.9 31.5 RDW 16.3 H 16.3 H Plt Count 200 166 MPV 12.0 12.0 Immature Gran % (Auto) 0.6 H Neut % (Auto) 75.8 H Lymph % (Auto) 11.7 L [place] % (Auto) 10.7 Eos % (Auto) 0.2 Baso % (Auto) 1.0 Lymph # (Auto) 1.0 L [place] # (Auto) 1.0 Eos # (Auto) 0.0 Baso # (Auto) 0.1 Abs Immat Gran (auto) 0.05 H Absolute Neuts (auto) 6.7 Absolute Nucleated RBC 0.000 0.000 Nucleated RBC % (auto) 0.0 0.0 PT INR APTT Anion Gap Estim Creat Clear Calc Estimated GFR Random Glucose Lactic Acid 1.9 Calcium Total Bilirubin AST ALT Alkaline Phosphatase B-Natriuretic Peptide Total Protein Albumin Urine Color Urine Appearance Urine pH Ur Specific [place] Urine Protein Urine Glucose (UA) Urine Ketones Urine Blood Urine Nitrite Ur Leukocyte Esterase Urine RBC Urine WBC Ur Squamous Epith Cells Urine Bacteria Hyaline Casts Stool Occult Blood COVID-19 (TRISTIN) COVID-19 Clin Com Blood Type Antibody Screen Imaging Radiologist's Impressions: Impressions Chest X-Ray 01/08/22 10:03 IMPRESSION: No active disease. Abdomen/Pelvis CT 01/08/22 13:23 IMPRESSION: 1. Large blood clot is seen within the bladder. 2. Other incidental findings include a new right-sided pleural effusion, horseshoe kidney, colonic diverticulosis without diverticulitis, atherosclerotic change and severe scoliosis and degenerative changes in the spine lateral listhesis. Fleischner guidelines were followed. Assessment and Plan (1) Hematuria: Status: Acute (2) UTI (urinary tract infection): Status: Acute (3) Rapid atrial fibrillation: Status: Acute Plan 81-year-old female female with a past medical history of hypertension, hyperlipidemia, peripheral vascular disease, rheumatoid arthritis, Raynaud's phenomenon, atrial fibrillation on Coumadin, hypothyroidism, neuropathy, Jehovah Witness presented to the hospital today with a chief complaint of hematuria. Hematuria: Patient's hemoglobin dropped from 14-10.5 on presentation-upon follow-up patient hemoglobin dropped to 8.6. Patient being started on CBI Urology was notified Patient is Jehovah Witness-refused transfusions(ER physician and I spoke to the patient, patient is very clear about being Jehovah Witness and totally denied on blood transfusions, mentioned she understood the risks involved.) Patient blood pressure on the soft side- continue maintenance IV fluids UTI: Continue ceftriaxone. Follow up cultures. Rapid AFib: Patient heart rate ranging from 120 to 140s. Recent echocardiogram showed EF of 55%. Will give the patient on metoprolol 5 mg IV p.r.n. INR on presentation was 3.1 status post 10 mg of vitamin K IV. Hold Coumadin cardiology consult history of rheumatoid arthritis: Patient on leflunomide, prednisone. If any further drop in blood pressure will consider stress dose steroids. Will also continue patient's home medications including statin, levothyroxine, gabapentin, denusimab, zonisamide DVT prophylaxis: SCD boots Code status: Full code Quality Stroke Does the patient have a stroke diagnosis?: No VTE Prior VTE?: No VTE Risk Level:: Medical - moderate - high VTE Device Contraindication: Treatment Not Indicated VTE Drug Contraindication: N/A - Med Ordered
[2022-01-08] MEDS: Tranexamic Acid 1,000 MG in 0.9 % Sodium Chloride 250 ML 1040 MG IV (23:53)
[2022-01-08] MEDS: cefTRIAXone sodium 1 GM in 0.9 % Sodium Chloride 50 ML IV (23:54)
[2022-01-08] MEDS: Levothyroxine Sodium 50 MCG TABLET PO (23:57)
[2022-01-09] VITALS (20 sets, daily range): BP systolic 89–147; BP diastolic 43–84; PULSE 73–149; RESP 14–22; TEMP 36.2–37; O2SAT 94–100
[2022-01-09] MEDS: 0.9 % Sodium Chloride 1,000 ML 100 ML IVCONT ×2 (00:01→08:34)
[2022-01-09] MEDS: 0.9 % Sodium Chloride Flush 3 ML SYRINGE IVFLUSH ×3 (00:06→17:50)
[2022-01-09] MEDS: Metoprolol Tartrate 5 MG/5 ML VIAL 2.5 MG IVPUSH ×2 (00:27→02:55)
[2022-01-09] MEDS: ondansetron HCL 4 MG/2 ML VIAL IVPUSH (00:40)
[2022-01-09 04:57] LABS: Basophils Absolute Auto 0.1 X10*3/uL (0.0-0.2); Basophils Percent Auto 0.5 % (0-2); Hematocrit 26.1 % (37.0-47.0); Hemoglobin 8.3 g/dl (12.0-16.0); Imm Gran Abs Auto 0.05 X10*3/uL (0.00-0.03); Imm Gran Pct Auto 0.4 % (0.0-0.4); Lymphocytes Absolute Auto 0.7 X10*3/uL (1.2-4.9); Lymphocytes Percent Auto 5.5 % (20-40); MANUAL DIFF FLAG NO; Mean Corpuscular HGB Conc 31.8 g/dl (31.0-35.0); Mean Corpuscular Hemoglobin 35.8 pg (27.0-33.0); Mean Platelet Volume 11.9 fL (9.4-12.3); Monocytes Absolute Auto 1.2 X10*3/uL (0.1-1.2); Monocytes Percent Auto 10.1 % (2-11); Neutrophils Absolute Auto 9.9 x10*3/uL (2.0-8.3); Neutrophils Percent Auto 83.5 % (45-73); Platelet Count 153 X10*3/uL (160-400); Red Blood Count 2.32 X10*6/uL (4.20-5.50); Red Cell Distribution Width 16.5 % (11.0-16.0); White Blood Count 11.8 X10*3/uL (4.8-10.8)
[2022-01-09 05:00] LABS: Mean Corpuscular Volume 112.5 fL (80.0-98.0)
[2022-01-09] MEDS: Levothyroxine Sodium 50 MCG TABLET PO (05:20)
[2022-01-09 05:38] LABS: Anion Gap 19 (12-20); Blood Urea Nitrogen 24 mg/dL (9-16); Calcium 7.7 mg/dL (8.4-10.2); Carbon Dioxide 15 mmol/L (22-29); Chloride 114 mmol/L (96-108); Creatinine Clr Calc Pharmacy 31.5; Estimated Glomerular Filt Rate 59; Glucose Random 123 mg/dL (60-115); Potassium 4.1 mmol/L (3.3-5.1); Sodium 144 mmol/L (135-145)
--- NOTE | 2022-01-09 07:24 | PC.NURSE ---
pt resting comfortably on stretcher at this time. Pt reports feeling well and tolerating the bladder irrigation with no pain at this time. Pt provided with lorena sweeney. Heart rate still in the 120-150s, will follow up with provider regarding possible diltiazem drip
[2022-01-09] MEDS: Multivitamin TABLET 1 TAB PO (08:33)
[2022-01-09] MEDS: Gabapentin 300 MG CAPSULE PO ×3 (08:33→20:34)
[2022-01-09 09:03] LABS: Magnesium 1.9 mg/dL (1.6-2.6)
--- NOTE | 2022-01-09 09:05 | P.CONCA_ITS ---
History of Present Illness History of Present Illness Date of Service: 01/09/22 Requesting physician: Danni Ortiz Chief complaint: VAGINAL BLEED, AFIB Narrative: 81-year-old female who has background history of chronic atrial fibrillation, mitral valve regurgitation, hypothyroidism, peripheral vascular disease and avascular necrosis of right femoral head. She is presenting with hematuria. She was noticed to be in AFib with RVR. She has chronic atrial fibrillation. She is complaining that she has been short of breath over the last few days. She is denying any chest pain or pressure. She was previously on Coumadin for anticoagulation. She currently has a 3 way catheter and she is receiving bladder irrigation. She is anemic. She is a Jehovah Witness. [facility] Past Medical History Medical History (Updated 01/09/22 @ 13:30 by Kenny Martin MD) Avascular necrosis of right femoral head Bronchiectasis Bunion of great toe of left foot Cellulitis Chronic atrial fibrillation Current use of anticoagulant therapy Essential tremor Infected pressure ulcer Leg ulcer, left Mitral regurgitation Nausea Osteoarthritis Osteomyelitis of right fibula Osteoporosis Persistent atrial fibrillation Pulmonary nodules Sacroiliitis Seropositive rheumatoid arthritis Family History Family History Father No problems noted. Mother Heart disease Surgical History Surgical History H/O skin graft History of angioplasty History of appendectomy History of removal of both ovaries History of vascular surgery Social History Social History Household Members: None Housing: Apartment Are you a primary healthcare consultant to a significant other at home: No Do you presently have visiting nurse or other home services: Yes ([employer] 5 days a week) Alcohol intake: never Patient Tobacco Use Status: Former Tobacco user Tobacco use type: Cigarette Cigarette Packs Per Day: 3 Years Smoked: 23 e-Cigarette/Vaping Use: Never Used Substance Use Type: Painkillers Advance Directives Date on File: 12/07/20 service: No Current occupational status: retired Cognitive needs: No Hearing needs: No Vision needs: Yes Meds Allergies Allergy/AdvReac Type Severity Reaction Status Date / Time ibuprofen Allergy hives Verified 01/01/22 13:46 [id number] Allergy injection Verified 01/01/22 13:46 [From Evenity] site reaction erythromycin base AdvReac upset Verified 01/01/22 13:46 stomach diarrhea Aspirin Allergy Intermediate Diff Uncoded 01/01/22 13:46 breathing Active Medications: Current Medications Acetaminophen (Acetaminophen 325 Mg Tablet) 650 mg PO Q6H PRN PRN Reason: Pain, Mild (Pain Scale 1-3) Ascorbic Acid (Ascorbic Acid 500 Mg Tablet) 500 mg PO BID [facility] Gabapentin (Gabapentin 300 Mg Capsule) 300 mg PO TID [facility] Last Admin: 01/09/22 08:33 Dose: 300 mg Ceftriaxone Sodium 1 gm/ (Sodium Chloride) 50 mls @ 100 mls/hr IV Q24H [facility] Last Infusion: 01/09/22 00:29 Dose: Infused Leflunomide (Leflunomide 10 Mg Tablet) 20 mg PO DAILY [facility] Levothyroxine Sodium (Levothyroxine Sodium 50 Mcg Tablet) 50 mcg PO 0600 [facility] Last Admin: 01/09/22 05:20 Dose: 50 mcg Melatonin (Melatonin 3 Mg Tablet) 6 mg PO BEDTIME PRN PRN Reason: Insomnia Metoprolol Tartrate (Metoprolol Tartrate 5 Mg/5 Ml Vial) 2.5 mg IVPUSH Q6H PRN PRN Reason: HR>125 Last Admin: 01/09/22 02:55 Dose: 2.5 mg Metoprolol Tartrate (Metoprolol Tartrate 100 Mg Tablet) 100 mg PO BID [facility]; Protocol Multivitamins/Vitamin C (Multivitamin Tablet) 1 tab PO DAILY [facility] Last Admin: 01/09/22 08:33 Dose: 1 tab Non-Formulary Medication (Zonisamide) 25 mg PO TID [facility] Pravastatin Sodium (Pravastatin Sodium 20 Mg Tablet) 20 mg PO BEDTIME [facility] Prednisone (Prednisone 1 Mg Tablet) 2 mg PO DAILY [facility] Senna (Sennosides 8.6 Mg Tablet) 17.2 mg PO BEDTIME PRN PRN Reason: Constipation Sodium Chloride (0.9 % Sodium Chloride Flush 3 Ml Syringe) 3 ml IVFLUSH QSHIFT [facility] Last Admin: 01/09/22 08:33 Dose: 3 ml Vitamin D (Cholecalciferol (Vitamin D3) 25 Mcg Tablet) 50 mcg PO DAILY [facility] Physical Exam Vital Signs: Vital Signs: Last Vital Signs Temp 98.1 F 09/27/22 09:02 Pulse 141 H 01/09/22 09:02 Resp 18 01/09/22 09:02 BP 139/81 01/09/22 07:21 Pulse Ox 100 01/09/22 09:02 O2 Del Method 01/09/22 09:02 O2 Flow Rate 3 01/09/22 09:02 Oxygen Flow Rate 10 01/08/22 09:27 BMI result Body Mass Index 14.8 GENERAL APPEARANCE: Frail lady. No distress. Pale looking. NECK: no carotid bruit, positive jugular venous distention. SKIN: no suspicious lesions, warm and dry. HEART: Holosystolic murmur at the apex, irregularly irregular rhythm. LUNGS: clear to auscultation bilaterally. ABDOMEN: soft, nontender. EXTREMITIES: no edema. NEUROLOGIC: No gross deficits, AAO X 3 Objective Labs and Meds Result diagrams: 01/09/22 04:47 01/09/22 04:47 Lab results: Laboratory Results - last 24 hr 01/08/22 01/08/22 01/08/22 10:08 10:08 10:09 WBC 7.8 RBC 3.03 L D Hgb 10.5 L D Hct 33.7 L MCV 111.2 H MCH 34.7 H MCHC 31.2 RDW 16.3 H Plt Count 178 MPV 12.0 Immature Gran % (Auto) 0.4 Neut % (Auto) 77.8 H Lymph % (Auto) 9.4 L [place] % (Auto) 9.9 Eos % (Auto) 1.5 Baso % (Auto) 1.0 Lymph # (Auto) 0.7 L [place] # (Auto) 0.8 Eos # (Auto) 0.1 Baso # (Auto) 0.1 Abs Immat Gran (auto) 0.03 Absolute Neuts (auto) 6.1 Absolute Nucleated RBC 0.000 Nucleated RBC % (auto) 0.0 Smear Path Review Cancelled PT 37.8 H INR 3.1 H APTT 45.4 H Sodium Potassium Chloride Carbon Dioxide Anion Gap BUN Creatinine Estim Creat Clear Calc Estimated GFR Random Glucose Lactic Acid Calcium Magnesium Total Bilirubin AST ALT Alkaline Phosphatase Troponin I High Sens 14.5 B-Natriuretic Peptide 892 H Total Protein Albumin Urine Color Urine Appearance Urine pH Ur Specific [place] Urine Protein Urine Glucose (UA) Urine Ketones Urine Blood Urine Nitrite Ur Leukocyte Esterase Urine RBC Urine WBC Ur Squamous Epith Cells Urine Bacteria Hyaline Casts Stool Occult Blood COVID-19 (TRISTIN) COVID-19 Clin Com Blood Type Antibody Screen 01/08/22 01/08/22 01/08/22 10:09 10:12 11:29 WBC RBC Hgb Hct MCV MCH MCHC RDW Plt Count MPV Immature Gran % (Auto) Neut % (Auto) Lymph % (Auto) [place] % (Auto) Eos % (Auto) Baso % (Auto) Lymph # (Auto) [place] # (Auto) Eos # (Auto) Baso # (Auto) Abs Immat Gran (auto) Absolute Neuts (auto) Absolute Nucleated RBC Nucleated RBC % (auto) Smear Path Review PT INR APTT Sodium 143 Potassium 4.1 Chloride 110 H Carbon Dioxide 22 Anion Gap 15 BUN 25 H Creatinine 0.77 Estim Creat Clear Calc 37.7 Estimated GFR > 60 Random Glucose 101 Lactic Acid Calcium 9.3 Magnesium Total Bilirubin 0.7 AST 36 H ALT 31 Alkaline Phosphatase 80 D Troponin I High Sens B-Natriuretic Peptide Total Protein 6.4 L Albumin 4.2 Urine Color Urine Appearance Urine pH Ur Specific [place] Urine Protein Urine Glucose (UA) Urine Ketones Urine Blood Urine Nitrite Ur Leukocyte Esterase Urine RBC Urine WBC Ur Squamous Epith Cells Urine Bacteria Hyaline Casts Stool Occult Blood POSITIVE COVID-19 (TRISTIN) Negative COVID-19 Clin Com See Note Blood Type Antibody Screen 01/08/22 01/08/22 01/08/22 11:29 11:42 14:19 WBC 7.5 RBC 2.99 L Hgb 10.5 L Hct 33.4 L MCV 111.7 H MCH 35.1 H MCHC 31.4 RDW 16.3 H Plt Count 186 MPV 12.4 H Immature Gran % (Auto) 0.5 H Neut % (Auto) 83.4 H Lymph % (Auto) 7.5 L [place] % (Auto) 7.0 Eos % (Auto) 0.5 Baso % (Auto) 1.1 Lymph # (Auto) 0.6 L [place] # (Auto) 0.5 Eos # (Auto) 0.0 Baso # (Auto) 0.1 Abs Immat Gran (auto) 0.04 H Absolute Neuts (auto) 6.2 Absolute Nucleated RBC 0.000 Nucleated RBC % (auto) 0.0 Smear Path Review PT INR APTT Sodium Potassium Chloride Carbon Dioxide Anion Gap BUN Creatinine Estim Creat Clear Calc Estimated GFR Random Glucose Lactic Acid Calcium Magnesium Total Bilirubin AST ALT Alkaline Phosphatase Troponin I High Sens B-Natriuretic Peptide Total Protein Albumin Urine Color Red A Urine Appearance Turbid Urine pH 7.0 Ur Specific [place] 1.025 Urine Protein 300 (3+) H Urine Glucose (UA) 100 H Urine Ketones Negative Urine Blood Large (3+) H Urine Nitrite Positive H Ur Leukocyte Esterase Negative Urine RBC >20 H Urine WBC 0-5 Ur Squamous Epith Cells 0-2 Urine Bacteria None Seen Hyaline Casts 0-2 Stool Occult Blood COVID-19 (TRISTIN) COVID-19 Clin Com Blood Type O Positive Antibody Screen NEGATIVE 01/08/22 01/08/22 01/08/22 14:19 14:19 19:41 WBC 8.9 RBC 2.96 L Hgb 10.4 L Hct 32.6 L MCV 110.1 H MCH 35.1 H MCHC 31.9 RDW 16.3 H Plt Count 200 MPV 12.0 Immature Gran % (Auto) 0.6 H Neut % (Auto) 75.8 H Lymph % (Auto) 11.7 L [place] % (Auto) 10.7 Eos % (Auto) 0.2 Baso % (Auto) 1.0 Lymph # (Auto) 1.0 L [place] # (Auto) 1.0 Eos # (Auto) 0.0 Baso # (Auto) 0.1 Abs Immat Gran (auto) 0.05 H Absolute Neuts (auto) 6.7 Absolute Nucleated RBC 0.000 Nucleated RBC % (auto) 0.0 Smear Path Review PT INR APTT Sodium Potassium Chloride Carbon Dioxide Anion Gap BUN Creatinine Estim Creat Clear Calc Estimated GFR Random Glucose Lactic Acid 1.9 Calcium Magnesium Total Bilirubin AST ALT Alkaline Phosphatase Troponin I High Sens 12.9 B-Natriuretic Peptide Total Protein Albumin Urine Color Urine Appearance Urine pH Ur Specific [place] Urine Protein Urine Glucose (UA) Urine Ketones Urine Blood Urine Nitrite Ur Leukocyte Esterase Urine RBC Urine WBC Ur Squamous Epith Cells Urine Bacteria Hyaline Casts Stool Occult Blood COVID-19 (TRISTIN) COVID-19 Clin Com Blood Type Antibody Screen 01/08/22 01/09/22 01/09/22 22:24 04:47 04:47 WBC 10.8 11.8 H RBC 2.44 L 2.32 L Hgb 8.6 L 8.3 L Hct 27.3 L 26.1 L MCV 111.9 H 112.5 H MCH 35.2 H 35.8 H MCHC 31.5 31.8 RDW 16.3 H 16.5 H Plt Count 166 153 L MPV 12.0 11.9 Immature Gran % (Auto) 0.4 Neut % (Auto) 83.5 H Lymph % (Auto) 5.5 L [place] % (Auto) 10.1 Eos % (Auto) 0.0 Baso % (Auto) 0.5 Lymph # (Auto) 0.7 L [place] # (Auto) 1.2 Eos # (Auto) 0.0 Baso # (Auto) 0.1 Abs Immat Gran (auto) 0.05 H Absolute Neuts (auto) 9.9 H Absolute Nucleated RBC 0.000 0.000 Nucleated RBC % (auto) 0.0 0.0 Smear Path Review PT INR APTT Sodium 144 Potassium 4.1 Chloride 114 H Carbon Dioxide 15 L Anion Gap 19 BUN 24 H Creatinine 0.92 Estim Creat Clear Calc 31.5 Estimated GFR 59 Random Glucose 123 H Lactic Acid Calcium 7.7 L D Magnesium 1.9 Total Bilirubin AST ALT Alkaline Phosphatase Troponin I High Sens B-Natriuretic Peptide Total Protein Albumin Urine Color Urine Appearance Urine pH Ur Specific [place] Urine Protein Urine Glucose (UA) Urine Ketones Urine Blood Urine Nitrite Ur Leukocyte Esterase Urine RBC Urine WBC Ur Squamous Epith Cells Urine Bacteria Hyaline Casts Stool Occult Blood COVID-19 (TRISTIN) COVID-19 Clin Com Blood Type Antibody Screen Imaging Radiologist's impression: Impressions Chest X-Ray 01/08/22 10:03 IMPRESSION: No active disease. Abdomen/Pelvis CT 01/08/22 13:23 IMPRESSION: 1. Large blood clot is seen within the bladder. 2. Other incidental findings include a new right-sided pleural effusion, horseshoe kidney, colonic diverticulosis without diverticulitis, atherosclerotic change and severe scoliosis and degenerative changes in the spine lateral listhesis. Fleischner guidelines were followed. Assessment and Plan (1) Rapid atrial fibrillation: Status: Acute (2) Hematuria: Status: Acute (3) Mitral regurgitation: Status: Acute (4) Congestive heart failure: Status: Acute Plan 81-year-old female who is presenting for hematuria and rapid atrial fibrillation. She has background of moderate to severe mitral valve regurgitation, low normal ejection fraction by echocardiography of 50 55% and basal inferior wall motion abnormality on echocardiography. She is a [place]ze. She is anemic and currently has AFib with RVR in the setting of hematuria. Hematuria is clearing up with 3 way bladder irrigation. Agree with holding Coumadin. Discussed with her about iron infusion if she agrees. She clinically looks volume overloaded. She is saying she has not been taking her Lasix regularly because she has been getting accidents. Please give her 40 mg IV Lasix daily. She previously was on digoxin 125 mcg every other day. I think that can be resumed. We will follow along with you. Thank you for allowing me to participate in the care of your patient. Please feel free to contact me if you have any questions. Procedures Date of Service Date of Service: 01/09/22
--- NOTE | 2022-01-09 09:06 | PC.NURSE ---
Pt continues to rest comfortably in bed. Small clots found in continuous bladder irrigation tubing, fluids still running through, pt still tolerating well. Pt temperature difficult to sense, rectal temperature sensing probe place, pt tolerated well stating I don't even feel it, I am comfortable . Currently temperature sensed: 98.1. Pt still on bear hugger for comfort
[2022-01-09 09:23] LABS: Thyroid Stimulating Hormone 1.28 uIU/mL (0.32-4.0)
[2022-01-09] MEDS: Ascorbic Acid 500 MG TABLET PO (09:30)
[2022-01-09] MEDS: Metoprolol Tartrate 100 MG TABLET PO ×2 (09:30→20:37)
--- NOTE | 2022-01-09 10:16 | PC.NURSE ---
This nurse spoke to pharmacy regarding pts Zonisamide. Pharmacy does not have 25 mg dose, only 100mg in capsules. Pharmacy suggested seeing if pts family can bring in the medication from home. Pt gave me three numbers to try to contact. Spoke to one contact, Iza who stated she is at work and cannot grab the medication. Reached out to Francisco J who is also in the same situation . Contacted last contact Alena who I could not get in contact with, will attempt to call again later.
[2022-01-09] MEDS: predniSONE 1 MG TABLET 2 MG PO (10:44)
[2022-01-09] MEDS: Leflunomide 10 MG TABLET 20 MG PO (10:45)
[2022-01-09] MEDS: Cholecalciferol (Vitamin D3) 25 MCG TABLET 50 MCG PO (10:45)
[2022-01-09] MEDS: Acetaminophen 325 MG TABLET 650 MG PO (10:56)
--- NOTE | 2022-01-09 11:47 | MHC.CM.PN ---
met with pt in ed pt is active with [facility] and has software specialist 5 days a week she plans on returninghome,when dcd has own ride home
[2022-01-09 12:17] LABS: Iron 395 mcg/dL (30-160); Total Iron Binding Capacity < 412 mcg/dL (228-428); Unsaturated Iron Binding < 17 ug/dL
[2022-01-09 12:34] LABS: Ferritin 205 ng/mL (10-250)
[2022-01-09] MEDS: Hydrocortisone Sod Succ/PF 100 MG VIAL 50 MG IVPUSH (12:35)
--- NOTE | 2022-01-09 13:47 | PC.NURSE ---
This nurse entered pts room at about 1155. Pts blood pressure significantly dropped down to 89/43. Pt does not report any dizziness. This nurse began running normal saline at 500ml/hr to assist in raising the blood pressure. Blood pressure was re-assessed at 1208 and it went up to 91/49. This nurse contact Dr. Ortiz at 1215, he subsequently placed two medication orders (fluids and hydrocortisone), both medications were administered per the MAR. Most recent blood pressure 126/53 at 1350. Pt is resting comfortably on stretcher with no complaints at this time.
--- NOTE | 2022-01-09 15:31 | P.PNIM_ITS ---
Subjective Subjective Date of Service: 01/09/22 Interval History: on CBI no urinary discomfort AF- ventricular rate now in 80s declines blood transfusion or plasma due to jewish beliefs soft BPs, 90s/40s-60s Physical Exam Vital Signs: Vital Signs: Last Vital Signs Temp 98.1 F 01/09/22 14:15 Pulse 74 01/09/22 14:15 Resp 18 01/09/22 14:15 BP 115/55 L 01/09/22 14:15 Pulse Ox 100 01/09/22 14:15 O2 Del Method 01/09/22 14:15 O2 Flow Rate 3 01/09/22 14:15 Oxygen Flow Rate 10 01/08/22 09:27 BMI result Body Mass Index 14.8 Gen: malnourished, ill-appearing HEENT: sclera anicteric, pale mucus membranes Neck: supple Lungs: clear to auscultation bilaterally Heart: irregularly irregular Abd: soft, non-tender, non-distended : CBI with blood-tinged urine Ext: no edema Skin: warm/well-perfused Neuro: alert and oriented x3, no focal findings Psych: appropriate affect Objective Data Active Medications Acetaminophen (Acetaminophen 325 Mg Tablet) 650 mg PO Q6H PRN PRN Reason: Pain, Mild (Pain Scale 1-3) Last Admin: 01/09/22 10:56 Dose: 650 mg Documented By: OLIVER Ascorbic Acid (Ascorbic Acid 500 Mg Tablet) 500 mg PO BID [facility] Last Admin: 01/09/22 09:30 Dose: 500 mg Documented By: OLIVER Furosemide (Furosemide 20 Mg/2 Ml Vial) 20 mg IVPUSH DAILY [facility]; Protocol Last Admin: 01/09/22 12:35 Dose: Not Given Documented By: OLIVER Non-Admin Reason: See Note Gabapentin (Gabapentin 300 Mg Capsule) 300 mg PO TID [facility] Last Admin: 01/09/22 08:33 Dose: 300 mg Documented By: OLIVER Hydrocortisone Sodium Succinate (Hydrocortisone Sod Succ/Pf 100 Mg Vial) 50 mg IVPUSH Q8H [facility] Ceftriaxone Sodium 1 gm/ (Sodium Chloride) 50 mls @ 100 mls/hr IV Q24H [facility] Last Infusion: 01/09/22 00:29 Dose: 0 mls/hr Documented By: TELLO Leflunomide (Leflunomide 10 Mg Tablet) 20 mg PO DAILY [facility] Last Admin: 01/09/22 10:45 Dose: 20 mg Documented By: OLIVER Levothyroxine Sodium (Levothyroxine Sodium 50 Mcg Tablet) 50 mcg PO 0600 [facility] Last Admin: 01/09/22 05:20 Dose: 50 mcg Documented By: TELLO Melatonin (Melatonin 3 Mg Tablet) 6 mg PO BEDTIME PRN PRN Reason: Insomnia Metoprolol Tartrate (Metoprolol Tartrate 5 Mg/5 Ml Vial) 2.5 mg IVPUSH Q6H PRN PRN Reason: HR>125 Last Admin: 01/09/22 02:55 Dose: 2.5 mg Documented By: TELLO Comments: given now (early per MD Michael Berumen) due to persistent tachycardia despite first dose at 0027. BP 115/82 HR 120s-160 Metoprolol Tartrate (Metoprolol Tartrate 100 Mg Tablet) 100 mg PO BID [facility]; Prot ocol Last Admin: 01/09/22 09:30 Dose: 100 mg Documented By: OLIVER Multivitamins/Vitamin C (Multivitamin Tablet) 1 tab PO DAILY [facility] Last Admin: 01/09/22 08:33 Dose: 1 tab Documented By: OLIVER Patient Own Med ( Zonisamide 25 Mg Capsule) 25 mg PO TID [facility] Pravastatin Sodium (Pravastatin Sodium 20 Mg Tablet) 20 mg PO BEDTIME [facility] Prednisone (Prednisone 1 Mg Tablet) 2 mg PO DAILY [facility] Last Admin: 01/09/22 10:44 Dose: 2 mg Documented By: OLIVER Senna (Sennosides 8.6 Mg Tablet) 17.2 mg PO BEDTIME PRN PRN Reason: Constipation Sodium Chloride (0.9 % Sodium Chloride Flush 3 Ml Syringe) 3 ml IVFLUSH QSHIFT [facility] Last Admin: 01/09/22 08:33 Dose: 3 ml Documented By: OLIVER Vitamin D (Cholecalciferol (Vitamin D3) 25 Mcg Tablet) 50 mcg PO DAILY [facility] Last Admin: 01/09/22 10:45 Dose: 50 mcg Documented By: OLIVER Labs CBC & Chem 7: 01/09/22 04:47 01/09/22 04:47 Labs: Laboratory Results - last 24 hr 01/08/22 01/08/22 01/08/22 10:08 19:41 22:24 MCV 110.1 H 111.9 H MCH 35.1 H 35.2 H MCHC 31.9 31.5 RDW 16.3 H 16.3 H Plt Count 200 166 MPV 12.0 12.0 Immature Gran % (Auto) 0.6 H Neut % (Auto) 75.8 H Lymph % (Auto) 11.7 L [place] % (Auto) 10.7 Eos % (Auto) 0.2 Baso % (Auto) 1.0 Lymph # (Auto) 1.0 L [place] # (Auto) 1.0 Eos # (Auto) 0.0 Baso # (Auto) 0.1 Abs Immat Gran (auto) 0.05 H Absolute Neuts (auto) 6.7 Absolute Nucleated RBC 0.000 0.000 Nucleated RBC % (auto) 0.0 0.0 Smear Path Review Cancelled Anion Gap Estim Creat Clear Calc Estimated GFR Random Glucose Calcium Magnesium Iron TIBC % Saturation Unsat Iron Binding Ferritin TSH 01/09/22 01/09/22 04:47 04:47 MCV 112.5 H MCH 35.8 H MCHC 31.8 RDW 16.5 H Plt Count 153 L MPV 11.9 Immature Gran % (Auto) 0.4 Neut % (Auto) 83.5 H Lymph % (Auto) 5.5 L [place] % (Auto) 10.1 Eos % (Auto) 0.0 Baso % (Auto) 0.5 Lymph # (Auto) 0.7 L [place] # (Auto) 1.2 Eos # (Auto) 0.0 Baso # (Auto) 0.1 Abs Immat Gran (auto) 0.05 H Absolute Neuts (auto) 9.9 H Absolute Nucleated RBC 0.000 Nucleated RBC % (auto) 0.0 Smear Path Review Anion Gap 19 Estim Creat Clear Calc 31.5 Estimated GFR 59 Random Glucose 123 H Calcium 7.7 L D Magnesium 1.9 Iron 395 H TIBC < 412 % Saturation TNP Unsat Iron Binding < 17 Ferritin 205 TSH 1.28 Microbiology Microbiology Results: Microbiology 01/08/22 00:00 Urine Culture - Preliminary Urine clean catch - Urine marie top Gram negative lance Assessment and Plan (1) Hematuria: Status: Acute Plan hospital d#2 81yo F with HTN, HLD, PVD, RA, Raynaud's phenomenon, AF on warfarin, hypothyroidism, neuropathy presenting with hematuria # hypotension - give 30 cc/kg fluid bolus, will also give stress-dose hydrocortisone given steroid dependence # hematuria # anemia due to blood loss - CBI, Urology consultation - declines transfusion [Jehovan's witness] # UTI - ceftriaxone d#2, follow UCx # AF with RVR - rate now well-controlled; continue metoprolol tartrate + resume digoxin per Cardiology - background of mod-sev MR, LVEF 50-55%, basal inferior WMA - d/c warfarin given hematuria # RA - continue leflunomide + prednisone -> hydrocortisone stress-dose # HLD - continue statin # levothyroxine - continue LT4 # neuropathy - continue gabapentin # VTE ppx: SCDs In my clinical judgment, the patient requires continued hospitalization for the following reasons: CBI Quality Stroke Does the patient have a stroke diagnosis?: No VTE Prior VTE?: No VTE Risk Level:: Medical - moderate - high VTE Device Contraindication: Treatment Not Indicated VTE Drug Contraindication: N/A - Med Ordered
[2022-01-09 15:58] LABS: Hematocrit 23.2 % (37.0-47.0); Hemoglobin 7.2 g/dl (12.0-16.0); Mean Corpuscular Hemoglobin 35.3 pg (27.0-33.0); Mean Platelet Volume 11.7 fL (9.4-12.3); NRBC Pct Auto 0.5 /100WBC (0.0-0.2); Platelet Count 142 X10*3/uL (160-400); Red Blood Count 2.04 X10*6/uL (4.20-5.50); Red Cell Distribution Width 16.6 % (11.0-16.0)
[2022-01-09 15:59] LABS: Mean Corpuscular Volume 113.7 fL (80.0-98.0)
[2022-01-09] MEDS: Digoxin 0.125 MG TABLET PO (17:50)
[2022-01-09] MEDS: Pravastatin Sodium 20 MG TABLET PO (20:34)
[2022-01-09] MEDS: Melatonin 3 MG TABLET 6 MG PO (20:39)
[2022-01-09] MEDS: oxyCODONE HCl Immed Release 5 MG TABLET PO (22:53)
[2022-01-09] MEDS: cefTRIAXone sodium 1 GM in 0.9 % Sodium Chloride 50 ML IV (22:53)
[2022-01-10] VITALS (7 sets, daily range): BP systolic 99–122; BP diastolic 48–89; PULSE 76–100; RESP 18–20; TEMP 36.6–37.2; O2SAT 96–100
[2022-01-10] MEDS: oxyCODONE HCl Immed Release 5 MG TABLET PO (04:20)
[2022-01-10] MEDS: Levothyroxine Sodium 50 MCG TABLET PO (04:20)
[2022-01-10] MEDS: 0.9 % Sodium Chloride Flush 3 ML SYRINGE IVFLUSH ×2 (04:38→09:04)
[2022-01-10 07:16] LABS: Hemoglobin 8.3 g/dl (12.0-16.0); Mean Corpuscular HGB Conc 31.9 g/dl (31.0-35.0); Mean Corpuscular Hemoglobin 35.9 pg (27.0-33.0); Mean Platelet Volume 12.4 fL (9.4-12.3); Platelet Count 193 X10*3/uL (160-400); Red Blood Count 2.31 X10*6/uL (4.20-5.50); Red Cell Distribution Width 16.9 % (11.0-16.0)
[2022-01-10 07:17] LABS: Mean Corpuscular Volume 112.6 fL (80.0-98.0)
[2022-01-10 07:19] LABS: Anion Gap 18 (12-20); Blood Urea Nitrogen 19 mg/dL (9-16); Calcium 7.7 mg/dL (8.4-10.2); Carbon Dioxide 14 mmol/L (22-29); Chloride 113 mmol/L (96-108); Creatinine Clr Calc Pharmacy 36.3; Estimated Glomerular Filt Rate > 60; Glucose Random 146 mg/dL (60-115); Potassium 3.6 mmol/L (3.3-5.1); Sodium 141 mmol/L (135-145)
--- NOTE | 2022-01-10 07:50 | PC.NURSE ---
MD aware of patients tachy HR
[2022-01-10] MEDS: Metoprolol Tartrate 100 MG TABLET PO ×2 (08:55→19:40)
[2022-01-10] MEDS: Multivitamin TABLET 1 TAB PO (08:55)
[2022-01-10] MEDS: Cholecalciferol (Vitamin D3) 25 MCG TABLET 50 MCG PO (08:56)
[2022-01-10] MEDS: Gabapentin 300 MG CAPSULE PO ×3 (08:56→19:40)
--- NOTE | 2022-01-10 08:58 | PC.NURSE ---
ordered to hold lasx and give metoprolol
--- NOTE | 2022-01-10 09:49 | P.CDIC_ITS ---
CDI Concurrent Query Documentation Clarification: PHYSICIAN'S DOCUMENTATION REQUEST Date of Query: 01/10/22 0950 Patient Name: Corinna Olivas Admit Date: 01/08/22 Dear Doctor, A review of the medical record indicates additional documentation may be needed. Please review below and update the documentation accordingly. Clinical Indicators: Risk Factors/Clinical Indicators/Treatments ED: Clinical impression - Hematuria, blood clot in bladder, current use of anticoagulant therapy, Acute blood loss anemia. Based on the above, could you clarify in the Progress Notes the appropriate diagnosis, if significant, that supports the above abnormalities and additional evaluation, monitoring, and/or treatment rendered: * Hematuria due to anticoagulant therapy * Hematuria due to other etiology * Other (please specify) * Unable to determine Use of terms such as suspected, likely, concern for, or probable (associated with a specific diagnosis that is being evaluated, monitored, or treated as if it exists) are acceptable and can be coded in the inpatient setting, when documented at the time of discharge. Thank you, Shaina Chavez [facility], CDIS Extension:[phone] Please use your independent medical judgment in providing your response. THIS QUERY IS PART OF THE PERMANENT MEDICAL RECORD Provider Response: Other Other Diagnosis: hematuria assoc c anticoag
[2022-01-10] MEDS: Leflunomide 10 MG TABLET 20 MG PO (10:43)
[2022-01-10] MEDS: Ascorbic Acid 500 MG TABLET PO ×2 (10:44→19:40)
[2022-01-10] MEDS: Hydrocortisone Sod Succ/PF 100 MG VIAL 50 MG IVPUSH ×2 (10:44→20:09)
[2022-01-10] MEDS: Acetaminophen 325 MG TABLET 650 MG PO (10:44)
--- NOTE | 2022-01-10 10:59 | PC.NURSE ---
Addendum entered by Juvenal Hinton RN 01/10/22 19:01: informed md of pt wheezing, ?'ed prn or marleni neb treatments Addendum entered by Juvenal Hinton RN 01/10/22 18:49: pageangella elder in regards to rechecking pt's H&H tonight d/t blood still present in cbi Addendum entered by Juvenal Hinton RN 01/10/22 14:58: Md informed pt had 7 run VT and HR decreased to 33 nonsustained while asleep in bed. Original Note: Report taken from ED RN. Pt arrived to unit w/ CBI in place, leaking. CBI was cleaned, deflated and advanced. No leaking noted after intervention. Pt stated she is eperiencing right hip pain 11/22, takes oxy a home. md informed. MD also informed of pt's HR afib up to 130. Cotnact precautions in place. RUE IV d/c'ed d/t infiltration. family at bedside. Pt noted to be pale, skin temp cool to touch and wounds noted to b/l feet and buttocks w/ discoloration.
[2022-01-10] MEDS: dilTIAZem HCL 125 MG in 0.9 % Sodium Chloride 100 ML 10 MG IVCONT (11:46)
[2022-01-10] MEDS: Morphine Sulfate 2 MG/ML CARTRIDGE IVPUSH (11:51)
[2022-01-10] MEDS: predniSONE 1 MG TABLET 2 MG PO (11:51)
--- NOTE | 2022-01-10 14:54 | HO.PM.IMPN ---
Subjective Subjective Date of Service: 01/10/22 Interval History: rapid AF in 100s-130s this AM; c/o palpitations, lightheadedness BP improved to 110s-120s/60s-70s ongoing hematuria Review of Systems Review of Systems: Yes all other systems are reviewed and are negative Physical Exam Vital Signs: Vital Signs: Last Vital Signs Temp 97.8 F 01/10/22 10:44 Pulse 100 01/10/22 10:44 Resp 18 01/10/22 10:44 BP 110/70 01/10/22 10:44 Pulse Ox 96 01/10/22 10:44 O2 Del Method 01/10/22 10:44 O2 Flow Rate 5 01/10/22 10:44 Oxygen Flow Rate 10 01/08/22 09:27 BMI result Body Mass Index 14.8 Gen: malnourished, ill-appearing HEENT: sclera anicteric, pale mucus membranes Neck: supple Lungs: clear to auscultation bilaterally Heart: irregularly irregular, rapid Abd: soft, non-tender, non-distended : CBI with blood-tinged urine Ext: no edema Skin: warm/well-perfused Neuro: alert and oriented x3, no focal findings Psych: appropriate affect Objective Data Active Medications Acetaminophen (Acetaminophen 325 Mg Tablet) 650 mg PO Q6H PRN PRN Reason: Pain, Mild (Pain Scale 1-3) Last Admin: 01/10/22 10:44 Dose: 650 mg Documented By: RERE Ascorbic Acid (Ascorbic Acid 500 Mg Tablet) 500 mg PO BID [facility] Last Admin: 01/10/22 10:44 Dose: 500 mg Documented By: RERE Digoxin (Digoxin 0.125 Mg Tablet) 0.125 mg PO Q2D [facility] Last Admin: 01/09/22 17:50 Dose: 0.125 mg Documented By: RADHA Furosemide (Furosemide 20 Mg/2 Ml Vial) 20 mg IVPUSH DAILY [facility]; Protocol Last Admin: 01/10/22 08:41 Dose: Not Given Documented By: MORRO Non-Admin Reason: Physician Held Med Gabapentin (Gabapentin 300 Mg Capsule) 300 mg PO TID [facility] Last Admin: 01/10/22 08:56 Dose: 300 mg Documented By: MORRO Hydrocortisone Sodium Succinate (Hydrocortisone Sod Succ/Pf 100 Mg Vial) 50 mg IVPUSH Q12H [facility] Last Admin: 01/10/22 10:44 Dose: 50 mg Documented By: RERE Ceftriaxone Sodium 1 gm/ (Sodium Chloride) 50 mls @ 100 mls/hr IV Q24H [facility] Last Infusion: 01/09/22 23:30 Dose: 0 mls/hr Documented By: JAQUAN Diltiazem HCl 125 mg/ Sodium (Chloride) 125 mls @ 0 mls/hr IVCONT .Q0M [facility]; Protocol Last Titration: 01/10/22 13:38 Dose: 0 mg/hr, 0 mls/hr Documented By: RERE Leflunomide (Leflunomide 10 Mg Tablet) 20 mg PO DAILY [facility] Last Admin: 01/10/22 10:43 Dose: 20 mg Documented By: RERE Levothyroxine Sodium (Levothyroxine Sodium 50 Mcg Tablet) 50 mcg PO 0600 [facility] Last Admin: 01/10/22 04:20 Dose: 50 mcg Documented By: ROSSY Melatonin (Melatonin 3 Mg Tablet) 6 mg PO BEDTIME PRN PRN Reason: Insomnia Last Admin: 01/09/22 20:39 Dose: 6 mg Documented By: JAQUAN Metoprolol Tartrate (Metoprolol Tartrate 5 Mg/5 Ml Vial) 2.5 mg IVPUSH Q6H PRN PRN Reason: HR>125 Last Admin: 01/09/22 02:55 Dose: 2.5 mg Documented By: TELLO Comments: given now (early per MD Michael Berumen) due to persistent tachycardia despite first dose at 0027. BP 115/82 HR 120s-160 Metoprolol Tartrate (Metoprolol Tartrate 100 Mg Tablet) 100 mg PO BID [facility]; Protocol Last Admin: 01/10/22 08:55 Dose: 100 mg Documented By: MORRO Morphine Sulfate (Morphine Sulfate 2 Mg/Ml Cartridge) 2 mg IVPUSH Q2H PRN; Protocol PRN Reason: severe paion Last Admin: 01/10/22 11:51 Dose: 2 mg Documented By: RERE Multivitamins/Vitamin C (Multivitamin Tablet) 1 tab PO DAILY [facility] Last Admin: 01/10/22 08:55 Dose: 1 tab Documented By: MORRO Patient Own Med ( Zonisamide 25 Mg Capsule) 25 mg PO TID [facility] Last Admin: 01/10/22 11:49 Dose: 25 mg Documented By: RERE Pravastatin Sodium (Pravastatin Sodium 20 Mg Tablet) 20 mg PO BEDTIME [facility] Last Admin: 01/09/22 20:34 Dose: 20 mg Documented By: JAQUAN Prednisone (Prednisone 1 Mg Tablet) 2 mg PO DAILY [facility] Last Admin: 01/10/22 11:51 Dose: 2 mg Documented By: RERE Senna (Sennosides 8.6 Mg Tablet) 17.2 mg PO BEDTIME PRN PRN Reason: Constipation Sodium Chloride (0.9 % Sodium Chloride Flush 3 Ml Syringe) 3 ml IVFLUSH QSHIFT [facility] Last Admin: 01/10/22 09:04 Dose: 3 ml Documented By: MORRO Vitamin D (Cholecalciferol (Vitamin D3) 25 Mcg Tablet) 50 mcg PO DAILY [facility] Last Admin: 01/10/22 08:56 Dose: 50 mcg Documented By: MORRO Labs CBC & Chem 7: 01/10/22 06:50 01/10/22 06:50 Labs: Laboratory Results - last 24 hr 01/09/22 01/10/22 01/10/22 15:45 06:50 06:50 MCV 113.7 H 112.6 H MCH 35.3 H 35.9 H MCHC 31.0 31.9 RDW 16.6 H 16.9 H Plt Count 142 L 193 D MPV 11.7 12.4 H Absolute Nucleated RBC 0.040 H 0.220 H Nucleated RBC % (auto) 0.5 H 2.0 H Smear Path Review SEE NOTE Anion Gap 18 Estim Creat Clear Calc 36.3 Estimated GFR > 60 Random Glucose 146 H Calcium 7.7 L Microbiology Microbiology Results: Microbiology 01/08/22 00:00 Urine Culture - Final Urine clean catch - Urine marie top Proteus mirabilis 01/08/22 14:19 Blood Culture - Preliminary Blood - Venous No growth after 24 hours. 01/08/22 14:19 Blood Culture - Preliminary Blood - Venous No growth after 24 hours. Assessment and Plan (1) Hematuria: Status: Acute Plan hospital d#3 81yo F with HTN, HLD, PVD, RA, Raynaud's phenomenon, AF on warfarin, hypothyroidism, neuropathy presenting with hematuria # AF with RVR - continue metoprolol tartrate + digoxin, start diltiazem infusion - background of mod-sev MR, LVEF 50-55%, basal inferior WMA [TTE August 2021] - d/c'ed warfarin given hematuria - Cardilogy following # hematuria likely due to anticoagulant # anemia due to blood loss - CBI, Urology consultation, d/c warfarin - declines transfusion [Jehovan's witness] # hypotension - resolved s/p stress dose hydrocortisone- wean to 2 mg of prednisone daily # acute/chronic HFpEF - resume IV furosemide [was held yesterday due to hypotension] # UTI, Proteus mirabilis R to nitrofurantoin - ceftriaxone d#3 # RA - continue leflunomide + prednisone -> hydrocortisone stress-dose # HLD - continue statin # levothyroxine - continue LT4 # neuropathy - continue gabapentin # VTE ppx: SCDs In my clinical judgment, the patient requires continued hospitalization for the following reasons: CBI, rapid AF I updated pt's son Garrison [phone] via phone Quality Stroke Does the patient have a stroke diagnosis?: No VTE Prior VTE?: No VTE Risk Level:: Medical - moderate - high VTE Device Contraindication: Treatment Not Indicated VTE Drug Contraindication: N/A - Med Ordered
--- NOTE | 2022-01-10 19:09 | PM.EVENT ---
Event Note Date of Service: 01/10/22 Event Note: Hematuria: pt still has hematuria; Hgb 8.3 in Am; will repeat CBC spoke to Dr Moore-> recs to c/w CBI and TXA. BP 117/62, HR 110; will monitor.
[2022-01-10] MEDS: Pravastatin Sodium 20 MG TABLET PO (19:40)
[2022-01-10] MEDS: Tranexamic Acid 1,000 MG in 0.9 % Sodium Chloride 50 ML 360 MG IV (19:54)
[2022-01-10 20:09] LABS: Basophils Percent Auto 0.2 % (0-2); Hematocrit 24.1 % (37.0-47.0); Hemoglobin 7.5 g/dl (12.0-16.0); Imm Gran Abs Auto 0.08 X10*3/uL (0.00-0.03); Imm Gran Pct Auto 0.7 % (0.0-0.4); Lymphocytes Absolute Auto 0.3 X10*3/uL (1.2-4.9); Lymphocytes Percent Auto 2.5 % (20-40); MANUAL DIFF FLAG SCAN; Mean Corpuscular HGB Conc 31.1 g/dl (31.0-35.0); Mean Platelet Volume 12.1 fL (9.4-12.3); Monocytes Absolute Auto 0.7 X10*3/uL (0.1-1.2); Monocytes Percent Auto 5.9 % (2-11); Neutrophils Absolute Auto 10.1 x10*3/uL (2.0-8.3); Neutrophils Percent Auto 90.7 % (45-73); Platelet Count 158 X10*3/uL (160-400); Red Blood Count 2.14 X10*6/uL (4.20-5.50); Red Cell Distribution Width 16.8 % (11.0-16.0); SCAN SMEAR FLAG 1; White Blood Count 11.1 X10*3/uL (4.8-10.8)
[2022-01-10 20:10] LABS: Mean Corpuscular Volume 112.6 fL (80.0-98.0); NRBC Pct Auto 1.2 /100WBC (0.0-0.2)
[2022-01-10 20:32] LABS: SLIDE REVIEW VERIFIED
[2022-01-11] MEDS: cefTRIAXone sodium 1 GM in 0.9 % Sodium Chloride 50 ML IV
[2022-01-11 03:06] VITALS: BP 107/67; PULSE 91; RESP 20; TEMP 36.7; O2SAT 96
[2022-01-11] MEDS: Morphine Sulfate 2 MG/ML CARTRIDGE IVPUSH ×3 (04:35→22:24)
[2022-01-11] MEDS: Levothyroxine Sodium 50 MCG TABLET PO (05:29)
[2022-01-11 06:59] LABS: Hematocrit 23.6 % (37.0-47.0); Hemoglobin 7.5 g/dl (12.0-16.0); Mean Corpuscular HGB Conc 31.8 g/dl (31.0-35.0); Mean Corpuscular Hemoglobin 35.9 pg (27.0-33.0); Mean Platelet Volume 12.1 fL (9.4-12.3); Platelet Count 183 X10*3/uL (160-400); Red Blood Count 2.09 X10*6/uL (4.20-5.50); Red Cell Distribution Width 16.6 % (11.0-16.0); White Blood Count 11.7 X10*3/uL (4.8-10.8)
[2022-01-11 07:02] LABS: Mean Corpuscular Volume 112.9 fL (80.0-98.0); NRBC Pct Auto 2.9 /100WBC (0.0-0.2)
[2022-01-11 07:14] LABS: Anion Gap 18 (12-20); Blood Urea Nitrogen 17 mg/dL (9-16); Carbon Dioxide 16 mmol/L (22-29); Chloride 110 mmol/L (96-108); Creatinine Clr Calc Pharmacy 37.7; Estimated Glomerular Filt Rate > 60; Glucose Random 121 mg/dL (60-115); Sodium 140 mmol/L (135-145)
[2022-01-11 07:25] LABS: B Type Natriuretic Peptide 1077 pg/mL (<100)
[2022-01-11 07:52] VITALS: BP 102/55; PULSE 82; RESP 20; TEMP 36.6
[2022-01-11] MEDS: 0.9 % Sodium Chloride Flush 3 ML SYRINGE IVFLUSH ×4 (09:20→22:03)
[2022-01-11] MEDS: Leflunomide 10 MG TABLET 20 MG PO (09:20)
[2022-01-11] MEDS: Hydrocortisone Sod Succ/PF 100 MG VIAL 25 MG IVPUSH ×2 (09:20→22:03)
[2022-01-11] MEDS: predniSONE 1 MG TABLET 2 MG PO (09:21)
[2022-01-11] MEDS: Metoprolol Tartrate 100 MG TABLET PO ×2 (09:21→22:02)
[2022-01-11] MEDS: Gabapentin 300 MG CAPSULE PO ×3 (09:21→22:02)
[2022-01-11] MEDS: Furosemide 20 MG/2 ML VIAL IVPUSH (09:21)
[2022-01-11] MEDS: Cholecalciferol (Vitamin D3) 25 MCG TABLET 50 MCG PO (09:21)
[2022-01-11] MEDS: Ascorbic Acid 500 MG TABLET PO ×2 (09:21→22:02)
[2022-01-11] MEDS: Multivitamin TABLET 1 TAB PO (09:22)
[2022-01-11 10:43] VITALS: BMI 17.4
--- NOTE | 2022-01-11 10:50 | P.PNCA_ITS ---
Subjective Subjective Date of Service: 01/11/22 Interval history: Seen and examined at bedside. Significantly pale due to blood loss. She is a Judaism and would not agree to any blood transfusions. She is saying her breathing is not great right now. Physical Exam Vital Signs: Last Vital Signs Temp 97.9 F 01/11/22 07:52 Pulse 82 01/11/22 07:52 Resp 20 01/11/22 07:52 BP 102/55 L 01/11/22 07:52 Pulse Ox 96 01/11/22 03:06 O2 Del Method 01/11/22 03:06 O2 Flow Rate 4.5 01/11/22 03:06 Oxygen Flow Rate 10 01/08/22 09:27 BMI result Body Mass Index 15.7 GENERAL APPEARANCE: Frail lady. No distress. Pale looking. NECK: no carotid bruit, no jugular venous distention. SKIN: no suspicious lesions, warm and dry. HEART: Holosystolic murmur at the apex, irregularly irregular rhythm. LUNGS: Bilateral wheezes and rhonchi. ABDOMEN: soft, nontender. EXTREMITIES: no edema. NEUROLOGIC: No gross deficits, AAO X 3 Objective Labs and Meds Result diagrams: 01/11/22 06:35 01/11/22 06:35 Lab results: Laboratory Results - last 24 hr 01/10/22 01/10/22 01/11/22 06:50 19:44 06:35 WBC 11.1 H RBC 2.14 L Hgb 7.5 L Hct 24.1 L MCV 112.6 H MCH 35.0 H MCHC 31.1 RDW 16.8 H Plt Count 158 L MPV 12.1 Immature Gran % (Auto) 0.7 H Neut % (Auto) 90.7 H Lymph % (Auto) 2.5 L [place] % (Auto) 5.9 Eos % (Auto) 0.0 Baso % (Auto) 0.2 Lymph # (Auto) 0.3 L [place] # (Auto) 0.7 Eos # (Auto) 0.0 Baso # (Auto) 0.0 Abs Immat Gran (auto) 0.08 H Absolute Neuts (auto) 10.1 H Absolute Nucleated RBC 0.130 H Nucleated RBC % (auto) 1.2 H Smear Tech's Comments VERIFIED Smear Path Review SEE NOTE Sodium Potassium Chloride Carbon Dioxide Anion Gap BUN Creatinine Estim Creat Clear Calc Estimated GFR Random Glucose Calcium B-Natriuretic Peptide 1077 H 01/11/22 01/11/22 06:35 06:35 WBC 11.7 H RBC 2.09 L Hgb 7.5 L Hct 23.6 L MCV 112.9 H MCH 35.9 H MCHC 31.8 RDW 16.6 H Plt Count 183 MPV 12.1 Immature Gran % (Auto) Neut % (Auto) Lymph % (Auto) [place] % (Auto) Eos % (Auto) Baso % (Auto) Lymph # (Auto) [place] # (Auto) Eos # (Auto) Baso # (Auto) Abs Immat Gran (auto) Absolute Neuts (auto) Absolute Nucleated RBC 0.340 H Nucleated RBC % (auto) 2.9 H Smear Tech's Comments Smear Path Review Sodium 140 Potassium 4.0 Chloride 110 H Carbon Dioxide 16 L Anion Gap 18 BUN 17 H Creatinine 0.77 Estim Creat Clear Calc 37.7 Estimated GFR > 60 Random Glucose 121 H Calcium 8.0 L B-Natriuretic Peptide Progress Note: A&P Assessment and plan (1) Congestive heart failure: Status: Acute (2) Chronic atrial fibrillation: Status: Acute (3) Acute blood loss anemia: Status: Acute Plan 81 year female with congestive heart failure and atrial fibrillation complicated by acute blood loss from tract. She is Religion and will not agree to blood transfusions. Her iron stores were checked and were good. She may be candidate for darbepoetin to see if that helps rbC production. Obviously the concern is acute blood loss and blood replacement is a standard treatment which is not possible in her. She is wheezing on exam and I do not think this is heart failure. Please treat her for COPD with some nebs and steroids. Can change to PO 40 mg lasix. Heart rates are better controlled. We will follow along with you Time Spent With Patient Time: Total time spent is greater than 50% in coordination of care (as documented) at patient's floor/unit and/or counseling patient: Progress Note: Quality Stroke Does the patient have a stroke diagnosis?: No Procedures Date of Service Date of Service: 01/11/22
[2022-01-11 12:00] VITALS: BP 109/58; PULSE 75; RESP 20; TEMP 36.5; O2SAT 97
--- NOTE | 2022-01-11 14:43 | P.PNIM_ITS ---
Subjective Subjective Date of Service: 01/11/22 Interval History: HR better controlled; no palpitations; off diltiazem gtt Ongoing hematuria; given TXA overnight Review of Systems Review of Systems: Yes all other systems are reviewed and are negative Physical Exam Vital Signs: Vital Signs: Last Vital Signs Temp 97.7 F 01/11/22 12:00 Pulse 75 01/11/22 12:00 Resp 20 01/11/22 12:00 BP 109/58 L 01/11/22 12:00 Pulse Ox 97 01/11/22 12:00 O2 Del Method 01/11/22 12:00 O2 Flow Rate 4.5 01/11/22 12:00 Oxygen Flow Rate 10 01/08/22 09:27 BMI result Body Mass Index 15.7 Gen: malnourished, ill-appearing HEENT: sclera anicteric, pale mucus membranes Neck: supple Lungs: clear to auscultation bilaterally Heart: irregularly irregular Abd: soft, non-tender, non-distended : CBI with blood-tinged urine Ext: no edema Skin: warm/well-perfused Neuro: alert and oriented x3, no focal findings Psych: appropriate affect Objective Data Active Medications Acetaminophen (Acetaminophen 325 Mg Tablet) 650 mg PO Q6H PRN PRN Reason: Pain, Mild (Pain Scale 1-3) Last Admin: 01/10/22 10:44 Dose: 650 mg Documented By: RERE Albuterol/Ipratropium (Albuterol/Iprat 2.5/0.5mg 3 Ml Ampul.Neb) 3 ml INHALE RQ4H PRN PRN Reason: Shortness of Breath/Wheezing Ascorbic Acid (Ascorbic Acid 500 Mg Tablet) 500 mg PO BID [facility] Last Admin: 01/11/22 09:21 Dose: 500 mg Documented By: NIK Digoxin (Digoxin 0.125 Mg Tablet) 0.125 mg PO Q2D [facility] Last Admin: 01/09/22 17:50 Dose: 0.125 mg Documented By: RADHA Furosemide (Furosemide 20 Mg/2 Ml Vial) 20 mg IVPUSH DAILY [facility]; Protocol Last Admin: 01/11/22 09:21 Dose: 20 mg Documented By: NIK Gabapentin (Gabapentin 300 Mg Capsule) 300 mg PO TID [facility] Last Admin: 01/11/22 09:21 Dose: 300 mg Documented By: NIK Hydrocortisone Sodium Succinate (Hydrocortisone Sod Succ/Pf 100 Mg Vial) 25 mg IVPUSH BID [facility] Last Admin: 01/11/22 09:20 Dose: 25 mg Documented By: NIK Ceftriaxone Sodium 1 gm/ (Sodium Chloride) 50 mls @ 100 mls/hr IV Q24H [facility] Last Infusion: 01/11/22 00:37 Dose: 0 mls/hr Documented By: DAVONTE Diltiazem HCl 125 mg/ Sodium (Chloride) 125 mls @ 0 mls/hr IVCONT .Q0M [facility]; Protocol Last Titration: 01/10/22 13:38 Dose: 0 mg/hr, 0 mls/hr Documented By: RERE Leflunomide (Leflunomide 10 Mg Tablet) 20 mg PO DAILY [facility] Last Admin: 01/11/22 09:20 Dose: 20 mg Documented By: NIK Levothyroxine Sodium (Levothyroxine Sodium 50 Mcg Tablet) 50 mcg PO 0600 [facility] Last Admin: 01/11/22 05:29 Dose: 50 mcg Documented By: DAVONTE Melatonin (Melatonin 3 Mg Tablet) 6 mg PO BEDTIME PRN PRN Reason: Insomnia Last Admin: 01/09/22 20:39 Dose: 6 mg Documented By: JAQUAN Metoprolol Tartrate (Metoprolol Tartrate 100 Mg Tablet) 100 mg PO BID [facility]; Protocol Last Admin: 01/11/22 09:21 Dose: 100 mg Documented By: NIK Morphine Sulfate (Morphine Sulfate 2 Mg/Ml Cartridge) 2 mg IVPUSH Q2H PRN; Protocol PRN Reason: severe paion Last Admin: 01/11/22 04:35 Dose: 2 mg Documented By: DAVONTE Multivitamins/Vitamin C (Multivitamin Tablet) 1 tab PO DAILY [facility] Last Admin: 01/11/22 09:22 Dose: 1 tab Documented By: NIK Patient Own Med ( Zonisamide 25 Mg Capsule) 25 mg PO TID [facility] Last Admin: 01/11/22 09:22 Dose: 25 mg Documented By: NIK Pravastatin Sodium (Pravastatin Sodium 20 Mg Tablet) 20 mg PO BEDTIME [facility] Last Admin: 01/10/22 19:40 Dose: 20 mg Documented By: WANDY Prednisone (Prednisone 1 Mg Tablet) 2 mg PO DAILY [facility] Last Admin: 01/11/22 09:21 Dose: 2 mg Documented By: NIK Senna (Sennosides 8.6 Mg Tablet) 17.2 mg PO BEDTIME PRN PRN Reason: Constipation Sodium Chloride (0.9 % Sodium Chloride Flush 3 Ml Syringe) 3 ml IVFLUSH QSHIFT [facility] Last Admin: 01/11/22 09:20 Dose: 3 ml Documented By: NIK Vitamin D (Cholecalciferol (Vitamin D3) 25 Mcg Tablet) 50 mcg PO DAILY [facility] Last Admin: 01/11/22 09:21 Dose: 50 mcg Documented By: NIK Labs CBC & Chem 7: 01/11/22 06:35 01/11/22 06:35 Labs: Laboratory Results - last 24 hr 01/10/22 01/11/22 01/11/22 19:44 06:35 06:35 MCV 112.6 H 112.9 H MCH 35.0 H 35.9 H MCHC 31.1 31.8 RDW 16.8 H 16.6 H Plt Count 158 L 183 MPV 12.1 12.1 Immature Gran % (Auto) 0.7 H Neut % (Auto) 90.7 H Lymph % (Auto) 2.5 L [place] % (Auto) 5.9 Eos % (Auto) 0.0 Baso % (Auto) 0.2 Lymph # (Auto) 0.3 L [place] # (Auto) 0.7 Eos # (Auto) 0.0 Baso # (Auto) 0.0 Abs Immat Gran (auto) 0.08 H Absolute Neuts (auto) 10.1 H Absolute Nucleated RBC 0.130 H 0.340 H Nucleated RBC % (auto) 1.2 H 2.9 H Smear Tech's Comments VERIFIED Anion Gap Estim Creat Clear Calc Estimated GFR Random Glucose Calcium B-Natriuretic Peptide 1077 H 01/11/22 06:35 MCV MCH MCHC RDW Plt Count MPV Immature Gran % (Auto) Neut % (Auto) Lymph % (Auto) [place] % (Auto) Eos % (Auto) Baso % (Auto) Lymph # (Auto) [place] # (Auto) Eos # (Auto) Baso # (Auto) Abs Immat Gran (auto) Absolute Neuts (auto) Absolute Nucleated RBC Nucleated RBC % (auto) Smear Tech's Comments Anion Gap 18 Estim Creat Clear Calc 37.7 Estimated GFR > 60 Random Glucose 121 H Calcium 8.0 L B-Natriuretic Peptide Microbiology Microbiology Results: Microbiology 01/08/22 14:19 Blood Culture - Preliminary Blood - Venous No growth after 48 hours. 01/08/22 14:19 Blood Culture - Preliminary Blood - Venous No growth after 48 hours. Assessment and Plan (1) Rapid atrial fibrillation: Status: Acute (2) UTI (urinary tract infection): Status: Acute Plan hospital d#4 81yo F with HTN, HLD, PVD, RA, Raynaud's phenomenon, AF on warfarin, hypothyroidism, neuropathy presenting with hematuria # AF with RVR - continue metoprolol tartrate + digoxin, weaned off diltiazem infusion yesterday - background of mod-sev MR, LVEF 50-55%, basal inferior WMA [TTE August 2021] - d/c'ed warfarin given hematuria - Cardiology following # hematuria likely due to anticoagulant # anemia due to blood loss - CBI, Urology consultation, d/c warfarin - declines transfusion [Jehovan's witness] - given TXA today # anemia due to blood loss - to consider epo- does not contradict pt's oriental orthodox beliefs # hypotension - resolved s/p stress dose hydrocortisone- wean over time to 2 mg of prednisone daily # acute/chronic HFpEF - resume IV furosemide [was held yesterday due to hypotension] # UTI, Proteus mirabilis R to nitrofurantoin - ceftriaxone d#4 # RA - continue leflunomide + prednisone -> hydrocortisone stress-dose, weaning # HLD - continue statin # levothyroxine - continue LT4 # neuropathy - continue gabapentin # VTE ppx: SCDs In my clinical judgment, the patient requires continued hospitalization for the following reasons: CBI Quality Stroke Does the patient have a stroke diagnosis?: No VTE Prior VTE?: No VTE Risk Level:: Medical - moderate - high VTE Device Contraindication: Treatment Not Indicated VTE Drug Contraindication: N/A - Med Ordered
--- NOTE | 2022-01-11 14:43 | PM.UROCN ---
History of Present Illness Consult details Consult date: 01/10/22 Narrative: Consulting complaint hematuria on CBI 81-year-old female admitted to hospital with complicated UTI CT scan with blood clot within bladder Yazdanism Treated for bladder UTI Had been on Coumadin for AFib Tranexamic acid given Hematuria slowly resolve Bladder irrigated free from clot vigorously Running clear Can remove CBI tomorrow if stable No prior history of incomplete bladder emptying Review of Systems Constitutional: Constitutional: Reports as per HPI and Reports no additional constitutional complaints Cardiovascular: Cardiovascular: Reports as per HPI and Reports no additional cardiovascular complaints Respiratory: Respiratory: Reports as per HPI and Reports no additional respiratory complaints Gastrointestinal: Gastrointestinal: Reports as per HPI and Reports no additional gastrointestinal complaints Genitourinary: Genitourinary: Reports as per HPI Musculoskeletal: Musculoskeletal: Reports no additional musculoskeletal complaints and Reports as per HPI Neurologic: Reports system reviewed and no additional complaints, except as documented and Reports as per HPI PMFSH Past Medical History Medical History (Updated 01/09/22 @ 13:30 by Kenny Martin MD) Avascular necrosis of right femoral head Bronchiectasis Bunion of great toe of left foot Cellulitis Chronic atrial fibrillation Current use of anticoagulant therapy Essential tremor Infected pressure ulcer Leg ulcer, left Mitral regurgitation Nausea Osteoarthritis Osteomyelitis of right fibula Osteoporosis Persistent atrial fibrillation Pulmonary nodules Sacroiliitis Seropositive rheumatoid arthritis Family History Family History Father No problems noted. Mother Heart disease Surgical History Surgical History H/O skin graft History of angioplasty History of appendectomy History of removal of both ovaries History of vascular surgery Social History Social History Household Members: None Housing: Apartment Are you a primary senior care provider to a significant other at home: No Do you presently have visiting nurse or other home services: Yes ([employer] 5 days a week) Alcohol intake: never Patient Tobacco Use Status: Former Tobacco user Tobacco use type: Cigarette Cigarette Packs Per Day: 3 Years Smoked: 23 e-Cigarette/Vaping Use: Never Used Substance Use Type: Painkillers Advance Directives Date on File: 12/07/20 service: No Current occupational status: retired Cognitive needs: No Hearing needs: No Vision needs: Yes Meds Allergies Allergy/AdvReac Type Severity Reaction Status Date / Time ibuprofen Allergy hives Verified 01/01/22 13:46 [id number] Allergy injection Verified 01/01/22 13:46 [From Evenity] site reaction erythromycin base AdvReac upset Verified 01/01/22 13:46 stomach diarrhea Aspirin Allergy Intermediate Diff Uncoded 01/01/22 13:46 breathing Active Medications: Current Medications Acetaminophen (Acetaminophen 325 Mg Tablet) 650 mg PO Q6H PRN PRN Reason: Pain, Mild (Pain Scale 1-3) Last Admin: 01/10/22 10:44 Dose: 650 mg Albuterol/Ipratropium (Albuterol/Iprat 2.5/0.5mg 3 Ml Ampul.Neb) 3 ml INHALE RQ4H PRN PRN Reason: Shortness of Breath/Wheezing Ascorbic Acid (Ascorbic Acid 500 Mg Tablet) 500 mg PO BID [facility] Last Admin: 01/11/22 09:21 Dose: 500 mg Digoxin (Digoxin 0.125 Mg Tablet) 0.125 mg PO Q2D [facility] Last Admin: 01/09/22 17:50 Dose: 0.125 mg Furosemide (Furosemide 20 Mg/2 Ml Vial) 20 mg IVPUSH DAILY [facility]; Protocol Last Admin: 01/11/22 09:21 Dose: 20 mg Gabapentin (Gabapentin 300 Mg Capsule) 300 mg PO TID [facility] Last Admin: 01/11/22 09:21 Dose: 300 mg Hydrocortisone Sodium Succinate (Hydrocortisone Sod Succ/Pf 100 Mg Vial) 25 mg IVPUSH BID [facility] Last Admin: 01/11/22 09:20 Dose: 25 mg Ceftriaxone Sodium 1 gm/ (Sodium Chloride) 50 mls @ 100 mls/hr IV Q24H [facility] Last Infusion: 01/11/22 00:37 Dose: Infused Diltiazem HCl 125 mg/ Sodium (Chloride) 125 mls @ 0 mls/hr IVCONT .Q0M [facility]; Protocol Last Titration: 01/10/22 13:38 Dose: 0 mg/hr, 0 mls/hr Leflunomide (Leflunomide 10 Mg Tablet) 20 mg PO DAILY [facility] Last Admin: 01/11/22 09:20 Dose: 20 mg Levothyroxine Sodium (Levothyroxine Sodium 50 Mcg Tablet) 50 mcg PO 0600 [facility] Last Admin: 01/11/22 05:29 Dose: 50 mcg Melatonin (Melatonin 3 Mg Tablet) 6 mg PO BEDTIME PRN PRN Reason: Insomnia Last Admin: 01/09/22 20:39 Dose: 6 mg Metoprolol Tartrate (Metoprolol Tartrate 100 Mg Tablet) 100 mg PO BID [facility]; Protocol Last Admin: 01/11/22 09:21 Dose: 100 mg Morphine Sulfate (Morphine Sulfate 2 Mg/Ml Cartridge) 2 mg IVPUSH Q2H PRN; Protocol PRN Reason: severe paion Last Admin: 01/11/22 04:35 Dose: 2 mg Multivitamins/Vitamin C (Multivitamin Tablet) 1 tab PO DAILY [facility] Last Admin: 01/11/22 09:22 Dose: 1 tab Patient Own Med ( Zonisamide 25 Mg Capsule) 25 mg PO TID [facility] Last Admin: 01/11/22 09:22 Dose: 25 mg Pravastatin Sodium (Pravastatin Sodium 20 Mg Tablet) 20 mg PO BEDTIME [facility] Last Admin: 01/10/22 19:40 Dose: 20 mg Prednisone (Prednisone 1 Mg Tablet) 2 mg PO DAILY [facility] Last Admin: 01/11/22 09:21 Dose: 2 mg Senna (Sennosides 8.6 Mg Tablet) 17.2 mg PO BEDTIME PRN PRN Reason: Constipation Sodium Chloride (0.9 % Sodium Chloride Flush 3 Ml Syringe) 3 ml IVFLUSH QSHIFT [facility] Last Admin: 01/11/22 09:20 Dose: 3 ml Vitamin D (Cholecalciferol (Vitamin D3) 25 Mcg Tablet) 50 mcg PO DAILY [facility] Last Admin: 01/11/22 09:21 Dose: 50 mcg Physical Exam Vital Signs: Vital Signs: Last Vital Signs Temp 97.7 F 01/11/22 12:00 Pulse 75 01/11/22 12:00 Resp 20 01/11/22 12:00 BP 109/58 L 01/11/22 12:00 Pulse Ox 97 01/11/22 12:00 O2 Del Method 01/11/22 12:00 O2 Flow Rate 4.5 01/11/22 12:00 Oxygen Flow Rate 10 01/08/22 09:27 BMI result Body Mass Index 15.7 Const: General: cooperative, healthy appearing, comfortable and no acute distress Orientation/consciousness: patient oriented x3 HEENT: Face and sinus: Yes normal facial exam Mouth: moist mucous membranes Neck: Neck: Yes normal visual inspection, Yes full ROM and Yes trachea midline Chest: Chest palpation & inspection: normal inspection of the chest Resp: Effort & Inspection: normal respiratory effort, able to speak in complete sentences and no respiratory distress GI: Inspection: Yes normal to inspection Back/Spine/Pelvis: Cervical Spine: normal cervical lordosis Thoracic/Lumbar Spine: thoracic and lumbar spine normal to inspection Skin: General skin exam: no rashes or lesions noted Neuro: General: patient oriented x3, tone normal and moves all extremities Extrem: General: Yes normal to inspection and Yes capillary refill normal Results Labs Result diagrams: 01/11/22 06:35 01/11/22 06:35 Labs: Abnormal lab results 01/10/22 01/11/22 01/11/22 Range/Units 19:44 06:35 06:35 WBC 11.1 H 11.7 H (4.8-10.8) X10*3/uL RBC 2.14 L 2.09 L (4.20-5.50) X10*6/uL Hgb 7.5 L 7.5 L (12.0-16.0) g/dl Hct 24.1 L 23.6 L (37.0-47.0) % MCV 112.6 H 112.9 H (80.0-98.0) fL MCH 35.0 H 35.9 H (27.0-33.0) pg RDW 16.8 H 16.6 H (11.0-16.0) % Plt Count 158 L (160-400) X10*3/uL Immature Gran % (Auto) 0.7 H (0.0-0.4) % Neut % (Auto) 90.7 H (45-73) % Lymph % (Auto) 2.5 L (20-40) % Lymph # (Auto) 0.3 L (1.2-4.9) X10*3/uL Abs Immat Gran (auto) 0.08 H (0.00-0.03) X10*3/uL Absolute Neuts (auto) 10.1 H (2.0-8.3) x10*3/uL Absolute Nucleated RBC 0.130 H 0.340 H (0.0-0.012) X10*3/uL Nucleated RBC % (auto) 1.2 H 2.9 H (0.0-0.2) /100WBC Chloride (96-108) mmol/L Carbon Dioxide (22-29) mmol/L BUN (9-16) mg/dL Random Glucose (60-115) mg/dL Calcium (8.4-10.2) mg/dL B-Natriuretic Peptide 1077 H (<100) pg/mL 01/11/22 Range/Units 06:35 WBC (4.8-10.8) X10*3/uL RBC (4.20-5.50) X10*6/uL Hgb (12.0-16.0) g/dl Hct (37.0-47.0) % MCV (80.0-98.0) fL MCH (27.0-33.0) pg RDW (11.0-16.0) % Plt Count (160-400) X10*3/uL Immature Gran % (Auto) (0.0-0.4) % Neut % (Auto) (45-73) % Lymph % (Auto) (20-40) % Lymph # (Auto) (1.2-4.9) X10*3/uL Abs Immat Gran (auto) (0.00-0.03) X10*3/uL Absolute Neuts (auto) (2.0-8.3) x10*3/uL Absolute Nucleated RBC (0.0-0.012) X10*3/uL Nucleated RBC % (auto) (0.0-0.2) /100WBC Chloride 110 H (96-108) mmol/L Carbon Dioxide 16 L (22-29) mmol/L BUN 17 H (9-16) mg/dL Random Glucose 121 H (60-115) mg/dL Calcium 8.0 L (8.4-10.2) mg/dL B-Natriuretic Peptide (<100) pg/mL Short CBC 01/10/22 01/11/22 Range/Units 19:44 06:35 WBC 11.1 H 11.7 H (4.8-10.8) X10*3/uL Hgb 7.5 L 7.5 L (12.0-16.0) g/dl Hct 24.1 L 23.6 L (37.0-47.0) % Plt Count 158 L 183 (160-400) X10*3/uL BMP 01/11/22 06:35 Sodium 140 Potassium 4.0 Chloride 110 H Carbon Dioxide 16 L BUN 17 H Creatinine 0.77 Calcium 8.0 L Urine 01/08/22 Range/Units 11:42 Urine Color Red A Urine Appearance Turbid Urine pH 7.0 (5.0-9.0) Ur Specific [place] 1.025 (1.005-1.025) Urine Protein 300 (3+) H (Neg-Trace) mg/dL Urine Glucose (UA) 100 H (Negative) mg/dL All other labs normal. Assessment and Plan (1) UTI (urinary tract infection): Status: Acute (2) Hematuria: Status: Acute (3) Blood clot in bladder: Status: Acute Plan Antibiotics DC Howard once urine clear Procedures Date of Service Date of Service: 01/10/22 Procedure Note Procedure Note: Hematuria with Bladder Irrigation Three way catheter disconnected Using a 60 cc catheter-tip syringe the bladder was irrigated in 60 cc aliquots of fluid Clot was broken down within the bladder and extracted via catheter aspiration This was continued until clots were minimal and fluid was no longer darkly blood-stained CPT 21253
[2022-01-11] MEDS: Digoxin 0.125 MG TABLET PO (15:22)
[2022-01-11 15:36] VITALS: BP 100/53; PULSE 97; RESP 18; TEMP 36.6; O2SAT 100
--- NOTE | 2022-01-11 19:18 | PM.EVENT ---
Event Note Date of Service: 01/11/22 Event Note: NSVT: pt asymptomatic; had 23beat NSVT cardiology notified-> Dr Martin recs--> discontinue Dig and start Amiodarone 200mg BID Will check K and Mag
[2022-01-11 20:00] VITALS: BP 147/75; PULSE 78; RESP 19; TEMP 37.1; O2SAT 97
[2022-01-11 20:05] LABS: Anion Gap 17 (12-20); Blood Urea Nitrogen 19 mg/dL (9-16); Calcium 8.1 mg/dL (8.4-10.2); Carbon Dioxide 20 mmol/L (22-29); Chloride 108 mmol/L (96-108); Creatinine Clr Calc Pharmacy 37.7; Estimated Glomerular Filt Rate > 60; Glucose Random 121 mg/dL (60-115); Potassium 3.8 mmol/L (3.3-5.1); Sodium 141 mmol/L (135-145)
[2022-01-11] MEDS: Pravastatin Sodium 20 MG TABLET PO (22:02)
[2022-01-11] MEDS: Amiodarone HCL 200 MG TABLET PO (22:03)
[2022-01-11 23:50] VITALS: BP 135/80; PULSE 109; RESP 18; TEMP 36.8; O2SAT 99
[2022-01-12] MEDS: cefTRIAXone sodium 1 GM in 0.9 % Sodium Chloride 50 ML IV ×2 (00:05→21:17)
[2022-01-12 04:00] VITALS: BP 132/76; PULSE 104; RESP 20; TEMP 37; O2SAT 99
[2022-01-12] MEDS: Levothyroxine Sodium 50 MCG TABLET PO (05:34)
[2022-01-12 07:04] LABS: Mean Corpuscular HGB Conc 32.8 g/dl (31.0-35.0); Mean Corpuscular Hemoglobin 36.6 pg (27.0-33.0); Mean Platelet Volume 11.9 fL (9.4-12.3); Platelet Count 136 X10*3/uL (160-400); Red Blood Count 1.72 X10*6/uL (4.20-5.50); Red Cell Distribution Width 16.7 % (11.0-16.0); White Blood Count 7.8 X10*3/uL (4.8-10.8)
[2022-01-12 07:08] LABS: Anion Gap 11 (12-20); Blood Urea Nitrogen 17 mg/dL (9-16); Calcium 7.8 mg/dL (8.4-10.2); Carbon Dioxide 22 mmol/L (22-29); Chloride 108 mmol/L (96-108); Estimated Glomerular Filt Rate > 60; Glucose Random 128 mg/dL (60-115); Potassium 3.4 mmol/L (3.3-5.1); Sodium 138 mmol/L (135-145)
[2022-01-12 07:17] LABS: Mean Corpuscular Volume 111.6 fL (80.0-98.0)
[2022-01-12 07:19] LABS: Hemoglobin 6.3 g/dl (12.0-16.0)
[2022-01-12 07:20] LABS: Hematocrit 19.2 % (37.0-47.0)
[2022-01-12 07:27] VITALS: BP 106/53; PULSE 89; RESP 20; TEMP 36.9; O2SAT 97
[2022-01-12] MEDS: Hydrocortisone Sod Succ/PF 100 MG VIAL 25 MG IVPUSH (07:37)
[2022-01-12] MEDS: Leflunomide 10 MG TABLET 20 MG PO (07:37)
[2022-01-12] MEDS: predniSONE 1 MG TABLET 2 MG PO (07:38)
[2022-01-12] MEDS: Furosemide 20 MG/2 ML VIAL IVPUSH (07:38)
[2022-01-12] MEDS: Cholecalciferol (Vitamin D3) 25 MCG TABLET 50 MCG PO (07:39)
[2022-01-12] MEDS: Amiodarone HCL 200 MG TABLET PO ×2 (07:39→21:16)
[2022-01-12] MEDS: 0.9 % Sodium Chloride Flush 3 ML SYRINGE IVFLUSH ×2 (07:40→17:36)
[2022-01-12] MEDS: Gabapentin 300 MG CAPSULE PO ×3 (07:40→21:16)
[2022-01-12] MEDS: Metoprolol Tartrate 100 MG TABLET PO ×2 (07:40→21:17)
[2022-01-12] MEDS: Multivitamin TABLET 1 TAB PO (07:40)
[2022-01-12] MEDS: Ascorbic Acid 500 MG TABLET PO ×2 (07:40→21:16)
[2022-01-12] MEDS: Morphine Sulfate 2 MG/ML CARTRIDGE IVPUSH ×3 (07:41→21:24)
[2022-01-12] MEDS: Hydrocortisone Sod Succ/PF 100 MG VIAL 10 MG IVPUSH (09:20)
--- NOTE | 2022-01-12 10:09 | MHC.CM.PN ---
Female 81 DX AFIB Cardiology making adjustments to medications. DC dig start Amiodarone 200mg bid/ DP home with resumption of [facility] via BLS.
[2022-01-12 11:16] VITALS: BP 103/52; PULSE 73; RESP 20; TEMP 37.3; O2SAT 100
--- NOTE | 2022-01-12 12:00 | P.CNHO_ITS ---
Subjective - Subjective Chief complaint: Consult for: 1. Significant anemia. 2. Zoroastrian. Patient: new to practice Consult date: 01/12/22 Requesting Physician: Diana. Primary Care Provider: Leonor Fitzpatrick MD Medical Summary: DIAGNOSIS: 1. SIGNIFICANT ANEMIA. 2. AMISH. HPI - Consult Narrative Reason for consult: Consult for: Significant anemia. Narrative: Corinna Olivas is a pleasant 81 year old lady, who presented on 01/08 with the complaint of hematuria. Patient reported that she noted blood in the urine starting around 15:00 in the afternoon. She did not have any prior episodes of blood in the urine. Denies any urinary frequency urgency. Denies any abdominal pain. Patient denies any chest pain or palpitations. Denies any lightheadedness or dizziness. Denies any shortness of breath. Review of all other systems is negative except mentioned above. ER course: patient noted to have hematuria; CT scan showed blood clot in the bladder; urology was notified; started on CBI. Patient blood pressure dropped- patient was given IV fluid bolus. Blood pressure on the soft side. Patient's hemoglobin dropped from 14-8.6. Received vitamin K IV as INR was noted to be 3.1. Rapid AFib: Patient heart rate noted to be in 120s to 140s. Patient reportedly to have weakness- after extensive discussions with the ER team patient refused any blood transfusions. Patient has not received any albumin, FFP, blood transfusion in the ER. [facility] Medical History: hypertension, hyperlipidemia, peripheral vascular disease, rheumatoid arthritis, Raynaud's phenomenon, atrial fibrillation on Coumadin, hypothyroidism, neuropathy. Avascular necrosis of right femoral head Bronchiectasis Bunion of great toe of left foot Cellulitis Chronic atrial fibrillation Current use of anticoagulant therapy Essential tremor Infected pressure ulcer Leg ulcer, left Mitral regurgitation Nausea Osteoarthritis Osteomyelitis of right fibula Osteoporosis Persistent atrial fibrillation Pulmonary nodules Sacroiliitis Seropositive rheumatoid arthritis Surgical History: H/O skin graft History of angioplasty History of appendectomy History of removal of both ovaries History of vascular surgery Family History: Father : No problems noted. Mother : Heart disease. Social History: Household Members: None Housing: Apartment Are you a primary animal caretaker to a significant other at home: No Do you presently have visiting nurse or other home services: Yes (ANSWERER 5 days a week) Alcohol intake: never Patient Tobacco Use Status: Former Tobacco user Tobacco use type: Cigarette Cigarette Packs Per Day: 3 Years Smoked: 23 e-Cigarette/Vaping Use: Never Used Substance Use Type: Painkillers Advance Directives Date on File: 12/07/20 service: No Current occupational status: retired Review of Systems - Constitutional Reports system reviewed and no additional complaints, except as documented, Reports daytime sleepiness, Reports fatigue, Reports lack of energy, Reports malaise, Reports poor appetite, Reports weakness, Reports weight loss, Denies night sweats - Eyes Reports system reviewed and no additional complaints, except as documented - ENT Reports system reviewed and no additional complaints, except as documented - Cardiovascular Reports system reviewed and no additional complaints, except as documented - Respiratory Reports no additional respiratory complaints - Gastrointestinal Reports system reviewed and no additional complaints, except as documented - Genitourinary Reports no additional female genitourinary complaints - Musculoskeletal Reports system reviewed and no additional complaints, except as documented - Integumentary/Breasts Skin/Breast: Reports no additional skin complaints - Neurologic Reports system reviewed and no additional complaints, except as documented, Reports as per HPI - Psychiatric Reports system reviewed and no additional complaints, except as documented - Endocrine Reports no additional endocrine complaints - Hematologic/Lymphatic Reports system reviewed and no additional complaints, except as documented - Allergic/Immunologic Reports system reviewed and no additional complaints, except as documented Oncology Screenings - ECOG Performance Status ECOG Performance Status: 2 [facility] Medical History: Medical History (Last Updated 01/01/22 @ 14:25 by Autumn Chavira QUALITY ASSURANCE ANALYST-C) Avascular necrosis of right femoral head Bronchiectasis Bunion of great toe of left foot Cellulitis Chronic atrial fibrillation Current use of anticoagulant therapy Essential tremor Infected pressure ulcer Leg ulcer, left Mitral regurgitation Nausea Osteoarthritis Osteomyelitis of right fibula Osteoporosis Persistent atrial fibrillation Pulmonary nodules Sacroiliitis Seropositive rheumatoid arthritis Functional capacity: uses cane/walker Patient : No Family History: Family History (Last Reviewed 01/01/22 @ 14:21 by Autumn Chavira NP-C) Father No problems noted. Mother Heart disease Surgical History: Surgical History (Last Reviewed 01/01/22 @ 14:21 by Autumn Chavira NP-C) H/O skin graft History of angioplasty History of appendectomy History of removal of both ovaries History of vascular surgery Social History: Social History (Last Reviewed 01/01/22 @ 14:21 by CHASE Coleman) Living Situation History: Household Members: None Housing: Apartment Are you a primary animal caretaker to a significant other at home: No Do you presently have visiting nurse or other home services: Yes Do you presently have visiting nurse or other home services comment: ANSWERER 5 days a week Tobacco History: Patient Tobacco Use Status: Former Tobacco user Tobacco use type: Cigarette Cigarette Packs Per Day: 3 Years Smoked: 23 e-Cigarette/Vaping Use: Never Used Substance Use History: Substance Use Type: Painkillers Advance Directives: Advance Directives Date on File: 12/07/20 Occupation Assessmet: service: No Current occupational status: retired Home Medications and Allergies Current Medications: Current Medications Acetaminophen (Acetaminophen 325 Mg Tablet) 650 mg PO Q6H PRN PRN Reason: Pain, Mild (Pain Scale 1-3) Last Admin: 01/10/22 10:44 Dose: 650 mg Albuterol/Ipratropium (Albuterol/Iprat 2.5/0.5mg 3 Ml Ampul.Neb) 3 ml INHALE RQ4H PRN PRN Reason: Shortness of Breath/Wheezing Amiodarone HCl (Amiodarone Hcl 200 Mg Tablet) 200 mg PO BID [facility] Last Admin: 01/12/22 07:39 Dose: 200 mg Ascorbic Acid (Ascorbic Acid 500 Mg Tablet) 500 mg PO BID [facility] Last Admin: 01/12/22 07:40 Dose: 500 mg Furosemide (Furosemide 20 Mg/2 Ml Vial) 20 mg IVPUSH DAILY [facility]; Protocol Last Admin: 01/12/22 07:38 Dose: 20 mg Gabapentin (Gabapentin 300 Mg Capsule) 300 mg PO TID [facility] Last Admin: 01/12/22 07:40 Dose: 300 mg Hydrocortisone Sodium Succinate (Hydrocortisone Sod Succ/Pf 100 Mg Vial) 10 mg IVPUSH BID [facility] Last Admin: 01/12/22 09:20 Dose: 10 mg Ceftriaxone Sodium 1 gm/ (Sodium Chloride) 50 mls @ 100 mls/hr IV Q24H [facility] Last Infusion: 01/12/22 00:56 Dose: Infused Diltiazem HCl 125 mg/ Sodium (Chloride) 125 mls @ 0 mls/hr IVCONT .Q0M [facility]; Protocol Last Titration: 01/10/22 13:38 Dose: 0 mg/hr, 0 mls/hr Iron Sucrose 400 mg/ Sodium (Chloride) 270 mls @ 180 mls/hr IV ONCE ONE Stop: 01/12/22 13:26 Leflunomide (Leflunomide 10 Mg Tablet) 20 mg PO DAILY [facility] Last Admin: 01/12/22 07:37 Dose: 20 mg Levothyroxine Sodium (Levothyroxine Sodium 50 Mcg Tablet) 50 mcg PO 0600 [facility] Last Admin: 01/12/22 05:34 Dose: 50 mcg Melatonin (Melatonin 3 Mg Tablet) 6 mg PO BEDTIME PRN PRN Reason: Insomnia Last Admin: 01/09/22 20:39 Dose: 6 mg Metoprolol Tartrate (Metoprolol Tartrate 100 Mg Tablet) 100 mg PO BID [facility]; Protocol Last Admin: 01/12/22 07:40 Dose: 100 mg Morphine Sulfate (Morphine Sulfate 2 Mg/Ml Cartridge) 2 mg IVPUSH Q2H [facility]; Protocol PRN Reason: severe paion Last Admin: 01/12/22 07:41 Dose: 2 mg Multivitamins/Vitamin C (Multivitamin Tablet) 1 tab PO DAILY [facility] Last Admin: 01/12/22 07:40 Dose: 1 tab Patient Own Med ( Zonisamide 25 Mg Capsule) 25 mg PO TID [facility] Last Admin: 01/12/22 07:37 Dose: 25 mg Pravastatin Sodium (Pravastatin Sodium 20 Mg Tablet) 20 mg PO BEDTIME [facility] Last Admin: 01/11/22 22:02 Dose: 20 mg Prednisone (Prednisone 1 Mg Tablet) 2 mg PO DAILY [facility] Last Admin: 01/12/22 07:38 Dose: 2 mg Senna (Sennosides 8.6 Mg Tablet) 17.2 mg PO BEDTIME PRN PRN Reason: Constipation Sodium Chloride (0.9 % Sodium Chloride Flush 3 Ml Syringe) 3 ml IVFLUSH QSHIFT [facility] Last Admin: 01/12/22 07:40 Dose: 3 ml Vitamin D (Cholecalciferol (Vitamin D3) 25 Mcg Tablet) 50 mcg PO DAILY [facility] Last Admin: 01/12/22 07:39 Dose: 50 mcg Allergies Allergy/AdvReac Type Severity Reaction Status Date / Time ibuprofen Allergy hives Verified 01/01/22 13:46 [id number] Allergy injection Verified 01/01/22 13:46 [From Evenity] site reaction erythromycin base AdvReac upset Verified 01/01/22 13:46 stomach diarrhea Aspirin Allergy Intermediate Diff Uncoded 01/01/22 13:46 breathing Physical Exam Vital signs: Vital Signs Temp 99.2 F 01/12/22 11:16 Pulse 73 01/12/22 11:16 Resp 20 01/12/22 11:16 BP 103/52 L 01/12/22 11:16 Pulse Ox 100 01/12/22 11:16 O2 Del Method 01/12/22 11:16 O2 Flow Rate 4.5 01/12/22 11:16 Intake & Output 01/11/22 01/12/22 01/12/22 18:59 06:59 18:59 Intake Total 240 / 530 290 / 530 Output Total 800 / 1250 450 / 1250 Balance -560 / -720 -160 / -720 Urine Output (Average ml/kg/hr) 1.65 0.93 Intake: Intake, Oral Amount 240 / 480 240 / 480 Intake, IV Amount 50 / 50 cefTRIAXone sodium 1 gm In 0.9 50 / 50 % Sodium Chloride 50 ml @ 100 mls/hr IV Q24H [facility] Rx#: [id number] Output: Output, Urine Amount (Catheter) 800 / 1250 450 / 1250 3-way Urethral 450 / 450 Straight 800 / 800 Other: Breakfast % Eaten 100% Lunch % Eaten 75% Number of Bowel Movements 0 Urine Urinal Urine Color Bloody Brick Continuous Bladder Irrigation Fluid - Amount Drained 3-way Urethral 2,000 Weight 40.37 kg Weight 40.37 kg - Constitutional Present: moderate distress - Routine HEENT Exam Head: Present: normal inspection Eye: Present: normal appearance ENT: Present: mucous membranes moist - Routine Neck Exam Present: supple - Routine Respiratory Exam Present: CTAB - Routine Cardiovascular Exam Cardiovascular: Present: RRR, S1, S2 - Routine Abdominal Exam Present: soft, nontender - Routine Extremities Exam Present: nontender - Routine Skin Exam Present: intact, normal turgor - Routine Neurological Exam Present: alert, oriented X3 - Detailed Neurological Exam: Coma Scale Eye Opening: Spontaneous (4) Verbal Response: Oriented (5) Motor Response: Obeys commands (6) Eduardo Coma Scale Total: 15 - Routine Psychiatric Exam Present: normal affect Hem/Onc Consult Result - Labs CBC & Chem 7: 01/15/22 06:44 01/15/22 06:44 Labs: Short CBC 01/12/22 Range/Units 06:19 WBC 7.8 (4.8-10.8) X10*3/uL Hgb 6.3 L* (12.0-16.0) g/dl Hct 19.2 L* (37.0-47.0) % Plt Count 136 L D (160-400) X10*3/uL BMP 01/11/22 01/12/22 19:39 06:19 Sodium 141 138 Potassium 3.8 3.4 Chloride 108 108 Carbon Dioxide 20 L 22 BUN 19 H 17 H Creatinine 0.77 0.66 Calcium 8.1 L 7.8 L Assessment and Plan Patient Active problem list reviewed?: Yes (1) Acute blood loss anemia Status: Acute Assessment and plan: This is a pleasant 81-year-old lady who presents with hematuria. Hemoglobin has been dropping. However she is not accepting blood transfusions since she is a Zoroastrian. She was on warfarin. That is on hold. She has been seen by Urology. Had been undergoing CBI. Underwent bladder irrigation. PLAN: Patient has been started on tranexamic acid. Can give her IV iron along with vitamin-C. Would continue Procrit 10,000 units subcu 3 times weekly. Hopefully the bleeding will stop with local measures, as recommended by Urology. Thank you for the consult, I will follow along with you Cc: Dr. Moore. - Time Spent With Patient Time Spent with Patient (in minutes): 30
[2022-01-12 12:23] LABS: Fibrinogen 573 MG/DL (259-690); Hematocrit 23.7 % (37.0-47.0); Hemoglobin 7.5 g/dl (12.0-16.0); INTERNATIONAL NORM RATIO 1.1 (0.9-1.1); Prothrombin Time 12.8 SEC (10.0-13.1)
[2022-01-12 12:26] LABS: Partial Thromboplastin Time 25.3 SEC (26.0-36.4)
--- NOTE | 2022-01-12 12:36 | HO.PM.IMPN ---
Subjective Subjective Date of Service: 01/12/22 Interval History: Overnight had 23 beats of VT with palpitations Started on amiodarone; digoxin discontinued C/o wheezing + dyspnea, on 4.5L O2 via NC. Has hx asthma vs COPD Urologist irrigated catheter- broke up bladder clot and extracted it; urine now running more clear Hb 6.3 this am; repeat was 7.5 Review of Systems Review of Systems: Yes all other systems are reviewed and are negative Physical Exam Vital Signs: Vital Signs: Last Vital Signs Temp 99.2 F 01/12/22 11:16 Pulse 73 01/12/22 11:16 Resp 20 01/12/22 11:16 BP 103/52 L 01/12/22 11:16 Pulse Ox 100 01/12/22 11:16 O2 Del Method 01/12/22 11:16 O2 Flow Rate 4.5 01/12/22 11:16 Oxygen Flow Rate 10 01/08/22 09:27 BMI result Body Mass Index 15.7 Gen: malnourished, ill-appearing HEENT: sclera anicteric, pale mucus membranes Neck: supple Lungs: diffuse expiratory wheezing Heart: irregularly irregular Abd: soft, non-tender, non-distended : Howard with clear urine Ext: no edema Skin: warm/well-perfused Neuro: alert and oriented x3, no focal findings Psych: appropriate affect Objective Data Active Medications Acetaminophen (Acetaminophen 325 Mg Tablet) 650 mg PO Q6H PRN PRN Reason: Pain, Mild (Pain Scale 1-3) Last Admin: 01/10/22 10:44 Dose: 650 mg Documented By: RERE Albuterol Sulfate (Albuterol Sulfate (0.083%) 2.5 Mg/3 Ml Vial.Neb) 2.5 mg INHALE Q2H PRN PRN Reason: Shortness of Breath/Wheezing Albuterol/Ipratropium (Albuterol/Iprat 2.5/0.5mg 3 Ml Ampul.Neb) 3 ml INHALE RQ4H PRN PRN Reason: Shortness of Breath/Wheezing Amiodarone HCl (Amiodarone Hcl 200 Mg Tablet) 200 mg PO BID [facility] Last Admin: 01/12/22 07:39 Dose: 200 mg Documented By: NIK Ascorbic Acid (Ascorbic Acid 500 Mg Tablet) 500 mg PO BID [facility] Last Admin: 01/12/22 07:40 Dose: 500 mg Documented By: NIK Epoetin Carlos (Epoetin Carlos 10,000 Unit/Ml Vial) 10,000 unit SUBCUT MOWEFR [facility] Furosemide (Furosemide 20 Mg/2 Ml Vial) 20 mg IVPUSH DAILY [facility]; Protocol Last Admin: 01/12/22 07:38 Dose: 20 mg Documented By: NIK Gabapentin (Gabapentin 300 Mg Capsule) 300 mg PO TID [facility] Last Admin: 01/12/22 07:40 Dose: 300 mg Documented By: NIK Ceftriaxone Sodium 1 gm/ (Sodium Chloride) 50 mls @ 100 mls/hr IV Q24H [facility] Last Infusion: 01/12/22 00:56 Dose: 0 mls/hr Documented By: DAVONTE Diltiazem HCl 125 mg/ Sodium (Chloride) 125 mls @ 0 mls/hr IVCONT .Q0M [facility]; Protocol Last Titration: 01/10/22 13:38 Dose: 0 mg/hr, 0 mls/hr Documented By: RERE Iron Sucrose 400 mg/ Sodium (Chloride) 270 mls @ 180 mls/hr IV ONCE ONE Stop: 01/12/22 13:26 Leflunomide (Leflunomide 10 Mg Tablet) 20 mg PO DAILY [facility] Last Admin: 01/12/22 07:37 Dose: 20 mg Documented By: NIK Levothyroxine Sodium (Levothyroxine Sodium 50 Mcg Tablet) 50 mcg PO 0600 [facility] Last Admin: 01/12/22 05:34 Dose: 50 mcg Documented By: DAVONTE Melatonin (Melatonin 3 Mg Tablet) 6 mg PO BEDTIME PRN PRN Reason: Insomnia Last Admin: 01/09/22 20:39 Dose: 6 mg Documented By: JAQUAN Methylprednisolone Sodium Succinate (Methylprednisolone Sod Succ 40 Mg/Ml Vial) 40 mg IVPUSH BID [facility] Metoprolol Tartrate (Metoprolol Tartrate 100 Mg Tablet) 100 mg PO BID [facility]; Protocol Last Admin: 01/12/22 07:40 Dose: 100 mg Documented By: NIK Morphine Sulfate (Morphine Sulfate 2 Mg/Ml Cartridge) 2 mg IVPUSH Q2H PRN; Protocol PRN Reason: severe paion Last Admin: 01/12/22 07:41 Dose: 2 mg Documented By: NIK Multivitamins/Vitamin C (Multivitamin Tablet) 1 tab PO DAILY [facility] Last Admin: 01/12/22 07:40 Dose: 1 tab Documented By: NIK Patient Own Med ( Zonisamide 25 Mg Capsule) 25 mg PO TID [facility] Last Admin: 01/12/22 07:37 Dose: 25 mg Documented By: NIK Pravastatin Sodium (Pravastatin Sodium 20 Mg Tablet) 20 mg PO BEDTIME [facility] Last Admin: 01/11/22 22:02 Dose: 20 mg Documented By: DAVONTE Senna (Sennosides 8.6 Mg Tablet) 17.2 mg PO BEDTIME PRN PRN Reason: Constipation Sodium Chloride (0.9 % Sodium Chloride Flush 3 Ml Syringe) 3 ml IVFLUSH QSHIFT [facility] Last Admin: 01/12/22 07:40 Dose: 3 ml Documented By: NIK Vitamin D (Cholecalciferol (Vitamin D3) 25 Mcg Tablet) 50 mcg PO DAILY [facility] Last Admin: 01/12/22 07:39 Dose: 50 mcg Documented By: NIK Labs CBC & Chem 7: 01/12/22 12:11 01/12/22 06:19 Labs: Laboratory Results - last 24 hr 01/11/22 01/12/22 01/12/22 19:39 06:19 06:19 MCV 111.6 H MCH 36.6 H MCHC 32.8 RDW 16.7 H Plt Count 136 L D MPV 11.9 Absolute Nucleated RBC 0.310 H Nucleated RBC % (auto) 4.0 H PT INR APTT Fibrinogen Anion Gap 17 11 L Estim Creat Clear Calc 37.7 44.0 Estimated GFR > 60 > 60 Random Glucose 121 H 128 H Calcium 8.1 L 7.8 L Magnesium 2.0 01/12/22 12:11 MCV MCH MCHC RDW Plt Count MPV Absolute Nucleated RBC Nucleated RBC % (auto) PT 12.8 INR 1.1 D APTT 25.3 L D Fibrinogen 573 Anion Gap Estim Creat Clear Calc Estimated GFR Random Glucose Calcium Magnesium Assessment and Plan (1) Rapid atrial fibrillation: Status: Acute (2) UTI (urinary tract infection): Status: Acute Plan hospital d#5 81yo F with HTN, HLD, PVD, RA, Raynaud's phenomenon, AF on warfarin, hypothyroidism, neuropathy presenting with hematuria # NSVT - started on amiodarone. Cardiology following. K/Mg normal. TTE August 2021 showed mod-sev MR, LVEF 50-55%, basal inferior WMA # AF with RVR - continue metoprolol tartrate, off diltiazem infusion, and off digoxin - warfarin discontinued due to hematuria # hematuria likely due to anticoagulant # anemia due to blood loss - if urine continues to run clear, d/c CBI - warfarin discontinued - declines transfusion [Jehovan's witness]; given tranexamic acid 01/10, epo yesterday, continue epo MWF and give iron sucrose per Heme/Onc [Dr Diez] # acute hypoxic respiratory failure due to asthma/COPD exacerbation - nebs, will start methylprednisolone 40 mg bid [note that pt is on 2 mg prednisone daily for RA so eventually should be weaned to this dose] # hypotension - resolved s/p stress dose hydrocortisone-> changing to methylprednisolone for asthma/COPD as above # acute/chronic HFpEF - continue maintenance furosemide # UTI, Proteus mirabilis R to nitrofurantoin - ceftriaxone d#08/19 # RA - continue leflunomide + prednisone -> methylprednisolone # HLD - continue statin # levothyroxine - continue LT4 # neuropathy - continue gabapentin # VTE ppx: SCDs I updated the pt's son Garrison by phone, In my clinical judgment, the patient requires continued hospitalization for the following reasons: hypoxia Quality Stroke Does the patient have a stroke diagnosis?: No VTE Prior VTE?: No VTE Risk Level:: Medical - moderate - high VTE Device Contraindication: Treatment Not Indicated VTE Drug Contraindication: N/A - Med Ordered
--- NOTE | 2022-01-12 12:43 | P.PNCA_ITS ---
Subjective Subjective Date of Service: 01/12/22 Interval history: Seen and examined at bedside. She is saying her breathing is still not great. Hematuria has cleared. She was given amiodarone overnight because she had runs of regular tachycardia. Physical Exam Vital Signs: Last Vital Signs Temp 99.2 F 01/12/22 11:16 Pulse 73 01/12/22 11:16 Resp 20 01/12/22 11:16 BP 103/52 L 01/12/22 11:16 Pulse Ox 100 01/12/22 11:16 O2 Del Method 01/12/22 11:16 O2 Flow Rate 4.5 01/12/22 11:16 Oxygen Flow Rate 10 01/08/22 09:27 BMI result Body Mass Index 15.7 GENERAL APPEARANCE: Frail lady. No distress. Pale looking. NECK: no carotid bruit, no jugular venous distention. SKIN: no suspicious lesions, warm and dry. HEART: Holosystolic murmur at the apex, irregularly irregular rhythm. LUNGS: Bilateral wheezes and rhonchi. ABDOMEN: soft, nontender. EXTREMITIES: no edema. NEUROLOGIC: No gross deficits, AAO X 3 Objective Labs and Meds Result diagrams: 01/12/22 12:11 01/12/22 06:19 Lab results: Laboratory Results - last 24 hr 01/11/22 01/12/22 01/12/22 19:39 06:19 06:19 WBC 7.8 RBC 1.72 L Hgb 6.3 L* Hct 19.2 L* MCV 111.6 H MCH 36.6 H MCHC 32.8 RDW 16.7 H Plt Count 136 L D MPV 11.9 Absolute Nucleated RBC 0.310 H Nucleated RBC % (auto) 4.0 H PT INR APTT Fibrinogen Sodium 141 138 Potassium 3.8 3.4 Chloride 108 108 Carbon Dioxide 20 L 22 Anion Gap 17 11 L BUN 19 H 17 H Creatinine 0.77 0.66 Estim Creat Clear Calc 37.7 44.0 Estimated GFR > 60 > 60 Random Glucose 121 H 128 H Calcium 8.1 L 7.8 L Magnesium 2.0 01/12/22 01/12/22 12:11 12:11 WBC RBC Hgb 7.5 L Hct 23.7 L D MCV MCH MCHC RDW Plt Count MPV Absolute Nucleated RBC Nucleated RBC % (auto) PT 12.8 INR 1.1 D APTT 25.3 L D Fibrinogen 573 Sodium Potassium Chloride Carbon Dioxide Anion Gap BUN Creatinine Estim Creat Clear Calc Estimated GFR Random Glucose Calcium Magnesium Progress Note: A&P Assessment and plan (1) Chronic atrial fibrillation: Status: Acute (2) Congestive heart failure: Status: Acute (3) Hematuria: Status: Acute (4) Mitral regurgitation: Status: Acute (5) Acute blood loss anemia: Status: Acute Plan 81 year female with congestive heart failure and atrial fibrillation complicated by acute blood loss from tract. She is [employer]ism and will not agree to blood transfusions. Continue with metoprolol 100 mg twice a day. Stop the digoxin. Amiodarone 200 mg twice a day. Stop the Cardizem currently. Will not give her multiple medications. Hemoglobin stable. She is wheezy on examination. Difficult to know whether this is heart failure versus COPD. She already getting steroids. I think she should have repeat chest x-ray to make sure she does not have congestive heart failure. Thank you for allowing me to participate in the care of your patient. Please feel free to contact me if you have any questions. Time Spent With Patient Time: Total time spent is greater than 50% in coordination of care (as documented) at patient's floor/unit and/or counseling patient: Progress Note: Quality Stroke Does the patient have a stroke diagnosis?: No Procedures Date of Service Date of Service: 01/12/22
--- NOTE | 2022-01-12 12:59 | MHC.CLN ---
f/u PT IS UNDER WT FOR HT HT USED FOR ASSESSMENT 5'3 BMI CORRECTED TO 15.7 PREVIOUS WT HX: 42.6 (06/20/21) 5% NONSIGNIFICANT WT CHANGE X 6 MONTHS. PT TYPICALLY ON LOWER END OF IBW RANGE. HOWEVER PT WITH INCREASED NUTRITION RISK R/T PRESSURE INJURIES DIET RX: REGULAR-APPROPRIATE PT RECEIVING ENSURE BID TO INCREASE KCALS AND PROMOTE WOUND HEALING PT DRINKS ENSURE AT HOME (DARK CHOCOLATE) SUPP PROVIDES 700KCALS, 40G PROTEIN MONITOR PO INTAKE CLOSELY
[2022-01-12] MEDS: Iron Sucrose Complex 400 MG in 0.9 % Sodium Chloride 250 ML 180 MG IV (14:14)
[2022-01-12 16:00] VITALS: BP 130/62; PULSE 96; RESP 18; TEMP 37.1; O2SAT 98
[2022-01-12 19:37] VITALS: BP 144/73; PULSE 76; RESP 18; TEMP 33.9; O2SAT 97
[2022-01-12] MEDS: ondansetron HCL 4 MG/2 ML VIAL IVPUSH (21:16)
[2022-01-12] MEDS: methylPREDNISolone Sod Succ 40 MG/ML VIAL IVPUSH (21:16)
[2022-01-12] MEDS: Pravastatin Sodium 20 MG TABLET PO (21:16)
[2022-01-12 23:37] VITALS: BP 154/104; PULSE 90; RESP 19; TEMP 36.4; O2SAT 98
[2022-01-13] MEDS: 0.9 % Sodium Chloride Flush 3 ML SYRINGE IVFLUSH ×4 (00:19→23:41)
[2022-01-13 04:00] VITALS: BP 93/52; PULSE 72; RESP 16; TEMP 36.7; O2SAT 99
[2022-01-13] MEDS: Levothyroxine Sodium 50 MCG TABLET PO (04:58)
[2022-01-13] MEDS: Morphine Sulfate 2 MG/ML CARTRIDGE IVPUSH ×4 (04:58→21:54)
[2022-01-13 06:44] LABS: Hematocrit 26.5 % (37.0-47.0); Hemoglobin 8.4 g/dl (12.0-16.0); Mean Corpuscular HGB Conc 31.7 g/dl (31.0-35.0); Mean Corpuscular Hemoglobin 35.4 pg (27.0-33.0); Mean Platelet Volume 11.7 fL (9.4-12.3); Platelet Count 154 X10*3/uL (160-400); Red Blood Count 2.37 X10*6/uL (4.20-5.50); Red Cell Distribution Width 17.2 % (11.0-16.0); White Blood Count 11.9 X10*3/uL (4.8-10.8)
[2022-01-13 06:46] LABS: Mean Corpuscular Volume 111.8 fL (80.0-98.0); NRBC Pct Auto 5.3 /100WBC (0.0-0.2)
[2022-01-13 06:54] LABS: Anion Gap 17 (12-20); Blood Urea Nitrogen 25 mg/dL (9-16); Calcium 7.8 mg/dL (8.4-10.2); Carbon Dioxide 22 mmol/L (22-29); Chloride 106 mmol/L (96-108); Creatinine Clr Calc Pharmacy 27.9; Estimated Glomerular Filt Rate 51; Glucose Random 146 mg/dL (60-115); Sodium 141 mmol/L (135-145)
[2022-01-13 07:51] VITALS: BP 109/54; PULSE 83; RESP 16; TEMP 36.3; O2SAT 97
[2022-01-13] MEDS: Furosemide 40 MG TABLET PO (09:59)
[2022-01-13] MEDS: Cholecalciferol (Vitamin D3) 25 MCG TABLET 50 MCG PO (09:59)
[2022-01-13] MEDS: Ascorbic Acid 500 MG TABLET PO ×2 (09:59→21:55)
[2022-01-13] MEDS: Gabapentin 300 MG CAPSULE PO ×3 (09:59→21:55)
[2022-01-13] MEDS: Metoprolol Tartrate 100 MG TABLET PO ×2 (09:59→21:55)
[2022-01-13] MEDS: Amiodarone HCL 200 MG TABLET PO ×2 (09:59→21:55)
[2022-01-13] MEDS: Multivitamin TABLET 1 TAB PO (09:59)
[2022-01-13] MEDS: methylPREDNISolone Sod Succ 40 MG/ML VIAL IVPUSH ×2 (10:00→21:54)
[2022-01-13] MEDS: Leflunomide 10 MG TABLET 20 MG PO (10:00)
[2022-01-13 11:27] VITALS: BP 108/53; PULSE 73; RESP 16; TEMP 36.6; O2SAT 100
--- NOTE | 2022-01-13 13:26 | P.PNIM_ITS ---
Subjective Subjective Date of Service: 01/13/22 Interval History: No acute issues overnight. Mild hematuria noted this morning Review of Systems Denies chest pain Denies shortness of breath Denies nausea vomiting diarrhea Denies fever chills Physical Exam Vital Signs: Vital Signs: Last Vital Signs Temp 97.8 F 01/13/22 11:27 Pulse 73 01/13/22 11:27 Resp 16 01/13/22 11:27 BP 108/53 L 01/13/22 11:27 Pulse Ox 100 01/13/22 11:27 O2 Del Method 01/13/22 11:27 O2 Flow Rate 4.5 01/13/22 11:27 Oxygen Flow Rate 10 01/08/22 09:27 BMI result Body Mass Index 15.7 Const: Other: Awake alert no acute distress Resp: Other: Clear to auscultation bilaterally no rales rhonchi or wheezes Cardio: Other: No S4; positive S1-S2; no S3 murmurs rubs or gallops GI: Other: Soft nontender nondistended normoactive bowel sounds : Other: CBI active Extrem: Other: No edema bilaterally Objective Data Active Medications Acetaminophen (Acetaminophen 325 Mg Tablet) 650 mg PO Q6H PRN PRN Reason: Pain, Mild (Pain Scale 1-3) Last Admin: 01/10/22 10:44 Dose: 650 mg Documented By: RERE Albuterol Sulfate (Albuterol Sulfate (0.083%) 2.5 Mg/3 Ml Vial.Neb) 2.5 mg INHALE Q2H PRN PRN Reason: Shortness of Breath/Wheezing Albuterol/Ipratropium (Albuterol/Iprat 2.5/0.5mg 3 Ml Ampul.Neb) 3 ml INHALE R Q4H PRN PRN Reason: Shortness of Breath/Wheezing Amiodarone HCl (Amiodarone Hcl 200 Mg Tablet) 200 mg PO BID [facility] Last Admin: 01/13/22 09:59 Dose: 200 mg Documented By: RABIA Ascorbic Acid (Ascorbic Acid 500 Mg Tablet) 500 mg PO BID [facility] Last Admin: 01/13/22 09:59 Dose: 500 mg Documented By: RABIA Epoetin Carlos (Epoetin Carlos 10,000 Unit/Ml Vial) 10,000 unit SUBCUT MOWEFR [facility] Last Admin: 01/12/22 14:47 Dose: 10,000 unit Documented By: NIK Furosemide (Furosemide 40 Mg Tablet) 40 mg PO DAILY [facility]; Protocol Last Admin: 01/13/22 09:59 Dose: 40 mg Documented By: RABIA Gabapentin (Gabapentin 300 Mg Capsule) 300 mg PO TID [facility] Last Admin: 01/13/22 09:59 Dose: 300 mg Documented By: RABIA Ceftriaxone Sodium 1 gm/ (Sodium Chloride) 50 mls @ 100 mls/hr IV Q24H [facility] Last Infusion: 01/12/22 22:44 Dose: 0 mls/hr Documented By: ROSSY Leflunomide (Leflunomide 10 Mg Tablet) 20 mg PO DAILY [facility] Last Admin: 01/13/22 10:00 Dose: 20 mg Documented By: RABIA Levothyroxine Sodium (Levothyroxine Sodium 50 Mcg Tablet) 50 mcg PO 0600 [facility] Last Admin: 01/13/22 04:58 Dose: 50 mcg Documented By: ROSSY Melatonin (Melatonin 3 Mg Tablet) 6 mg PO BEDTIME PRN PRN Reason: Insomnia Last Admin: 01/09/22 20:39 Dose: 6 mg Documented By: JAQUAN Methylprednisolone Sodium Succinate (Methylprednisolone Sod Succ 40 Mg/Ml Vial) 40 mg IVPUSH BID [facility] Last Admin: 01/13/22 10:00 Dose: 40 mg Documented By: RABIA Metoprolol Tartrate (Metoprolol Tartrate 100 Mg Tablet) 100 mg PO BID [facility]; Protocol Last Admin: 01/13/22 09:59 Dose: 100 mg Documented By: RABIA Morphine Sulfate (Morphine Sulfate 2 Mg/Ml Cartridge) 2 mg IVPUSH Q2H PRN; Protocol PRN Reason: severe paion Last Admin: 01/13/22 10:19 Dose: 2 mg Documented By: RABIA Multivitamins/Vitamin C (Multivitamin Tablet) 1 tab PO DAILY [facility] Last Admin: 01/13/22 09:59 Dose: 1 tab Documented By: RABIA Patient Own Med ( Zonisamide 25 Mg Capsule) 25 mg PO TID [facility] Last Admin: 01/13/22 10:00 Dose: 25 mg Documented By: RABIA Ondansetron HCl (Ondansetron Hcl 4 Mg/2 Ml Vial) 4 mg IVPUSH Q8H PRN PRN Reason: Nausea and Vomiting Last Admin: 01/12/22 21:16 Dose: 4 mg Documented By: ROSSY Pravastatin Sodium (Pravastatin Sodium 20 Mg Tablet) 20 mg PO BEDTIME [facility] Last Admin: 01/12/22 21:16 Dose: 20 mg Documented By: ROSSY Senna (Sennosides 8.6 Mg Tablet) 17.2 mg PO BEDTIME PRN PRN Reason: Constipation Sodium Chloride (0.9 % Sodium Chloride Flush 3 Ml Syringe) 3 ml IVFLUSH QSHIFT [facility] Last Admin: 01/13/22 10:00 Dose: 3 ml Documented By: RABIA Vitamin D (Cholecalciferol (Vitamin D3) 25 Mcg Tablet) 50 mcg PO DAILY [facility] Last Admin: 01/13/22 09:59 Dose: 50 mcg Documented By: RABIA Labs CBC & Chem 7: 01/13/22 06:20 01/13/22 06:20 Labs: Laboratory Results - last 24 hr 01/13/22 01/13/22 06:20 06:20 MCV 111.8 H MCH 35.4 H MCHC 31.7 RDW 17.2 H Plt Count 154 L MPV 11.7 Absolute Nucleated RBC 0.630 H Nucleated RBC % (auto) 5.3 H Anion Gap 17 Estim Creat Clear Calc 27.9 Estimated GFR 51 Random Glucose 146 H Calcium 7.8 L Magnesium 2.0 Assessment and Plan (1) NSVT (nonsustained ventricular tachycardia): Status: Acute (2) Atrial fibrillation with RVR: Status: Acute (3) Hematuria: Status: Acute (4) COPD exacerbation: Status: Acute Plan 81yo F with HTN, HLD, PVD, RA, Raynaud's phenomenon, AF on warfarin, hypothyroidism, neuropathy presenting with hematuria 1.NSVT -amiodarone ...occasional runs -continue telemetry 2.AF with RVR -acceptable control -metoprolol tartrate as ordered -adjust as indicated 3.Hematuria -CBI resumed -when urine clear.. . . CBI -continue all commit 4.Acute hypoxic respiratory failure...asthma/COPD exacerbation - nebs -pulse dose methylprednisolone -titrate O2 to maintain sats greater than 90% 5.Acute/chronic HFpEF -well compensated at this time - continue maintenance furosemide 6. UTI(Proteus mirabilis) - ceftriaxone (08/19) Pneumatics DNR DNI Will require ongoing hospitalization for IV steroids and oxygen titration Quality Stroke Does the patient have a stroke diagnosis?: No VTE Prior VTE?: No VTE Risk Level:: Medical - moderate - high VTE Device Contraindication: Treatment Not Indicated VTE Drug Contraindication: N/A - Med Ordered
--- NOTE | 2022-01-13 14:16 | P.PNCA_ITS ---
Subjective Subjective Date of Service: 01/13/22 Interval history: Seen and examined at bedside. Saying her breathing is little better today. Hemoglobin stable. No further hematuria. Physical Exam Vital Signs: Last Vital Signs Temp 97.8 F 01/13/22 11:27 Pulse 73 01/13/22 11:27 Resp 16 01/13/22 11:27 BP 108/53 L 01/13/22 11:27 Pulse Ox 100 01/13/22 11:27 O2 Del Method 01/13/22 11:27 O2 Flow Rate 4.5 01/13/22 11:27 Oxygen Flow Rate 10 01/08/22 09:27 BMI result Body Mass Index 15.7 GENERAL APPEARANCE: Frail lady. No distress. Pale looking. NECK: no carotid bruit, no jugular venous distention. SKIN: no suspicious lesions, warm and dry. HEART: Holosystolic murmur at the apex, irregularly irregular rhythm. LUNGS: Bilateral mild wheezes. ABDOMEN: soft, nontender. EXTREMITIES: no edema. NEUROLOGIC: No gross deficits, AAO X 3 Objective Labs and Meds Result diagrams: 01/13/22 06:20 01/13/22 06:20 Lab results: Laboratory Results - last 24 hr 01/13/22 01/13/22 06:20 06:20 WBC 11.9 H RBC 2.37 L D Hgb 8.4 L Hct 26.5 L MCV 111.8 H MCH 35.4 H MCHC 31.7 RDW 17.2 H Plt Count 154 L MPV 11.7 Absolute Nucleated RBC 0.630 H Nucleated RBC % (auto) 5.3 H Sodium 141 Potassium 4.0 Chloride 106 Carbon Dioxide 22 Anion Gap 17 BUN 25 H Creatinine 1.04 Estim Creat Clear Calc 27.9 Estimated GFR 51 Random Glucose 146 H Calcium 7.8 L Magnesium 2.0 Imaging Radiologist's impression: Impressions Chest X-Ray 01/12/22 14:38 IMPRESSION: Cardiomegaly. Small bilateral pleural effusions. Dense right lung base concerning for pneumonia. No pulmonary vascular congestion. Progress Note: A&P Assessment and plan (1) Chronic atrial fibrillation: Status: Acute (2) Congestive heart failure: Status: Acute (3) Hematuria: Status: Acute (4) Mitral regurgitation: Status: Acute (5) Acute blood loss anemia: Status: Acute Plan 81 year female with congestive heart failure and atrial fibrillation complicated by acute blood loss from tract. She is [employer]ism and will not agree to blood transfusions. Continue with metoprolol 100 mg twice a day. Stop the digoxin. Amiodarone 200 mg twice a day. Stop the Cardizem currently. Will not give her multiple medications. Hemoglobin stable. She is wheezy on examination and has infiltrate in the lung concerning for pneumonia. She is on IV antibiotics. Continue steroids as before. Would not resume anticoagulation on discharge. Thank you for allowing me to participate in the care of your patient. Please feel free to contact me if you have any questions. Time Spent With Patient Time: Total time spent is greater than 50% in coordination of care (as documented) at patient's floor/unit and/or counseling patient: Progress Note: Quality Stroke Does the patient have a stroke diagnosis?: No Procedures Date of Service Date of Service: 01/13/22
[2022-01-13 15:35] VITALS: BP 102/54; PULSE 72; RESP 17; TEMP 35.9; O2SAT 95
--- NOTE | 2022-01-13 19:29 | PC.NURSE ---
CBI resumed @ 13:30, per MD . At 1400 pt c/o pressure, bladder scan 400ml. Irrigated 320 ml of clear yellow urine with red clots. CBI patent and drainage.
[2022-01-13 20:00] VITALS: BP 101/50; PULSE 68; RESP 18; TEMP 37.1; O2SAT 99
[2022-01-13] MEDS: Pravastatin Sodium 20 MG TABLET PO (21:55)
[2022-01-13] MEDS: cefTRIAXone sodium 1 GM in 0.9 % Sodium Chloride 50 ML IV (21:55)
[2022-01-13 23:51] VITALS: BP 111/56; PULSE 76; RESP 18; TEMP 37.2; O2SAT 98
[2022-01-14 03:45] VITALS: BP 118/72; PULSE 76; RESP 20; TEMP 37.1; O2SAT 96
[2022-01-14] MEDS: Levothyroxine Sodium 50 MCG TABLET PO (04:23)
[2022-01-14] MEDS: Morphine Sulfate 2 MG/ML CARTRIDGE IVPUSH ×4 (04:23→23:02)
[2022-01-14 06:45] LABS: MANUAL DIFF FLAG NO
[2022-01-14 07:06] LABS: Basophils Absolute Auto 0.1 X10*3/uL (0.0-0.2); Basophils Percent Auto 0.4 % (0-2); Hematocrit 24.8 % (37.0-47.0); Hemoglobin 7.7 g/dl (12.0-16.0); Imm Gran Abs Auto 0.25 X10*3/uL (0.00-0.03); Lymphocytes Absolute Auto 0.2 X10*3/uL (1.2-4.9); Lymphocytes Percent Auto 1.9 % (20-40); Mean Corpuscular Hemoglobin 36.5 pg (27.0-33.0); Mean Platelet Volume 11.8 fL (9.4-12.3); Monocytes Absolute Auto 0.8 X10*3/uL (0.1-1.2); Monocytes Percent Auto 6.3 % (2-11); Neutrophils Absolute Auto 11.1 x10*3/uL (2.0-8.3); Neutrophils Percent Auto 89.4 % (45-73); Platelet Count 158 X10*3/uL (160-400); Red Blood Count 2.11 X10*6/uL (4.20-5.50); Red Cell Distribution Width 17.5 % (11.0-16.0); White Blood Count 12.4 X10*3/uL (4.8-10.8)
[2022-01-14 07:12] LABS: Mean Corpuscular Volume 117.5 fL (80.0-98.0); NRBC Pct Auto 9.3 /100WBC (0.0-0.2)
[2022-01-14 07:27] LABS: Alanine Aminotransferase 27 U/L (0-31); Albumin Level 3.2 g/dL (3.5-5.0); Alkaline Phosphatase 100 U/L (39-117); Anion Gap 16 (12-20); Aspartate Amino Transferase 22 U/L (5-31); Bilirubin Total 0.2 mg/dL (0.0-1.0); Blood Urea Nitrogen 26 mg/dL (9-16); Calcium 7.8 mg/dL (8.4-10.2); Carbon Dioxide 23 mmol/L (22-29); Chloride 102 mmol/L (96-108); Creatinine Clr Calc Pharmacy 32.6; Estimated Glomerular Filt Rate > 60; Glucose Fasting 147 mg/dL (60-99); Potassium 3.3 mmol/L (3.3-5.1); Sodium 138 mmol/L (135-145)
[2022-01-14 07:54] VITALS: BP 105/53; PULSE 73; RESP 16; TEMP 36.7; O2SAT 100
[2022-01-14] MEDS: Furosemide 40 MG TABLET PO (09:00)
[2022-01-14] MEDS: Cholecalciferol (Vitamin D3) 25 MCG TABLET 50 MCG PO (09:00)
[2022-01-14] MEDS: Amiodarone HCL 200 MG TABLET PO ×2 (09:00→22:50)
[2022-01-14] MEDS: Metoprolol Tartrate 100 MG TABLET PO ×2 (09:00→22:50)
[2022-01-14] MEDS: Ascorbic Acid 500 MG TABLET PO ×2 (09:00→22:50)
[2022-01-14] MEDS: Multivitamin TABLET 1 TAB PO (09:00)
[2022-01-14] MEDS: methylPREDNISolone Sod Succ 40 MG/ML VIAL IVPUSH ×2 (09:00→22:50)
[2022-01-14] MEDS: Leflunomide 10 MG TABLET 20 MG PO (09:01)
[2022-01-14] MEDS: Gabapentin 300 MG CAPSULE PO ×3 (09:01→23:01)
[2022-01-14] MEDS: 0.9 % Sodium Chloride Flush 3 ML SYRINGE IVFLUSH ×3 (09:02→22:52)
[2022-01-14 12:00] VITALS: BP 138/74; PULSE 72; RESP 16; TEMP 36.9; O2SAT 98
--- NOTE | 2022-01-14 13:12 | P.PNIM_ITS ---
Subjective Subjective Date of Service: 01/14/22 Interval History: Feeling better this a.m.. Review of Systems Denies chest pain Denies shortness of breath Denies nausea vomiting diarrhea Denies fever chills Physical Exam Vital Signs: Vital Signs: Last Vital Signs Temp 98.4 F 01/14/22 12:00 Pulse 72 01/14/22 12:00 Resp 16 01/14/22 12:00 BP 138/74 01/14/22 12:00 Pulse Ox 98 01/14/22 12:00 O2 Del Method 01/14/22 12:00 O2 Flow Rate 3 01/14/22 12:00 Oxygen Flow Rate 10 01/08/22 09:27 BMI result Body Mass Index 15.7 Const: Other: Awake alert no acute distress Resp: Other: Clear to auscultation bilaterally no rales rhonchi or wheezes Cardio: Other: No S4; positive S1-S2; no S3 murmurs rubs or gallops GI: Other: Soft nontender nondistended normoactive bowel sounds : Other: CBI clamped Extrem: Other: No edema bilaterally Objective Data Active Medications Acetaminophen (Acetaminophen 325 Mg Tablet) 650 mg PO Q6H PRN PRN Reason: Pain, Mild (Pain Scale 1-3) Last Admin: 01/10/22 10:44 Dose: 650 mg Documented By: RERE Albuterol Sulfate (Albuterol Sulfate (0.083%) 2.5 Mg/3 Ml Vial.Neb) 2.5 mg INHALE Q2H PRN PRN Reason: Shortness of Breath/Wheezing Albuterol/Ipratropium (Albuterol/Iprat 2.5/0.5mg 3 Ml Ampul.Neb) 3 ml INHALE RQ4H PRN PRN Reason: Shortness of Breath/Wheezing Amiodarone HCl (Amiodarone Hcl 200 Mg Tablet) 200 mg PO BID [facility] Last Admin: 01/14/22 09:00 Dose: 200 mg Documented By: HARRISON Ascorbic Acid (Ascorbic Acid 500 Mg Tablet) 500 mg PO BID [facility] Last Admin: 01/14/22 09:00 Dose: 500 mg Documented By: HARRISON Epoetin Carlos (Epoetin Carlos 10,000 Unit/Ml Vial) 10,000 unit SUBCUT MOWEFR [facility] Last Admin: 01/12/22 14:47 Dose: 10,000 unit Documented By: NIK Furosemide (Furosemide 40 Mg Tablet) 40 mg PO DAILY [facility]; Protocol Last Admin: 01/14/22 09:00 Dose: 40 mg Documented By: HARRISON Gabapentin (Gabapentin 300 Mg Capsule) 300 mg PO TID [facility] Last Admin: 01/14/22 09:01 Dose: 300 mg Documented By: HARRISON Ceftriaxone Sodium 1 gm/ (Sodium Chloride) 50 mls @ 100 mls/hr IV Q24H [facility] Last Infusion: 01/13/22 23:41 Dose: 0 mls/hr Documented By: ROSSY Leflunomide (Leflunomide 10 Mg Tablet) 20 mg PO DAILY [facility] Last Admin: 01/14/22 09:01 Dose: 20 mg Documented By: HARRISON Levothyroxine Sodium (Levothyroxine Sodium 50 Mcg Tablet) 50 mcg PO 0600 [facility] Last Admin: 01/14/22 04:23 Dose: 50 mcg Documented By: ROSSY Melatonin (Melatonin 3 Mg Tablet) 6 mg PO BEDTIME PRN PRN Reason: Insomnia Last Admin: 01/09/22 20:39 Dose: 6 mg Documented By: JAQUAN Methylprednisolone Sodium Succinate (Methylprednisolone Sod Succ 40 Mg/Ml Vial) 40 mg IVPUSH BID [facility] Last Admin: 01/14/22 09:00 Dose: 40 mg Documented By: HARRISON Metoprolol Tartrate (Metoprolol Tartrate 100 Mg Tablet) 100 mg PO BID [facility]; Protocol Last Admin: 01/14/22 09:00 Dose: 100 mg Documented By: HARRISON Morphine Sulfate (Morphine Sulfate 2 Mg/Ml Cartridge) 2 mg IVPUSH Q2H PRN; Prot ocol PRN Reason: severe paion Last Admin: 01/14/22 09:17 Dose: 2 mg Documented By: HARRISON Multivitamins/Vitamin C (Multivitamin Tablet) 1 tab PO DAILY [facility] Last Admin: 01/14/22 09:00 Dose: 1 tab Documented By: HARRISON Patient Own Med ( Zonisamide 25 Mg Capsule) 25 mg PO TID [facility] Last Admin: 01/14/22 09:06 Dose: 25 mg Documented By: HARRISON Ondansetron HCl (Ondansetron Hcl 4 Mg/2 Ml Vial) 4 mg IVPUSH Q8H PRN PRN Reason: Nausea and Vomiting Last Admin: 01/12/22 21:16 Dose: 4 mg Documented By: ROSSY Pravastatin Sodium (Pravastatin Sodium 20 Mg Tablet) 20 mg PO BEDTIME [facility] Last Admin: 01/13/22 21:55 Dose: 20 mg Documented By: ROSSY Senna (Sennosides 8.6 Mg Tablet) 17.2 mg PO BEDTIME PRN PRN Reason: Constipation Sodium Chloride (0.9 % Sodium Chloride Flush 3 Ml Syringe) 3 ml IVFLUSH QSHIFT [facility] Last Admin: 01/14/22 09:02 Dose: 3 ml Documented By: HARRISON Vitamin D (Cholecalciferol (Vitamin D3) 25 Mcg Tablet) 50 mcg PO DAILY [facility] Last Admin: 01/14/22 09:00 Dose: 50 mcg Documented By: HARRISON Labs CBC & Chem 7: 01/14/22 06:33 01/14/22 06:27 Labs: Laboratory Results - last 24 hr 01/14/22 01/14/22 06:27 06:33 MCV 117.5 H D MCH 36.5 H MCHC 31.0 RDW 17.5 H Plt Count 158 L MPV 11.8 Immature Gran % (Auto) 2.0 H Neut % (Auto) 89.4 H Lymph % (Auto) 1.9 L [place] % (Auto) 6.3 Eos % (Auto) 0.0 Baso % (Auto) 0.4 Lymph # (Auto) 0.2 L [place] # (Auto) 0.8 Eos # (Auto) 0.0 Baso # (Auto) 0.1 Abs Immat Gran (auto) 0.25 H Absolute Neuts (auto) 11.1 H Absolute Nucleated RBC 1.160 H Nucleated RBC % (auto) 9.3 H Anion Gap 16 Estim Creat Clear Calc 32.6 Estimated GFR > 60 Fasting Glucose 147 H Calcium 7.8 L Total Bilirubin 0.2 AST 22 ALT 27 Alkaline Phosphatase 100 D Total Protein 5.0 L D Albumin 3.2 L D Microbiology Microbiology Results: Microbiology 01/08/22 14:19 Blood Culture - Final Blood - Venous No growth after 5 days. 01/08/22 14:19 Blood Culture - Final Blood - Venous No growth after 5 days. Assessment and Plan (1) Atrial fibrillation with RVR: Status: Acute (2) Hematuria: Status: Acute (3) COPD exacerbation: Status: Acute Plan 81yo F with HTN, HLD, PVD, RA, Raynaud's phenomenon, AF on warfarin, hypothyroidism, neuropathy presenting with hematuria 1.NSVT/AF with RVR -amiodarone ...occasional runs -continue telemetry --metoprolol tartrate as ordered 2.Hematuria -CBI clamped -urine remains clear follow-up clinically 4.Acute hypoxic respiratory failure...asthma/COPD exacerbation - nebs -pulse dose methylprednisolone -titrate O2 to maintain sats greater than 90% 5.Acute/chronic HFpEF -well compensated at this time - continue maintenance furosemide 6. UTI(Proteus mirabilis) - ceftriaxone (09/19) Pneumatics DNR DNI Will require ongoing hospitalization for IV steroids and oxygen titration Quality Stroke Does the patient have a stroke diagnosis?: No VTE Prior VTE?: No VTE Risk Level:: Medical - moderate - high VTE Device Contraindication: Treatment Not Indicated VTE Drug Contraindication: N/A - Med Ordered
[2022-01-14 15:29] VITALS: BP 120/58; PULSE 80; RESP 12; TEMP 37.2; O2SAT 97
[2022-01-14 20:06] VITALS: BP 111/56; PULSE 60; RESP 17; TEMP 37.2; O2SAT 99
[2022-01-14] MEDS: Pravastatin Sodium 20 MG TABLET PO (22:49)
[2022-01-14] MEDS: cefTRIAXone sodium 1 GM in 0.9 % Sodium Chloride 50 ML IV (22:50)
[2022-01-14 23:59] VITALS: BP 120/53; PULSE 80; RESP 18; TEMP 37.1; O2SAT 97
[2022-01-15] VITALS (8 sets, daily range): BP systolic 108–133; BP diastolic 57–62; PULSE 65–100; RESP 14–20; TEMP 36.8–37.2; O2SAT 94–99
[2022-01-15] MEDS: Levothyroxine Sodium 50 MCG TABLET PO (06:41)
[2022-01-15 06:56] LABS: MANUAL DIFF FLAG NO
[2022-01-15 07:00] LABS: Basophils Percent Auto 0.2 % (0-2); Hematocrit 23.7 % (37.0-47.0); Hemoglobin 7.6 g/dl (12.0-16.0); Imm Gran Abs Auto 0.34 X10*3/uL (0.00-0.03); Imm Gran Pct Auto 2.6 % (0.0-0.4); Lymphocytes Absolute Auto 0.3 X10*3/uL (1.2-4.9); Lymphocytes Percent Auto 2.1 % (20-40); Mean Corpuscular HGB Conc 32.1 g/dl (31.0-35.0); Mean Corpuscular Hemoglobin 35.8 pg (27.0-33.0); Mean Platelet Volume 11.4 fL (9.4-12.3); Monocytes Absolute Auto 0.8 X10*3/uL (0.1-1.2); Monocytes Percent Auto 5.8 % (2-11); Neutrophils Absolute Auto 11.8 x10*3/uL (2.0-8.3); Neutrophils Percent Auto 89.3 % (45-73); Platelet Count 150 X10*3/uL (160-400); Red Blood Count 2.12 X10*6/uL (4.20-5.50); Red Cell Distribution Width 18.1 % (11.0-16.0); White Blood Count 13.2 X10*3/uL (4.8-10.8)
[2022-01-15 07:01] LABS: Mean Corpuscular Volume 111.8 fL (80.0-98.0); NRBC Pct Auto 12.1 /100WBC (0.0-0.2)
[2022-01-15 07:35] LABS: Alanine Aminotransferase 24 U/L (0-31); Albumin Level 3.2 g/dL (3.5-5.0); Alkaline Phosphatase 73 U/L (39-117); Anion Gap 15 (12-20); Aspartate Amino Transferase 21 U/L (5-31); Bilirubin Total 0.3 mg/dL (0.0-1.0); Blood Urea Nitrogen 27 mg/dL (9-16); Calcium 7.9 mg/dL (8.4-10.2); Carbon Dioxide 28 mmol/L (22-29); Chloride 99 mmol/L (96-108); Creatinine Clr Calc Pharmacy 36.7; Estimated Glomerular Filt Rate > 60; Glucose Fasting 133 mg/dL (60-99); Potassium 3.3 mmol/L (3.3-5.1); Sodium 139 mmol/L (135-145); Total Protein 4.9 g/dL (6.5-8.0)
--- NOTE | 2022-01-15 09:23 | P.CDIC_ITS ---
CDI Concurrent Query Documentation Clarification: PHYSICIAN'S DOCUMENTATION REQUEST Date of Query: 01/15/22923 Patient Name: Corinna Olivas Admit Date: 01/08/22 Dear Doctor, A review of the medical record indicates additional documentation may be indicated. Please review below and update the documentation accordingly. Clinical Indicators: Risk Factors/Clinical Indicators/Treatments Wound care notes 01/14 - Pressure injury Stage III left ankle. Based on the above, could you please provide, in the Progress Notes, further information regarding the ulcer/wound: * Location of the ulcer/wound, including laterality * If a pressure ulcer, please also include the stage* of the ulcer: * Stage 1 - Skin intact, non-blanchable redness * Stage 2 - Partial thickness loss of dermis, includes intact or open blister * Stage 3 - Full thickness tissue not including bone, tendon, or muscle * Stage 4 - Full thickness tissue loss, including exposed bones, tendon, or muscle * Unstageable - Full thickness tissue loss in which the base of the ulcer is covered by slough (yellow, wooten, marie, green or brown) and/or eschar (wooten, brown, or black) in the wound bed. * Suspected deep tissue injury - Purple or maroon localized area of discolored intact skin or blood-filled blister due to damage of underlying soft tissues from pressure and/or shear. The area may be preceded by tissue that is painful, firm, mushy, boggy, warmer, or cooler as compare to adjacent tissue. * Unable to determine *Source: National Pressure Ulcer Advisory Panel (NPUAP) Use of terms such as suspected, likely, concern for, or probable (associated with a specific diagnosis that is being evaluated, monitored, or treated as if it exists) are acceptable and can be coded in the inpatient setting, when documented at the time of discharge. Thank you, Shaina Chavez [facility], CDIS Extension: [phone] Please use your independent medical judgment in providing your response. THIS QUERY IS PART OF THE PERMANENT MEDICAL RECORD Provider Response: Other Other Diagnosis: Stage III
[2022-01-15] MEDS: Morphine Sulfate 2 MG/ML CARTRIDGE IVPUSH (09:58)
[2022-01-15] MEDS: methylPREDNISolone Sod Succ 40 MG/ML VIAL IVPUSH ×2 (09:58→20:31)
[2022-01-15] MEDS: Leflunomide 10 MG TABLET 20 MG PO (10:01)
[2022-01-15] MEDS: Ascorbic Acid 500 MG TABLET PO ×2 (10:01→20:31)
[2022-01-15] MEDS: Cholecalciferol (Vitamin D3) 25 MCG TABLET 50 MCG PO (10:02)
[2022-01-15] MEDS: Metoprolol Tartrate 100 MG TABLET PO ×2 (10:02→20:32)
[2022-01-15] MEDS: Multivitamin TABLET 1 TAB PO (10:02)
[2022-01-15] MEDS: Furosemide 40 MG TABLET PO (10:02)
[2022-01-15] MEDS: Amiodarone HCL 200 MG TABLET PO ×2 (10:02→20:32)
[2022-01-15] MEDS: 0.9 % Sodium Chloride Flush 3 ML SYRINGE IVFLUSH ×3 (10:02→20:33)
[2022-01-15] MEDS: Gabapentin 300 MG CAPSULE PO ×3 (10:02→20:31)
[2022-01-15] MEDS: Albuterol/Iprat 2.5/0.5MG 3 ML AMPUL.NEB INHALE (13:50)
--- NOTE | 2022-01-15 13:50 | P.PNIM_ITS ---
Subjective Subjective Date of Service: 01/15/22 Interval History: No acute issues overnight. Still in considerable pain from right hip Review of Systems Denies chest pain Denies shortness of breath Denies nausea vomiting diarrhea Denies fever chills Physical Exam Vital Signs: Vital Signs: Last Vital Signs Temp 98.8 F 01/15/22 12:00 Pulse 70 01/15/22 12:00 Resp 20 01/15/22 12:00 BP 118/62 01/15/22 12:00 Pulse Ox 99 01/15/22 12:00 O2 Del Method 01/15/22 12:00 O2 Flow Rate 3.5 01/15/22 12:00 Oxygen Flow Rate 10 01/08/22 09:27 BMI result Body Mass Index 15.7 Const: Other: Awake alert no acute distress Resp: Other: Clear to auscultation bilaterally no rales rhonchi or wheezes Cardio: Other: No S4; positive S1-S2; no S3 murmurs rubs or gallops GI: Other: Soft nontender nondistended normoactive bowel sounds : Other: CBI clamped Extrem: Other: No edema bilaterally Objective Data Active Medications Acetaminophen (Acetaminophen 325 Mg Tablet) 650 mg PO Q6H PRN PRN Reason: Pain, Mild (Pain Scale 1-3) Last Admin: 01/10/22 10:44 Dose: 650 mg Documented By: RERE Albuterol Sulfate (Albuterol Sulfate (0.083%) 2.5 Mg/3 Ml Vial.Neb) 2.5 mg INHALE Q2H PRN PRN Reason: Shortness of Breath/Wheezing Albuterol/Ipratropium (Albuterol/Iprat 2.5/0.5mg 3 Ml Ampul.Neb) 3 ml INHALE RQ4H PRN PRN Reason: Shortness of Breath/Wheezing Amiodarone HCl (Amiodarone Hcl 200 Mg Tablet) 200 mg PO BID [facility] Last Admin: 01/15/22 10:02 Dose: 200 mg Documented By: ANNA Ascorbic Acid (Ascorbic Acid 500 Mg Tablet) 500 mg PO BID [facility] Last Admin: 01/15/22 10:01 Dose: 500 mg Documented By: ANNA Epoetin Carlos (Epoetin Carlos 10,000 Unit/Ml Vial) 10,000 unit SUBCUT MOWEFR [facility] Last Admin: 01/12/22 14:47 Dose: 10,000 unit Documented By: NIK Furosemide (Furosemide 40 Mg Tablet) 40 mg PO DAILY [facility]; Protocol Last Admin: 01/15/22 10:02 Dose: 40 mg Documented By: ANNA Gabapentin (Gabapentin 300 Mg Capsule) 300 mg PO TID [facility] Last Admin: 01/15/22 10:02 Dose: 300 mg Documented By: ANNA Ceftriaxone Sodium 1 gm/ (Sodium Chloride) 50 mls @ 100 mls/hr IV Q24H [facility] Last Infusion: 01/15/22 00:06 Dose: 0 mls/hr Documented By: HOLLY Leflunomide (Leflunomide 10 Mg Tablet) 20 mg PO DAILY [facility] Last Admin: 01/15/22 10:01 Dose: 20 mg Documented By: ANNA Levothyroxine Sodium (Levothyroxine Sodium 50 Mcg Tablet) 50 mcg PO 0600 [facility] Last Admin: 01/15/22 06:41 Dose: 50 mcg Documented By: HOLLY Melatonin (Melatonin 3 Mg Tablet) 6 mg PO BEDTIME PRN PRN Reason: Insomnia Last Admin: 01/09/22 20:39 Dose: 6 mg Documented By: JAQUAN Methylprednisolone Sodium Succinate (Methylprednisolone Sod Succ 40 Mg/Ml Vial) 40 mg IVPUSH BID [facility] Last Admin: 01/15/22 09:58 Dose: 40 mg Documented By: ANNA Metoprolol Tartrate (Metoprolol Tartrate 100 Mg Tablet) 100 mg PO BID [facility]; Protocol Last Admin: 01/15/22 10:02 Dose: 100 mg Documented By: ANNA Multivitamins/Vitamin C (Multivitamin Tablet) 1 tab PO DAILY [facility] Last Admin: 01/15/22 10:02 Dose: 1 tab Documented By: ANNA Patient Own Med ( Zonisamide 25 Mg Capsule) 25 mg PO TID [facility] Last Admin: 01/15/22 10:03 Dose: 25 mg Documented By: ANNA Ondansetron HCl (Ondansetron Hcl 4 Mg/2 Ml Vial) 4 mg IVPUSH Q8H PRN PRN Reason: Nausea and Vomiting Last Admin: 01/12/22 21:16 Dose: 4 mg Documented By: ROSSY Pravastatin Sodium (Pravastatin Sodium 20 Mg Tablet) 20 mg PO BEDTIME [facility] Last Admin: 01/14/22 22:49 Dose: 20 mg Documented By: HOLLY Senna (Sennosides 8.6 Mg Tablet) 17.2 mg PO BEDTIME PRN PRN Reason: Constipation Sodium Chloride (0.9 % Sodium Chloride Flush 3 Ml Syringe) 3 ml IVFLUSH QSHIFT [facility] Last Admin: 01/15/22 10:02 Dose: 3 ml Documented By: ANNA Vitamin D (Cholecalciferol (Vitamin D3) 25 Mcg Tablet) 50 mcg PO DAILY [facility] Last Admin: 01/15/22 10:02 Dose: 50 mcg Documented By: ANNA Labs CBC & Chem 7: 01/15/22 06:44 01/15/22 06:44 Labs: Laboratory Results - last 24 hr 01/15/22 01/15/22 06:44 06:44 MCV 111.8 H D MCH 35.8 H MCHC 32.1 RDW 18.1 H Plt Count 150 L MPV 11.4 Immature Gran % (Auto) 2.6 H Neut % (Auto) 89.3 H Lymph % (Auto) 2.1 L [place] % (Auto) 5.8 Eos % (Auto) 0.0 Baso % (Auto) 0.2 Lymph # (Auto) 0.3 L [place] # (Auto) 0.8 Eos # (Auto) 0.0 Baso # (Auto) 0.0 Abs Immat Gran (auto) 0.34 H Absolute Neuts (auto) 11.8 H Absolute Nucleated RBC 1.600 H Nucleated RBC % (auto) 12.1 H Anion Gap 15 Estim Creat Clear Calc 36.7 Estimated GFR > 60 Fasting Glucose 133 H Calcium 7.9 L Total Bilirubin 0.3 AST 21 ALT 24 Alkaline Phosphatase 73 D Total Protein 4.9 L Albumin 3.2 L Assessment and Plan (1) Atrial fibrillation with RVR: Status: Acute (2) Hematuria: Status: Acute (3) COPD exacerbation: Status: Acute Plan 81yo F with HTN, HLD, PVD, RA, Raynaud's phenomenon, AF on warfarin, hypothyroidism, neuropathy presenting with hematuria 1.NSVT/AF with RVR -amiodarone ...occasional runs -continue telemetry --metoprolol tartrate as ordered 2.Hematuria -CBI DC -urine remains clear follow-up clinically 4.Acute hypoxic respiratory failure...asthma/COPD exacerbation - nebs -pulse dose methylprednisolone -titrate O2 to maintain sats greater than 90% 5.Acute/chronic HFpEF -well compensated at this time - continue maintenance furosemide 6. UTI(Proteus mirabilis) - ceftriaxone (10/19) Pneumatics DNR DNI Will require ongoing hospitalization for IV steroids and oxygen titration Quality Stroke Does the patient have a stroke diagnosis?: No VTE Prior VTE?: No VTE Risk Level:: Medical - moderate - high VTE Device Contraindication: Treatment Not Indicated VTE Drug Contraindication: N/A - Med Ordered
--- NOTE | 2022-01-15 16:34 | MHC.CM.PN ---
Female 81 DX AFIB Hematuria Patient was seen by PT. The eval was deferred r/t H/H. DP home with [facility] vs STR via BLS
[2022-01-15] MEDS: oxyCODONE HCl Immed Release 5 MG TABLET PO (17:37)
[2022-01-15] MEDS: Pravastatin Sodium 20 MG TABLET PO (20:32)
[2022-01-16] VITALS (9 sets, daily range): BP systolic 100–141; BP diastolic 45–69; PULSE 73–92; RESP 15–25; TEMP 36.6–37.1; O2SAT 90–100
--- NOTE | 2022-01-16 | ECG_ITS ---
Test Reason : chest pain Blood Pressure : / mmHG Vent. Rate : 089 BPM Atrial Rate : 000 BPM P-R Int : 000 ms QRS Dur : 102 ms QT Int : 440 ms P-R-T Axes : 000 028 197 degrees QTc Int : 535 ms Atrial fibrillation with premature ventricular or aberrantly conducted complexes Low voltage QRS Septal infarct , age undetermined Prolonged QT Abnormal ECG When compared with ECG of 08-JAN-2022 10:31, Septal infarct is now Present T wave inversion now evident in Anterior leads QT has lengthened Referred By: Gavin Manning Electronically Signed By:FELISHA GUEVARA
[2022-01-16] MEDS: cefTRIAXone sodium 1 GM in 0.9 % Sodium Chloride 50 ML IV (00:43)
[2022-01-16] MEDS: oxyCODONE HCl Immed Release 5 MG TABLET PO (00:43)
[2022-01-16] MEDS: Levothyroxine Sodium 50 MCG TABLET PO (05:19)
[2022-01-16 06:45] LABS: MANUAL DIFF FLAG NO
[2022-01-16 06:56] LABS: Basophils Percent Auto 0.3 % (0-2); Hematocrit 23.2 % (37.0-47.0); Hemoglobin 7.6 g/dl (12.0-16.0); Imm Gran Abs Auto 0.47 X10*3/uL (0.00-0.03); Lymphocytes Absolute Auto 0.2 X10*3/uL (1.2-4.9); Lymphocytes Percent Auto 1.8 % (20-40); Mean Corpuscular HGB Conc 32.8 g/dl (31.0-35.0); Mean Corpuscular Hemoglobin 37.6 pg (27.0-33.0); Mean Corpuscular Volume 114.9 fL (80.0-98.0); Mean Platelet Volume 11.6 fL (9.4-12.3); Monocytes Absolute Auto 0.9 X10*3/uL (0.1-1.2); Monocytes Percent Auto 7.3 % (2-11); NRBC Pct Auto 23.8 /100WBC (0.0-0.2); Neutrophils Absolute Auto 10.1 x10*3/uL (2.0-8.3); Neutrophils Percent Auto 86.6 % (45-73); Platelet Count 140 X10*3/uL (160-400); Red Blood Count 2.02 X10*6/uL (4.20-5.50); Red Cell Distribution Width 18.7 % (11.0-16.0); White Blood Count 11.6 X10*3/uL (4.8-10.8)
[2022-01-16 07:39] LABS: Alanine Aminotransferase 39 U/L (0-31); Albumin Level 3.3 g/dL (3.5-5.0); Alkaline Phosphatase 130 U/L (39-117); Anion Gap 18 (12-20); Aspartate Amino Transferase 44 U/L (5-31); Bilirubin Total 0.5 mg/dL (0.0-1.0); Blood Urea Nitrogen 30 mg/dL (9-16); Calcium 7.8 mg/dL (8.4-10.2); Carbon Dioxide 24 mmol/L (22-29); Chloride 98 mmol/L (96-108); Creatinine Clr Calc Pharmacy 37.7; Estimated Glomerular Filt Rate > 60; Glucose Fasting 144 mg/dL (60-99); Potassium 3.4 mmol/L (3.3-5.1); Sodium 137 mmol/L (135-145); Total Protein 5.1 g/dL (6.5-8.0)
[2022-01-16] MEDS: methylPREDNISolone Sod Succ 40 MG/ML VIAL IVPUSH ×2 (08:13→21:25)
[2022-01-16] MEDS: Cholecalciferol (Vitamin D3) 25 MCG TABLET 50 MCG PO (08:13)
[2022-01-16] MEDS: Gabapentin 300 MG CAPSULE PO ×3 (08:13→21:25)
[2022-01-16] MEDS: Amiodarone HCL 200 MG TABLET PO ×2 (08:13→21:25)
[2022-01-16] MEDS: Ascorbic Acid 500 MG TABLET PO ×2 (08:14→21:25)
[2022-01-16] MEDS: Metoprolol Tartrate 100 MG TABLET PO ×2 (08:14→21:24)
[2022-01-16] MEDS: Multivitamin TABLET 1 TAB PO (08:14)
[2022-01-16] MEDS: Furosemide 40 MG TABLET PO (08:14)
[2022-01-16] MEDS: Leflunomide 10 MG TABLET 20 MG PO (08:14)
[2022-01-16] MEDS: 0.9 % Sodium Chloride Flush 3 ML SYRINGE IVFLUSH ×3 (08:16→21:26)
[2022-01-16] MEDS: Albuterol/Iprat 2.5/0.5MG 3 ML AMPUL.NEB INHALE (09:40)
[2022-01-16] MEDS: Furosemide 40 MG/4 ML VIAL IVPUSH (10:21)
[2022-01-16] MEDS: Morphine Sulfate 2 MG/ML CARTRIDGE IVPUSH ×2 (11:08→14:58)
--- NOTE | 2022-01-16 15:03 | P.PNIM_ITS ---
Subjective Subjective Date of Service: 01/16/22 Interval History: Episode of flash pulmonary edema at this a.m... . Responded to Lasix and afterload reduction Review of Systems Unable to obtain Physical Exam Vital Signs: Vital Signs: Last Vital Signs Temp 98.6 F 01/16/22 10:30 Pulse 91 01/16/22 12:00 Resp 20 01/16/22 12:00 BP 135/68 01/16/22 12:00 Pulse Ox 95 01/16/22 12:00 O2 Del Method 01/16/22 12:00 O2 Flow Rate 1.5 01/16/22 12:00 Oxygen Flow Rate 10 01/08/22 09:27 BMI result Body Mass Index 15.7 Const: Other: Awake alert no acute distress Resp: Other: Clear to auscultation bilaterally no rales rhonchi or wheezes Cardio: Other: No S4; positive S1-S2; no S3 murmurs rubs or gallops GI: Other: Soft nontender nondistended normoactive bowel sounds : Other: CBI clamped Extrem: Other: No edema bilaterally Objective Data Active Medications Acetaminophen (Acetaminophen 325 Mg Tablet) 650 mg PO Q6H PRN PRN Reason: Pain, Mild (Pain Scale 1-3) Last Admin: 01/10/22 10:44 Dose: 650 mg Documented By: RERE Albuterol Sulfate (Albuterol Sulfate (0.083%) 2.5 Mg/3 Ml Vial.Neb) 2.5 mg INHALE Q2H PRN PRN Reason: Shortness of Breath/Wheezing Albuterol/Ipratropium (Albuterol/Iprat 2.5/0.5mg 3 Ml Ampul.Neb) 3 ml INHALE RQ4H PRN PRN Reason: Shortness of Breath/Wheezing Last Admin: 01/16/22 09:40 Dose: 3 ml Documented By: ROYCE Amiodarone HCl (Amiodarone Hcl 200 Mg Tablet) 200 mg PO BID [facility] Last Admin: 01/16/22 08:13 Dose: 200 mg Documented By: KIARRA Ascorbic Acid (Ascorbic Acid 500 Mg Tablet) 500 mg PO BID [facility] Last Admin: 01/16/22 08:14 Dose: 500 mg Documented By: KIARRA Epoetin Carlos (Epoetin Carlos 10,000 Unit/Ml Vial) 10000 unit SUBCUT MOWEFR [facility] Last Admin: 01/15/22 14:48 Dose: 10,000 unit Documented By: ANNA Furosemide (Furosemide 40 Mg Tablet) 40 mg PO DAILY [facility]; Protocol Last Admin: 01/16/22 08:14 Dose: 40 mg Documented By: KIARRA Gabapentin (Gabapentin 300 Mg Capsule) 300 mg PO TID [facility] Last Admin: 01/16/22 08:13 Dose: 300 mg Documented By: KIARRA Ceftriaxone Sodium 1 gm/ (Sodium Chloride) 50 mls @ 100 mls/hr IV Q24H [facility] Last Infusion: 01/16/22 01:30 Dose: 0 mls/hr Documented By: DAVONTE Leflunomide (Leflunomide 10 Mg Tablet) 20 mg PO DAILY [facility] Last Admin: 01/16/22 08:14 Dose: 20 mg Documented By: KIARRA Levothyroxine Sodium (Levothyroxine Sodium 50 Mcg Tablet) 50 mcg PO 0600 [facility] Last Admin: 01/16/22 05:19 Dose: 50 mcg Documented By: DAVONTE Melatonin (Melatonin 3 Mg Tablet) 6 mg PO BEDTIME PRN PRN Reason: Insomnia Last Admin: 01/09/22 20:39 Dose: 6 mg Documented By: JAQUAN Methylprednisolone Sodium Succinate (Methylprednisolone Sod Succ 40 Mg/Ml Vial) 40 mg IVPUSH BID [facility] Last Admin: 01/16/22 08:13 Dose: 40 mg Documented By: KIARRA Metoprolol Tartrate (Metoprolol Tartrate 100 Mg Tablet) 100 mg PO BID [facility]; Protocol Last Admin: 01/16/22 08:14 Dose: 100 mg Documented By: KIARRA Morphine Sulfate (Morphine Sulfate 2 Mg/Ml Cartridge) 2 mg IVPUSH Q2H PRN; Protocol PRN Reason: Pain, Moderate (Pain Scale 4-6 Last Admin: 01/16/22 14:58 Dose: 2 mg Documented By: KIARRA Multivitamins/Vitamin C (Multivitamin Tablet) 1 tab PO DAILY [facility] Last Admin: 01/16/22 08:14 Dose: 1 tab Documented By: KIARRA Patient Own Med ( Zonisamide 25 Mg Capsule) 25 mg PO TID [facility] Last Admin: 01/16/22 08:16 Dose: 25 mg Documented By: KIARRA Ondansetron HCl (Ondansetron Hcl 4 Mg/2 Ml Vial) 4 mg IVPUSH Q8H PRN PRN Reason: Nausea and Vomiting Last Admin: 01/12/22 21:16 Dose: 4 mg Documented By: ROSSY Oxycodone HCl (Oxycodone Hcl Immed Release 5 Mg Tablet) 5 mg PO Q6H PRN PRN Reason: Pain, Moderate (Pain Scale 4-6 Last Admin: 01/16/22 00:43 Dose: 5 mg Documented By: DAVONTE Pravastatin Sodium (Pravastatin Sodium 20 Mg Tablet) 20 mg PO BEDTIME [facility] Last Admin: 01/15/22 20:32 Dose: 20 mg Documented By: DAVONTE Senna (Sennosides 8.6 Mg Tablet) 17.2 mg PO BEDTIME PRN PRN Reason: Constipation Sodium Chloride (0.9 % Sodium Chloride Flush 3 Ml Syringe) 3 ml IVFLUSH QSHIFT [facility] Last Admin: 01/16/22 08:16 Dose: 3 ml Documented By: KIARRA Vitamin D (Cholecalciferol (Vitamin D3) 25 Mcg Tablet) 50 mcg PO DAILY [facility] Last Admin: 01/16/22 08:13 Dose: 50 mcg Documented By: KIARRA Labs CBC & Chem 7: 01/16/22 06:22 01/16/22 06:22 Labs: Laboratory Results - last 24 hr 01/16/22 01/16/22 06:22 06:22 MCV 114.9 H MCH 37.6 H MCHC 32.8 RDW 18.7 H Plt Count 140 L MPV 11.6 Immature Gran % (Auto) 4.0 H Neut % (Auto) 86.6 H Lymph % (Auto) 1.8 L [place] % (Auto) 7.3 Eos % (Auto) 0.0 Baso % (Auto) 0.3 Lymph # (Auto) 0.2 L [place] # (Auto) 0.9 Eos # (Auto) 0.0 Baso # (Auto) 0.0 Abs Immat Gran (auto) 0.47 H Absolute Neuts (auto) 10.1 H Absolute Nucleated RBC 2.770 H Nucleated RBC % (auto) 23.8 H Anion Gap 18 Estim Creat Clear Calc 37.7 Estimated GFR > 60 Fasting Glucose 144 H Calcium 7.8 L Total Bilirubin 0.5 AST 44 H D ALT 39 H Alkaline Phosphatase 130 H D Total Protein 5.1 L Albumin 3.3 L Assessment and Plan (1) Acute systolic CHF (congestive heart failure): Status: Acute (2) Atrial fibrillation with RVR: Status: Acute Plan 81yo F with HTN, HLD, PVD, RA, Raynaud's phenomenon, AF on warfarin, hypothyroidism, neuropathy presenting with hematuria 1.Acute/chronic HFpEF -acute episode this a.m. documented by portable chest -responded to IV Lasix -cautious diuresis -follow renals/divalents 2.NSVT/AF with RVR -amiodarone ...occasional runs -continue telemetry --metoprolol tartrate as ordered 3.Acute hypoxic respiratory failure...asthma/COPD exacerbation - nebs -pulse dose methylprednisolone -titrate O2 to maintain sats greater than 90% Pneumatics DNR DNI Will require ongoing hospitalization for IV steroids and oxygen titration Quality Stroke Does the patient have a stroke diagnosis?: No VTE Prior VTE?: No VTE Risk Level:: Medical - moderate - high VTE Device Contraindication: Treatment Not Indicated VTE Drug Contraindication: N/A - Med Ordered
[2022-01-16] MEDS: Pravastatin Sodium 20 MG TABLET PO (21:25)
[2022-01-17] VITALS (10 sets, daily range): BP systolic 103–136; BP diastolic 54–81; PULSE 70–119; RESP 14–18; TEMP 36.2–37.4; O2SAT 91–99
[2022-01-17] MEDS: Morphine Sulfate 2 MG/ML CARTRIDGE IVPUSH ×8 (00:43→23:52)
[2022-01-17] MEDS: Levothyroxine Sodium 50 MCG TABLET PO (06:32)
[2022-01-17] MEDS: Metoprolol Tartrate 100 MG TABLET PO ×2 (10:26→21:11)
[2022-01-17] MEDS: Multivitamin TABLET 1 TAB PO (10:26)
[2022-01-17] MEDS: 0.9 % Sodium Chloride Flush 3 ML SYRINGE IVFLUSH ×3 (10:26→23:11)
[2022-01-17] MEDS: Amiodarone HCL 200 MG TABLET PO ×2 (10:26→21:11)
[2022-01-17] MEDS: Leflunomide 10 MG TABLET 20 MG PO (10:26)
[2022-01-17] MEDS: Ascorbic Acid 500 MG TABLET PO ×2 (10:26→21:11)
[2022-01-17] MEDS: Cholecalciferol (Vitamin D3) 25 MCG TABLET 50 MCG PO (10:26)
[2022-01-17] MEDS: Furosemide 40 MG TABLET PO (10:27)
[2022-01-17] MEDS: methylPREDNISolone Sod Succ 40 MG/ML VIAL IVPUSH ×2 (10:27→21:11)
[2022-01-17] MEDS: Gabapentin 300 MG CAPSULE PO ×3 (10:27→21:11)
--- NOTE | 2022-01-17 13:11 | MHC.CM.PN ---
Per ROUNDS discussion, Patient is not yet medically cleared for dc. PT is now recommending STR; CM will follow.
--- NOTE | 2022-01-17 15:52 | HO.PM.IMPN ---
Subjective Subjective Date of Service: 01/17/22 Interval History: Breathing improved as compared to yesterday. Resting comfortable Review of Systems Unable to obtain Physical Exam Vital Signs: Vital Signs: Last Vital Signs Temp 98.1 F 01/17/22 15:15 Pulse 119 H 01/17/22 15:15 Resp 18 01/17/22 15:15 BP 114/64 01/17/22 15:15 Pulse Ox 94 01/17/22 15:15 O2 Del Method 01/17/22 15:15 O2 Flow Rate 3 01/17/22 15:15 Oxygen Flow Rate 10 01/08/22 09:27 BMI result Body Mass Index 15.7 Const: Other: Awake alert no acute distress Resp: Other: Clear to auscultation bilaterally no rales rhonchi or wheezes Cardio: Other: No S4; positive S1-S2; no S3 murmurs rubs or gallops GI: Other: Soft nontender nondistended normoactive bowel sounds : Other: CBI clamped Extrem: Other: No edema bilaterally Objective Data Active Medications Acetaminophen (Acetaminophen 325 Mg Tablet) 650 mg PO Q6H PRN PRN Reason: Pain, Mild (Pain Scale 1-3) Last Admin: 01/10/22 10:44 Dose: 650 mg Documented By: RERE Albuterol Sulfate (Albuterol Sulfate (0.083%) 2.5 Mg/3 Ml Vial.Neb) 2.5 mg INHALE Q2H PRN PRN Reason: Shortness of Breath/Wheezing Albuterol/Ipratropium (Albuterol/Iprat 2.5/0.5mg 3 Ml Ampul.Neb) 3 ml INHALE RQ4H PRN PRN Reason: Shortness of Breath/Wheezing Last Admin: 01/16/22 09:40 Dose: 3 ml Documented By: ULRICC Amiodarone HCl (Amiodarone Hcl 200 Mg Tablet) 200 mg PO BID [facility] Last Admin: 01/17/22 10:26 Dose: 200 mg Documented By: BROB Ascorbic Acid (Ascorbic Acid 500 Mg Tablet) 500 mg PO BID [facility] Last Admin: 01/17/22 10:26 Dose: 500 mg Documented By: JOSE M Epoetin Carlos (Epoetin Carlos 10,000 Unit/Ml Vial) 10,000 unit SUBCUT MOWEFR [facility] Last Admin: 01/17/22 14:53 Dose: 10,000 unit Documented By: JOSE M Furosemide (Furosemide 40 Mg Tablet) 40 mg PO DAILY [facility]; Protocol Last Admin: 01/17/22 10:27 Dose: 40 mg Documented By: JOSE M Gabapentin (Gabapentin 300 Mg Capsule) 300 mg PO TID [facility] Last Admin: 01/17/22 14:54 Dose: 300 mg Documented By: JOSE M Leflunomide (Leflunomide 10 Mg Tablet) 20 mg PO DAILY [facility] Last Admin: 01/17/22 10:26 Dose: 20 mg Documented By: JOSE M Levothyroxine Sodium (Levothyroxine Sodium 50 Mcg Tablet) 50 mcg PO 0600 [facility] Last Admin: 01/17/22 06:32 Dose: 50 mcg Documented By: DAVONTE Melatonin (Melatonin 3 Mg Tablet) 6 mg PO BEDTIME PRN PRN Reason: Insomnia Last Admin: 01/09/22 20:39 Dose: 6 mg Documented By: JAQUAN Methylprednisolone Sodium Succinate (Methylprednisolone Sod Succ 40 Mg/Ml Vial) 40 mg IVPUSH BID [facility] Last Admin: 01/17/22 10:27 Dose: 40 mg Documented By: JOSE M Metoprolol Tartrate (Metoprolol Tartrate 100 Mg Tablet) 100 mg PO BID [facility]; Protocol Last Admin: 01/17/22 10:26 Dose: 100 mg Documented By: JOSE M Morphine Sulfate (Morphine Sulfate 2 Mg/Ml Cartridge) 2 mg IVPUSH Q2H PRN; Protocol PRN Reason: Pain, Moderate (Pain Scale 4-6 Last Admin: 01/17/22 12:37 Dose: 2 mg Documented By: JOSE M Multivitamins/Vitamin C (Multivitamin Tablet) 1 tab PO DAILY [facility] Last Admin: 01/17/22 10:26 Dose: 1 tab Documented By: JOSE M Patient Own Med ( Zonisamide 25 Mg Capsule) 25 mg PO TID [facility] Last Admin: 01/17/22 14:54 Dose: 25 mg Documented By: JOSE M Ondansetron HCl (Ondansetron Hcl 4 Mg/2 Ml Vial) 4 mg IVPUSH Q8H PRN PRN Reason: Nausea and Vomiting Last Admin: 01/12/22 21:16 Dose: 4 mg Documented By: ROSSY Oxycodone HCl (Oxycodone Hcl Immed Release 5 Mg Tablet) 5 mg PO Q6H PRN PRN Reason: Pain, Moderate (Pain Scale 4-6 Last Admin: 01/16/22 00:43 Dose: 5 mg Documented By: DAVONTE Pravastatin Sodium (Pravastatin Sodium 20 Mg Tablet) 20 mg PO BEDTIME [facility] Last Admin: 01/16/22 21:25 Dose: 20 mg Documented By: DAVONTE Senna (Sennosides 8.6 Mg Tablet) 17.2 mg PO BEDTIME PRN PRN Reason: Constipation Sodium Chloride (0.9 % Sodium Chloride Flush 3 Ml Syringe) 3 ml IVFLUSH QSHIFT [facility] Last Admin: 01/17/22 10:26 Dose: 3 ml Documented By: JOSE M Vitamin D (Cholecalciferol (Vitamin D3) 25 Mcg Tablet) 50 mcg PO DAILY [facility] Last Admin: 01/17/22 10:26 Dose: 50 mcg Documented By: JOSE M Labs CBC & Chem 7: 01/16/22 06:22 01/16/22 06:22 Assessment and Plan (1) Acute systolic CHF (congestive heart failure): Status: Acute (2) Atrial fibrillation with RVR: Status: Acute Plan 81yo F with HTN, HLD, PVD, RA, Raynaud's phenomenon, AF on warfarin, hypothyroidism, neuropathy presenting with hematuria 1.Acute/chronic HFpEF -acute episode resolved -responded to IV Lasix -cautious diuresis -follow renals/divalents 2.NSVT/AF with RVR -amiodarone ...occasional runs -continue telemetry --metoprolol tartrate as ordered 3.Acute hypoxic respiratory failure...asthma/COPD exacerbation - nebs -pulse dose methylprednisolone -titrate O2 to maintain sats greater than 90% Pneumatics DNR DNI Will require ongoing hospitalization for IV steroids and oxygen titration; agrees to placement Quality Stroke Does the patient have a stroke diagnosis?: No VTE Prior VTE?: No VTE Risk Level:: Medical - moderate - high VTE Device Contraindication: Treatment Not Indicated VTE Drug Contraindication: N/A - Med Ordered
[2022-01-17] MEDS: Pravastatin Sodium 20 MG TABLET PO (21:11)
[2022-01-17] MEDS: Albuterol Sulfate (0.083%) 2.5 MG/3 ML VIAL.NEB INHALE (23:20)
[2022-01-18] VITALS (11 sets, daily range): BP systolic 109–132; BP diastolic 54–81; PULSE 67–86; RESP 14–23; TEMP 36.2–37.7; O2SAT 95–100
[2022-01-18] MEDS: Levothyroxine Sodium 50 MCG TABLET PO (04:27)
[2022-01-18] MEDS: Morphine Sulfate 2 MG/ML CARTRIDGE IVPUSH ×5 (04:28→22:50)
[2022-01-18] MEDS: Albuterol Sulfate (0.083%) 2.5 MG/3 ML VIAL.NEB INHALE ×2 (09:36→12:47)
[2022-01-18] MEDS: Furosemide 40 MG TABLET PO (10:15)
[2022-01-18] MEDS: 0.9 % Sodium Chloride Flush 3 ML SYRINGE IVFLUSH ×3 (10:15→22:34)
[2022-01-18] MEDS: Metoprolol Tartrate 100 MG TABLET PO ×2 (10:15→22:26)
[2022-01-18] MEDS: Cholecalciferol (Vitamin D3) 25 MCG TABLET 50 MCG PO (10:15)
[2022-01-18] MEDS: methylPREDNISolone Sod Succ 40 MG/ML VIAL IVPUSH (10:15)
[2022-01-18] MEDS: Omeprazole 20 MG CAPSULE.DR PO ×2 (10:16→15:14)
[2022-01-18] MEDS: Amiodarone HCL 200 MG TABLET PO ×2 (10:16→22:26)
[2022-01-18] MEDS: Ascorbic Acid 500 MG TABLET PO ×2 (10:16→22:26)
[2022-01-18] MEDS: Multivitamin TABLET 1 TAB PO (10:16)
[2022-01-18] MEDS: Leflunomide 10 MG TABLET 20 MG PO (10:16)
[2022-01-18] MEDS: Gabapentin 300 MG CAPSULE PO ×3 (10:16→22:25)
[2022-01-18] MEDS: ondansetron HCL 4 MG/2 ML VIAL IVPUSH (12:27)
--- NOTE | 2022-01-18 13:28 | HO.PM.IMPN ---
Subjective Subjective Date of Service: 01/18/22 Interval History: Breathing improved as compared to yesterday.? Resting comfortable Review of Systems still sob ,has dry cough Denies any chest pain or fever or chills or phlegm Physical Exam Vital Signs: Vital Signs: Last Vital Signs Temp 97.2 F 01/18/22 11:38 Pulse 84 01/18/22 12:53 Resp 23 H 01/18/22 12:53 BP 109/60 01/18/22 11:38 Pulse Ox 98 01/18/22 11:38 O2 Del Method 01/18/22 11:38 O2 Flow Rate 3 01/18/22 11:38 FiO2 100 01/17/22 20:00 Oxygen Flow Rate 10 01/08/22 09:27 BMI result Body Mass Index 15.7 Appearance: Alert.? Oriented X3.sob with talkin cvs: rrr, [id number] . res:air entry dimished ,has wheezin abd: no rebound or guarding ,nt, bs present. ext pulses present , no cyanosis. neuro: axo3 , nonfocal. Objective Data Active Medications Acetaminophen (Acetaminophen 325 Mg Tablet) 650 mg PO Q6H PRN PRN Reason: Pain, Mild (Pain Scale 1-3) Last Admin: 01/10/22 10:44 Dose: 650 mg Documented By: RERE Albuterol Sulfate (Albuterol Sulfate (0.083%) 2.5 Mg/3 Ml Vial.Neb) 2.5 mg INHALE Q2H PRN PRN Reason: Shortness of Breath/Wheezing Last Admin: 01/18/22 12:47 Dose: 2.5 mg Documented By: ROYCE Amiodarone HCl (Amiodarone Hcl 200 Mg Tablet) 200 mg PO BID [facility], [facility] Last Admin: 01/18/22 10:16 Dose: 200 mg Documented By: RADHA Ascorbic Acid (Ascorbic Acid 500 Mg Tablet) 500 mg PO BID [facility] Last Admin: 01/18/22 10:16 Dose: 500 mg Documented By: RADHA Epoetin Carlos (Epoetin Carlos 10,000 Unit/Ml Vial) 10,000 unit SUBCUT MOWEFR [facility], [facility]1983 Last Admin: 01/17/22 14:53 Dose: 10,000 unit Documented By: DOBROB Furosemide (Furosemide 40 Mg Tablet) 40 mg PO DAILY [facility]; Protocol Last Admin: 01/18/22 10:15 Dose: 40 mg Documented By: RADHA Gabapentin (Gabapentin 300 Mg Capsule) 300 mg PO TID [facility] Last Admin: 01/18/22 10:16 Dose: 300 mg Documented By: RADHA Leflunomide (Leflunomide 10 Mg Tablet) 20 mg PO DAILY [facility] Last Admin: 01/18/22 10:16 Dose: 20 mg Documented By: RADHA Levothyroxine Sodium (Levothyroxine Sodium 50 Mcg Tablet) 50 mcg PO 0600 [facility] Last Admin: 01/18/22 04:27 Dose: 50 mcg Documented By: ROSSY Melatonin (Melatonin 3 Mg Tablet) 6 mg PO BEDTIME PRN PRN Reason: Insomnia Last Admin: 01/09/22 20:39 Dose: 6 mg Documented By: JAQUAN Methylprednisolone Sodium Succinate (Methylprednisolone Sod Succ 40 Mg/Ml Vial) 40 mg IVPUSH DAILY [facility] Last Admin: 01/18/22 10:15 Dose: 40 mg Documented By: RADHA Metoprolol Tartrate (Metoprolol Tartrate 100 Mg Tablet) 100 mg PO BID [facility]; Protocol Last Admin: 01/18/22 10:15 Dose: 100 mg Documented By: RADHA Morphine Sulfate (Morphine Sulfate 2 Mg/Ml Cartridge) 2 mg IVPUSH Q2H PRN; Protocol PRN Reason: Pain, Moderate (Pain Scale 4-6 Last Admin: 01/18/22 10:12 Dose: 2 mg Documented By: RADHA Multivitamins/Vitamin C (Multivitamin Tablet) 1 tab PO DAILY [facility] Last Admin: 01/18/22 10:16 Dose: 1 tab Documented By: RADHA Patient Own Med ( Zonisamide 25 Mg Capsule) 25 mg PO TID [facility] Last Admin: 01/18/22 10:17 Dose: 25 mg Documented By: RADHA Omeprazole (Omeprazole 20 Mg Capsule.Dr) 20 mg PO BID@0630,1630 [facility] Last Admin: 01/18/22 10:16 Dose: 20 mg Documented By: RADHA Ondansetron HCl (Ondansetron Hcl 4 Mg/2 Ml Vial) 4 mg IVPUSH Q8H PRN PRN Reason: Nausea and Vomiting Last Admin: 01/18/22 12:27 Dose: 4 mg Documented By: RADHA Oxycodone HCl (Oxycodone Hcl Immed Release 5 Mg Tablet) 5 mg PO Q6H PRN PRN Reason: Pain, Moderate (Pain Scale 4-6 Last Admin: 01/16/22 00:43 Dose: 5 mg Documented By: DAVONTE Pravastatin Sodium (Pravastatin Sodium 20 Mg Tablet) 20 mg PO BEDTIME [facility] Last Admin: 01/17/22 21:11 Dose: 20 mg Documented By: TUMASY Senna (Sennosides 8.6 Mg Tablet) 17.2 mg PO BEDTIME PRN PRN Reason: Constipation Sodium Chloride (0.9 % Sodium Chloride Flush 3 Ml Syringe) 3 ml IVFLUSH QSHIFT [facility] Last Admin: 01/18/22 10:15 Dose: 3 ml Documented By: RADHA Vitamin D (Cholecalciferol (Vitamin D3) 25 Mcg Tablet) 50 mcg PO DAILY [facility] Last Admin: 01/18/22 10:15 Dose: 50 mcg Documented By: RADHA Labs CBC & Chem 7: 01/16/22 06:22 01/16/22 06:22 Assessment and Plan (1) COPD exacerbation: Status: Acute Plan 81yo F with HTN, HLD, PVD, RA, Raynaud's phenomenon, AF on warfarin, hypothyroidism, neuropathy presenting with hematuria Acute/chronic HFpEF -acute episode resolved -responded to IV Lasix -cautious diuresis -follow renals/divalents NSVT/AF with RVR -amiodarone and metoprolol...occasional runs ? -continue telemetry cardio note 01/13/22: Would not resume anticoagulation on discharge.?patient updated( agrees and understands). Acute hypoxic respiratory failure...asthma/COPD exacerbation - nebs -pulse dose methylprednisolone -titrate O2 to maintain sats greater than 90% ?UTI, Proteus mirabilis R to nitrofurantoin - ceftriaxone completed (01/08 to 01/15). # RA - continue leflunomide + prednisone -> methylprednisolone # HLD - continue statin # levothyroxine - continue LT4 # neuropathy - continue gabapentin Pneumatics DNR DNI inpatient need: copd excerebation -need for IV steroids and oxygen titration; agrees to placement Quality Stroke Does the patient have a stroke diagnosis?: No VTE Prior VTE?: No VTE Risk Level:: Medical - moderate - high VTE Device Contraindication: Treatment Not Indicated VTE Drug Contraindication: N/A - Med Ordered
--- NOTE | 2022-01-18 16:06 | MHC.CM.PN ---
Patients 1st choice for STR is [facility]. They are following for discharge. Patient will transport via BLS.
[2022-01-18] MEDS: Albuterol/Iprat 2.5/0.5MG 3 ML AMPUL.NEB INHALE ×2 (16:57→19:20)
[2022-01-18 18:15] LABS: Anion Gap 20 (12-20); Blood Urea Nitrogen 38 mg/dL (9-16); Calcium 7.5 mg/dL (8.4-10.2); Carbon Dioxide 26 mmol/L (22-29); Chloride 92 mmol/L (96-108); Creatinine Clr Calc Pharmacy 26.9; Estimated Glomerular Filt Rate 49; Glucose Random 250 mg/dL (60-115); Magnesium 2.2 mg/dL (1.6-2.6); Potassium 3.8 mmol/L (3.3-5.1); Sodium 134 mmol/L (135-145)
[2022-01-18] MEDS: Potassium Chloride Packet 20 MEQ PACKET PO (22:25)
[2022-01-18] MEDS: Pravastatin Sodium 20 MG TABLET PO (22:26)
[2022-01-19] VITALS (10 sets, daily range): BP systolic 122–129; BP diastolic 61–82; PULSE 79–111; RESP 16–229; TEMP 36–37.3; O2SAT 92–98
[2022-01-19] MEDS: Albuterol Sulfate (0.083%) 2.5 MG/3 ML VIAL.NEB INHALE (02:49)
[2022-01-19] MEDS: Morphine Sulfate 2 MG/ML CARTRIDGE IVPUSH ×5 (03:50→20:44)
[2022-01-19] MEDS: Levothyroxine Sodium 50 MCG TABLET PO (06:06)
[2022-01-19] MEDS: Omeprazole 20 MG CAPSULE.DR PO (06:06)
[2022-01-19] MEDS: Albuterol/Iprat 2.5/0.5MG 3 ML AMPUL.NEB INHALE ×3 (07:44→20:48)
[2022-01-19] MEDS: methylPREDNISolone Sod Succ 40 MG/ML VIAL IVPUSH ×2 (08:17→18:20)
[2022-01-19] MEDS: 0.9 % Sodium Chloride Flush 3 ML SYRINGE IVFLUSH ×3 (08:17→20:29)
[2022-01-19] MEDS: Leflunomide 10 MG TABLET 20 MG PO (08:18)
[2022-01-19] MEDS: Cholecalciferol (Vitamin D3) 25 MCG TABLET 50 MCG PO (08:18)
[2022-01-19] MEDS: Multivitamin TABLET 1 TAB PO (08:18)
[2022-01-19] MEDS: Gabapentin 300 MG CAPSULE PO ×3 (08:18→20:28)
[2022-01-19] MEDS: Metoprolol Tartrate 100 MG TABLET PO ×2 (08:18→20:28)
[2022-01-19] MEDS: Ascorbic Acid 500 MG TABLET PO ×2 (08:18→20:29)
[2022-01-19] MEDS: Furosemide 40 MG TABLET PO (08:18)
[2022-01-19] MEDS: Amiodarone HCL 200 MG TABLET PO ×2 (08:18→20:28)
[2022-01-19] MEDS: Albuterol Sulfate 7.5 MG, Albuterol Sulfate (0.083%) 2.5 MG 10 MG INHALE (10:57)
[2022-01-19 11:09] LABS: ABG Base Excess -3.7 mmol/L; ABG HCO3 19 mmol/L (22-26); ABG pCO2 29 mmHg (32-45); ABG pH 7.42 (7.35-7.45); ABG pO2 97 mmHg (83-108)
--- NOTE | 2022-01-19 11:37 | P.CONPL_ITS ---
History of Present Illness History of Present Illness Consult date: 01/19/22 Requesting physician: Alexandra Vivas Reason for consult: dyspnea, COPD and pulmonary fibrosis Chief complaint: VAGINAL BLEED, AFIB Narrative: Have seen this 81 years old female at request of Dr. Vivas for pulmonary evaluation. She has been in the hospital since 01/08, primarily because of vaginal and urinary bleeding with a large blood clot in the bladder. She was very anemic because the of the bleeding, she has a Jehovah Witness and would not be treated with blood transfusion. She has multiple medical problems in the past, including rheumatoid arthritis, R aynaud's disease, chronic atrial fibrillation, mitral regurgitation, cardiomegaly and congestive heart failure, has been on Coumadin therapy, hypothyroidism hypertension, hyperlipidemia, peripheral vascular disease. Pulmonary history is that all of fibrotic changes in both lungs mostly in the perihilar areas with some bronchiectasis. Since admission over here her treatment has been mainly continuous bladder irrigation, IV fluid. Oxygen supplementation. And she has been off anticoagulation. Because of the chronic pulmonary changes of fibrosis the she has been on IV Solu-Medrol 40 mg b.i.d. since admission now cut down to 40 mg once a day. She has also been on oxygen 2 L/minute to keep O2 sat above 90-92%. This morning noted to have increased shortness of breath with marked generalized weakness, she is still afebrile. For recur on a keto fibrillation she has been on amiodarone for quite a few years, and whether this has cause some pulmonary fibrotic changes are not is not clear. Her chest x-ray and CT scans do show chronic fibrotic changes with bronchiectasis, but no definite pneumonia. More impressive finding is that of marked cardiomegaly with small pleural effusions probably related to congestive heart failure. Review of Systems Review of Systems: Yes Unobtainable due to mental condition [facility] Past Medical History Medical History (Updated 01/19/22 @ 11:51 by Jeni Nogueira MD) Avascular necrosis of right femoral head Bronchiectasis Bronchiectasis Bunion of great toe of left foot Cellulitis Chronic atrial fibrillation Current use of anticoagulant therapy Essential tremor Infected pressure ulcer Leg ulcer, left Mitral regurgitation Nausea Osteoarthritis Osteomyelitis of right fibula Osteoporosis Persistent atrial fibrillation Pulmonary fibrosis Pulmonary nodules Respiratory failure with hypoxia Sacroiliitis Seropositive rheumatoid arthritis Functional capacity: uses cane/walker Family History Family History Father No problems noted. Mother Heart disease Surgical History Surgical History H/O skin graft History of angioplasty History of appendectomy History of removal of both ovaries History of vascular surgery Social History Social History Household Members: None Housing: Apartment Are you a primary rehab care assistant to a significant other at home: No Do you presently have visiting nurse or other home services: Yes ([employer] 5 days a week) Alcohol intake: never Patient Tobacco Use Status: Former Tobacco user Tobacco use type: Cigarette Cigarette Packs Per Day: 3 Years Smoked: 23 e-Cigarette/Vaping Use: Never Used Substance Use Type: Painkillers Advance Directives Date on File: 12/07/20 service: No Current occupational status: retired Cognitive needs: No Hearing needs: No Vision needs: Yes Meds Allergies Allergy/AdvReac Type Severity Reaction Status Date / Time aspirin Allergy Intermediate Difficulty Verified 01/16/22 12:45 Breathing ibuprofen Allergy hives Verified 01/01/22 13:46 [id number] Allergy injection Verified 01/01/22 13:46 [From Evenity] site reaction erythromycin base AdvReac upset Verified 01/01/22 13:46 stomach diarrhea Active Medications: Current Medications Acetaminophen (Acetaminophen 325 Mg Tablet) 650 mg PO Q6H PRN PRN Reason: Pain, Mild (Pain Scale 1-3) Last Admin: 01/10/22 10:44 Dose: 650 mg Albuterol Sulfate (Albuterol Sulfate (0.083%) 2.5 Mg/3 Ml Vial.Neb) 2.5 mg INHALE Q2H PRN PRN Reason: Shortness of Breath/Wheezing Last Admin: 01/19/22 02:49 Dose: 2.5 mg Albuterol/Ipratropium (Albuterol/Iprat 2.5/0.5mg 3 Ml Ampul.Neb) 3 ml INHALE RQ4H WHILE AWAKE PETR Last Admin: 01/19/22 11:01 Dose: Not Given Amiodarone HCl (Amiodarone Hcl 200 Mg Tablet) 200 mg PO BID [facility] Last Admin: 01/19/22 08:18 Dose: 200 mg Ascorbic Acid (Ascorbic Acid 500 Mg Tablet) 500 mg PO BID [facility] Last Admin: 01/19/22 08:18 Dose: 500 mg Epoetin Carlos (Epoetin Carlos 10,000 Unit/Ml Vial) 10,000 unit SUBCUT MOWEFR [facility] Last Admin: 01/17/22 14:53 Dose: 10,000 unit Gabapentin (Gabapentin 300 Mg Capsule) 300 mg PO TID [facility] Last Admin: 01/19/22 08:18 Dose: 300 mg Magnesium Sulfate/Dextrose (Magnesium Sulfate/D5w) 1 gm in 100 mls @ 100 mls/hr IV ONCE ONE Stop: 01/19/22 11:41 Leflunomide (Leflunomide 10 Mg Tablet) 20 mg PO DAILY [facility] Last Admin: 01/19/22 08:18 Dose: 20 mg Levothyroxine Sodium (Levothyroxine Sodium 50 Mcg Tablet) 50 mcg PO 0600 [facility] Last Admin: 01/19/22 06:06 Dose: 50 mcg Melatonin (Melatonin 3 Mg Tablet) 6 mg PO BEDTIME PRN PRN Reason: Insomnia Last Admin: 01/09/22 20:39 Dose: 6 mg Methylprednisolone Sodium Succinate (Methylprednisolone Sod Succ 40 Mg/Ml Vial) 40 mg IVPUSH DAILY [facility] Last Admin: 01/19/22 08:17 Dose: 40 mg Metoprolol Tartrate (Metoprolol Tartrate 100 Mg Tablet) 100 mg PO BID [facility]; Protocol Last Admin: 01/19/22 08:18 Dose: 100 mg Morphine Sulfate (Morphine Sulfate 2 Mg/Ml Cartridge) 2 mg IVPUSH Q2H PRN; Prot ocol PRN Reason: Pain, Moderate (Pain Scale 4-6 Last Admin: 01/19/22 08:45 Dose: 2 mg Multivitamins/Vitamin C (Multivitamin Tablet) 1 tab PO DAILY [facility] Last Admin: 01/19/22 08:18 Dose: 1 tab Patient Own Med ( Zonisamide 25 Mg Capsule) 25 mg PO TID [facility] Last Admin: 01/19/22 08:19 Dose: 25 mg Omeprazole (Omeprazole 20 Mg Capsule.Dr) 20 mg PO BID@0630,1630 [facility] Last Admin: 01/19/22 06:06 Dose: 20 mg Ondansetron HCl (Ondansetron Hcl 4 Mg/2 Ml Vial) 4 mg IVPUSH Q8H PRN PRN Reason: Nausea and Vomiting Last Admin: 01/18/22 12:27 Dose: 4 mg Oxycodone HCl (Oxycodone Hcl Immed Release 5 Mg Tablet) 5 mg PO Q6H PRN PRN Reason: Pain, Moderate (Pain Scale 4-6 Last Admin: 01/16/22 00:43 Dose: 5 mg Pravastatin Sodium (Pravastatin Sodium 20 Mg Tablet) 20 mg PO BEDTIME [facility] Last Admin: 01/18/22 22:26 Dose: 20 mg Senna (Sennosides 8.6 Mg Tablet) 17.2 mg PO BEDTIME PRN PRN Reason: Constipation Sodium Chloride (0.9 % Sodium Chloride Flush 3 Ml Syringe) 3 ml IVFLUSH QSHIFT [facility] Last Admin: 01/19/22 08:17 Dose: 3 ml Vitamin D (Cholecalciferol (Vitamin D3) 25 Mcg Tablet) 50 mcg PO DAILY [facility] Last Admin: 01/19/22 08:18 Dose: 50 mcg Physical Exam Vital Signs: Vital Signs: Last Vital Signs Temp 96.8 F 01/19/22 07:10 Pulse 111 H 01/19/22 10:59 Resp 22 H 01/19/22 10:59 BP 129/64 01/19/22 07:10 Pulse Ox 98 01/19/22 07:10 O2 Del Method 01/19/22 07:10 O2 Flow Rate 4 01/19/22 07:10 FiO2 100 01/17/22 20:00 Oxygen Flow Rate 10 01/08/22 09:27 BMI result Body Mass Index 15.7 Const: Other: Were very weak, D conditioned, pale and sick-looking. Orientation/consciousness: patient oriented x3 HEENT: Head: Yes normal to inspection General nose exam: No nasal polyps present and No nasal discharge present Face and sinus: Yes sinuses nontender Mouth: oropharynx normal Throat: Yes posterior oropharynx normal Eyes: General: appearance normal, both eyes and all related structures Neck: Neck: Yes normal visual inspection, Yes no lymphadenopathy, Yes trachea midline and Yes JVD (Mild) Thyroid: Thyroid normal Chest: Chest palpation & inspection: normal inspection of the chest, normal palpation of entire chest wall and no tenderness Resp: Other: She Breath sounds are present on both sides equal with decreased breath sounds over the basilar areas. She does have inspiratory crackles and rhonchi over the lower lobes. No wheezes are heard. Cardio: Palpation: normal PMI Rate: regular rate Rhythm: abnormal rhythm Heart sounds: Murmur heart sound present (Loud systolic and diastolic murmur at the left sternal border ) GI: Palpation (GI): Soft to palpation, nontender, No hepatosplenomegaly present and no masses Auscultation: normal bowel sounds : Other: Howard catheter in place Back/Spine/Pelvis: Other: Not examine Skin: General skin exam: no rashes or lesions noted Neuro: General: patient oriented x3 and no focal motor deficits Cranial nerves: Yes CN's II-XII intact bilaterally Extrem: General: Yes normal to inspection, Yes no clubbing, cyanosis or edema and Yes no calf tenderness Psych: Speech and movement: Normal speech and movement present Results Laboratory Findings CBC and BMP: 01/16/22 06:22 01/18/22 17:51 ABG, PT/INR, D-dimer: PT/INR, D-dimer PT 12.8 SEC (10.0-13.1) 01/12/22 12:11 INR 1.1 (0.9-1.1) D 01/12/22 12:11 Abnormal lab findings: Abnormal Labs 01/08/22 01/08/22 01/08/22 10:08 10:08 10:09 WBC RBC 3.03 L D Hgb 10.5 L D Hct 33.7 L MCV 111.2 H MCH 34.7 H RDW 16.3 H Plt Count MPV Immature Gran % (Auto) Neut % (Auto) 77.8 H Lymph % (Auto) 9.4 L Lymph # (Auto) 0.7 L Abs Immat Gran (auto) Absolute Neuts (auto) Absolute Nucleated RBC Nucleated RBC % (auto) PT 37.8 H INR 3.1 H APTT 45.4 H ABG pCO2 at Pt Temp ABG HCO3 Sodium Chloride Carbon Dioxide Anion Gap BUN Random Glucose Fasting Glucose Calcium Iron AST ALT Alkaline Phosphatase B-Natriuretic Peptide 892 H Total Protein Albumin Urine Color Urine Protein Urine Glucose (UA) Urine Blood Urine Nitrite Urine RBC 01/08/22 01/08/22 01/08/22 11:29 11:42 14:19 WBC RBC 2.99 L Hgb 10.5 L Hct 33.4 L MCV 111.7 H MCH 35.1 H RDW 16.3 H Plt Count MPV 12.4 H Immature Gran % (Auto) 0.5 H Neut % (Auto) 83.4 H Lymph % (Auto) 7.5 L Lymph # (Auto) 0.6 L Abs Immat Gran (auto) 0.04 H Absolute Neuts (auto) Absolute Nucleated RBC Nucleated RBC % (auto) PT INR APTT ABG pCO2 at Pt Temp ABG HCO3 Sodium Chloride 110 H Carbon Dioxide Anion Gap BUN 25 H Random Glucose Fasting Glucose Calcium Iron AST 36 H ALT Alkaline Phosphatase B-Natriuretic Peptide Total Protein 6.4 L Albumin Urine Color Red A Urine Protein 300 (3+) H Urine Glucose (UA) 100 H Urine Blood Large (3+) H Urine Nitrite Positive H Urine RBC >20 H 01/08/22 01/08/22 01/09/22 19:41 22:24 04:47 WBC 11.8 H RBC 2.96 L 2.44 L 2.32 L Hgb 10.4 L 8.6 L 8.3 L Hct 32.6 L 27.3 L 26.1 L MCV 110.1 H 111.9 H 112.5 H MCH 35.1 H 35.2 H 35.8 H RDW 16.3 H 16.3 H 16.5 H Plt Count 153 L MPV Immature Gran % (Auto) 0.6 H Neut % (Auto) 75.8 H 83.5 H Lymph % (Auto) 11.7 L 5.5 L Lymph # (Auto) 1.0 L 0.7 L Abs Immat Gran (auto) 0.05 H 0.05 H Absolute Neuts (auto) 9.9 H Absolute Nucleated RBC Nucleated RBC % (auto) PT INR APTT ABG pCO2 at Pt Temp ABG HCO3 Sodium Chloride Carbon Dioxide Anion Gap BUN Random Glucose Fasting Glucose Calcium Iron AST ALT Alkaline Phosphatase B-Natriuretic Peptide Total Protein Albumin Urine Color Urine Protein Urine Glucose (UA) Urine Blood Urine Nitrite Urine RBC 01/09/22 01/09/22 01/10/22 04:47 15:45 06:50 WBC 11.0 H RBC 2.04 L 2.31 L Hgb 7.2 L 8.3 L Hct 23.2 L 26.0 L MCV 113.7 H 112.6 H MCH 35.3 H 35.9 H RDW 16.6 H 16.9 H Plt Count 142 L MPV 12.4 H Immature Gran % (Auto) Neut % (Auto) Lymph % (Auto) Lymph # (Auto) Abs Immat Gran (auto) Absolute Neuts (auto) Absolute Nucleated RBC 0.040 H 0.220 H Nucleated RBC % (auto) 0.5 H 2.0 H PT INR APTT ABG pCO2 at Pt Temp ABG HCO3 Sodium Chloride 114 H Carbon Dioxide 15 L Anion Gap BUN 24 H Random Glucose 123 H Fasting Glucose Calcium 7.7 L D Iron 395 H AST ALT Alkaline Phosphatase B-Natriuretic Peptide Total Protein Albumin Urine Color Urine Protein Urine Glucose (UA) Urine Blood Urine Nitrite Urine RBC 01/10/22 01/10/22 01/11/22 06:50 19:44 06:35 WBC 11.1 H RBC 2.14 L Hgb 7.5 L Hct 24.1 L MCV 112.6 H MCH 35.0 H RDW 16.8 H Plt Count 158 L MPV Immature Gran % (Auto) 0.7 H Neut % (Auto) 90.7 H Lymph % (Auto) 2.5 L Lymph # (Auto) 0.3 L Abs Immat Gran (auto) 0.08 H Absolute Neuts (auto) 10.1 H Absolute Nucleated RBC 0.130 H Nucleated RBC % (auto) 1.2 H PT INR APTT ABG pCO2 at Pt Temp ABG HCO3 Sodium Chloride 113 H Carbon Dioxide 14 L Anion Gap BUN 19 H Random Glucose 146 H Fasting Glucose Calcium 7.7 L Iron AST ALT Alkaline Phosphatase B-Natriuretic Peptide 1077 H Total Protein Albumin Urine Color Urine Protein Urine Glucose (UA) Urine Blood Urine Nitrite Urine RBC 01/11/22 01/11/22 01/11/22 06:35 06:35 19:39 WBC 11.7 H RBC 2.09 L Hgb 7.5 L Hct 23.6 L MCV 112.9 H MCH 35.9 H RDW 16.6 H Plt Count MPV Immature Gran % (Auto) Neut % (Auto) Lymph % (Auto) Lymph # (Auto) Abs Immat Gran (auto) Absolute Neuts (auto) Absolute Nucleated RBC 0.340 H Nucleated RBC % (auto) 2.9 H PT INR APTT ABG pCO2 at Pt Temp ABG HCO3 Sodium Chloride 110 H Carbon Dioxide 16 L 20 L Anion Gap BUN 17 H 19 H Random Glucose 121 H 121 H Fasting Glucose Calcium 8.0 L 8.1 L Iron AST ALT Alkaline Phosphatase B-Natriuretic Peptide Total Protein Albumin Urine Color Urine Protein Urine Glucose (UA) Urine Blood Urine Nitrite Urine RBC 01/12/22 01/12/22 01/12/22 06:19 06:19 12:11 WBC RBC 1.72 L Hgb 6.3 L* 7.5 L Hct 19.2 L* 23.7 L D MCV 111.6 H MCH 36.6 H RDW 16.7 H Plt Count 136 L D MPV Immature Gran % (Auto) Neut % (Auto) Lymph % (Auto) Lymph # (Auto) Abs Immat Gran (auto) Absolute Neuts (auto) Absolute Nucleated RBC 0.310 H Nucleated RBC % (auto) 4.0 H PT INR APTT ABG pCO2 at Pt Temp ABG HCO3 Sodium Chloride Carbon Dioxide Anion Gap 11 L BUN 17 H Random Glucose 128 H Fasting Glucose Calcium 7.8 L Iron AST ALT Alkaline Phosphatase B-Natriuretic Peptide Total Protein Albumin Urine Color Urine Protein Urine Glucose (UA) Urine Blood Urine Nitrite Urine RBC 01/12/22 01/13/22 01/13/22 12:11 06:20 06:20 WBC 11.9 H RBC 2.37 L D Hgb 8.4 L Hct 26.5 L MCV 111.8 H MCH 35.4 H RDW 17.2 H Plt Count 154 L MPV Immature Gran % (Auto) Neut % (Auto) Lymph % (Auto) Lymph # (Auto) Abs Immat Gran (auto) Absolute Neuts (auto) Absolute Nucleated RBC 0.630 H Nucleated RBC % (auto) 5.3 H PT INR APTT 25.3 L D ABG pCO2 at Pt Temp ABG HCO3 Sodium Chloride Carbon Dioxide Anion Gap BUN 25 H Random Glucose 146 H Fasting Glucose Calcium 7.8 L Iron AST ALT Alkaline Phosphatase B-Natriuretic Peptide Total Protein Albumin Urine Color Urine Protein Urine Glucose (UA) Urine Blood Urine Nitrite Urine RBC 01/14/22 01/14/22 01/15/22 06:27 06:33 06:44 WBC 12.4 H 13.2 H RBC 2.11 L 2.12 L Hgb 7.7 L 7.6 L Hct 24.8 L 23.7 L MCV 117.5 H D 111.8 H D MCH 36.5 H 35.8 H RDW 17.5 H 18.1 H Plt Count 158 L 150 L MPV Immature Gran % (Auto) 2.0 H 2.6 H Neut % (Auto) 89.4 H 89.3 H Lymph % (Auto) 1.9 L 2.1 L Lymph # (Auto) 0.2 L 0.3 L Abs Immat Gran (auto) 0.25 H 0.34 H Absolute Neuts (auto) 11.1 H 11.8 H Absolute Nucleated RBC 1.160 H 1.600 H Nucleated RBC % (auto) 9.3 H 12.1 H PT INR APTT ABG pCO2 at Pt Temp ABG HCO3 Sodium Chloride Carbon Dioxide Anion Gap BUN 26 H Random Glucose Fasting Glucose 147 H Calcium 7.8 L Iron AST ALT Alkaline Phosphatase B-Natriuretic Peptide Total Protein 5.0 L D Albumin 3.2 L D Urine Color Urine Protein Urine Glucose (UA) Urine Blood Urine Nitrite Urine RBC 01/15/22 01/16/22 01/16/22 06:44 06:22 06:22 WBC 11.6 H RBC 2.02 L Hgb 7.6 L Hct 23.2 L MCV 114.9 H MCH 37.6 H RDW 18.7 H Plt Count 140 L MPV Immature Gran % (Auto) 4.0 H Neut % (Auto) 86.6 H Lymph % (Auto) 1.8 L Lymph # (Auto) 0.2 L Abs Immat Gran (auto) 0.47 H Absolute Neuts (auto) 10.1 H Absolute Nucleated RBC 2.770 H Nucleated RBC % (auto) 23.8 H PT INR APTT ABG pCO2 at Pt Temp ABG HCO3 Sodium Chloride Carbon Dioxide Anion Gap BUN 27 H 30 H Random Glucose Fasting Glucose 133 H 144 H Calcium 7.9 L 7.8 L Iron AST 44 H D ALT 39 H Alkaline Phosphatase 130 H D B-Natriuretic Peptide Total Protein 4.9 L 5.1 L Albumin 3.2 L 3.3 L Urine Color Urine Protein Urine Glucose (UA) Urine Blood Urine Nitrite Urine RBC 01/18/22 01/19/22 17:51 11:04 WBC RBC Hgb Hct MCV MCH RDW Plt Count MPV Immature Gran % (Auto) Neut % (Auto) Lymph % (Auto) Lymph # (Auto) Abs Immat Gran (auto) Absolute Neuts (auto) Absolute Nucleated RBC Nucleated RBC % (auto) PT INR APTT ABG pCO2 at Pt Temp 29 L ABG HCO3 19 L Sodium 134 L Chloride 92 L Carbon Dioxide Anion Gap BUN 38 H Random Glucose 250 H Fasting Glucose Calcium 7.5 L Iron AST ALT Alkaline Phosphatase B-Natriuretic Peptide Total Protein Albumin Urine Color Urine Protein Urine Glucose (UA) Urine Blood Urine Nitrite Urine RBC Microbiology: Microbiology 01/08/22 14:19 Blood - Venous Blood Culture - Final No growth after 5 days. 01/08/22 14:19 Blood - Venous Blood Culture - Final No growth after 5 days. 01/08/22 00:00 Urine clean catch - Urine marie top Urine Culture - Final Proteus mirabilis Diagnostic Findings Chest x-ray: report reviewed and image reviewed CT scan - chest: report reviewed and image reviewed Assessment and Plan (1) COPD exacerbation: Status: Acute (2) Pulmonary fibrosis: Status: Acute (3) Bronchiectasis: Status: Acute (4) Respiratory failure with hypoxia: Status: Acute Plan This 81 years old female with multiple medical problems, and presenting problem of acute urinary and qu amenable to estionable vaginal bleeding, related to anticoagulation, Is quite anemic, and because of her igor as Jehova witness, would not except transfusion of red blood cells. She does have chronic changes in the lungs including nonspecific fibrosis with some bronchiectasis, she may also have restrictive as well as obstructive component, She does have respiratory failure mainly in the form of hypoxemia. At present she seems to be quite tachypneic, hyperventilating, and I think it is due to combination of multiple medical issues. There is always possibility that she may be coming up with some acute infection. Recc . For pulmonary management continue on oxygen supplementation with nasal cannula are may be changed to Ventimask if needed, to keep O2 sat above 92%. She has been on IV Solu-Medrol for more than a week and I would suggest that we cut down to 40 mg a day, as soon as she stabilizes this can be changed to a short course of oral prednisone .for for a short period. I notice that her code status is DNR or/DNI, so intubation and vent support is not in the treatment plan. Overall her prognosis seem to be poor, May discussed with the family regarding palliative care/ comfort measures only. Thank you very much for asthma to see this patient. Procedures Date of Service Date of Service: 01/19/22
[2022-01-19 12:11] LABS: Hematocrit 31.2 % (37.0-47.0); Hemoglobin 10.1 g/dl (12.0-16.0); Mean Corpuscular HGB Conc 32.4 g/dl (31.0-35.0); Mean Corpuscular Hemoglobin 37.4 pg (27.0-33.0); Mean Platelet Volume 12.4 fL (9.4-12.3); Platelet Count 158 X10*3/uL (160-400); Red Cell Distribution Width 21.6 % (11.0-16.0); White Blood Count 21.4 X10*3/uL (4.8-10.8)
[2022-01-19 12:12] LABS: Mean Corpuscular Volume 115.6 fL (80.0-98.0)
[2022-01-19 12:15] LABS: NRBC Pct Auto 27.3 /100WBC (0.0-0.2)
[2022-01-19 12:33] LABS: B Type Natriuretic Peptide 919 pg/mL (<100)
[2022-01-19 12:37] LABS: Blood Urea Nitrogen 29 mg/dL (9-16); Calcium 7.6 mg/dL (8.4-10.2); Creatinine Clr Calc Pharmacy 26.2; Estimated Glomerular Filt Rate 47; Glucose Random 279 mg/dL (60-115)
[2022-01-19] MEDS: Iron Sucrose Complex 200 MG in 0.9 % Sodium Chloride 100 ML 440 MG IV (12:37)
[2022-01-19 12:50] LABS: Anion Gap 26 (12-20); Carbon Dioxide 23 mmol/L (22-29); Chloride 87 mmol/L (96-108); Potassium 5.2 mmol/L (3.3-5.1); Sodium 131 mmol/L (135-145)
[2022-01-19] MEDS: Magnesium Sulfate/D5W 1 GM/100 ML PIGGYBACK IV (13:03)
[2022-01-19 13:10] LABS: Folate > 20.0 ng/mL (> or = 4.0); Vitamin B12 1145 pg/mL (200-900)
--- NOTE | 2022-01-19 14:01 | HO.PM.IMPN ---
Subjective Subjective Date of Service: 01/19/22 Interval History: Breathing improved as compared to yesterday.? Resting comfortable Review of Systems still sob ,has dry cough Denies any chest pain or fever or chills or phlegm Physical Exam Vital Signs: Vital Signs: Last Vital Signs Temp 96.8 F 01/19/22 12:00 Pulse 104 H 01/19/22 12:00 Resp 16 01/19/22 12:00 BP 128/68 01/19/22 12:00 Pulse Ox 98 01/19/22 12:00 O2 Del Method 01/19/22 12:00 O2 Flow Rate 2 01/19/22 12:00 FiO2 100 01/17/22 20:00 Oxygen Flow Rate 10 01/08/22 09:27 BMI result Body Mass Index 15.7 Appearance: Alert.? Oriented X3.sob with talkin cvs: [id number], [id number] . res:air entry dimished ,has wheezin abd: no rebound or guarding ,nt, bs present. ext pulses present , no cyanosis. neuro: axo3 , nonfocal. Objective Data Active Medications Acetaminophen (Acetaminophen 325 Mg Tablet) 650 mg PO Q6H PRN PRN Reason: Pain, Mild (Pain Scale 1-3) Last Admin: 01/10/22 10:44 Dose: 650 mg Documented By: RERE Albuterol Sulfate (Albuterol Sulfate (0.083%) 2.5 Mg/3 Ml Vial.Neb) 2.5 mg INHALE Q2H PRN PRN Reason: Shortness of Breath/Wheezing Last Admin: 01/19/22 02:49 Dose: 2.5 mg Documented By: MILANA Albuterol/Ipratropium (Albuterol/Iprat 2.5/0.5mg 3 Ml Ampul.Neb) 3 ml INHALE RQ4H WHILE AWAKE [facility] Last Admin: 01/19/22 11:01 Dose: Not Given Documented By: MAKENNA Non-Admin Reason: 10 mg given Albuterol/Ipratropium (Albuterol/Iprat 2.5/0.5mg 3 Ml Ampul.Neb) 3 ml INHALE RQ4H WHILE AWAKE PRN PRN Reason: sob Amiodarone HCl (Amiodarone Hcl 200 Mg Tablet) 200 mg PO BID [facility] Last Admin: 01/19/22 08:18 Dose: 200 mg Documented By: PHUONG Ascorbic Acid (Ascorbic Acid 500 Mg Tablet) 500 mg PO BID [facility] Last Admin: 01/19/22 08:18 Dose: 500 mg Documented By: PHUONG Epoetin Carlos (Epoetin Carlos 10,000 Unit/Ml Vial) 10,000 unit SUBCUT MOWEFR [facility] Last Admin: 01/19/22 13:02 Dose: 10,000 unit Documented By: PHUONG Furosemide (Furosemide 20 Mg/2 Ml Vial) 20 mg IVPUSH BID@0900,1800 [facility]; Protocol Gabapentin (Gabapentin 300 Mg Capsule) 300 mg PO TID [facility] Last Admin: 01/19/22 08:18 Dose: 300 mg Documented By: PHUONG Leflunomide (Leflunomide 10 Mg Tablet) 20 mg PO DAILY [facility] Last Admin: 01/19/22 08:18 Dose: 20 mg Documented By: PHUONG Levothyroxine Sodium (Levothyroxine Sodium 50 Mcg Tablet) 50 mcg PO 0600 [facility] Last Admin: 01/19/22 06:06 Dose: 50 mcg Documented By: DENIZ Melatonin (Melatonin 3 Mg Tablet) 6 mg PO BEDTIME PRN PRN Reason: Insomnia Last Admin: 01/09/22 20:39 Dose: 6 mg Documented By: JAQUAN Methylprednisolone Sodium Succinate (Methylprednisolone Sod Succ 40 Mg/Ml Vial) 40 mg IVPUSH DAILY [facility] Last Admin: 01/19/22 08:17 Dose: 40 mg Documented By: PHUONG Metoprolol Tartrate (Metoprolol Tartrate 100 Mg Tablet) 100 mg PO BID [facility]; Protocol Last Admin: 01/19/22 08:18 Dose: 100 mg Documented By: PHUONG Morphine Sulfate (Morphine Sulfate 2 Mg/Ml Cartridge) 2 mg IVPUSH Q2H PRN; Protocol PRN Reason: Pain, Moderate (Pain Scale 4-6 Last Admin: 01/19/22 13:03 Dose: 2 mg Documented By: PHUONG Multivitamins/Vitamin C (Multivitamin Tablet) 1 tab PO DAILY [facility] Last Admin: 01/19/22 08:18 Dose: 1 tab Documented By: PHUONG Patient Own Med ( Zonisamide 25 Mg Capsule) 25 mg PO TID [facility] Last Admin: 01/19/22 08:19 Dose: 25 mg Documented By: PHUONG Omeprazole (Omeprazole 20 Mg Capsule.) 20 mg PO BID@0630,1630 [facility] Last Admin: 01/19/22 06:06 Dose: 20 mg Documented By: DENIZ Ondansetron HCl (Ondansetron Hcl 4 Mg/2 Ml Vial) 4 mg IVPUSH Q8H PRN PRN Reason: Nausea and Vomiting Last Admin: 01/18/22 12:27 Dose: 4 mg Documented By: RADHA Oxycodone HCl (Oxycodone Hcl Immed Release 5 Mg Tablet) 5 mg PO Q6H PRN PRN Reason: Pain, Moderate (Pain Scale 4-6 Last Admin: 01/16/22 00:43 Dose: 5 mg Documented By: DAVONTE Pravastatin Sodium (Pravastatin Sodium 20 Mg Tablet) 20 mg PO BEDTIME [facility] Last Admin: 01/18/22 22:26 Dose: 20 mg Documented By: DENIZ Senna (Sennosides 8.6 Mg Tablet) 17.2 mg PO BEDTIME PRN PRN Reason: Constipation Sodium Chloride (0.9 % Sodium Chloride Flush 3 Ml Syringe) 3 ml IVFLUSH QSHIFT [facility] Last Admin: 01/19/22 08:17 Dose: 3 ml Documented By: PHUONG Sodium Zirconium Cyclosilicate (Sodium Zirconium Cyclosilicate 5 Gm Powd.Pack) 5 gm PO ONCE ONE Stop: 01/19/22 13:55 Vitamin D (Cholecalciferol (Vitamin D3) 25 Mcg Tablet) 50 mcg PO DAILY [facility] Last Admin: 01/19/22 08:18 Dose: 50 mcg Documented By: PHUONG Labs CBC & Chem 7: 01/19/22 11:22 01/19/22 11:22 Labs: Laboratory Results - last 24 hr 01/18/22 01/19/22 01/19/22 17:51 11:04 11:22 MCV 115.6 H MCH 37.4 H MCHC 32.4 RDW 21.6 H Plt Count 158 L MPV 12.4 H Absolute Nucleated RBC 5.840 H Nucleated RBC % (auto) 27.3 H O2 Saturation 98.0 ABG pH at Pt Temp 7.42 ABG pCO2 at Pt Temp 29 L ABG pO2 at Pt Temp 97 ABG HCO3 19 L ABG Base Excess (Actual) -3.7 Anion Gap 20 Estim Creat Clear Calc 26.9 Estimated GFR 49 Random Glucose 250 H Calcium 7.5 L Magnesium 2.2 B-Natriuretic Peptide Vitamin B12 Folate 01/19/22 01/19/22 01/19/22 11:22 11:22 11:36 MCV MCH MCHC RDW Plt Count MPV Absolute Nucleated RBC Nucleated RBC % (auto) O2 Saturation ABG pH at Pt Temp ABG pCO2 at Pt Temp ABG pO2 at Pt Temp ABG HCO3 ABG Base Excess (Actual) Anion Gap 26 H Estim Creat Clear Calc 26.2 Estimated GFR 47 Random Glucose 279 H Calcium 7.6 L Magnesium B-Natriuretic Peptide 919 H Vitamin B12 1145 H Folate > 20.0 Assessment and Plan (1) Respiratory failure with hypoxia: Status: Acute (2) Bronchiectasis: Status: Acute (3) Pulmonary fibrosis: Status: Acute Plan 81yo F with HTN, HLD, PVD, RA, Raynaud's phenomenon, AF on warfarin, hypothyroidism, neuropathy presenting with hematuria Acute/chronic HFpEF -acute episode resolved bnp similar cxr-? some congestion started on iv lasix -cautious diuresis -follow renals/divalents NSVT/AF with RVR -amiodarone and metoprolol...occasional runs ? -continue telemetry cardio note 01/13/22: Would not resume anticoagulation on discharge.?patient updated( agrees and understands). Acute hypoxic respiratory failure-multifcatorial copd excerebation, component of chf ,possible atlactasis. abg ,cxr noted leuccocytosis possible sec to steriod use given nebs,magnesium and lasix -sob seems improving over the day seen by pulestella current managment -- nebs,iv steriods ,titrate O2 to maintain sats greater than 90%,added nystatin for oral thrush ?UTI, Proteus mirabilis R to nitrofurantoin - ceftriaxone completed (01/08 to 01/15). # RA - continue leflunomide + prednisone -> methylprednisolone # HLD - continue statin # levothyroxine - continue LT4 # neuropathy - continue gabapentin severe malnutrion?: nutrionist consult Pneumatics DNR DNI Above management discussed with the patient family in detail length they understand that patient overall prognosis is not great, still did not make any decision except patient is DNR DNI. inpatient need: copd excerebation -need? for IV steroids and oxygen titration; agrees to placement Quality Stroke Does the patient have a stroke diagnosis?: No VTE Prior VTE?: No VTE Risk Level:: Medical - moderate - high VTE Device Contraindication: Treatment Not Indicated VTE Drug Contraindication: N/A - Med Ordered
[2022-01-19] MEDS: Furosemide 20 MG/2 ML VIAL IVPUSH ×2 (14:29→18:20)
[2022-01-19] MEDS: Sodium Zirconium Cyclosilicate 5 GM POWD.PACK PO (14:29)
[2022-01-19 14:38] LABS: ABG Refer to POC result
--- NOTE | 2022-01-19 14:40 | MHC.CLN ---
RE: CONSULT PT IS UNDER WT FOR HT PT REPORTED HT IS 5' PREVIOUS WT HX: 42.6 (06/20/21) 5% NONSIGNIFICANT WT CHANGE X 6 MONTHS. PT TYPICALLY ON LOWER END OF IBW RANGE. PT ANSWERS I DON'T KNOW WHEN ASKED ABOUT ANY RECENT WT LOSS. PT REPORTED APPETITE IS ALRIGHT HOWEVER PT WITH INCREASED NUTRITION RISK R/T PRESSURE INJURIES DIET RX: REGULAR-APPROPRIATE PT REQUESTING LOW SALT FOOD ITEMS WITH MEALS C/O MEALS ARE TOO SALTY FOR HER PT IS VERY CONSCIENCE OF DIET AND PARTICULAR WITH FOOD CHOICES PT RECEIVING ENSURE BID TO INCREASE KCALS AND PROMOTE WOUND HEALING PT DRINKS ENSURE AT HOME (DARK CHOCOLATE) SUPP PROVIDES 700KCALS, 40G PROTEIN MONITOR PO INTAKE CLOSELY
[2022-01-19] MEDS: Nystatin Oral Susp 500,000 UNIT/5 ML ORAL.SUSP 500000 UNIT PO ×2 (17:02→20:28)
[2022-01-19] MEDS: Heparin Sodium,Porcine 5,000 UNIT/ML VIAL 5000 UNIT SUBCUT (18:19)
[2022-01-19] MEDS: Pravastatin Sodium 20 MG TABLET PO (20:28)
[2022-01-20] VITALS (11 sets, daily range): BP systolic 102–150; BP diastolic 58–84; PULSE 71–102; RESP 16–20; TEMP 36.5–37.3; O2SAT 92–98
--- NOTE | 2022-01-20 | ECG_ITS ---
Test Reason : afib Blood Pressure : / mmHG Vent. Rate : 104 BPM Atrial Rate : 000 BPM P-R Int : 000 ms QRS Dur : 096 ms QT Int : 322 ms P-R-T Axes : 000 031 153 degrees QTc Int : 423 ms Atrial fibrillation with rapid ventricular response with premature ventricular or aberrantly conducted complexes Low voltage QRS Intra-ventricular conduction delay Abnormal ECG When compared with ECG of 16-JAN-2022 10:07, T wave inversion no longer evident in Anterior leads QT has shortened Nonspecific T wave abnormality Lateral leads Referred By: Alexandra Vivas Electronically Signed By:CHRISTIAN GARSIA MD
[2022-01-20] MEDS: Morphine Sulfate 2 MG/ML CARTRIDGE IVPUSH ×2 (03:08→16:22)
[2022-01-20] MEDS: Levothyroxine Sodium 50 MCG TABLET PO (05:49)
[2022-01-20] MEDS: Heparin Sodium,Porcine 5,000 UNIT/ML VIAL 5000 UNIT SUBCUT ×2 (05:50→16:22)
[2022-01-20] MEDS: Albuterol/Iprat 2.5/0.5MG 3 ML AMPUL.NEB INHALE ×4 (07:46→20:14)
[2022-01-20] MEDS: Leflunomide 10 MG TABLET 20 MG PO (08:48)
[2022-01-20] MEDS: Metoprolol Tartrate 100 MG TABLET PO ×2 (08:48→21:33)
[2022-01-20] MEDS: Nystatin Oral Susp 500,000 UNIT/5 ML ORAL.SUSP 500000 UNIT PO ×4 (08:48→21:34)
[2022-01-20] MEDS: methylPREDNISolone Sod Succ 40 MG/ML VIAL IVPUSH ×2 (08:48→15:26)
[2022-01-20] MEDS: Amiodarone HCL 200 MG TABLET PO ×2 (08:48→21:34)
[2022-01-20] MEDS: Gabapentin 300 MG CAPSULE PO ×3 (08:48→21:34)
[2022-01-20] MEDS: Cholecalciferol (Vitamin D3) 25 MCG TABLET 50 MCG PO (08:48)
[2022-01-20] MEDS: Multivitamin TABLET 1 TAB PO (08:48)
[2022-01-20] MEDS: Ascorbic Acid 500 MG TABLET PO ×2 (08:48→21:34)
[2022-01-20] MEDS: 0.9 % Sodium Chloride Flush 3 ML SYRINGE IVFLUSH ×3 (08:49→21:35)
[2022-01-20] MEDS: Sennosides 8.6 MG TABLET 17.2 MG PO (09:15)
[2022-01-20 09:37] LABS: Blood Urea Nitrogen 25 mg/dL (9-16); Calcium 7.2 mg/dL (8.4-10.2); Creatinine Clr Calc Pharmacy 36.3; Estimated Glomerular Filt Rate > 60; Glucose Random 157 mg/dL (60-115)
[2022-01-20 09:53] LABS: Anion Gap 17 (12-20); Carbon Dioxide 32 mmol/L (22-29); Chloride 87 mmol/L (96-108); Potassium 3.5 mmol/L (3.3-5.1); Sodium 132 mmol/L (135-145)
[2022-01-20] MEDS: Potassium Chloride Packet 20 MEQ PACKET PO (10:00)
[2022-01-20 10:18] LABS: Appearance Urine Clear; Color Urine Yellow; Glucose Urine UA Negative (Negative); Leukocyte Esterase Urine Large (3+) (Negative); Nitrite Urine Negative (Negative); Specific Gravity - Urine 1.015 (1.005-1.025); UMIC TRIGGER UACC YES; Urine Blood Moderate (2+) (Negative); Urine Ketones Negative (Negative); Urine Protein 30 (1+) mg/dL (Neg-Trace)
[2022-01-20 10:20] LABS: Bacteria Urine None Seen (None Seen); Squamous Epithelial Cell Urine 0-2 /HPF (0-2); UACC Culture Trigger YES; WBC Urine >50 /HPF (0-5)
--- NOTE | 2022-01-20 13:05 | HO.PM.IMPN ---
Subjective Subjective Date of Service: 01/20/22 Interval History: Breathing improving as compared to yesterday.? Resting comfortable Review of Systems still sob ,has dry cough Denies any chest pain or fever or chills or phlegm Physical Exam Vital Signs: Vital Signs: Last Vital Signs Temp 97.7 F 01/20/22 11:16 Pulse 74 01/20/22 11:29 Resp 16 01/20/22 11:29 BP 110/58 L 01/20/22 11:16 Pulse Ox 97 01/20/22 11:16 O2 Del Method 01/20/22 11:16 O2 Flow Rate 2.5 01/20/22 11:16 FiO2 100 01/17/22 20:00 Oxygen Flow Rate 10 01/08/22 09:27 BMI result Body Mass Index 17.4 Appearance: Alert.? Oriented X3.sob with talkin cvs: rrr, [id number] . res:air entry dimished ,has wheezin abd: no rebound or guarding ,nt, bs present. ext pulses present , no cyanosis. neuro: axo3 , nonfocal. Objective Data Active Medications Acetaminophen (Acetaminophen 325 Mg Tablet) 650 mg PO Q6H PRN PRN Reason: Pain, Mild (Pain Scale 1-3) Last Admin: 01/10/22 10:44 Dose: 650 mg Documented By: RERE Albuterol Sulfate (Albuterol Sulfate (0.083%) 2.5 Mg/3 Ml Vial.Neb) 2.5 mg INHALE Q2H PRN PRN Reason: Shortness of Breath/Wheezing Last Admin: 01/19/22 02:49 Dose: 2.5 mg Documented By: MILANA Albuterol/Ipratropium (Albuterol/Iprat 2.5/0.5mg 3 Ml Ampul.Neb) 3 ml INHALE RQ4H WHILE AWAKE [facility] Last Admin: 01/20/22 11:28 Dose: 3 ml Documented By: MAKENNA Albuterol/Ipratropium (Albuterol/Iprat 2.5/0.5mg 3 Ml Ampul.Neb) 3 ml INHALE RQ4H WHILE AWAKE PRN PRN Reason: sob Amiodarone HCl (Amiodarone Hcl 200 Mg Tablet) 200 mg PO BID [facility] Last Admin: 01/20/22 08:48 Dose: 200 mg Documented By: KIARRA Ascorbic Acid (Ascorbic Acid 500 Mg Tablet) 500 mg PO BID [facility] Last Admin: 01/20/22 08:48 Dose: 500 mg Documented By: KIARRA Epoetin Carlos (Epoetin Carlos 10,000 Unit/Ml Vial) 10,000 unit SUBCUT MOWEFR [facility] Last Admin: 01/19/22 13:02 Dose: 10,000 unit Documented By: PHUONG Furosemide (Furosemide 20 Mg/2 Ml Vial) 20 mg IVPUSH BID@0900,1800 [facility]; Protocol Last Admin: 01/19/22 18:20 Dose: 20 mg Documented By: HOLLY Gabapentin (Gabapentin 300 Mg Capsule) 300 mg PO TID [facility] Last Admin: 01/20/22 08:48 Dose: 300 mg Documented By: KIARRA Heparin Sodium (Porcine) (Heparin Sodium,Porcine 5,000 Unit/Ml Vial) 5,000 unit SUBCUT Q12H [facility] Last Admin: 01/20/22 05:50 Dose: 5,000 unit Documented By: DAVONTE Leflunomide (Leflunomide 10 Mg Tablet) 20 mg PO DAILY [facility] Last Admin: 01/20/22 08:48 Dose: 20 mg Documented By: KIARRA Levothyroxine Sodium (Levothyroxine Sodium 50 Mcg Tablet) 50 mcg PO 0600 [facility] Last Admin: 01/20/22 05:49 Dose: 50 mcg Documented By: DAVONTE Melatonin (Melatonin 3 Mg Tablet) 6 mg PO BEDTIME PRN PRN Reason: Insomnia Last Admin: 01/09/22 20:39 Dose: 6 mg Documented By: JAQUAN Methylprednisolone Sodium Succinate (Methylprednisolone Sod Succ 40 Mg/Ml Vial) 40 mg IVPUSH BIDWM [facility] Last Admin: 01/20/22 08:48 Dose: 40 mg Documented By: KIARRA Metoprolol Tartrate (Metoprolol Tartrate 100 Mg Tablet) 100 mg PO BID [facility]; Protocol Last Admin: 01/20/22 08:48 Dose: 100 mg Documented By: KIARRA Morphine Sulfate (Morphine Sulfate 2 Mg/Ml Cartridge) 2 mg IVPUSH Q2H PRN; Protocol PRN Reason: Pain, Moderate (Pain Scale 4-6 Last Admin: 01/20/22 03:08 Dose: 2 mg Documented By: DAVONTE Multivitamins/Vitamin C (Multivitamin Tablet) 1 tab PO DAILY [facility] Last Admin: 01/20/22 08:48 Dose: 1 tab Documented By: KIARRA Patient Own Med ( Zonisamide 25 Mg Capsule) 25 mg PO TID [facility] Last Admin: 01/20/22 08:54 Dose: 25 mg Documented By: KIARRA Nystatin (Nystatin Oral Susp 500,000 Unit/5 Ml Oral.Susp) 500,000 unit PO QID [facility]; Protocol Last Admin: 01/20/22 08:48 Dose: 500,000 unit Documented By: KIARRA Omeprazole (Omeprazole 20 Mg Capsule.Dr) 20 mg PO BID@0630,1630 [facility] Last Admin: 01/20/22 05:53 Dose: Not Given Documented By: DAVONTE Non-Admin Reason: Patient Refused Ondansetron HCl (Ondansetron Hcl 4 Mg/2 Ml Vial) 4 mg IVPUSH Q8H PRN PRN Reason: Nausea and Vomiting Last Admin: 01/18/22 12:27 Dose: 4 mg Documented By: RADHA Oxycodone HCl (Oxycodone Hcl Immed Release 5 Mg Tablet) 5 mg PO Q6H PRN PRN Reason: Pain, Moderate (Pain Scale 4-6 Last Admin: 01/16/22 00:43 Dose: 5 mg Documented By: DAVONTE Pravastatin Sodium (Pravastatin Sodium 20 Mg Tablet) 20 mg PO BEDTIME [facility] Last Admin: 01/19/22 20:28 Dose: 20 mg Documented By: DAVONTE Senna (Sennosides 8.6 Mg Tablet) 17.2 mg PO BEDTIME PRN PRN Reason: Constipation Last Admin: 01/20/22 09:15 Dose: 17.2 mg Documented By: KIARRA Sodium Chloride (0.9 % Sodium Chloride Flush 3 Ml Syringe) 3 ml IVFLUSH QSHIFT [facility] Last Admin: 01/20/22 08:49 Dose: 3 ml Documented By: KIARRA Vitamin D (Cholecalciferol (Vitamin D3) 25 Mcg Tablet) 50 mcg PO DAILY [facility] Last Admin: 01/20/22 08:48 Dose: 50 mcg Documented By: KIARRA Labs CBC & Chem 7: 01/19/22 11:22 01/20/22 08:21 Labs: Laboratory Results - last 24 hr 01/19/22 01/20/22 01/20/22 11:22 08:21 09:40 Anion Gap 17 Estim Creat Clear Calc 36.3 Estimated GFR > 60 Random Glucose 157 H Calcium 7.2 L Vitamin B12 1145 H Folate > 20.0 Urine Color Yellow Urine Appearance Clear Urine pH 7.0 Ur Specific [place] 1.015 Urine Protein 30 (1+) H Urine Glucose (UA) Negative Urine Ketones Negative Urine Blood Moderate (2+) H Urine Nitrite Negative Ur Leukocyte Esterase Large (3+) H Urine RBC 6-10 H Urine WBC >50 H Ur Squamous Epith Cells 0-2 Urine Bacteria None Seen Hyaline Casts 3-5 Assessment and Plan (1) Respiratory failure with hypoxia: Status: Acute (2) Pulmonary fibrosis: Status: Acute (3) Acute systolic CHF (congestive heart failure): Status: Acute Plan 81yo F with HTN, HLD, PVD, RA, Raynaud's phenomenon, AF on warfarin, hypothyroidism, neuropathy presenting with hematuria Acute/chronic HFpEF -acute episode resolved bnp similar cxr-? some congestion started on iv lasix low dose 1.4 liter neg since yesterday -cautious diuresis -follow renals/divalents NSVT/AF with RVR -amiodarone and metoprolol...occasional runs ? -continue telemetry cardio note 01/13/22: Would not resume anticoagulation on discharge.?patient updated( agrees and understands). Acute hypoxic respiratory failure-multifcatorial copd excerebation, component of chf ,possible atlactasis. sob seems improivng abg ,cxr noted leuccocytosis possible sec to steriod use given nebs,magnesium and lasix -sob seems improving over the day seen by pulestella current managment -- nebs,iv steriods ,titrate O2 to maintain sats greater than 90%,added nystatin for oral thrush ?UTI, Proteus mirabilis R to nitrofurantoin - ceftriaxone completed (01/08 to 01/15). # RA - continue leflunomide + prednisone -> methylprednisolone # HLD - continue statin # levothyroxine - continue LT4 # neuropathy - continue gabapentin severe malnutrion?: nutrionist consult possible uti: has pain with urination nicholas taken out overnigh ua abonormal will add antibiotics pvr ? may need staright cath if urinary retention. mech devices, may need try to add s/c heparin for dvt prophylax. DNR DNI Above management discussed with the patient family in detail length they understand that patient overall prognosis is not great, still did not make any decision except patient is DNR DNI. inpatient need: chf and copd excerebation -need? for IV and lasix steroids and oxygen titration Quality Stroke Does the patient have a stroke diagnosis?: No VTE Prior VTE?: No VTE Risk Level:: Medical - moderate - high VTE Device Contraindication: Treatment Not Indicated VTE Drug Contraindication: N/A - Med Ordered
[2022-01-20] MEDS: cefTRIAXone sodium 1 GM in 0.9 % Sodium Chloride 50 ML IV (15:30)
[2022-01-20] MEDS: Furosemide 40 MG/4 ML VIAL IVPUSH (18:51)
--- NOTE | 2022-01-20 18:51 | PM.EVENT ---
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
[2022-01-20 20:13] LABS: B Type Natriuretic Peptide 1292 pg/mL (<100); Troponin-I High Sensitivity 65.1 ng/L (<3.5-17.0)
[2022-01-20] MEDS: Potassium Chloride Packet 20 MEQ PACKET 40 MEQ PO (21:33)
[2022-01-20] MEDS: Furosemide 20 MG/2 ML VIAL 40 MG IVPUSH (21:33)
[2022-01-20] MEDS: Pravastatin Sodium 20 MG TABLET PO (21:34)
[2022-01-20 22:16] LABS: Troponin-I High Sensitivity 74.2 ng/L (<3.5-17.0)
[2022-01-21] VITALS (9 sets, daily range): BP systolic 90–139; BP diastolic 50–90; PULSE 83–96; RESP 12–20; TEMP 36.4–37.1; O2SAT 94–100; BMI 16.9
[2022-01-21] MEDS: Morphine Sulfate 2 MG/ML CARTRIDGE IVPUSH ×4 (00:44→16:46)
[2022-01-21] MEDS: Heparin Sodium,Porcine 5,000 UNIT/ML VIAL 5000 UNIT SUBCUT (05:39)
[2022-01-21] MEDS: Levothyroxine Sodium 50 MCG TABLET PO (05:40)
[2022-01-21 07:46] LABS: Troponin-I High Sensitivity 78.2 ng/L (<3.5-17.0)
[2022-01-21] MEDS: Albuterol/Iprat 2.5/0.5MG 3 ML AMPUL.NEB INHALE (07:46)
[2022-01-21 07:49] LABS: Anion Gap 24 (12-20); Blood Urea Nitrogen 36 mg/dL (9-16); Carbon Dioxide 25 mmol/L (22-29); Chloride 89 mmol/L (96-108); Creatinine Clr Calc Pharmacy 24.1; Estimated Glomerular Filt Rate 45; Glucose Random 176 mg/dL (60-115); Potassium 5.2 mmol/L (3.3-5.1); Sodium 133 mmol/L (135-145)
[2022-01-21 08:24] LABS: Magnesium 2.5 mg/dL (1.6-2.6)
[2022-01-21 08:29] LABS: B Type Natriuretic Peptide 2083 pg/mL (<100)
[2022-01-21] MEDS: Multivitamin TABLET 1 TAB PO (08:37)
[2022-01-21] MEDS: Cholecalciferol (Vitamin D3) 25 MCG TABLET 50 MCG PO (08:37)
[2022-01-21] MEDS: Leflunomide 10 MG TABLET 20 MG PO (08:37)
[2022-01-21] MEDS: Ascorbic Acid 500 MG TABLET PO (08:37)
[2022-01-21] MEDS: Metoprolol Tartrate 100 MG TABLET PO (08:37)
[2022-01-21] MEDS: 0.9 % Sodium Chloride Flush 3 ML SYRINGE IVFLUSH ×2 (08:38→23:28)
[2022-01-21] MEDS: Nystatin Oral Susp 500,000 UNIT/5 ML ORAL.SUSP 500000 UNIT PO (08:38)
[2022-01-21] MEDS: Gabapentin 300 MG CAPSULE PO (08:38)
[2022-01-21] MEDS: methylPREDNISolone Sod Succ 40 MG/ML VIAL IVPUSH (08:38)
[2022-01-21] MEDS: Amiodarone HCL 200 MG TABLET PO (08:38)
[2022-01-21] MEDS: Furosemide 40 MG/4 ML VIAL IVPUSH (08:39)
[2022-01-21 08:46] LABS: MRSA Nasal PCR POSITIVE (Negative); SA Nasal PCR POSITIVE (Negative)
[2022-01-21 08:53] LABS: Hemoglobin 8.8 g/dl (12.0-16.0); Mean Corpuscular HGB Conc 32.6 g/dl (31.0-35.0); Mean Corpuscular Hemoglobin 37.6 pg (27.0-33.0); Red Blood Count 2.34 X10*6/uL (4.20-5.50)
[2022-01-21 09:15] LABS: Mean Corpuscular Volume 115.4 fL (80.0-98.0); NRBC Pct Auto 29.8 /100WBC (0.0-0.2); Platelet Count 100 X10*3/uL (160-400)
[2022-01-21] MEDS: Albuterol Sulfate 7.5 MG, Albuterol Sulfate (0.083%) 2.5 MG 10 MG INHALE (09:28)
[2022-01-21] MEDS: Morphine Sulfate 2 MG/ML CARTRIDGE 1 MG IVPUSH (13:30)
[2022-01-21] MEDS: Scopolamine 1.5 MG PATCH.TD.3 TRANSDERMA (14:38)
--- NOTE | 2022-01-21 14:39 | HO.PM.IMPN ---
Subjective Subjective Date of Service: 01/21/22 Interval History: Acute hypoxemic respiratory failure multifactorial end stage chf ,copd exacerbation, severe anemia, pulmonary fibrosis/bronchiectasis. Possible failure to thrive with severe malnutrition. Review of Systems Patient progressively declining Her shortness of breath not improving, generally very weak Denies any chest pain Physical Exam Vital Signs: Vital Signs: Last Vital Signs Temp 98.3 F 01/21/22 11:58 Pulse 93 01/21/22 11:58 Resp 16 01/21/22 11:58 BP 132/70 01/21/22 11:58 Pulse Ox 100 01/21/22 11:58 O2 Del Method 01/21/22 11:58 O2 Flow Rate 3 01/21/22 11:58 FiO2 100 01/17/22 20:00 Oxygen Flow Rate 10 01/08/22 09:27 BMI result Body Mass Index 16.9 ? Appearance: Awake alert but weak, short of breath cvs: rrr, [id number] . res: Diminished at bases and bilateral rales, wheezing also present abd: no rebound or guarding ,nt, bs present. ext pulses present , no cyanosis. neuro: axo3 , nonfocal. Objective Data Active Medications Acetaminophen (Acetaminophen 325 Mg Tablet) 650 mg PO Q6H PRN PRN Reason: Pain, Mild (Pain Scale 1-3) Last Admin: 01/10/22 10:44 Dose: 650 mg Documented By: RERE Albuterol Sulfate (Albuterol Sulfate (0.083%) 2.5 Mg/3 Ml Vial.Neb) 2.5 mg INHALE Q2H PRN PRN Reason: Shortness of Breath/Wheezing Last Admin: 01/19/22 02:49 Dose: 2.5 mg Documented By: MILANA Albuterol/Ipratropium (Albuterol/Iprat 2.5/0.5mg 3 Ml Ampul.Neb) 3 ml INHALE RQ4H WHILE AWAKE [facility] Last Admin: 01/21/22 10:47 Dose: Not Given Documented By: MAKENNA Non-Admin Reason: pt received 10 mg neb Albuterol/Ipratropium (Albuterol/Iprat 2.5/0.5mg 3 Ml Ampul.Neb) 3 ml INHALE RQ4H WHILE AWAKE PRN PRN Reason: sob Amiodarone HCl (Amiodarone Hcl 200 Mg Tablet) 200 mg PO BID [facility] Last Admin: 01/21/22 08:38 Dose: 200 mg Documented By: ARLYN Ascorbic Acid (Ascorbic Acid 500 Mg Tablet) 500 mg PO BID [facility] Last Admin: 01/21/22 08:37 Dose: 500 mg Documented By: ARLYN Epoetin Carlos (Epoetin Carlos 10,000 Unit/Ml Vial) 10,000 unit SUBCUT MOWEFR [facility] Last Admin: 01/19/22 13:02 Dose: 10,000 unit Documented By: PHUONG Furosemide (Furosemide 40 Mg/4 Ml Vial) 40 mg IVPUSH BID@0900,1800 [facility]; Protocol Last Admin: 01/21/22 08:39 Dose: 40 mg Documented By: ARLYN Gabapentin (Gabapentin 300 Mg Capsule) 300 mg PO TID [facility] Last Admin: 01/21/22 08:38 Dose: 300 mg Documented By: ARLYN Heparin Sodium (Porcine) (Heparin Sodium,Porcine 5,000 Unit/Ml Vial) 5,000 unit SUBCUT Q12H [facility] Last Admin: 01/21/22 05:39 Dose: 5,000 unit Documented By: DAVONTE Ceftriaxone Sodium 1 gm/ (Sodium Chloride) 50 mls @ 100 mls/hr IV Q24H [facility] Last Admin: 01/21/22 14:09 Dose: Not Given Documented By: PHUONG Non-Admin Reason: [employer] pt Leflunomide (Leflunomide 10 Mg Tablet) 20 mg PO DAILY [facility] Last Admin: 01/21/22 08:37 Dose: 20 mg Documented By: ARLYN Levothyroxine Sodium (Levothyroxine Sodium 50 Mcg Tablet) 50 mcg PO 0600 [facility] Last Admin: 01/21/22 05:40 Dose: 50 mcg Documented By: DAVONTE Melatonin (Melatonin 3 Mg Tablet) 6 mg PO BEDTIME PRN PRN Reason: Insomnia Last Admin: 01/09/22 20:39 Dose: 6 mg Documented By: JAQUAN Methylprednisolone Sodium Succinate (Methylprednisolone Sod Succ 40 Mg/Ml Vial) 40 mg IVPUSH BIDWM [facility] Last Admin: 01/21/22 08:38 Dose: 40 mg Documented By: ARYLN Metoprolol Tartrate (Metoprolol Tartrate 100 Mg Tablet) 100 mg PO BID [facility]; Protocol Last Admin: 01/21/22 08:37 Dose: 100 mg Documented By: ARLYN Morphine Sulfate (Morphine Sulfate 2 Mg/Ml Cartridge) 2 mg IVPUSH Q2H PRN PRN Reason: Discomfort/Shortness of breath Multivitamins/Vitamin C (Multivitamin Tablet) 1 tab PO DAILY [facility] Last Admin: 01/21/22 08:37 Dose: 1 tab Documented By: ARLYN Nitroglycerin (Nitroglycerin 0.4 Mg Tab.Subl) 0.4 mg SUBLINGUAL Q5MX3 PRN PRN Reason: chest pain Patient Own Med ( Zonisamide 25 Mg Capsule) 25 mg PO TID [facility] Last Admin: 01/21/22 08:49 Dose: 25 mg Documented By: ARLYN Nystatin (Nystatin Oral Susp 500,000 Unit/5 Ml Oral.Susp) 500,000 unit PO QID [facility]; Protocol Last Admin: 01/21/22 13:19 Dose: Not Given Documented By: PHUONG Non-Admin Reason: [employer] Omeprazole (Omeprazole 20 Mg Capsule.Dr) 20 mg PO BID@0630,1630 [facility] Last Admin: 01/21/22 05:41 Dose: Not Given Documented By: DAVONTE Non-Admin Reason: Patient Refused Ondansetron HCl (Ondansetron Hcl 4 Mg/2 Ml Vial) 4 mg IVPUSH Q8H PRN PRN Reason: Nausea and Vomiting Last Admin: 01/18/22 12:27 Dose: 4 mg Documented By: RADHA Pravastatin Sodium (Pravastatin Sodium 20 Mg Tablet) 20 mg PO BEDTIME [facility] Last Admin: 01/20/22 21:34 Dose: 20 mg Documented By: DAVONTE Scopolamine (Scopolamine 1.5 Mg Patch.Td.3) 1.5 mg TRANSDERMA Q72H [facility] Last Admin: 01/21/22 14:38 Dose: 1.5 mg Documented By: PHUONG Senna (Sennosides 8.6 Mg Tablet) 17.2 mg PO BEDTIME PRN PRN Reason: Constipation Last Admin: 01/20/22 09:15 Dose: 17.2 mg Documented By: IKARRA Sodium Chloride (0.9 % Sodium Chloride Flush 3 Ml Syringe) 3 ml IVFLUSH QSHIFT [facility] Last Admin: 01/21/22 08:38 Dose: 3 ml Documented By: ARLYN Vitamin D (Cholecalciferol (Vitamin D3) 25 Mcg Tablet) 50 mcg PO DAILY [facility] Last Admin: 01/21/22 08:37 Dose: 50 mcg Documented By: ARLYN Labs CBC & Chem 7: 01/21/22 08:27 01/21/22 06:32 Labs: Laboratory Results - last 24 hr 01/20/22 01/20/22 01/20/22 15:54 19:33 21:44 MCV MCH MCHC RDW Plt Count MPV Absolute Nucleated RBC Nucleated RBC % (auto) Anion Gap Estim Creat Clear Calc Estimated GFR Random Glucose Calcium Magnesium Troponin I High Sens 65.1 H* D 74.2 H* B-Natriuretic Peptide 1292 H Nasal Screen MRSA (PCR) POSITIVE A Nasal S. aureus Screen POSITIVE A Nasal MRSA/S.aureus Interp SEE NOTE 01/21/22 01/21/22 01/21/22 06:32 06:32 08:27 MCV 115.4 H MCH 37.6 H MCHC 32.6 RDW 22.0 H Plt Count 100 L D MPV 13.0 H Absolute Nucleated RBC 6.260 H Nucleated RBC % (auto) 29.8 H Anion Gap 24 H Estim Creat Clear Calc 24.1 Estimated GFR 45 Random Glucose 176 H Calcium 8.0 L D Magnesium 2.5 Troponin I High Sens 78.2 H* B-Natriuretic Peptide 2083 H Nasal Screen MRSA (PCR) Nasal S. aureus Screen Nasal MRSA/S.aureus Interp Microbiology Microbiology Results: Microbiology 01/20/22 00:00 Urine Culture - Final Urine Catheterized - Howard Catheter No growth. Assessment and Plan (1) Respiratory failure with hypoxia: Status: Acute (2) Acute systolic CHF (congestive heart failure): Status: Acute (3) COPD exacerbation: Status: Acute (4) Atrial fibrillation with RVR: Status: Acute (5) UTI (urinary tract infection): Status: Acute Plan 81yo F with HTN, HLD, PVD, RA, Raynaud's phenomenon, AF on warfarin, hypothyroidism, neuropathy presenting with hematuria, possible severe malnutrition-treated with CBI, also patient has hospital course complicated by acuteAcute/chronic HFpEF, AFib with RVR, has underlying severe anemia jihove witness of it [place] does not want transfusion, UTI: Patient has progressive acute hypoxemic respiratory failure which is multifactorial-end stage chf ,copd exacerbation, severe anemia, pulmonary fibrosis/bronchiectasis: Patient was treated with IV diuresis, IV steroids, antibiotics, IV iron patient condition does not improve much, in addition patient has severe malnutrition and possible failure to thrive she does not want any alternative nutrition including G tubes-at this point patient decided for comfort measures, no blood draws. HCP notified also. Quality Stroke Does the patient have a stroke diagnosis?: No VTE Prior VTE?: No VTE Risk Level:: Medical - moderate - high VTE Device Contraindication: Treatment Not Indicated VTE Drug Contraindication: N/A - Med Ordered
--- NOTE | 2022-01-21 18:38 | PC.NURSE ---
patient mostly sleeping,answering questions with yes or no answers,family friend at bedside
[2022-01-21] MEDS: Furosemide 40 MG/4 ML VIAL 20 MG IVPUSH (20:09)
--- NOTE | 2022-01-22 06:31 | PC.NURSE ---
0620 pt with no respiration or heart beat. and supervisor [employer] notified.friend Soledad notified.
--- NOTE | 2022-01-22 06:42 | PC.NURSE ---
[employer] notified and declined pt.
--- NOTE | 2022-01-22 07:18 | PM.EVENT ---
Event Note Date of Service: 01/22/22 Event Note: pt passed at 6:30 am pupils non-reactive no resp effort, no HR Contact notified
--- NOTE | 2022-01-22 07:31 | P.DS_ITS ---
DS: Providers Provider Date of Service: 01/22/22 Date of admission: 01/08/22 23:17 Primary care physician: Leonor Fitzpatrick MD Consults: 01/08/22 23:22 Consult to Cardiology Routine Consulting Provider: Kenny Martin Reason for consultation: Afib with RVR Consult to Urology Routine Consulting Provider: Brenden Moore Reason for consultation: Hematuria 01/12/22 07:32 Consult to Hematology / Oncology Routine Consulting Provider: [facility] [place] Oncology/Hematology Reason for consultation: anemia, Mu-ism. Epo x1 given 01/18/22 14:14 Consult to Wound Care Routine Consulting Provider: [facility] [place] Wound Care Management Reason for consultation: left ankle pressure stage ?2-3 injury Has provider been notified: No 01/19/22 10:42 Consult to Pulmonology Routine Consulting Provider: Jeni Nogueira Reason for consultation: acute hYPOXEMIC RESPIRATORY FAILURE/copd Has provider been notified: No DS: Diagnosis Discharge Diagnosis (1) Respiratory failure with hypoxia: Status: Acute (2) Acute systolic CHF (congestive heart failure): Status: Acute (3) COPD exacerbation: Status: Acute (4) Atrial fibrillation with RVR: Status: Acute (5) UTI (urinary tract infection): Status: Acute (6) Pulmonary fibrosis: Status: Acute (7) Bronchiectasis: Status: Acute (8) Blood clot in bladder: Status: Acute (9) Hematuria: Status: Acute (10) Acute blood loss anemia: Status: Acute (11) Severe malnutrition: Status: Acute DS: Summary Hospital Course Hospital Course: 81-year-old female female with a past medical history of hypertension, hyperlipidemia, peripheral vascular disease, rheumatoid arthritis, Raynaud's phenomenon, atrial fibrillation on Coumadin, hypothyroidism, neuropathy, Jehovah Witness presented to the hospital today with a chief complaint of hematuria.? Patient reports that she noted to have blood in the urine started around 15:00 this afternoon; mentions that she did not have any prior episodes of blood in the urine.? Denies any urinary frequency urgency.? Denies any abdominal pain.? Patient denies any chest pain or palpitations.? Denies any lightheadedness or dizziness.? Denies any shortness of breath.? Review of all other systems is negative except mentioned above ER course: Per ER team patient noted to have hematuria; CT scan showed blood clot in the bladder; urology was notified; started on CBI.? Patient blood pressure is sl ightly dropped- patient was given IV fluid bolus.? Blood pressure on the soft side.? Patient reportedly to have weakness- after extensive discussions with the ER team patient refused any blood transfusions.? Patient has not received any albumin, FFP, blood transfusion in the ER.? Patient's hemoglobin dropped from 14-8.6.? Received vitamin K IV as INR was noted to be 3.1. ?rapid AFib:? Patient heart rate noted to be in 120s to 140s. ? Admitted to the hospital for further management. Hospital course: 81yo F with HTN, HLD, PVD, RA, Raynaud's phenomenon, AF on warfarin, hypothyroidism, neuropathy presenting with hematuria, possible severe malnutrition and severe anemia-hemturia /bladder clot -intially started on with CBI, nutritional support,procrit,iv iron ,iv antibiotics for uti, acuteAcut e/chronic HFpEF, AFib with RVR- started on diuresis and antarrythmics, has underlying severe anemia jihova witness does not want transfusion:? Patient has progressive acute hypoxemic respiratory failure which is multifactorial-end stage chf ,copd exacerbation, severe anemia, pulmonary fibrosis/bronchiectasis:? continued with IV diuresis, IV steroids, IV iron patient condition does not improve much, in addition patient has severe malnutrition and possible failure to thrive she does not want any alternative nutrition -at this point patient decided for comfort measures, she passed comfortably at 6:30 am. Time Spent with Patient Time attestation: Total time spent providing and/or coordinating discharge services: Discharge coordination time: Greater than 30 minutes Quality: Safe Use of Opioids Does Pt have an Active Cancer Diagnosis on the Problem List?: No Quality: Stroke Does the patient have a stroke diagnosis?: No Physical Exam Vital Signs: Vital Signs: Last Vital Signs Temp 97.5 F 01/21/22 23:40 Pulse 91 01/21/22 23:40 Resp 18 01/21/22 23:40 BP 90/50 L 01/21/22 23:40 Pulse Ox 94 01/21/22 17:35 O2 Del Method 01/22/22 04:00 O2 Flow Rate 4 01/22/22 04:00 FiO2 100 01/17/22 20:00 Oxygen Flow Rate 01/08/22 09:27 BMI result Body Mass Index 16.9 passed overnight . DS: Data Data Completed and Pending Labs on day of discharge: Laboratory Results - last 24 hr 01/20/22 01/21/22 01/21/22 15:54 06:32 06:32 WBC RBC Hgb Hct MCV MCH MCHC RDW Plt Count MPV Absolute Nucleated RBC Nucleated RBC % (auto) Sodium 133 L Potassium 5.2 H D Chloride 89 L Carbon Dioxide 25 Anion Gap 24 H BUN 36 H Creatinine 1.17 Estim Creat Clear Calc 24.1 Estimated GFR 45 Random Glucose 176 H Calcium 8.0 L D Magnesium 2.5 Troponin I High Sens 78.2 H* B-Natriuretic Peptide 2083 H Nasal Screen MRSA (PCR) POSITIVE A Nasal S. aureus Screen POSITIVE A Nasal MRSA/S.aureus Interp SEE NOTE 01/21/22 08:27 WBC 21.0 H RBC 2.34 L Hgb 8.8 L Hct 27.0 L MCV 115.4 H MCH 37.6 H MCHC 32.6 RDW 22.0 H Plt Count 100 L D MPV 13.0 H Absolute Nucleated RBC 6.260 H Nucleated RBC % (auto) 29.8 H Sodium Potassium Chloride Carbon Dioxide Anion Gap BUN Creatinine Estim Creat Clear Calc Estimated GFR Random Glucose Calcium Magnesium Troponin I High Sens B-Natriuretic Peptide Nasal Screen MRSA (PCR) Nasal S. aureus Screen Nasal MRSA/S.aureus Interp Discharge Plan Discharge Date/Time: 01/22/22 06:30 Patient Disposition: Discharge Diagnosis: severe anemia,chf,copd Referrals: Leonor Fitzpatrick MD [Primary Care Provider] - 1 Week Discharge Medications: No Action Prolia 60 mg/mL syringe 60 mg subcut [id number] Qty: 1 1RF Rx Instructions: last dose 11/03/21 (DME) Transport wheelchair See Rx Instructions .Route .MEDSUPPLY Qty: 1 0RF Rx Instructions: As directed (DME) walker Misc See Rx Instructions .Route Qty: 1 0RF Rx Instructions: As directed (DME) bedside commode Kit See Rx Instructions .Route Qty: 1 0RF Rx Instructions: As directed (DME) Ultra-Light Rollator Misc See Rx Instructions .Route Qty: 1 0RF Rx Instructions: use As directed prednisone 1 mg tablet 2 mg PO DAILY Qty: 60 2RF ascorbate calcium (vitamin C) 500 mg tablet 500 mg PO BID Qty: 180 1RF cholecalciferol (vitamin D3) 50 mcg (2,000 unit) capsule 50 mcg PO DAILY Qty: 90 1RF coenzyme Q10 [Co Q-10] 100 mg capsule 100 mg PO DAILY Qty: 90 1RF levothyroxine 50 mcg tablet 50 mcg PO QAM Qty: 90 1RF metoprolol tartrate 100 mg tablet 100 mg PO BID Qty: 180 1RF pravastatin 20 mg tablet 20 mg PO BEDTIME Qty: 90 1RF vitamin B complex Tablet 1 tab PO DAILY Qty: 90 1RF warfarin 5 mg tablet 2.5 mg PO DAILY Qty: 90 1RF Protocol: Dose Management Condition: Saturday Dose/Route: 2.5 mg Instruction: 0.5 x 5 mg tablets Condition: Saturday Dose/Route: 2.5 mg Instruction: 0.5 x 5 mg tablets Condition: Saturday Dose/Route: 2.5 mg Instruction: 0.5 x 5 mg tablets Condition: Saturday Dose/Route: 2.5 mg Instruction: 0.5 x 5 mg tablets Condition: Dose/Route: 2.5 mg Instruction: 0.5 x 5 mg tablets Condition: Saturday Dose/Route: 2.5 mg Instruction: 0.5 x 5 mg tablets Condition: Saturday Dose/Route: 2.5 mg Instruction: 0.5 x 5 mg tablets Protocol Text: Adjustment Start Date: Saturday09/13/20 INR Value: 2.8 INR Date: 09/08/20 Recheck Date: 09/21/20 Additional Instructions: Pt to take 2.5mg daily and have repeat draw in 2 weeks 09/21/20 gabapentin 300 mg capsule 300 mg PO TID 30 Days Qty: 90 8RF (DME) rollator walkeer See Rx Instructions .Route .MEDSUPPLY Qty: 1 0RF Rx Instructions: As directed leflunomide 20 mg tablet 20 mg PO DAILY Qty: 60 0RF ondansetron HCl 4 mg tablet 4 mg PO Q8H PRN (Reason: nausea and vomiting) Qty: 30 0RF zonisamide 25 mg capsule 25 mg PO TID Qty: 90 6RF (DME) nebulizers Misc See Rx Instructions .Route Qty: 1 0RF Rx Instructions: As directed Discharge Date/Time: 01/22/22 06:30
== END 2022-01-22 06:30 | disposition expired | DRG 813 ==
LOC: HO.ED 18:13 → HO.EDOVER 23:27 → HO.IMC 01-10 09:23 → HO.S3 01-21 16:31
PROVIDERS: Family Medicine; Hospitalist; Internal Medicine; Physician Assistant; Student in an Organized Health Care Education/Training Program; Admitting Provider Hospitalist; Emergency Provider Emergency Medicine; PCP Internal Medicine; Visit Provider Internal Medicine
DX: D68.32 Hemorrhagic disorder due to extrinsic circulating anticoagulants (principal); E43 Unspecified severe protein-calorie malnutrition; I50.33 Acute on chronic diastolic (congestive) heart failure; J96.01 Acute respiratory failure with hypoxia; N39.0 Urinary tract infection, site not specified; J47.1 Bronchiectasis with (acute) exacerbation; D62 Acute posthemorrhagic anemia; I48.20 Chronic atrial fibrillation, unspecified; Z68.1 Body mass index [BMI] 19.9 or less, adult; J98.11 Atelectasis; M87.9 Osteonecrosis, unspecified; I47.29 Other ventricular tachycardia; R31.0 Gross hematuria; I34.0 Nonrheumatic mitral (valve) insufficiency; I25.10 Atherosclerotic heart disease of native coronary artery without angina pectoris; E03.9 Hypothyroidism, unspecified; I73.9 Peripheral vascular disease, unspecified; M06.9 Rheumatoid arthritis, unspecified; I73.00 Raynaud's syndrome without gangrene; I95.9 Hypotension, unspecified; Z66 Do not resuscitate; T45.515A Adverse effect of anticoagulants, initial encounter; E78.5 Hyperlipidemia, unspecified; J84.10 Pulmonary fibrosis, unspecified; G62.9 Polyneuropathy, unspecified; Z20.822 Contact with and (suspected) exposure to COVID-19; Z95.1 Presence of aortocoronary bypass graft; B96.4 Proteus (mirabilis) (morganii) as the cause of diseases classified elsewhere; Z53.1 Procedure and treatment not carried out because of patient's decision for reasons of belief and group pressure; R62.7 Adult failure to thrive; Z87.891 Personal history of nicotine dependence; Z88.6 Allergy status to analgesic agent; Z88.8 Allergy status to other drugs, medicaments and biological substances; Z79.01 Long term (current) use of anticoagulants; Z79.52 Long term (current) use of systemic steroids; Z79.899 Other long term (current) drug therapy
CPT/HCPCS: 36415; 36600; 51798; 71045; 74177; 80048; 80053; 81001; 81003; 82272; 82607; 82728; 82746; 82803; 83540; 83605; 83735; 83880; 84145; 84443; 84484; 85014; 85018; 85025; 85027; 85384; 85610; 85730; 86850; 86900; 86901; 87040; 87086; 87088; 87186; 87635; 87640; 87641; 93005; 94640; 96361; 96365; 96375; 97110; 97163; 97530; 99285; C1758; J0696; J0885; J1756; J1940; J2270; J2405; J2920; J3010; J3430; J3475; Q9967

== ENCOUNTER 2022-01-09 07:08 | Outpatient (REF) | payer MEDICARE, MEDICAID, SELFPAY | END 2022-01-09 07:09 | disposition home or self-care (01) | LOC: HO.LHD 07:08 | PROVIDERS: Visit Provider Internal Medicine | DX: Z13.89 Encounter for screening for other disorder (principal) ==